=== PATIENT | male | born 1965 | race Two or more races ===

== ENCOUNTER 2020-01-01 21:50 | Inpatient (IN) | payer OTHER, BC ==
--- NOTE | 2020-01-01 22:50 | ER Document Report ---
ED General - General Chief Complaint: S/S of Possible Stroke Stated Complaint: DIZZINESS,VOMITING - HPI Notes: 84-year-old male history of hypertension, hyperlipidemia, diabetes, stroke (residual poor balance and memory) presents with approximately 12 hours of left- sided arm and leg weakness. Patient says he left [place] to drive to [place] this morning at 11 AM and was normal and while he was in the car he noticed he did not "feel well "and by the time he stopped for gas at unknown time he noticed his left side was weak. Patient says yes when asked if he is on "blood thinners," but then denies being on any of the anticoagulants and anti platelets I recited to him. Says he is on them for prior stroke. She also has felt exceptionally tired since onset of his drive which she says was abnormal for him. Since arriving to [place] he is also had dizziness and few episodes of emesis. Patient says earlier he felt like his speech was slurred but that has resolved. Patient denies change in vision, numbness, trauma, headache, chest pain, shortness of breath, prior episodes - Related Data Allergies/Adverse Reactions: No Known Allergies Allergy (Unverified 01/02/20 02:30) Past Medical History - General Information source: Patient - Social History Smoking Status: Former Smoker Family History: Reviewed & Not Pertinent Patient has homicidal ideation: No Review of Systems - Review of Systems Notes: REVIEW OF SYSTEMS: CONSTITUTIONAL : Denies fever, chills, or sweats. EENT: Denies recent cold/sinus symptoms, denies throat pain CARDIOVASCULAR: Denies chest pain, [place] RESPIRATORY: Denies cough, denies shortness of breath. GASTROINTESTINAL: Denies abdominal pain, +nausea/vomiting. GENITOURINARY: Denies difficulty urinating, painful urination. MUSCULOSKELETAL: Denies neck pain, back pain. SKIN: Denies rash or skin lesions. HEMATOLOGIC : Denies easy bruising or bleeding. LYMPHATIC: Denies swollen, enlarged glands. NEUROLOGICAL: Denies headache, +change in gait. PSYCHIATRIC: Denies anxiety or stress or depression. Physical Exam - Vital signs Vitals: Temp Pulse Resp BP Pulse Ox 97.7 F 78 18 152/95 H 100 01/01/20 22:24 01/01/20 22:24 01/01/20 22:24 01/01/20 22:24 01/01/20 22:24 - Notes Notes: PHYSICAL EXAMINATION: GENERAL: Middle aged adult male HEAD: Atraumatic, normocephalic. EYES: Pupils equal round and appropriate constriction, sclera anicteric, conjunctiva are normal. ENT: nares patent, moist mucous membranes. NECK: Normal range of motion, supple without lymphadenopathy LUNGS: Breath sounds clear to auscultation bilaterally and equal. No wheezes rales or rhonchi. HEART: Regular rate and rhythm without murmurs ABDOMEN: Soft, nontender, no guarding, no masses, no CVAT EXTREMITIES: Normal range of motion, no pitting or edema. No cyanosis. NEUROLOGICAL: Awake, alert, conversing appropriately, cranial nerves II through XII intact bilaterally, 5 out of 5 strength in right arm and right leg, left arm drifts without touching bed and left leg able to wiggle toes and move sideways but not able to move against gravity, [id number] normal bilaterally, no nystagmus PSYCH: Normal mood, normal affect. SKIN: Warm, Dry, normal turgor, no rashes or lesions noted. Course - Re-evaluation Re-evalutation: 01/02/20 00:52 Patient symptoms highly concerning for right MCA stroke, but patient outside of TPA window and no large vessel occlusion found on CTA which was performed to see if patient would be candidate for endovascular thrombectomy. Because of these findings have admitted patient to [facility] for further stroke work-up, discussed patient with Dr. Sahni who has accepted him. - Vital Signs Vital signs: Temp Pulse Resp BP Pulse Ox 97.8 F 102 H 20 153/95 H 99 01/02/20 03:44 01/02/20 04:00 01/02/20 04:00 01/02/20 04:00 01/02/20 04:00 - Laboratory Result Diagrams: 01/01/20 23:10 01/01/20 23:10 Laboratory results interpreted by me: 01/01/20 01/01/20 23:10 23:10 RBC 4.30 L Lander % (Auto) 2.1 L Seg Neutrophils % 82.5 H Sodium 136.6 L BUN 29 H Glucose 291 H - EKG Interpretation by Me Additional EKG results interpreted by me: 01/01/20 23:30 [address] elevations or depressions, right bundle branch block and LAFB, QTC 532 but has conduction delay Discharge - Discharge Clinical Impression: Stroke Qualifiers: CVA mechanism: unspecified Qualified Code(s): I63.9 - Cerebral infarction, unspecified Condition: Stable Disposition: ADMITTED INPATIENT Admitting Provider: Bora (Hospitalist) Unit Admitted: [facility]
[2020-01-01 23:21] LABS: ABSOLUTE BASOPHILS # (AUTO) 0.1 10^3/uL (0.0-0.2); ABSOLUTE LYMPHOCYTES (AUTO) 1.1 10^3/uL (0.5-4.7); ABSOLUTE MONOCYTES (AUTO) 0.2 10^3/uL (0.1-1.4); ABSOLUTE NEUT (AUTO) 6.1 10^3/uL (1.7-8.2); BASOPHILS % (AUTO) 0.7 % (0-2); EOSINOPHILS % (AUTO) 0.1 % (0-6); HEMATOCRIT 39.6 % (37.9-51.0); HEMOGLOBIN 13.8 g/dL (13.5-17.0); LYMPHOCYTES % (AUTO) 14.6 % (13-45); MEAN CORPUSCULAR HEMOGLOBIN 32.2 pg (27.0-33.4); MEAN CORPUSCULAR HGB CONC 34.9 g/dL (32.0-36.0); MEAN CORPUSCULAR VOLUME 92 fl (80-97); MONOCYTES % (AUTO) 2.1 % (3-13); PLATELET COUNT 185 10^3/uL (150-450); RED CELL DISTRIBUTION WIDTH 13.8 % (11.5-14.0); SEGMENTED NEUTROPHILS % (AUTO) 82.5 % (42-78); TOTAL CELLS COUNTED % (AUTO) 100 %; WHITE BLOOD COUNT 7.4 10^3/uL (4.0-10.5)
--- NOTE | 2020-01-01 23:28 | RADIOLOGY REPORT (SQ) ---
EXAM DESCRIPTION: XR CHEST 1 VIEW COMPLETED DATE/TME: 01/01/2020 22:43 CLINICAL HISTORY: 54 years, Male, left sided weakness COMPARISON: None. NUMBER OF VIEWS: 1 TECHNIQUE: Portable chest LIMITATIONS: None. FINDINGS: The heart size is normal. Lungs are clear. No pneumothorax IMPRESSION: Negative chest copyright 2011 [employer]- All Rights Reserved
[2020-01-01 23:37] LABS: INTERNATIONAL RATION (INR) 1.03; PROTHROMBIN TIME 13.5 SEC (11.4-15.4)
[2020-01-01 23:38] LABS: PARTIAL THROMBOPLASTIN TIME 26.4 SEC (23.5-35.8)
[2020-01-01 23:45] LABS: ALBUMIN 4.1 g/dL (3.5-5.0); ALKALINE PHOSPHATASE 70 U/L (38-126); ANION GAP 12 (5-19); ASPARTATE AMINO TRANSFERASE 31 U/L (17-59); BILIRUBIN,TOTAL 0.6 mg/dL (0.2-1.3); BLOOD UREA NITROGEN 29 mg/dL (7-20); CALCIUM 9.2 mg/dL (8.4-10.2); CARBON DIOXIDE 25 mmol/L (22-30); CHLORIDE 100 mmol/L (98-107); CREATINE KINASE 78 U/L (55-170); GLUCOSE 291 mg/dL (75-110); TOTAL PROTEIN 7.3 g/dL (6.3-8.2)
[2020-01-01 23:53] LABS: CREATINE KINASE MB 1.86 ng/mL (<4.55)
--- NOTE | 2020-01-01 23:53 | RADIOLOGY REPORT (SQ) ---
CT of the head: 01/01/2020 10:52 PM CDT HISTORY: 54-year-old patient with left-sided weakness. COMPARISON: None available TECHNIQUE: Multiple axial contiguous images were obtained through the head without intravenous contrast administered. This exam was performed according to our departmental dose-optimization program, which includes automated exposure control, adjustment of the mA and/or KV according to the patient's size and/or use of iterative reconstruction technique. FINDINGS: The ventricles are within normal limits for size. Both orbits appear unremarkable. The mastoid air cells appear clear. There is mild mucoperiosteal thickening of the ethmoid and maxillary sinuses. The calvarium is intact. No extra-axial fluid collection is seen. The bethea-white matter differentiation is within normal limits. No midline shift or mass effect is apparent. There are no findings to suggest acute intracranial hemorrhage. There is a hypodensity at the right cerebellum some volume loss, likely representing encephalomalacia. IMPRESSION: No acute intracranial hemorrhage is seen. There is a hypodensity with volume loss seen at the right cerebellum, most likely due to remote infarct. If there is persistent clinical concern for a neurologic deficit, consider MRI brain with diffusion-weighted sequences for further evaluation.
[2020-01-01 23:57] LABS: TROPONIN I < 0.012 ng/mL
--- NOTE | 2020-01-02 00:05 | RADIOLOGY REPORT (SQ) ---
CTA head and neck: Technique: Postcontrast imaging was obtained through the head and neck after intravenous contrast is administered utilizing a CTA protocol. MIP reconstructed sagittal and coronal images were also obtained. NASCET Criteria was utilized for evaluation of potential vascular stenosis in the neck. This exam was performed according to our departmental dose-optimization program, which includes automated exposure control, adjustment of the mA and/or KV according to the patient's size and/or use of iterative reconstruction technique. COMPARISON: None available HISTORY: 54-year-old patient with concern for an acute stroke. FINDINGS: CTA HEAD: No discrete filling defect is seen within the middle, anterior, and posterior cerebral arteries. The visualized vertebral arteries appear unremarkable. The carotid arteries appear to be well opacified. No obvious aneurysm or stenosis is readily apparent. The basilar artery and visualized portions of the posterior circulation appear unremarkable. CTA NECK: There is normal three-vessel aortic arch morphology. The brachiocephalic and proximal subclavian arteries are patent and normal in course and caliber. The common carotid arteries, carotid bulbs and proximal external carotid arteries are patent and normal in course and caliber. The cervical segments of the internal carotid arteries are patent and normal in course and caliber. The left vertebral artery is dominant. The vertebral arteries are patent and normal in course and caliber. IMPRESSION: No discrete filling defect, aneurysm, or obvious stenosis is seen within the anterior or posterior intracranial circulation. There are no findings to suggest a hemodynamically significant stenosis of the carotid arteries.
[2020-01-02] MEDS ORDERED: ONDANSETRON HCL INJ/PF 4 MG/2 ML SDV IV ONE (00:39)
[2020-01-02] MEDS ORDERED: GLUCAGON,HUMAN RECOMB 1 MG INJ IM PRN ×3 (00:51→12:35)
[2020-01-02] MEDS ORDERED: DEXTROSE 40% GEL 15 GM TUBE PO PRN ×6 (00:51→12:35)
[2020-01-02] MEDS ORDERED: DEXTROSE 50%-WATER 25 GM/50 ML DISP.SYRIN IV PRN ×6 (00:51→12:35)
[2020-01-02] MEDS ORDERED: DOCUSATE SODIUM 100 MG CAPSULE PO PRN (00:51)
[2020-01-02] MEDS ORDERED: MAGNESIUM HYDROXIDE SUSP 30 ML UDCUP PO PRN (00:51)
[2020-01-02] MEDS ORDERED: ASPIRIN 325 MG TABLET, ENT COATED PO ONE (02:45)
[2020-01-02] MEDS ORDERED: ATORVASTATIN CALCIUM 80 MG TABLET PO ONE (02:45)
--- NOTE | 2020-01-02 03:37 | PDOC H&P ---
History of Present Illness Admission Date/PCP: 01/02/20 01:03 Patient complains of: Left-sided weakness History of Present Illness: ABEBA MCLEOD is a 54 year old male with a past medical history of hypertension, diabetes, cerebellar CVA with residual balance deficits. Patient presents 12 hours after the onset of left-sided weakness occurring while driving from [place] to his business in [place]. He admits associated nausea and vomiting but denies headache palpitations confusion or slurred speech. He denies recent change in [id number] or prescribed medication regiment. His initial work-up was unremarkable for an acute event and is referred to the hospitalist for admission. Past Medical History Cardiac Medical History: Reports: Hyperlipidema, Hypertension Pulmonary Medical History: Denies: None EENT Medical History: Reports: None Neurological Medical History: Reports: Ischemic CVA Endocrine Medical History: Reports: Diabetes Mellitus Type 2 Renal/ Medical History: Reports: None Malignancy Medical History: Reports: None GI Medical History: Reports: None Musculoskeltal Medical History: Reports: None Skin Medical History: Reports: None Psychiatric Medical History: Reports: None Traumatic Medical History: Reports: None Hematology: Reports: None Infectious Medical History: Reports: None Past Surgical History Past Surgical History: Reports: None Social History Information Source: Patient, H Records Lives with: Family Smoking Status: Former Smoker Frequency of Alcohol Use: None Drugs: None - Advance Directive Resuscitation Status: Full Code Family History Family History: CAD, Hypertension Parental Family History Reviewed: Yes Children Family History Reviewed: Yes Sibling(s) Family History Reviewed.: Yes Medication/Allergy Allergies/Adverse Reactions: No Known Allergies Allergy (Unverified 01/02/20 02:30) Review of Systems Constitutional: PRESENT: as per HPI, weakness. ABSENT: fever(s), headache(s), night sweats Eyes: ABSENT: visual disturbances Ears: ABSENT: hearing changes Cardiovascular: ABSENT: chest pain, dyspnea on exertion, edema, orthropnea, palpitations Respiratory: ABSENT: cough, hemoptysis Gastrointestinal: ABSENT: abdominal pain, constipation, diarrhea, hematemesis, hematochezia, nausea, vomiting Genitourinary: ABSENT: dysuria, hematuria Musculoskeletal: PRESENT: as per HPI, muscle weakness. ABSENT: back pain, joint swelling Integumentary: ABSENT: rash, wounds Neurological: PRESENT: as per HPI, abnormal gait. ABSENT: abnormal movements, abnormal speech, confusion, dizziness Psychiatric: ABSENT: anxiety, depression, homidical ideation, suicidal ideation Endocrine: ABSENT: cold intolerance, heat intolerance, polydipsia, polyuria Hematologic/Lymphatic: ABSENT: easy bleeding, easy bruising Physical Exam Vital Signs: Temp Pulse Resp BP Pulse Ox 97.7 F 120 H 22 H 146/114 H 96 01/01/20 22:32 01/02/20 00:00 01/02/20 00:00 01/02/20 02:00 01/02/20 02:01 Intake & Output 12/31/19 01/01/20 01/02/20 11:59 11:59 11:59 Weight 78.471 kg General appearance: PRESENT: cooperative, mild distress, well-developed, well- nourished Head exam: PRESENT: atraumatic, normocephalic Eye exam: PRESENT: conjunctiva pink, EOMI, PERRLA. ABSENT: scleral icterus Ear exam: PRESENT: normal external ear exam Mouth exam: PRESENT: moist, tongue midline Neck exam: ABSENT: carotid bruit, JVD, lymphadenopathy, thyromegaly Respiratory exam: PRESENT: clear to auscultation aaron. ABSENT: rales, rhonchi, wheezes Cardiovascular exam: PRESENT: RRR. ABSENT: diastolic murmur, rubs, systolic murmur Pulses: PRESENT: normal dorsalis pedis pul Vascular exam: PRESENT: normal capillary refill GI/Abdominal exam: PRESENT: normal bowel sounds, soft. ABSENT: distended, guarding, mass, organolmegaly, rebound, tenderness Rectal exam: PRESENT: deferred Extremities exam: PRESENT: full ROM. ABSENT: calf tenderness, clubbing, pedal edema Musculoskeletal exam: PRESENT: other - 4+ of 5 left upper and lower extremity Neurological exam: PRESENT: alert, awake, oriented to person, oriented to place, oriented to time, oriented to situation, CN II-XII grossly intact, other - 4+ of 5 left upper and lower extremity. ABSENT: reflexes normal, motor sensory deficit Psychiatric exam: PRESENT: appropriate affect, normal mood. ABSENT: homicidal ideation, suicidal ideation Skin exam: PRESENT: dry, intact, warm. ABSENT: cyanosis, rash Results Laboratory Results: 01/01/20 23:10 01/01/20 23:10 01/01/20 01/01/20 23:10 23:10 WBC 7.4 RBC 4.30 L Hgb 13.8 Hct 39.6 MCV 92 MCH 32.2 MCHC 34.9 RDW 13.8 Plt Count 185 Seg Neutrophils % 82.5 H Sodium 136.6 L Potassium 5.0 Chloride 100 Carbon Dioxide 25 Anion Gap 12 BUN 29 H Creatinine 0.92 Est GFR ( Amer) > 60 Glucose 291 H Calcium 9.2 Total Bilirubin 0.6 AST 31 Alkaline Phosphatase 70 Total Protein 7.3 Albumin 4.1 01/01/20 01/01/20 23:10 23:10 Creatine Kinase 78 CK-MB (CK-2) 1.86 Troponin I < 0.012 Impressions: Head CT 01/01/20 00:00 IMPRESSION: No acute intracranial hemorrhage is seen. There is a hypodensity with volume loss seen at the right cerebellum, most likely due to remote infarct. If there is persistent clinical concern for a neurologic deficit, consider MRI brain with diffusion-weighted sequences for further evaluation. Chest X-Ray 01/01/20 22:43 IMPRESSION: Negative chest copyright 2011 [employer]- All Rights Reserved Head CTA 01/01/20 22:43 IMPRESSION: No discrete filling defect, aneurysm, or obvious stenosis is seen within the anterior or posterior intracranial circulation. There are no findings to suggest a hemodynamically significant stenosis of the carotid arteries. Neck CTA 01/01/20 22:43 IMPRESSION: No discrete filling defect, aneurysm, or obvious stenosis is seen within the anterior or posterior intracranial circulation. There are no findings to suggest a hemodynamically significant stenosis of the carotid arteries. Assessment and Plan - Diagnosis (1) Stroke Qualifiers: CVA mechanism: unspecified Qualified Code(s): I63.9 - Cerebral infarction, unspecified Is this a current diagnosis for this admission?: Yes Plan: CVA care set deployed, aspirin, statin ordered, follow-up MRI brain, 2D echo, physical Occupational Therapy. (2) Hypertension Is this a current diagnosis for this admission?: Yes Plan: Permissive hypertension, hydralazine as needed systolic pressure greater than 200, diastolic greater than 115. (3) Diabetes Is this a current diagnosis for this admission?: Yes Plan: Humalog sliding scale q. before meals, follow-up A1c (4) Dyslipidemia Is this a current diagnosis for this admission?: Yes Plan: Lipitor ordered, follow-up lipid profile - Time Time Spent with patient: 25-34 minutes - Inpatient Certification Medical Necessity: Need Close Monitoring Due to Risk of Patient Decompensation
[2020-01-02] MEDS ORDERED: HYDRALAZINE HCL INJ/PF 20 MG/1 ML SDV IV PRN (03:38)
[2020-01-02] MEDS: HEPARIN SOD (PORCINE) 5,000 UNIT/ML 1 ML VIAL SUBCUT SCH ×3 (06:16→22:21)
[2020-01-02 07:06] LABS: TRIGLYCERIDES 48 mg/dL (<150)
[2020-01-02 07:17] LABS: DIRECT LDL 63 mg/dL (<100)
--- NOTE | 2020-01-02 09:06 | RADIOLOGY REPORT (SQ) ---
EXAM DESCRIPTION: MRI HEAD WITHOUT IMAGES COMPLETED DATE/TIME: 01/02/2020 8:18 am REASON FOR STUDY: Left sided weakness COMPARISON: CT of the head without contrast from 01/01/2020 TECHNIQUE: Multiplanar imaging includes non-contrasted T1, T2, FLAIR, and diffusion with ADC map seq uences. Images stored on PACS. LIMITATIONS: None. FINDINGS: The sella turcica, craniocervical junction and corpus callosum are normal in appearance. There is an area of encephalomalacia and gliosis in the medial aspect of the right cerebellar hemisph ere consistent with a chronic infarct. On the DWI there is a focal area of restricted diffusion in the right paramedian medulla oblongata (i mage 6 of series 4) ; the infarct is in the vascular territory of branches from the basilar artery. The areas of high T2/FLAIR signal throughout the supratentorial periventricular and subcortical white matter likely represent the sequela of chronic microvascular ischemia. There is no acute intracranial hemorrhage, extra-axial fluid collection, mass effect or midline shift . The bethea-white matter differentiation outside the area of encephalomalacia and gliosis is preserve d. There is no effacement of the cerebral sulci or basal subarachnoid cisterns. The caliber of the ventricles is concordant with the degree of sulcation. The intracranial vascular flow voids are preserved. The intracranial segment of the right vertebral artery and the A1 segment of the right SYL are hypoplastic. The A2 segment of the right SYL is paten t and supplied via the anterior communicating artery. There is no susceptibility artifact on the gra dient sequence. The mucosal lining of the ethmoid air cells and maxillary sinuses is thickened. The globes and intra ocular structures are normal in appearance. There is no calvarial marrow signal abnormality. IMPRESSION: 1. Focal area of restricted diffusion in the right paramedian medulla oblongata (image 6 of series 4) ; the infarct is in the vascular territory of branches from the basilar artery. 2. Chronic right cerebellar infarct. EVIDENCE OF ACUTE STROKE: YES. As above. TECHNICAL DOCUMENTATION: JOB ID: [id number] [employer]- All Rights Reserved Reading location - IP/workstation name: [email or web address]
[2020-01-02] MEDS: ONDANSETRON HCL INJ/PF 4 MG/2 ML SDV IV PRN (09:22)
[2020-01-02] MEDS: INSULIN LISPRO 100 UNIT/ML 3 ML VIAL SUBCUT SCH ×4 (10:02→22:21)
--- NOTE | 2020-01-02 11:09 | EKG REPORT ---
SEVERITY:- ABNORMAL ECG - SINUS OR ECTOPIC ATRIAL RHYTHM RBBB AND LAFB : Confirmed by: Davida Myers MD 02-Jan-2020 11:08:38
--- NOTE | 2020-01-02 11:57 | XCELERA REPORT ---
[address] [address] Transthoracic Echocardiogram Report Name: ABEBA MCLEOD Age: 54 yrs Gender: Male : 1965 Patient Status: Inpatient Patient Location: [address] [place] [address] Study Date: 01/02/2020 08:43 AM Height: 63 in Weight: 173 lb BSA: 1.8 m2 Procedure: A two-dimensional transthoracic echocardiogram with color flow and Doppler was performed. Study Quality: Fair. Reason For Study: systolic murmur History: systolic murmur. Ordering Physician: SELVIN HAMMOND Performed By: Susan Sanchez Interpretation Summary The left ventricle is normal in size. There is borderline concentric left ventricular hypertrophy. LV EF is 60% to 65% Left ventricular systolic function is normal. Doppler measurements suggest pseudonormalized left ventricular relaxation, which is associated with grade II/IV or mild to moderate diastolic dysfunction The left ventricular wall motion is normal. There is no thrombus. Cannot assess ASD ,VSD , or PFO. The right ventricle is grossly normal size. The right ventricle is not well visualized secondary to technical limitations The right atrium is normal. The left atrial size is normal. There is no evidence of mitral valve prolapse. There is no vegetation seen on the mitral valve. There is no mitral valve stenosis. There is a trace amount of mitral regurgitation There is no aortic valvular vegetation. There is aortic sclerosis without aortic stenosis. There is no aortic valve stenosis There is no LVOT obstruction. There is a trace to mild amount of aortic regurgitation There is no tricuspid stenosis. There is a trace amount of tricuspid regurgitation RVSP is 26 to 31 mm of Hg , with RA mean f 5 to 10.No significant pulmonary hypertension. There is no pulmonic valvular stenosis. There is a trace amount of pulmonic regurgitation The aortic root is normal size. The inferior vena cava appeared normal and decreased > 50% with respiration (RAP 5-10 mmHg) There is no pericardial effusion. MMode/2D Measurements & Calculations RVDd: 1.9 cm LVIDd: 5.4 cm FS: 29.1 % Ao root diam: 3.2 cm IVSd: 1.2 cm LVIDs: 3.8 cm EDV(Teich): LVPWd: 1.0 cm 141.1 ml Ao root area: ESV(Teich): 63.0 ml8.2 cm2 EF(Teich): 55.3 % EDV(MOD-sp4): SV(MOD-sp4): 85.8 ml 22.5 ml ESV(MOD-sp4): 63.2 ml EF(MOD-sp4): 26.3 % Doppler Measurements & Calculations MV E max pepito: MV dec slope: Ao V2 max: AI max pepito: 73.1 cm/sec 106.2 cm/sec 399.0 cm/sec MV A max pepito: 606.4 cm/sec2 Ao max PG: AI max P.7 mmHg 112.0 cm/sec MV dec time: 4.5 mmHg AI dec slope: MV E/A: 0.65 0.12 sec 279.2 cm/sec2 AI P1/2t: 418.4 msec LV V1 max PG: PA V2 max: PI end-d pepito: TR max pepito: 3.9 mmHg 95.8 cm/sec 94.4 cm/sec 226.4 cm/sec LV V1 max: PA max P.7 mmHg TR max P.5 mmHg 99.2 cm/sec Left Ventricle The left ventricle is normal in size. There is borderline concentric left ventricular hypertrophy. LV EF is 60% to 65%. Left ventricular systolic function is normal. Doppler measurements suggest pseudonormalized left ventricular relaxation, which is associated with grade II/IV or mild to moderate diastolic dysfunction. The left ventricular wall motion is normal. There is no thrombus. Cannot assess ASD ,VSD , or PFO. Right Ventricle The right ventricle is grossly normal size. The right ventricle is not well visualized secondary to technical limitations. Atria The right atrium is normal. The left atrial size is normal. Mitral Valve There is no evidence of mitral valve prolapse. There is no vegetation seen on the mitral valve. There is no mitral valve stenosis. There is a trace amount of mitral regurgitation. Aortic Valve There is no aortic valvular vegetation. There is aortic sclerosis without aortic stenosis. There is no aortic valve stenosis. There is no LVOT obstruction. There is a trace to mild amount of aortic regurgitation. Tricuspid Valve There is no tricuspid stenosis. There is a trace amount of tricuspid regurgitation. RVSP is 26 to 31 mm of Hg , with RA mean f 5 to 10.No significant pulmonary hypertension. Pulmonic Valve There is no pulmonic valvular stenosis. There is a trace amount of pulmonic regurgitation. Great Vessels The aortic root is normal size. The inferior vena cava appeared normal and decreased > 50% with respiration (RAP 5-10 mmHg). Effusions There is no pericardial effusion. : SELVIN HAMMOND Lakshmi
[2020-01-02] MEDS ORDERED: INSULIN GLARGINE,HUM.REC.ANLOG 1,000 UNIT/10 ML VIAL SUBCUT SCH (22:00)
[2020-01-02] MEDS: ATORVASTATIN CALCIUM 80 MG TABLET PO SCH (22:21)
[2020-01-02] MEDS: INSULIN GLARGINE,HUM.REC.ANLOG 1,000 UNIT/10 ML VIAL SUBCUT SCH (22:22)
[2020-01-03] MEDS: HEPARIN SOD (PORCINE) 5,000 UNIT/ML 1 ML VIAL SUBCUT SCH ×3 (05:45→21:56)
[2020-01-03 06:46] LABS: ABSOLUTE BASOPHILS # (AUTO) 0.1 10^3/uL (0.0-0.2); ABSOLUTE EOSINOPHILS # (AUTO) 0.2 10^3/uL (0.0-0.6); ABSOLUTE LYMPHOCYTES (AUTO) 2.8 10^3/uL (0.5-4.7); ABSOLUTE MONOCYTES (AUTO) 0.8 10^3/uL (0.1-1.4); ABSOLUTE NEUT (AUTO) 8.4 10^3/uL (1.7-8.2); BASOPHILS % (AUTO) 0.8 % (0-2); EOSINOPHILS % (AUTO) 1.4 % (0-6); HEMATOCRIT 42.2 % (37.9-51.0); HEMOGLOBIN 14.3 g/dL (13.5-17.0); LYMPHOCYTES % (AUTO) 22.6 % (13-45); MEAN CORPUSCULAR VOLUME 91 fl (80-97); MONOCYTES % (AUTO) 6.5 % (3-13); PLATELET COUNT 189 10^3/uL (150-450); RED BLOOD COUNT 4.63 10^6/uL (4.35-5.55); RED CELL DISTRIBUTION WIDTH 13.5 % (11.5-14.0); SEGMENTED NEUTROPHILS % (AUTO) 68.7 % (42-78); TOTAL CELLS COUNTED % (AUTO) 100 %; WHITE BLOOD COUNT 12.2 10^3/uL (4.0-10.5)
[2020-01-03 07:06] LABS: ANION GAP 10 (5-19); BLOOD UREA NITROGEN 24 mg/dL (7-20); CALCIUM 8.9 mg/dL (8.4-10.2); CARBON DIOXIDE 25 mmol/L (22-30); CHLORIDE 103 mmol/L (98-107); GLUCOSE 134 mg/dL (75-110)
[2020-01-03] MEDS: INSULIN LISPRO 100 UNIT/ML 3 ML VIAL SUBCUT SCH ×4 (09:47→21:55)
--- NOTE | 2020-01-03 10:39 | PDOC PROGRESS REPORT ---
Subjective Progress Note for:: 01/03/20 Subjective:: ABEBA MCLEOD is a 54 year old male with a past medical history of hypertension, diabetes, cerebellar CVA with residual balance deficits. Patient presents 12 hours after the onset of left-sided weakness occurring while driving from [place] to his business in [place]. He admits associated nausea and vomiting but denies headache palpitations confusion or slurred speech. He denies recent change in [id number] or prescribed medication regiment. His initial work-up was unremarkable for an acute event and is referred to the hospitalist for admission. 01/03/2020. No acute events overnight. Patient still having persistent left upper and lower extremity flaccid paralysis, stating that he is feeling stronger, denies any changes compared to yesterday, denies any headache, nausea, vomiting, diarrhea, constipation or any urinary symptoms. Denies any chest pain or palpitation. Patient would like to be transitioned to acute rehab here at [facility]. Discharge planning has been consulted. Reason For Visit: CVA Physical Exam Vital Signs: Temp Pulse Resp BP Pulse Ox 98.3 F 98 20 169/89 H 95 01/03/20 03:05 01/03/20 04:00 01/03/20 04:00 01/03/20 04:00 01/03/20 04:00 Intake & Output 01/02/20 01/03/20 01/04/20 06:59 06:59 06:59 Output Total 0 Balance 0 Weight 81.8 kg 83.3 kg General appearance: PRESENT: no acute distress, well-developed, well-nourished Head exam: PRESENT: atraumatic, normocephalic Neck exam: ABSENT: carotid bruit, JVD, lymphadenopathy, thyromegaly Respiratory exam: PRESENT: clear to auscultation aaron. ABSENT: rales, rhonchi, wheezes Cardiovascular exam: PRESENT: RRR. ABSENT: diastolic murmur, rubs, systolic murmur Pulses: PRESENT: normal dorsalis pedis pul GI/Abdominal exam: PRESENT: normal bowel sounds, soft. ABSENT: distended, guarding, mass, organolmegaly, rebound, tenderness Extremities exam: PRESENT: full ROM. ABSENT: calf tenderness, clubbing, pedal edema Neurological exam: PRESENT: alert, awake, oriented to person, oriented to place, oriented to time, oriented to situation, reflexes normal, CN II-XII grossly intact, motor sensory deficit - Lt U/E 0/4 Skin exam: PRESENT: dry, intact, warm. ABSENT: cyanosis, rash Results Laboratory Results: 01/03/20 06:19 01/03/20 06:19 01/03/20 01/03/20 06:19 06:19 WBC 12.2 H RBC 4.63 Hgb 14.3 Hct 42.2 MCV 91 MCH 31.0 MCHC 34.0 RDW 13.5 Plt Count 189 Seg Neutrophils % 68.7 Sodium 137.8 Potassium 4.0 Chloride 103 Carbon Dioxide 25 Anion Gap 10 BUN 24 H Creatinine 0.87 Est GFR ( Amer) > 60 Glucose 134 H Calcium 8.9 01/01/20 01/01/20 23:10 23:10 Creatine Kinase 78 CK-MB (CK-2) 1.86 Troponin I < 0.012 Impressions: Head CT 01/01/20 00:00 IMPRESSION: No acute intracranial hemorrhage is seen. There is a hypodensity with volume loss seen at the right cerebellum, most likely due to remote infarct. If there is persistent clinical concern for a neurologic deficit, consider MRI brain with diffusion-weighted sequences for further evaluation. Chest X-Ray 01/01/20 22:43 IMPRESSION: Negative chest copyright 2011 [employer]- All Rights Reserved Head CTA 01/01/20 22:43 IMPRESSION: No discrete filling defect, aneurysm, or obvious stenosis is seen within the anterior or posterior intracranial circulation. There are no findings to suggest a hemodynamically significant stenosis of the carotid arteries. Neck CTA 01/01/20 22:43 IMPRESSION: No discrete filling defect, aneurysm, or obvious stenosis is seen within the anterior or posterior intracranial circulation. There are no findings to suggest a hemodynamically significant stenosis of the carotid arteries. Head MRI 01/02/20 00:00 IMPRESSION: 1. Focal area of restricted diffusion in the right paramedian medulla oblongata (image 6 of series 4) ; the infarct is in the vascular territory of branches from the basilar artery. 2. Chronic right cerebellar infarct. EVIDENCE OF ACUTE STROKE: YES. As above. Assessment and Plan - Diagnosis (1) Acute ischemic left PRACTICAL NURSE stroke Is this a current diagnosis for this admission?: Yes Plan: Acute nonhemorrhagic right paramedian medulla oblongata basilar artery territory stroke with left upper and lower extremity flaccid paralysis. MRI head: Focal area of restricted diffusion in the right paramedian medulla oblongata. Vascular territory of basilar artery. CTA Head/Neck: No discrete filling defect, aneurysm or obvious stenosis. No hemodynamically significant stenosis in the carotids. 2D echo: LVEF 60 to 65%. Cannot assess AC, VSD or PFO. No thrombus Continue telemetry, antiplatelets, DVT prophylaxis, high intensity statins, optimize BP, optimize blood glucose level. Continue PT ST OT. Monitor for falls, seizure and aspiration. Pending transition to acute rehab. (2) Diabetes Qualifiers: Diabetes mellitus type: type 2 Diabetes mellitus complication status: with circulatory complication Diabetes mellitus complication detail: with other circulatory complications Is this a current diagnosis for this admission?: Yes Plan: Controlled. Hemoglobin A1c 8.4%. Continue diabetic diet, sliding scale insulin, basal insulin, prandial insulin, Accu-Cheks hypoglycemia protocol. Transition to oral hypoglycemic upon discharge. Outpatient PCP follow-up. Diabetic education. (3) Dyslipidemia Is this a current diagnosis for this admission?: Yes Plan: ASCVD 8.5%. Continue high intensity statin. Monitor LFTs. Outpatient PCP follow-up. (4) Hypertension Qualifiers: Hypertension type: essential hypertension Qualified Code(s): I10 - Essential (primary) hypertension Is this a current diagnosis for this admission?: Yes Plan: Low-dose enalapril with a target SBP of 130 in the next 24 hours. Initially placed on permissive hypertension for the first 24 -48 hours. Monitor BP. Continue Avapro, as needed hydralazine. (5) History of cerebellar stroke Is this a current diagnosis for this admission?: Yes Plan: History of right cerebellar stroke. Plan as per 1.
[2020-01-03] MEDS ORDERED: ENALAPRIL MALEATE 2.5 MG TABLET PO SCH (11:00)
[2020-01-03] MEDS: ASPIRIN 325 MG TABLET, ENT COATED PO SCH (11:25)
[2020-01-03] MEDS ORDERED: METFORMIN HCL 500 MG TABLET PO SCH (16:00)
[2020-01-03] MEDS: ATORVASTATIN CALCIUM 80 MG TABLET PO SCH (21:55)
[2020-01-03] MEDS: INSULIN GLARGINE,HUM.REC.ANLOG 1,000 UNIT/10 ML VIAL SUBCUT SCH (21:56)
[2020-01-04] MEDS: HEPARIN SOD (PORCINE) 5,000 UNIT/ML 1 ML VIAL SUBCUT SCH ×3 (05:05→22:04)
[2020-01-04 07:03] LABS: ABSOLUTE BASOPHILS # (AUTO) 0.1 10^3/uL (0.0-0.2); ABSOLUTE EOSINOPHILS # (AUTO) 0.3 10^3/uL (0.0-0.6); ABSOLUTE LYMPHOCYTES (AUTO) 2.8 10^3/uL (0.5-4.7); ABSOLUTE MONOCYTES (AUTO) 0.8 10^3/uL (0.1-1.4); BASOPHILS % (AUTO) 0.9 % (0-2); EOSINOPHILS % (AUTO) 2.3 % (0-6); HEMATOCRIT 43.5 % (37.9-51.0); LYMPHOCYTES % (AUTO) 25.9 % (13-45); MEAN CORPUSCULAR HEMOGLOBIN 31.1 pg (27.0-33.4); MEAN CORPUSCULAR HGB CONC 34.4 g/dL (32.0-36.0); MEAN CORPUSCULAR VOLUME 91 fl (80-97); PLATELET COUNT 188 10^3/uL (150-450); RED BLOOD COUNT 4.81 10^6/uL (4.35-5.55); RED CELL DISTRIBUTION WIDTH 13.5 % (11.5-14.0); SEGMENTED NEUTROPHILS % (AUTO) 63.9 % (42-78); TOTAL CELLS COUNTED % (AUTO) 100 %; WHITE BLOOD COUNT 10.9 10^3/uL (4.0-10.5)
[2020-01-04 07:26] LABS: ANION GAP 8 (5-19); BLOOD UREA NITROGEN 20 mg/dL (7-20); CALCIUM 9.3 mg/dL (8.4-10.2); CARBON DIOXIDE 27 mmol/L (22-30); CHLORIDE 105 mmol/L (98-107); GLUCOSE 112 mg/dL (75-110); POTASSIUM 3.9 mmol/L (3.6-5.0)
[2020-01-04 07:39] LABS: FREE T4 (FREE THYROXINE) 1.68 ng/dL (0.78-2.19)
[2020-01-04 07:52] LABS: THYROID STIMULATING HORMONE 0.76 uIU/mL (0.47-4.68)
[2020-01-04] MEDS: INSULIN LISPRO 100 UNIT/ML 3 ML VIAL SUBCUT SCH ×4 (08:37→22:03)
[2020-01-04] MEDS: ACETAMINOPHEN 325 MG TABLET PO PRN ×2 (08:48→22:11)
[2020-01-04] MEDS ORDERED: ENALAPRIL MALEATE 5 MG TABLET PO SCH (10:00)
[2020-01-04] MEDS ORDERED: ENALAPRIL MALEATE 2.5 MG TABLET PO SCH (10:00)
[2020-01-04] MEDS: ASPIRIN 325 MG TABLET, ENT COATED PO SCH (10:11)
[2020-01-04] MEDS: METFORMIN HCL 500 MG TABLET PO SCH ×2 (10:11→16:54)
--- NOTE | 2020-01-04 10:24 | PDOC PROGRESS REPORT ---
Subjective Progress Note for:: 01/04/20 Subjective:: ABEBA MCLEOD is a 54 year old male with a past medical history of hypertension, diabetes, cerebellar CVA with residual balance deficits. Patient presents 12 hours after the onset of left-sided weakness occurring while driving from [place] to his business in [place]. He admits associated nausea and vomiting but denies headache palpitations confusion or slurred speech. He denies recent change in [id number] or prescribed medication regiment. His initial work-up was unremarkable for an acute event and is referred to the hospitalist for admission. 01/03/2020. No acute events overnight. Patient still having persistent left upper and lower extremity flaccid paralysis, stating that he is feeling stronger, denies any changes compared to yesterday, denies any headache, nausea, vomiting, diarrhea, constipation or any urinary symptoms. Denies any chest pain or palpitation. Patient would like to be transitioned to acute rehab here at [facility]. Discharge planning has been consulted. 01/04/2020. No acute events overnight. Patient still has persistent left upper and lower extremity flaccid paralysis, sensations are intact, denies any improvement in her symptoms, alert and oriented x3, cooperative with physical examination, denies any fever, chills, nausea, vomiting, diarrhea, constipation or any urinary symptoms. Complaining of frontal headache. Patient is pending transfer to rehab, Dr. Summers from rehab has been consulted. Pending recommendations. Reason For Visit: CVA Physical Exam Vital Signs: Temp Pulse Resp BP Pulse Ox 98.5 F 99 18 147/84 H 94 01/04/20 07:54 01/04/20 07:54 01/04/20 07:54 01/04/20 07:54 01/04/20 07:54 Intake & Output 01/03/20 01/04/20 01/05/20 06:59 06:59 06:59 Intake Total 720 Output Total 480 250 Balance 240 -250 Weight 83.3 kg 81.5 kg General appearance: PRESENT: obese Head exam: PRESENT: atraumatic, normocephalic Neck exam: ABSENT: carotid bruit, JVD, lymphadenopathy, thyromegaly Respiratory exam: PRESENT: clear to auscultation aaron. ABSENT: rales, rhonchi, wheezes Cardiovascular exam: PRESENT: RRR. ABSENT: diastolic murmur, rubs, systolic murmur GI/Abdominal exam: PRESENT: normal bowel sounds, soft. ABSENT: distended, guarding, mass, organolmegaly, rebound, tenderness Extremities exam: PRESENT: full ROM. ABSENT: calf tenderness, clubbing, pedal edema Neurological exam: PRESENT: alert, awake, oriented to person, oriented to place, oriented to time, oriented to situation, CN II-XII grossly intact, motor sensory deficit - Lt U/E 0/5 Results Laboratory Results: 01/04/20 06:09 01/04/20 06:09 01/04/20 01/04/20 01/04/20 06:09 06:09 06:09 WBC 10.9 H RBC 4.81 Hgb 15.0 Hct 43.5 MCV 91 MCH 31.1 MCHC 34.4 RDW 13.5 Plt Count 188 Seg Neutrophils % 63.9 Sodium 139.6 Potassium 3.9 Chloride 105 Carbon Dioxide 27 Anion Gap 8 BUN 20 Creatinine 0.89 Est GFR ( Amer) > 60 Glucose 112 H Calcium 9.3 TSH 0.76 Free T4 1.68 01/01/20 01/01/20 23:10 23:10 Creatine Kinase 78 CK-MB (CK-2) 1.86 Troponin I < 0.012 Impressions: Head CT 01/01/20 00:00 IMPRESSION: No acute intracranial hemorrhage is seen. There is a hypodensity with volume loss seen at the right cerebellum, most likely due to remote infarct. If there is persistent clinical concern for a neurologic deficit, consider MRI brain with diffusion-weighted sequences for further evaluation. Chest X-Ray 01/01/20 22:43 IMPRESSION: Negative chest copyright 2011 [employer]- All Rights Reserved Head CTA 01/01/20 22:43 IMPRESSION: No discrete filling defect, aneurysm, or obvious stenosis is seen within the anterior or posterior intracranial circulation. There are no findings to suggest a hemodynamically significant stenosis of the carotid arteries. Neck CTA 01/01/20 22:43 IMPRESSION: No discrete filling defect, aneurysm, or obvious stenosis is seen within the anterior or posterior intracranial circulation. There are no findings to suggest a hemodynamically significant stenosis of the carotid arteries. Head MRI 01/02/20 00:00 IMPRESSION: 1. Focal area of restricted diffusion in the right paramedian medulla oblongata (image 6 of series 4) ; the infarct is in the vascular territo ry of branches from the basilar artery. 2. Chronic right cerebellar infarct. EVIDENCE OF ACUTE STROKE: YES. As above. 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 MRI head: Focal area of restricted diffusion in the right paramedian medulla oblongata. Vascular territory of basilar artery. CTA Head/Neck: No discrete filling defect, aneurysm or obvious stenosis. No hemodynamically significant stenosis in the carotids. 2D echo: LVEF 60 to 65%. Cannot assess AC, VSD or PFO. No thrombus Continue telemetry, antiplatelets, DVT prophylaxis, high intensity statins, optimize BP, optimize blood glucose level. Continue PT ST OT. Monitor for falls, seizure and aspiration. Dr. Summers from rehab has been consulted. Pending recommendation. Pending transition to acute rehab. (2) Diabetes Qualifiers: Diabetes mellitus type: type 2 Diabetes mellitus complication status: with circulatory complication Diabetes mellitus complication detail: with other circulatory complications Is this a current diagnosis for this admission?: Yes Plan: Controlled. Hemoglobin A1c 8.4%. Continue diabetic diet, sliding scale insulin, basal insulin, prandial insulin, Accu-Cheks hypoglycemia protocol. Transition to oral hypoglycemic upon discharge. Outpatient PCP follow-up. Diabetic education. (3) Dyslipidemia Is this a current diagnosis for this admission?: Yes Plan: ASCVD 8.5%. Continue high intensity statin. Monitor LFTs. Outpatient PCP follow-up. (4) Hypertension Qualifiers: Hypertension type: essential hypertension Qualified Code(s): I10 - Essential (primary) hypertension Is this a current diagnosis for this admission?: Yes Plan: Improving. Not optimized. Increase enalapril to 5 mg p.o. daily. Initially placed on permissive hypertension for the first 24 -48 hours. Monitor BP. Adjust meds as needed. (5) History of cerebellar stroke Is this a current diagnosis for this admission?: Yes Plan: History of right cerebellar stroke. Plan as per 1. (6) Obesity (BMI 30.0-34.9) Is this a current diagnosis for this admission?: Yes Plan: BMI 33.9. Thyroid function WNL. Diet and lifestyle modification recommended.
[2020-01-04] MEDS ORDERED: KETOROLAC TROMETHAMINE INJ/PF 30 MG/1 ML SDV IV ONE (11:15)
--- NOTE | 2020-01-04 16:16 | PDOC CONSULTATION ---
Consultation-Blank Consultation: Physical Medicine & Rehabilitation Progress Note Consultation request received and appreciated. Chart reviewed and case discussed with patients acute care therapist and assortment planner. 54-year-old right-handed male admitted to [facility] on 01/02/2020 after presenting with left-sided weakness that started 12 hours prior to presentation while driving from [place] to his business in [place], [place]. He was ultimately found to have an acute infarct in the right paramedian medulla oblongata as well as a chronic right cerebellar infarct. He was admitted for complete stroke workup, which has thus far revealed no stenosis, aneurysm, or filling defect in the anterior or posterior intracranial circulation and no hemodynamically significant carotid stenosis on CT angiogram of the head and neck as well as hemoglobin A1c of 8.4%, total cholesterol of 122.6, and LDL of 63. Echocardiogram demonstrated LVEF of 60-65% with no thrombus noted. The patient is now on aspirin 325 mg daily and atorvastatin 80 mg daily at bedtime for secondary stroke prophylaxis. His medical comorbidities are also being managed by internal medicine. He is evaluated by acute care physical therapy and occupational therapy, and he currently requires minimum assistance of one to 2 people for bed mobility and moderate to maximum assistance of 2 people for transfers. He was also evaluated by speech therapy, and he is calmly recommended a regular solids with thin liquids diet. At baseline, the patient was independent with all mobility and ADL tasks. His disposition is in question. 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 Discussion with the assortment planner yields that the patients family lives in [place]. Based on the patient's diagnosis, medical co-morbidities, and current functional status, he is a good candidate for acute inpatient rehabilitation as he would benefit from 3 hours per day of intensive therapies in at least 2 disciplines under the close medical supervision of a physician. However, the patient is not an appropriate candidate for a [facility] acute inpatient rehabilitation due to lack of family support in the area. The patient will require assistance with mobility and ADL tasks in the future, and his family will require training prior to the patients discharge home with them. Therefore, the patient would ideally complete his rehabilitation course near his family's home. Rehabilitation recommendation: Acute inpatient rehabilitation at a facility near the patients familys home in [place].
[2020-01-04] MEDS: INSULIN GLARGINE,HUM.REC.ANLOG 1,000 UNIT/10 ML VIAL SUBCUT SCH (22:01)
[2020-01-04] MEDS: ATORVASTATIN CALCIUM 80 MG TABLET PO SCH (22:01)
[2020-01-05] MEDS: HEPARIN SOD (PORCINE) 5,000 UNIT/ML 1 ML VIAL SUBCUT SCH ×3 (06:29→22:05)
[2020-01-05] MEDS ORDERED: METOPROLOL TARTRATE PF/INJ 5 MG/5 ML SDV IV PRN (07:41)
[2020-01-05] MEDS: INSULIN LISPRO 100 UNIT/ML 3 ML VIAL SUBCUT SCH ×4 (08:35→22:06)
[2020-01-05] MEDS: METFORMIN HCL 500 MG TABLET PO SCH ×2 (09:35→17:30)
[2020-01-05] MEDS: ASPIRIN 325 MG TABLET, ENT COATED PO SCH (09:35)
[2020-01-05] MEDS ORDERED: ENALAPRIL MALEATE 5 MG TABLET PO SCH (10:00)
--- NOTE | 2020-01-05 10:02 | PDOC PROGRESS REPORT ---
Subjective Progress Note for:: 01/05/20 Subjective:: ABEBA MCLEOD is a 54 year old male with a past medical history of hypertension, diabetes, cerebellar CVA with residual balance deficits. Patient presents 12 hours after the onset of left-sided weakness occurring while driving from [place] to his business in [place]. He admits associated nausea and vomiting but denies headache palpitations confusion or slurred speech. He denies recent change in wauk-lch-jhofuzy or prescribed medication regiment. His initial work-up was unremarkable for an acute event and is referred to the hospitalist for admission. 01/03/2020. No acute events overnight. Patient still having persistent left upper and lower extremity flaccid paralysis, stating that he is feeling stronger, denies any changes compared to yesterday, denies any headache, nausea, vomiting, diarrhea, constipation or any urinary symptoms. Denies any chest pain or palpitation. Patient would like to be transitioned to acute rehab here at [facility]. Discharge planning has been consulted. 01/04/2020. No acute events overnight. Patient still has persistent left upper and lower extremity flaccid paralysis, sensations are intact, denies any improvement in her symptoms, alert and oriented x3, cooperative with physical examination, denies any fever, chills, nausea, vomiting, diarrhea, constipation or any urinary symptoms. Complaining of frontal headache. Patient is pending transfer to rehab, Dr. Summers from rehab has been consulted. Pending recommendations. 01/05/2020. No acute events overnight. Patient reporting mild improvement of sensation in his left upper and lower extremity, otherwise no acute changes, headache has resolved, denies any shortness of breath, chills, nausea, vomiting, chest pain, diarrhea, constipation or any urinary symptoms. Dr. Summers for rehab was consulted and he prefers for patient to be going to rehab where he gets to have some good family support. Had a conversation with family and patient and he would like to transition patient care to acute rehab and [place] where his family is staying. Reason For Visit: CVA Physical Exam Vital Signs: Temp Pulse Resp BP Pulse Ox 98.1 F 103 H 18 170/98 H 94 01/05/20 08:14 01/05/20 08:14 01/05/20 08:14 01/05/20 08:14 01/05/20 08:14 Intake & Output 01/04/20 01/05/20 01/06/20 06:59 06:59 06:59 Intake Total 720 336 Output Total 480 1075 Balance 240 -739 Weight 81.5 kg 79.9 kg General appearance: PRESENT: no acute distress, well-developed, well-nourished Head exam: PRESENT: atraumatic, normocephalic Respiratory exam: PRESENT: clear to auscultation aaron. ABSENT: rales, rhonchi, wheezes Cardiovascular exam: PRESENT: RRR. ABSENT: diastolic murmur, rubs, systolic murmur Extremities exam: PRESENT: full ROM. ABSENT: calf tenderness, clubbing, pedal edema Neurological exam: PRESENT: alert, awake, oriented to person, oriented to place, oriented to time, oriented to situation, CN II-XII grossly intact, motor sensory deficit - L/R U/E 0/5 Skin exam: PRESENT: dry, intact, warm. ABSENT: cyanosis, rash Results Laboratory Results: 01/04/20 06:01/04/20 06:09 01/01/20 01/01/20 23:10 23:10 Creatine Kinase 78 CK-MB (CK-2) 1.86 Troponin I < 0.012 Impressions: Head CT 01/01/20 00:00 IMPRESSION: No acute intracranial hemorrhage is seen. There is a hypodensity with volume loss seen at the right cerebellum, most likely due to remote infarct. If there is persistent clinical concern for a neurologic deficit, consider MRI brain with diffusion-weighted sequences for further evaluation. Chest X-Ray 01/01/20 22:43 IMPRESSION: Negative chest copyright 2011 [employer]- All Rights Reserved Head CTA 01/01/20 22:43 IMPRESSION: No discrete filling defect, aneurysm, or obvious stenosis is seen within the anterior or posterior intracranial circulation. There are no findings to suggest a hemodynamically significant stenosis of the carotid arteries. Neck CTA 01/01/20 22:43 IMPRESSION: No discrete filling defect, aneurysm, or obvious stenosis is seen within the anterior or posterior intracranial circulation. There are no findings to suggest a hemodynamically significant stenosis of the carotid arteries. Head MRI 01/02/20 00:00 IMPRESSION: 1. Focal area of restricted diffusion in the right paramedian medulla oblongata (image 6 of series 4) ; the infarct is in the vascular territory of branches from the basilar artery. 2. Chronic right cerebellar infarct. EVIDENCE OF ACUTE STROKE: YES. As above. 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 MRI head: Focal area of restricted diffusion in the right paramedian medulla oblongata. Vascular territory of basilar artery. CTA Head/Neck: No discrete filling defect, aneurysm or obvious stenosis. No hemodynamically significant stenosis in the carotids. 2D echo: LVEF 60 to 65%. Cannot assess AC, VSD or PFO. No thrombus Continue telemetry, antiplatelets, DVT prophylaxis, high intensity statins, optimize BP, optimize blood glucose level. Continue PT ST OT. Monitor for falls, seizure and aspiration. Dr. Summers from rehab has been consulted and he prefers for patient to be sent to rehab at his hometown where he has good family support. Discharge planning has been consulted and patient would like to be transferred to [facility] rehab at [facility]. (2) Diabetes Qualifiers: Diabetes mellitus type: type 2 Diabetes mellitus complication status: with circulatory complication Diabetes mellitus complication detail: with other circulatory complications Is this a current diagnosis for this admission?: Yes Plan: Controlled. Hemoglobin A1c 8.4%. Continue diabetic diet, sliding scale insulin, basal insulin, prandial insulin, Accu-Cheks hypoglycemia protocol. Transition to oral hypoglycemic upon discharge. Outpatient PCP follow-up. Diabetic education. (3) Dyslipidemia Is this a current diagnosis for this admission?: Yes Plan: ASCVD 8.5%. Continue high intensity statin. Monitor LFTs. Outpatient PCP follow-up. (4) Hypertension Qualifiers: Hypertension type: essential hypertension Qualified Code(s): I10 - Essential (primary) hypertension Is this a current diagnosis for this admission?: Yes Plan: Improving. Not optimized. Increase enalapril to 10 mg p.o. daily. Initially placed on permissive hypertension for the first 24 -48 hours. Monitor BP. Adjust meds as needed. (5) History of cerebellar stroke Is this a current diagnosis for this admission?: Yes Plan: History of right cerebellar stroke. Plan as per 1. (6) Obesity (BMI 30.0-34.9) Is this a current diagnosis for this admission?: Yes Plan: BMI 33.9. Thyroid function WNL. Diet and lifestyle modification recommended.
[2020-01-05] MEDS: ACETAMINOPHEN 325 MG TABLET PO PRN ×2 (12:22→20:04)
[2020-01-05] MEDS: INSULIN GLARGINE,HUM.REC.ANLOG 1,000 UNIT/10 ML VIAL SUBCUT SCH (22:05)
[2020-01-05] MEDS: ATORVASTATIN CALCIUM 80 MG TABLET PO SCH (22:06)
[2020-01-05] MEDS ORDERED: KETOROLAC TROMETHAMINE INJ/PF 30 MG/1 ML SDV IV PRN (23:30)
[2020-01-06] MEDS: HEPARIN SOD (PORCINE) 5,000 UNIT/ML 1 ML VIAL SUBCUT SCH ×3 (06:51→22:01)
[2020-01-06] MEDS: INSULIN LISPRO 100 UNIT/ML 3 ML VIAL SUBCUT SCH ×4 (08:37→22:03)
[2020-01-06] MEDS: METFORMIN HCL 500 MG TABLET PO SCH ×2 (08:51→15:05)
[2020-01-06] MEDS: KETOROLAC TROMETHAMINE INJ/PF 30 MG/1 ML SDV IV PRN ×3 (08:51→22:41)
--- NOTE | 2020-01-06 09:38 | PDOC PROGRESS REPORT ---
Subjective Progress Note for:: 01/06/20 Subjective:: ABEBA MCLEOD is a 54 year old male with a past medical history of hypertension, diabetes, cerebellar CVA with residual balance deficits. Patient presents 12 hours after the onset of left-sided weakness occurring while driving from [place] to his business in [place]. He admits associated nausea and vomiting but denies headache palpitations confusion or slurred speech. He denies recent change in [id number] or prescribed medication regiment. His initial work-up was unremarkable for an acute event and is referred to the hospitalist for admission. 01/03/2020. No acute events overnight. Patient still having persistent left upper and lower extremity flaccid paralysis, stating that he is feeling stronger, denies any changes compared to yesterday, denies any headache, nausea, vomiting, diarrhea, constipation or any urinary symptoms. Denies any chest pain or palpitation. Patient would like to be transitioned to acute rehab here at [facility]. Discharge planning has been consulted. 01/04/2020. No acute events overnight. Patient still has persistent left upper and lower extremity flaccid paralysis, sensations are intact, denies any improvement in her symptoms, alert and oriented x3, cooperative with physical examination, denies any fever, chills, nausea, vomiting, diarrhea, constipation or any urinary symptoms. Complaining of frontal headache. Patient is pending transfer to rehab, Dr. Summers from rehab has been consulted. Pending recommendations. 01/05/2020. No acute events overnight. Patient reporting mild improvement of sensation in his left upper and lower extremity, otherwise no acute changes, headache has resolved, denies any shortness of breath, chills, nausea, vomiting, chest pain, diarrhea, constipation or any urinary symptoms. Dr. Summers for rehab was consulted and he prefers for patient to be going to rehab where he gets to have some good family support. Had a conversation with family and patient and he would like to transition patient care to acute rehab and [place] where his family is staying. 01/06/2020. No acute events overnight. Complaining of frontal headache otherwise no complaints, reporting a mild improvement of sensation in the left upper and lower extremity, denies any fever, chills, chest pain, nausea, shortness of breath, diarrhea, constipation or any urinary symptoms. Patient is pending transfer to inpatient rehab at [place] most likely tomorrow. Reason For Visit: CVA Physical Exam Vital Signs: Temp Pulse Resp BP Pulse Ox 97.6 F 92 19 154/92 H 97 01/06/20 08:05 01/06/20 08:05 01/06/20 08:05 01/06/20 08:05 01/06/20 08:05 Intake & Output 01/05/20 01/06/20 01/07/20 06:59 06:59 06:59 Intake Total 336 1000 Output Total 1075 1070 Balance -739 -70 Weight 79.9 kg 80.8 kg General appearance: PRESENT: no acute distress, obese, well-developed, well- nourished Head exam: PRESENT: atraumatic, normocephalic Respiratory exam: PRESENT: clear to auscultation aaron. ABSENT: rales, rhonchi, wheezes Cardiovascular exam: PRESENT: RRR. ABSENT: diastolic murmur, rubs, systolic murmur GI/Abdominal exam: PRESENT: normal bowel sounds, soft. ABSENT: distended, guarding, mass, organolmegaly, rebound, tenderness Neurological exam: PRESENT: alert, awake, oriented to person, oriented to place, oriented to time, oriented to situation, CN II-XII grossly intact, motor sensory deficit - Lt U/L 0/5 Skin exam: PRESENT: dry, intact, warm. ABSENT: cyanosis, rash Results Laboratory Results: 01/04/20 06:09 01/04/20 06:09 01/01/20 01/01/20 23:10 23:10 Creatine Kinase 78 CK-MB (CK-2) 1.86 Troponin I < 0.012 Impressions: Head CT 01/01/20 00:00 IMPRESSION: No acute intracranial hemorrhage is seen. There is a hypodensity with volume loss seen at the right cerebellum, most likely due to remote infarct. If there is persistent clinical concern for a neurologic deficit, consider MRI brain with diffusion-weighted sequences for further evaluation. Chest X-Ray 01/01/20 22:43 IMPRESSION: Negative chest copyright 2011 [employer]- All Rights Reserved Head CTA 01/01/20 22:43 IMPRESSION: No discrete filling defect, aneurysm, or obvious stenosis is seen within the anterior or posterior intracranial circulation. There are no findings to suggest a hemodynamically significant stenosis of the carotid arteries. Neck CTA 01/01/20 22:43 IMPRESSION: No discrete filling defect, aneurysm, or obvious stenosis is seen within the anterior or posterior intracranial circulation. There are no findings to suggest a hemodynamically significant stenosis of the carotid arteries. Head MRI 01/02/20 00:00 IMPRESSION: 1. Focal area of restricted diffusion in the right paramedian medulla oblongata (image 6 of series 4) ; the infarct is in the vascular territory of branches from the basilar artery. 2. Chronic right cerebellar infarct. EVIDENCE OF ACUTE STROKE: YES. As above. 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 MRI head: Focal area of restricted diffusion in the right paramedian medulla oblongata. Vascular territory of basilar artery. CTA Head/Neck: No discrete filling defect, aneurysm or obvious stenosis. No hemodynamically significant stenosis in the carotids. 2D echo: LVEF 60 to 65%. Cannot assess AC, VSD or PFO. No thrombus Continue telemetry, antiplatelets, DVT prophylaxis, high intensity statins, optimize BP, optimize blood glucose level. Continue PT ST OT. Monitor for falls, seizure and aspiration. Dr. Summers from rehab has been consulted and he prefers for patient to be sent to rehab at his hometown where he has good family support. Discharge planning has been consulted and patient would like to be transferred to [facility] rehab at [facility]. (2) Diabetes Qualifiers: Diabetes mellitus type: type 2 Diabetes mellitus complication status: with circulatory complication Diabetes mellitus complication detail: with other circulatory complications Is this a current diagnosis for this admission?: Yes Plan: Controlled. Hemoglobin A1c 8.4%. Continue diabetic diet, sliding scale insulin, basal insulin, prandial insulin, Accu-Cheks hypoglycemia protocol. Transition to oral hypoglycemic upon discharge. Outpatient PCP follow-up. Diabetic education. (3) Dyslipidemia Is this a current diagnosis for this admission?: Yes Plan: ASCVD 8.5%. Continue high intensity statin. Monitor LFTs. Outpatient PCP follow-up. (4) Hypertension Qualifiers: Hypertension type: essential hypertension Qualified Code(s): I10 - Essential (primary) hypertension Is this a current diagnosis for this admission?: Yes Plan: Improving. Not optimized. Increase enalapril to 20 mg p.o. daily. Initially placed on permissive hypertension for the first 24 -48 hours. Monitor BP. Adjust meds as needed. (5) History of cerebellar stroke Is this a current diagnosis for this admission?: Yes Plan: History of right cerebellar stroke. Plan as per 1. (6) Obesity (BMI 30.0-34.9) Is this a current diagnosis for this admission?: Yes Plan: BMI 33.9. Thyroid function WNL. Diet and lifestyle modification recommended.
[2020-01-06] MEDS ORDERED: ENALAPRIL MALEATE 5 MG TABLET PO SCH (10:00)
[2020-01-06] MEDS: ONDANSETRON HCL INJ/PF 4 MG/2 ML SDV IV PRN (10:09)
[2020-01-06] MEDS: ASPIRIN 325 MG TABLET, ENT COATED PO SCH (10:09)
[2020-01-06] MEDS: ENALAPRIL MALEATE 10 MG TABLET PO SCH (10:09)
[2020-01-06] MEDS: INSULIN GLARGINE,HUM.REC.ANLOG 1,000 UNIT/10 ML VIAL SUBCUT SCH (22:01)
[2020-01-06] MEDS: ATORVASTATIN CALCIUM 80 MG TABLET PO SCH (22:01)
[2020-01-07] MEDS: HEPARIN SOD (PORCINE) 5,000 UNIT/ML 1 ML VIAL SUBCUT SCH ×3 (06:53→21:49)
[2020-01-07] MEDS: INSULIN LISPRO 100 UNIT/ML 3 ML VIAL SUBCUT SCH ×4 (08:14→21:44)
[2020-01-07] MEDS: ENALAPRIL MALEATE 10 MG TABLET PO SCH (09:16)
[2020-01-07] MEDS: ASPIRIN 325 MG TABLET, ENT COATED PO SCH (09:16)
[2020-01-07] MEDS: METFORMIN HCL 500 MG TABLET PO SCH ×2 (09:16→15:19)
[2020-01-07] MEDS: ONDANSETRON HCL INJ/PF 4 MG/2 ML SDV IV PRN (11:27)
--- NOTE | 2020-01-07 15:25 | PDOC PROGRESS REPORT ---
Subjective Progress Note for:: 01/07/20 Subjective:: ABEBA MCLEOD is a 54 year old male with a past medical history of hypertension, diabetes, cerebellar CVA with residual balance deficits who was admitted 01/02/20 for acute CVA. Patient was seen on morning rounds. He is found sitting upright to the recliner, comfortably, on room air. He reports improved sensation and movement to his left side; he is noted to have small movements to his left hand, however, remains profoundly flaccid to his left foot. He does report increased sensation; though it appeared that he did not have sensation to LLE during distracted exam. Otherwise, he states he is feeling well. Denies further headaches. Looking forward to d/c to Acute Rehab once bed offer is received. Reason For Visit: CVA Physical Exam Vital Signs: Temp Pulse Resp BP Pulse Ox 97.9 F 93 17 145/87 H 97 01/07/20 07:33 01/07/20 07:33 01/07/20 07:33 01/07/20 07:33 01/07/20 07:33 Intake & Output 01/06/20 01/07/20 01/08/20 06:59 06:59 06:59 Intake Total 1000 750 Output Total 1070 400 Balance -70 350 Weight 80.8 kg 81.4 kg 81.4 kg General appearance: PRESENT: no acute distress, cooperative, obese, well- developed, well-nourished Head exam: PRESENT: atraumatic, normocephalic Eye exam: PRESENT: conjunctiva pink, EOMI, PERRLA. ABSENT: scleral icterus Mouth exam: PRESENT: moist, tongue midline Neck exam: ABSENT: carotid bruit, full ROM, JVD, lymphadenopathy, meningismus, tenderness, thyromegaly, tracheal deviation, tracheostomy, other Respiratory exam: PRESENT: clear to auscultation aaron, symmetrical, unlabored. ABSENT: rales, rhonchi, wheezes Cardiovascular exam: PRESENT: RRR, +S1, +S2. ABSENT: diastolic murmur, rubs, systolic murmur Pulses: PRESENT: normal dorsalis pedis pul Vascular exam: PRESENT: normal capillary refill Extremities exam: ABSENT: calf tenderness, clubbing, pedal edema Neurological exam: PRESENT: alert, awake, oriented to person, oriented to place, oriented to time, oriented to situation, CN II-XII grossly intact, other - LUE 1/5, LLE 0/5. ABSENT: motor sensory deficit Psychiatric exam: PRESENT: appropriate affect, normal mood. ABSENT: homicidal ideation, suicidal ideation Skin exam: PRESENT: dry, intact, warm. ABSENT: cyanosis, rash Results Laboratory Results: 01/04/20 06:09 01/04/20 06:09 01/01/20 01/01/20 23:10 23:10 Creatine Kinase 78 CK-MB (CK-2) 1.86 Troponin I < 0.012 Impressions: Head CT 01/01/20 00:00 IMPRESSION: No acute intracranial hemorrhage is seen. There is a hypodensity with volume loss seen at the right cerebellum, most likely due to remote infarct. If there is persistent clinical concern for a neurologic deficit, consider MRI brain with diffusion-weighted sequences for further evaluation. Chest X-Ray 01/01/20 22:43 IMPRESSION: Negative chest copyright 2011 [employer]- All Rights Reserved Head CTA 01/01/20 22:43 IMPRESSION: No discrete filling defect, aneurysm, or obvious stenosis is seen within the anterior or posterior intracranial circulation. There are no findings to suggest a hemodynamically significant stenosis of the carotid arteries. Neck CTA 01/01/20 22:43 IMPRESSION: No discrete filling defect, aneurysm, or obvious stenosis is seen within the anterior or posterior intracranial circulation. There are no findings to suggest a hemodynamically significant stenosis of the carotid arteries. Head MRI 01/02/20 00:00 IMPRESSION: 1. Focal area of restricted diffusion in the right paramedian medulla oblongata (image 6 of series 4) ; the infarct is in the vascular terr itory of branches from the basilar artery. 2. Chronic right cerebellar infarct. EVIDENCE OF ACUTE STROKE: YES. As above. 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 MRI head: Focal area of restricted diffusion in the right paramedian medulla oblongata. Vascular territory of basilar artery. CTA Head/Neck: No discrete filling defect, aneurysm or obvious stenosis. No hemodynamically significant stenosis in the carotids. 2D echo: LVEF 60 to 65%. Cannot assess AC, VSD or PFO. No thrombus Continue telemetry, antiplatelets, DVT prophylaxis, high intensity statins, optimize BP, optimize blood glucose level. Continue PT ST OT. Monitor for falls, seizure and aspiration. Dr. Summers from rehab has been consulted and he prefers for patient to be sent to rehab at his hometown where he has good family support. Discharge planning has been consulted; awaiting placement/bed offer. (2) Diabetes Qualifiers: Diabetes mellitus type: type 2 Diabetes mellitus complication status: with circulatory complication Diabetes mellitus complication detail: with other circulatory complications Is this a current diagnosis for this admission?: Yes Plan: Controlled. Hemoglobin A1c 8.4%. Continue diabetic diet, sliding scale insulin, basal insulin, prandial insulin, Accu-Cheks hypoglycemia protocol. Transition to oral hypoglycemic upon discharge. Diabetic education. Outpatient PCP follow-up. (3) Dyslipidemia Is this a current diagnosis for this admission?: Yes Plan: ASCVD 8.5%. Continue high intensity statin. Monitor LFTs. Outpatient PCP follow-up. (4) Hypertension Qualifiers: Hypertension type: essential hypertension Qualified Code(s): I10 - Essential (primary) hypertension Is this a current diagnosis for this admission?: Yes Plan: Improving. Not optimized. Continue enalapril to 20 mg p.o. daily. Consider HCTZ and/or Amlodipine if remains elevated tomorrow. Initially placed on permissive hypertension for the first 24 -48 hours. Monitor BP. Adjust meds as needed. (5) Obesity (BMI 30.0-34.9) Is this a current diagnosis for this admission?: Yes Plan: BMI 33.9. Thyroid function WNL. Diet and lifestyle modification recommended. (6) History of cerebellar stroke Is this a current diagnosis for this admission?: Yes Plan: History of right cerebellar stroke. Plan as per #1. - Time Time Spent with patient: 25-34 minutes Medications reviewed and adjusted accordingly: Yes Anticipated discharge: Acute Rehab Within: when bed available
[2020-01-07] MEDS: ACETAMINOPHEN 325 MG TABLET PO PRN (21:42)
[2020-01-07] MEDS: ATORVASTATIN CALCIUM 80 MG TABLET PO SCH (21:43)
[2020-01-07] MEDS: INSULIN GLARGINE,HUM.REC.ANLOG 1,000 UNIT/10 ML VIAL SUBCUT SCH (21:45)
[2020-01-08] MEDS: HEPARIN SOD (PORCINE) 5,000 UNIT/ML 1 ML VIAL SUBCUT SCH ×3 (05:58→21:34)
[2020-01-08] MEDS: INSULIN LISPRO 100 UNIT/ML 3 ML VIAL SUBCUT SCH ×4 (08:10→21:33)
[2020-01-08] MEDS: ASPIRIN 325 MG TABLET, ENT COATED PO SCH (10:50)
[2020-01-08] MEDS: ENALAPRIL MALEATE 10 MG TABLET PO SCH (10:50)
[2020-01-08] MEDS: METFORMIN HCL 500 MG TABLET PO SCH ×2 (10:50→16:16)
[2020-01-08] MEDS: ONDANSETRON HCL INJ/PF 4 MG/2 ML SDV IV PRN (17:06)
--- NOTE | 2020-01-08 17:36 | PDOC PROGRESS REPORT ---
Subjective Progress Note for:: 01/08/20 Subjective:: ABEBA MCLEOD is a 54 year old male with a past medical history of hypertension, diabetes, cerebellar CVA with residual balance deficits who was admitted 01/02/20 for acute CVA. Patient was seen on morning rounds. He is found resting in bed, comfortably, on room air. He reports improved sensation and movement to his left side; continues to have small movements to his left hand, however, remains profoundly flaccid to his left foot. He tells me that he plans to travel by POV with his to Acute Rehab once bed offer is made; still hopeful for placement in [place]. Otherwise, he states he is feeling well. Denies further headaches. Denies chest pain, palpitations, dyspnea, cough, abd pain, nausea/vomiting. Reason For Visit: CVA Physical Exam Vital Signs: Temp Pulse Resp BP Pulse Ox 98.3 F 102 H 19 127/84 H 96 01/08/20 16:08 01/08/20 16:08 01/08/20 16:08 01/08/20 16:08 01/08/20 16:08 Intake & Output 01/07/20 01/08/20 01/09/20 06:59 06:59 06:59 Intake Total 750 600 Output Total 400 350 625 Balance 350 250 -625 Weight 81.4 kg 80 kg General appearance: PRESENT: no acute distress, cooperative, obese, well- developed, well-nourished Head exam: PRESENT: atraumatic, normocephalic Eye exam: PRESENT: conjunctiva pink, EOMI, PERRLA. ABSENT: scleral icterus Mouth exam: PRESENT: moist, tongue midline Respiratory exam: PRESENT: clear to auscultation aaron, symmetrical, unlabored. ABSENT: rales, rhonchi, wheezes Cardiovascular exam: PRESENT: RRR. ABSENT: diastolic murmur, rubs, systolic murmur Pulses: PRESENT: normal dorsalis pedis pul Vascular exam: PRESENT: normal capillary refill Extremities exam: ABSENT: calf tenderness, clubbing, pedal edema Neurological exam: PRESENT: alert, awake, oriented to person, oriented to place, oriented to time, oriented to situation, CN II-XII grossly intact, other - LUE 1/5, LLE 0/5. ABSENT: motor sensory deficit Psychiatric exam: PRESENT: appropriate affect, normal mood. ABSENT: homicidal ideation, suicidal ideation Skin exam: PRESENT: dry, intact, warm. ABSENT: cyanosis, rash Results Laboratory Results: 01/04/20 06:01/04/20 06:09 01/01/20 01/01/20 23:10 23:10 Creatine Kinase 78 CK-MB (CK-2) 1.86 Troponin I < 0.012 Impressions: Head CT 01/01/20 00:00 IMPRESSION: No acute intracranial hemorrhage is seen. There is a hypodensity with volume loss seen at the right cerebellum, most likely due to remote infarct. If there is persistent clinical concern for a neurologic deficit, consider MRI brain with diffusion-weighted sequences for further evaluation. Chest X-Ray 01/01/20 22:43 IMPRESSION: Negative chest copyright 2011 [employer]- All Rights Reserved Head CTA 01/01/20 22:43 IMPRESSION: No discrete filling defect, aneurysm, or obvious stenosis is seen within the anterior or posterior intracranial circulation. There are no findings to suggest a hemodynamically significant stenosis of the carotid arteries. Neck CTA 01/01/20 22:43 IMPRESSION: No discrete filling defect, aneurysm, or obvious stenosis is seen within the anterior or posterior intracranial circulation. There are no findings to suggest a hemodynamically significant stenosis of the carotid arteries. Head MRI 01/02/20 00:00 IMPRESSION: 1. Focal area of restricted diffusion in the right paramedian medulla oblongata (image 6 of series 4) ; the infarct is in the vascular territory of branches from the basilar artery. 2. Chronic right cerebellar infarct. EVIDENCE OF ACUTE STROKE: YES. As above. 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 MRI head: Focal area of restricted diffusion in the right paramedian medulla oblongata. Vascular territory of basilar artery. CTA Head/Neck: No discrete filling defect, aneurysm or obvious stenosis. No hemodynamically significant stenosis in the carotids. 2D echo: LVEF 60 to 65%. Cannot assess AC, VSD or PFO. No thrombus Continue telemetry, antiplatelets, DVT prophylaxis, high intensity statins, optimize BP, optimize blood glucose level. Continue PT ST OT. Monitor for falls, seizure and aspiration. Dr. Summers from rehab has been consulted and he prefers for patient to be sent to rehab at his [place] where he has good family support. Discharge planning has been consulted; awaiting placement/bed offer. (2) Diabetes Qualifiers: Diabetes mellitus type: type 2 Diabetes mellitus complication status: with circulatory complication Diabetes mellitus complication detail: with other circulatory complications Is this a current diagnosis for this admission?: Yes Plan: Controlled. Hemoglobin A1c 8.4%. Continue diabetic diet, sliding scale insulin, basal insulin, prandial insulin, Accu-Cheks hypoglycemia protocol. Have started Metformin 1000 mg BID Diabetic education. Outpatient PCP follow-up. (3) Dyslipidemia Is this a current diagnosis for this admission?: Yes Plan: ASCVD 8.5%. Continue high intensity statin. Monitor LFTs. Outpatient PCP follow-up. (4) Hypertension Qualifiers: Hypertension type: essential hypertension Qualified Code(s): I10 - Essential (primary) hypertension Is this a current diagnosis for this admission?: Yes Plan: Well controlled today Continue enalapril to 20 mg p.o. daily. Consider HCTZ and/or Amlodipine if remains elevated Initially placed on permissive hypertension for the first 24 -48 hours. Monitor BP. Adjust meds as needed. (5) Obesity (BMI 30.0-34.9) Is this a current diagnosis for this admission?: Yes Plan: BMI 33.9. Thyroid function WNL. Diet and lifestyle modification recommended. (6) History of cerebellar stroke Is this a current diagnosis for this admission?: Yes Plan: History of right cerebellar stroke. Plan as per #1. - Time Time Spent with patient: 15-24 minutes Medications reviewed and adjusted accordingly: Yes Anticipated discharge: Acute Rehab Within: when bed available
[2020-01-08] MEDS: ATORVASTATIN CALCIUM 80 MG TABLET PO SCH (22:11)
[2020-01-08] MEDS: INSULIN GLARGINE,HUM.REC.ANLOG 1,000 UNIT/10 ML VIAL SUBCUT SCH (22:12)
[2020-01-09] MEDS: HEPARIN SOD (PORCINE) 5,000 UNIT/ML 1 ML VIAL SUBCUT SCH ×3 (05:14→22:03)
[2020-01-09] MEDS: METFORMIN HCL 500 MG TABLET PO SCH ×2 (11:06→15:11)
[2020-01-09] MEDS: INSULIN LISPRO 100 UNIT/ML 3 ML VIAL SUBCUT SCH ×4 (11:07→21:59)
[2020-01-09] MEDS: ASPIRIN 325 MG TABLET, ENT COATED PO SCH (11:07)
[2020-01-09] MEDS: ENALAPRIL MALEATE 10 MG TABLET PO SCH (11:07)
--- NOTE | 2020-01-09 15:59 | PDOC PROGRESS REPORT ---
Subjective Progress Note for:: 01/09/20 Subjective:: ABEBA MCLEOD is a 54 year old male with a past medical history of hypertension, diabetes, cerebellar CVA with residual balance deficits who was admitted 01/02/20 for acute CVA. Patient was seen on afternoon rounds. He is found resting in bed, comfortably, on room air. He was sleeping but woke easily when I said his name. He appears to have poor spirits today; sluggish with interactions, flat affect, slightly tearful. He admits to missing his terribly. He denies further headaches. Reports that overall he is feeling well. He is encouraged that he was able to stand with 2 person assist today; did not require Nilda lift. He does acknowledge that this may be due to increased RLE strength/balance as he feels he has not made a lot of improvement on the left. We discussed disposition options. We remain hopeful that a bed offer from Acute Rehab in [place] will come in shortly, however, recommended discussing back up plans. Introduced possibility of discharge to home with equipment and home health. Patient stated that he felt he had a lot of family support in [place] (, brother, sister) and thought that this would be a reasonable option. He asks me to discuss things with his . Called Ms. Khalil. We reviewed his clinical status and progress. As above, discussed Plan A (d/c to acute rehab) and asked her what she imagined for Plan B. We did discuss possible SNF placement; however, she ultimately decided against this as she acknowledges that he would like have an extended stay and would prefer him to be at home. We also discussed discharge to home with DME and Home Health services. While not the ideal situation, she was adamant that the two of them being reunited would be preferable. (Reports both are quite depressed and socially isolated due to visitor restrictions). She reports that a benefit to discharge with home health services would be that she would be able to participate in his physical therapy and learn how to better care for him directly. She also reported that she thought his rehabilitation capabilities would be improved because he would not be as depressed due to family separation. She advises that she intends to call to make a follow-up appointment with his PCP for mid to late next week so that if he is discharged home they will already have that in place. She stated that she will also speak with family members to notify them that they may need some assistance caring for Mr. Mcleod at home. She requests we give the acute facilities until Tuesday to make a bed offer; but to also begin working on identifying the [employer] company and Home Health company that will be able to assist them if they return directly home. She advises that if he is not provided a bed offer by close of business Tuesday, she would like to make the return trip to [place] over the weekend. Discharge planning is updated on our discussion and family goals. Reason For Visit: CVA Physical Exam Vital Signs: Temp Pulse Resp BP Pulse Ox 98.2 F 93 16 133/84 H 98 01/09/20 11:56 01/09/20 11:56 01/09/20 11:56 01/09/20 11:56 01/09/20 11:56 Intake & Output 01/08/20 01/09/20 01/10/20 06:59 06:59 06:59 Intake Total 600 710 Output Total 350 1150 200 Balance 250 -440 -200 Weight 80 kg 80.9 kg General appearance: PRESENT: no acute distress, cooperative, obese, well- developed, well-nourished Head exam: PRESENT: atraumatic, normocephalic Eye exam: PRESENT: conjunctiva pink, EOMI, PERRLA. ABSENT: scleral icterus Mouth exam: PRESENT: moist, tongue midline Respiratory exam: PRESENT: clear to auscultation aaron, symmetrical, unlabored, other - room air. ABSENT: rales, rhonchi, wheezes Cardiovascular exam: PRESENT: RRR. ABSENT: diastolic murmur, rubs, systolic murmur Pulses: PRESENT: normal dorsalis pedis pul Vascular exam: PRESENT: normal capillary refill Extremities exam: ABSENT: calf tenderness, clubbing, pedal edema Neurological exam: PRESENT: alert, awake, oriented to person, oriented to place, oriented to time, oriented to situation, CN II-XII grossly intact, other - Report of increased sensation to LLE; mobility remains LUE 1/5, LLE 0/5. ABSENT: motor sensory deficit Psychiatric exam: PRESENT: depressed - tearful, flat affect. ABSENT: homicidal ideation, suicidal ideation Skin exam: PRESENT: dry, intact, warm. ABSENT: cyanosis, rash Results Laboratory Results: 01/04/20 06:09 06/12/20 06:09 01/01/20 01/01/20 23:10 23:10 Creatine Kinase 78 CK-MB (CK-2) 1.86 Troponin I < 0.012 Impressions: Head CT 01/01/20 00:00 IMPRESSION: No acute intracranial hemorrhage is seen. There is a hypodensity with volume loss seen at the right cerebellum, most likely due to remote infarct. If there is persistent clinical concern for a neurologic deficit, consider MRI brain with diffusion-weighted sequences for further evaluation. Chest X-Ray 01/01/20 22:43 IMPRESSION: Negative chest copyright 2010 [employer]- All Rights Reserved Head CTA 01/01/20 22:43 IMPRESSION: No discrete filling defect, aneurysm, or obvious stenosis is seen within the anterior or posterior intracranial circulation. There are no findings to suggest a hemodynamically significant stenosis of the carotid arteries. Neck CTA 01/01/20 22:43 IMPRESSION: No discrete filling defect, aneurysm, or obvious stenosis is seen within the anterior or posterior intracranial circulation. There are no findings to suggest a hemodynamically significant stenosis of the carotid arteries. Head MRI 01/02/20 00:00 IMPRESSION: 1. Focal area of restricted diffusion in the right paramedian medulla oblongata (image 6 of series 4) ; the infarct is in the vascular territory of branches from the basilar artery. 2. Chronic right cerebellar infarct. EVIDENCE OF ACUTE STROKE: YES. As above. 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 MRI head: Focal area of restricted diffusion in the right paramedian medulla oblongata. Vascular territory of basilar artery. CTA Head/Neck: No discrete filling defect, aneurysm or obvious stenosis. No hemodynamically significant stenosis in the carotids. 2D echo: LVEF 60 to 65%. Cannot assess AC, VSD or PFO. No thrombus Continue telemetry, antiplatelets, DVT prophylaxis, high intensity statins, optimize BP, optimize blood glucose level. Continue PT ST OT. Monitor for falls, seizure and aspiration. Dr. Summers from rehab has been consulted and he prefers for patient to be sent to rehab at [place] hometown where he has good family support. Discharge planning has been consulted; awaiting placement/bed offer. (2) Diabetes Qualifiers: Diabetes mellitus type: type 2 Diabetes mellitus complication status: with circulatory complication Diabetes mellitus complication detail: with other circulatory complications Is this a current diagnosis for this admission?: Yes Plan: Controlled. Hemoglobin A1c 8.4%. Continue diabetic diet, sliding scale insulin, basal insulin, prandial insulin, Accu-Cheks hypoglycemia protocol. Have started Metformin 1000 mg BID Diabetic education. Outpatient PCP follow-up. (3) Dyslipidemia Is this a current diagnosis for this admission?: Yes Plan: ASCVD 8.5%. Continue high intensity statin. Monitor LFTs. Outpatient PCP follow-up. (4) Hypertension Qualifiers: Hypertension type: essential hypertension Qualified Code(s): I10 - Essential (primary) hypertension Is this a current diagnosis for this admission?: Yes Plan: Well controlled today Continue enalapril to 20 mg p.o. daily. Consider HCTZ and/or Amlodipine if remains elevated Initially placed on permissive hypertension for the first 24 -48 hours. Monitor BP. Adjust meds as needed. (5) Obesity (BMI 30.0-34.9) Is this a current diagnosis for this admission?: Yes Plan: BMI 33.9. Thyroid function WNL. Diet and lifestyle modification recommended. (6) History of cerebellar stroke Is this a current diagnosis for this admission?: Yes Plan: History of right cerebellar stroke. Plan as per #1. - Time Time Spent with patient: 35 or more minutes Medications reviewed and adjusted accordingly: Yes Anticipated discharge: Home with Homehealth - vs Acute Rehab in [place] Within: within 72 hours
[2020-01-09] MEDS: ATORVASTATIN CALCIUM 80 MG TABLET PO SCH (22:04)
[2020-01-09] MEDS: INSULIN GLARGINE,HUM.REC.ANLOG 1,000 UNIT/10 ML VIAL SUBCUT SCH (22:04)
[2020-01-10] MEDS: HEPARIN SOD (PORCINE) 5,000 UNIT/ML 1 ML VIAL SUBCUT SCH ×3 (05:28→22:10)
[2020-01-10 06:41] LABS: HEMATOCRIT 41.3 % (37.9-51.0); HEMOGLOBIN 14.4 g/dL (13.5-17.0); MEAN CORPUSCULAR HEMOGLOBIN 31.5 pg (27.0-33.4); MEAN CORPUSCULAR HGB CONC 34.8 g/dL (32.0-36.0); MEAN CORPUSCULAR VOLUME 90 fl (80-97); PLATELET COUNT 240 10^3/uL (150-450); RED BLOOD COUNT 4.58 10^6/uL (4.35-5.55); RED CELL DISTRIBUTION WIDTH 12.9 % (11.5-14.0); WHITE BLOOD COUNT 10.5 10^3/uL (4.0-10.5)
[2020-01-10 06:59] LABS: ANION GAP 6 (5-19); BLOOD UREA NITROGEN 20 mg/dL (7-20); CALCIUM 8.8 mg/dL (8.4-10.2); CARBON DIOXIDE 25 mmol/L (22-30); CHLORIDE 107 mmol/L (98-107); GLUCOSE 135 mg/dL (75-110); POTASSIUM 4.2 mmol/L (3.6-5.0)
[2020-01-10] MEDS: INSULIN LISPRO 100 UNIT/ML 3 ML VIAL SUBCUT SCH ×4 (10:18→22:03)
[2020-01-10] MEDS: ENALAPRIL MALEATE 10 MG TABLET PO SCH (10:19)
[2020-01-10] MEDS: METFORMIN HCL 500 MG TABLET PO SCH ×2 (10:19→17:25)
[2020-01-10] MEDS: ASPIRIN 325 MG TABLET, ENT COATED PO SCH (10:19)
--- NOTE | 2020-01-10 17:41 | PDOC PROGRESS REPORT ---
Subjective Progress Note for:: 01/10/20 Subjective:: ABEBA MCLEOD is a 54 year old male with a past medical history of hypertension, diabetes, cerebellar CVA with residual balance deficits who was admitted 01/02/20 for acute CVA. Patient was seen on afternoon rounds with his present. He is found sitting up to the chair, comfortably, on room air. Nursing was assisting the patient back to bed. It appeared that he did well getting to standing with just an knee block and assistance with balance. Once he was in the bed, he was able to reposition himself with minimal assistance. States that he is feeling well today, happy to have been able to see his , somewhat fatigued after working with physical therapy. Long discussion was had with patient, spouse, and Brandy (PI RN with [employer]). We discussed continued efforts to find acute rehab in [place]. Patient states that his first choice would be acute rehab in [place] followed by acute rehab with Dr. Summers at [facility] followed by return to home with home health services. They were informed that [facility] in [facility] have both turned down referrals when re-presented by the social work team yesterday. Patient's expresses frustration; states that she has been in contact with multiple facilities in [place] but is having difficulty with closed-loop communication with the social work team. They do acknowledge that [id number] arrangements are very difficult to make. They both agree, that they feel comfortable with transport to [place] via POV. The patient's brother is going to meet them longterm so that he can provide assistance with mobility. There also both understanding of the need to explore the option of discharge to home; they appreciate the arrangements made for the spouse to be able to be present during physical therapy today. All questions were addressed. Patient denies headache, dizziness, chest pain, palpitations, dyspnea, abdominal pain, nausea vomiting diarrhea. No concerns per nursing. Reason For Visit: CVA Physical Exam Vital Signs: Temp Pulse Resp BP Pulse Ox 98.4 F 107 H 18 137/85 H 96 01/10/20 11:11 01/10/20 14:00 01/10/20 11:11 01/10/20 11:11 01/10/20 11:11 Intake & Output 01/09/20 01/10/20 01/11/20 06:59 06:59 06:59 Intake Total 710 750 120 Output Total 1150 4625 470 Balance -440 -325 -350 Weight 80.9 kg 79.8 kg General appearance: PRESENT: no acute distress, cooperative, obese, well- developed, well-nourished Head exam: PRESENT: atraumatic, normocephalic Eye exam: PRESENT: conjunctiva pink, EOMI, PERRLA. ABSENT: scleral icterus Mouth exam: PRESENT: moist, tongue midline Respiratory exam: PRESENT: clear to auscultation aaron, symmetrical, unlabored. ABSENT: rales, rhonchi, wheezes Cardiovascular exam: PRESENT: RRR. ABSENT: diastolic murmur, rubs, systolic murmur Vascular exam: PRESENT: normal capillary refill Extremities exam: ABSENT: calf tenderness, clubbing, pedal edema Neurological exam: PRESENT: alert, awake, oriented to person, oriented to place, oriented to time, oriented to situation, CN II-XII grossly intact, other - LUE 0/5, LLE 0/5. ABSENT: motor sensory deficit Psychiatric exam: PRESENT: appropriate affect, normal mood. ABSENT: homicidal ideation, suicidal ideation Skin exam: PRESENT: dry, intact, warm. ABSENT: cyanosis, rash Results Laboratory Results: 01/10/20 05:57 01/10/20 05:57 01/10/20 01/10/20 05:57 05:57 WBC 10.5 RBC 4.58 Hgb 14.4 Hct 41.3 MCV 90 MCH 31.5 MCHC 34.8 RDW 12.9 Plt Count 240 Sodium 138.2 Potassium 4.2 Chloride 107 Carbon Dioxide 25 Anion Gap 6 BUN 20 Creatinine 0.75 Est GFR ( Amer) > 60 Glucose 135 H Calcium 8.8 01/01/20 01/01/20 23:10 23:10 Creatine Kinase 78 CK-MB (CK-2) 1.86 Troponin I < 0.012 Impressions: Head CT 01/01/20 00:00 IMPRESSION: No acute intracranial hemorrhage is seen. There is a hypodensity with volume loss seen at the right cerebellum, most likely due to remote infarct. If there is persistent clinical concern for a neurologic deficit, consider MRI brain with diffusion-weighted sequences for further evaluation. Chest X-Ray 01/01/20 22:43 IMPRESSION: Negative chest copyright 2011 [employer]- All Rights Reserved Head CTA 01/01/20 22:43 IMPRESSION: No discrete filling defect, aneurysm, or obvious stenosis is seen within the anterior or posterior intracranial circulation. There are no findings to suggest a hemodynamically significant stenosis of the carotid arteries. Neck CTA 01/01/20 22:43 IMPRESSION: No discrete filling defect, aneurysm, or obvious stenosis is seen within the anterior or posterior intracranial circulation. There are no findings to suggest a hemodynamically significant stenosis of the carotid arteries. Head MRI 01/02/20 00:00 IMPRESSION: 1. Focal area of restricted diffusion in the right paramedian medulla oblongata (image 6 of series 4) ; the infarct is in the vascular territory of branches from the basilar artery. 2. Chronic right cerebellar infarct. EVIDENCE OF ACUTE STROKE: YES. As above. 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 MRI head: Focal area of restricted diffusion in the right paramedian medulla oblongata. Vascular territory of basilar artery. CTA Head/Neck: No discrete filling defect, aneurysm or obvious stenosis. No hemodynamically significant stenosis in the carotids. 2D echo: LVEF 60 to 65%. Cannot assess AC, VSD or PFO. No thrombus Continue telemetry, antiplatelets, DVT prophylaxis, high intensity statins, opti jazmín BP, optimize blood glucose level. Continue PT ST OT. Monitor for falls, seizure and aspiration. Dr. Summers from rehab has been consulted and he prefers for patient to be sent to rehab at [place] where he has good family support. Discharge planning has been consulted; awaiting placement/bed offer. (2) Diabetes Qualifiers: Diabetes mellitus type: type 2 Diabetes mellitus complication status: with circulatory complication Diabetes mellitus complication detail: with other circulatory complications Is this a current diagnosis for this admission?: Yes Plan: Controlled. Hemoglobin A1c 8.4%. Continue diabetic diet, sliding scale insulin, basal insulin, prandial insulin, Accu-Cheks hypoglycemia protocol. Continue Metformin 1000 mg BID Diabetic education. Outpatient PCP follow-up. (3) Dyslipidemia Is this a current diagnosis for this admission?: Yes Plan: ASCVD 8.5%. Continue high intensity statin. Monitor LFTs. Outpatient PCP follow-up. (4) Hypertension Qualifiers: Hypertension type: essential hypertension Qualified Code(s): I10 - Essential (primary) hypertension Is this a current diagnosis for this admission?: Yes Plan: Well controlled today Continue enalapril to 20 mg p.o. daily. Will start HCTZ Initially placed on permissive hypertension for the first 24 -48 hours. Monitor BP. Adjust meds as needed. (5) Obesity (BMI 30.0-34.9) Is this a current diagnosis for this admission?: Yes Plan: BMI 33.9. Thyroid function WNL. Diet and lifestyle modification recommended. (6) History of cerebellar stroke Is this a current diagnosis for this admission?: Yes Plan: History of right cerebellar stroke. Plan as per #1. - Plan Summary Summary: Patient is medically stable for discharge. SW working on disposition; Acute Rehab vs Home w/ HH services. - Time Time Spent with patient: 25-34 minutes Medications reviewed and adjusted accordingly: Yes Anticipated discharge: Home with Homehealth Within: Other - pending disposition
[2020-01-10] MEDS: INSULIN GLARGINE,HUM.REC.ANLOG 1,000 UNIT/10 ML VIAL SUBCUT SCH (22:03)
[2020-01-10] MEDS: ATORVASTATIN CALCIUM 80 MG TABLET PO SCH (22:10)
[2020-01-11] MEDS: KETOROLAC TROMETHAMINE INJ/PF 30 MG/1 ML SDV IV PRN (00:30)
[2020-01-11] MEDS: HEPARIN SOD (PORCINE) 5,000 UNIT/ML 1 ML VIAL SUBCUT SCH ×3 (05:20→22:04)
[2020-01-11] MEDS: INSULIN LISPRO 100 UNIT/ML 3 ML VIAL SUBCUT SCH ×4 (09:59→22:05)
[2020-01-11] MEDS: ENALAPRIL MALEATE 10 MG TABLET PO SCH (10:11)
[2020-01-11] MEDS: HYDROCHLOROTHIAZIDE 12.5 MG TABLET PO SCH (10:11)
[2020-01-11] MEDS: METFORMIN HCL 500 MG TABLET PO SCH ×2 (10:11→17:59)
[2020-01-11] MEDS: ASPIRIN 325 MG TABLET, ENT COATED PO SCH (10:11)
--- NOTE | 2020-01-11 16:30 | PDOC PROGRESS REPORT ---
Subjective Progress Note for:: 01/11/20 Subjective:: ABEBA MCLEOD is a 54 year old male with a past medical history of hypertension, diabetes, cerebellar CVA with residual balance deficits who was admitted 01/02/20 for acute CVA. Patient was seen on afternoon rounds. He has just returned from the chair to the bed, comfortably, on room air. He reports fatigue after working with physical therapy today. He denies headache, dizziness, chest pain, palpitations, dyspnea, abdominal pain, nausea vomiting diarrhea. We reviewed his current discharged status (r/t medical stability/readiness for discharge), but with continued efforts to arrange for Acute Rehab. He tells me that he would like to leave on Tuesday, whether that be to Acute Rehab or Home with services. No concerns per nursing. Reason For Visit: CVA Physical Exam Vital Signs: Temp Pulse Resp BP Pulse Ox 97.3 F 112 H 18 144/94 H 100 01/11/20 12:54 01/11/20 14:00 01/11/20 12:54 01/11/20 12:54 01/11/20 12:54 Intake & Output 01/10/20 01/11/20 01/12/20 06:59 06:59 06:59 Intake Total 750 750 477 Output Total 1075 995 580 Balance -325 -245 -103 Weight 79.8 kg 80.7 kg General appearance: PRESENT: no acute distress, cooperative, obese, well- developed, well-nourished Head exam: PRESENT: atraumatic, normocephalic Eye exam: PRESENT: conjunctiva pink, EOMI, PERRLA. ABSENT: scleral icterus Mouth exam: PRESENT: moist, tongue midline Respiratory exam: PRESENT: clear to auscultation aaron, symmetrical, unlabored. ABSENT: rales, rhonchi, wheezes Cardiovascular exam: PRESENT: RRR, +S1, +S2. ABSENT: diastolic murmur, rubs, systolic murmur Vascular exam: PRESENT: normal capillary refill Extremities exam: PRESENT: full ROM. ABSENT: calf tenderness, clubbing, pedal edema Neurological exam: PRESENT: alert, awake, oriented to person, oriented to place, oriented to time, oriented to situation, CN II-XII grossly intact, other - LUE 0/5, LLE 1/5. ABSENT: motor sensory deficit Psychiatric exam: PRESENT: appropriate affect, normal mood. ABSENT: homicidal ideation, suicidal ideation Skin exam: PRESENT: dry, intact, warm. ABSENT: cyanosis, rash Results Laboratory Results: 01/10/20 05:57 01/10/20 05:57 01/01/20 01/01/20 23:10 23:10 Creatine Kinase 78 CK-MB (CK-2) 1.86 Troponin I < 0.012 Impressions: Head CT 01/01/20 00:00 IMPRESSION: No acute intracranial hemorrhage is seen. There is a hypodensity with volume loss seen at the right cerebellum, most likely due to remote infarct. If there is persistent clinical concern for a neurologic deficit, consider MRI brain with diffusion-weighted sequences for further evaluation. Chest X-Ray 01/01/20 22:43 IMPRESSION: Negative chest copyright 2010 [employer]- All Rights Reserved Head CTA 01/01/20 22:43 IMPRESSION: No discrete filling defect, aneurysm, or obvious stenosis is seen within the anterior or posterior intracranial circulation. There are no findings to suggest a hemodynamically significant stenosis of the carotid arteries. Neck CTA 01/01/20 22:43 IMPRESSION: No discrete filling defect, aneurysm, or obvious stenosis is seen within the anterior or posterior intracranial circulation. There are no findings to suggest a hemodynamically significant stenosis of the carotid arteries. Head MRI 01/02/20 00:00 IMPRESSION: 1. Focal area of restricted diffusion in the right paramedian medulla oblongata (image 6 of series 4) ; the infarct is in the vascular territory of branches from the basilar artery. 2. Chronic right cerebellar infarct. EVIDENCE OF ACUTE STROKE: YES. As above. 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 MRI head: Focal area of restricted diffusion in the right paramedian medulla oblongata. Vascular territory of basilar artery. CTA Head/Neck: No discrete filling defect, aneurysm or obvious stenosis. No hemodynamically significant stenosis in the carotids. 2D echo: LVEF 60 to 65%. Cannot assess AC, VSD or PFO. No thrombus Continue telemetry, antiplatelets, DVT prophylaxis, high intensity statins, optimize BP, optimize blood glucose level. Continue PT ST OT. Monitor for falls, seizure and aspiration. Dr. Summers from rehab has been consulted and he prefers for patient to be sent to rehab at [place] where he has good family support. Discharge planning has been consulted; awaiting placement/bed offer. (2) Diabetes Qualifiers: Diabetes mellitus type: type 2 Diabetes mellitus complication status: with circulatory complication Diabetes mellitus complication detail: with other circulatory complications Is this a current diagnosis for this admission?: Yes Plan: Controlled. Hemoglobin A1c 8.4%. Continue diabetic diet, sliding scale insulin, basal insulin, prandial insulin, Accu-Cheks hypoglycemia protocol. Continue Metformin 1000 mg BID Diabetic education. Outpatient PCP follow-up. (3) Dyslipidemia Is this a current diagnosis for this admission?: Yes Plan: ASCVD 8.5%. Continue high intensity statin. Monitor LFTs. Outpatient PCP follow-up. (4) Hypertension Qualifiers: Hypertension type: essential hypertension Qualified Code(s): I10 - Essential (primary) hypertension Is this a current diagnosis for this admission?: Yes Plan: Well controlled today Continue enalapril to 20 mg p.o. daily. Will start HCTZ Initially placed on permissive hypertension for the first 24 -48 hours. Monitor BP. Adjust meds as needed. (5) Obesity (BMI 30.0-34.9) Is this a current diagnosis for this admission?: Yes Plan: BMI 33.9. Thyroid function WNL. Diet and lifestyle modification recommended. (6) History of cerebellar stroke Is this a current diagnosis for this admission?: Yes Plan: History of right cerebellar stroke. Plan as per #1. - Plan Summary Summary: Patient is medically stable/discharged. SW working on disposition; Acute Rehab vs Home w/ HH services. - Time Time Spent with patient: 15-24 minutes Medications reviewed and adjusted accordingly: Yes
[2020-01-11] MEDS: ATORVASTATIN CALCIUM 80 MG TABLET PO SCH (22:04)
[2020-01-11] MEDS: INSULIN GLARGINE,HUM.REC.ANLOG 1,000 UNIT/10 ML VIAL SUBCUT SCH (22:06)
[2020-01-12] MEDS: HEPARIN SOD (PORCINE) 5,000 UNIT/ML 1 ML VIAL SUBCUT SCH ×3 (05:25→22:08)
[2020-01-12] MEDS: INSULIN LISPRO 100 UNIT/ML 3 ML VIAL SUBCUT SCH ×4 (08:02→21:49)
[2020-01-12] MEDS: ASPIRIN 325 MG TABLET, ENT COATED PO SCH (09:30)
[2020-01-12] MEDS: ENALAPRIL MALEATE 10 MG TABLET PO SCH ×2 (09:30→22:05)
[2020-01-12] MEDS: HYDROCHLOROTHIAZIDE 12.5 MG TABLET PO SCH (09:30)
[2020-01-12] MEDS: METFORMIN HCL 500 MG TABLET PO SCH ×2 (09:30→17:55)
--- NOTE | 2020-01-12 11:39 | PDOC PROGRESS REPORT ---
Subjective Progress Note for:: 01/12/20 Subjective:: ABEBA MCLEOD is a 54 year old male with a past medical history of hypertension, diabetes, cerebellar CVA with residual balance deficits. Patient presents 12 hours after the onset of left-sided weakness occurring while driving from [place] to his business in [place]. He admits associated nausea and vomiting but denies headache palpitations confusion or slurred speech. He denies recent change in usca-ade-smmlygo or prescribed medication regiment. His initial work-up was unremarkable for an acute event and is referred to the hospitalist for admission. 01/12/2020. No acute events overnight. Patient comfortably resting in bed no apparent distress. Reporting mild improvement of his left lower extremity strength. Reported that he is able to extend and flex his hip, otherwise denies any fever, chills, nausea, vomiting, diarrhea, constipation or any urinary symptoms. Patient is pending transfer to [place] for acute rehab. Reason For Visit: CVA Physical Exam Vital Signs: Temp Pulse Resp BP Pulse Ox 97.7 F 81 19 142/88 H 97 01/12/20 07:30 01/12/20 07:30 01/12/20 07:30 01/12/20 07:30 01/12/20 07:30 Intake & Output 01/11/20 01/12/20 01/13/20 06:59 06:59 06:59 Intake Total 750 1232 Output Total 995 905 Balance -245 327 Weight 80.7 kg 79.7 kg General appearance: PRESENT: no acute distress, obese, well-developed, well- nourished Head exam: PRESENT: atraumatic, normocephalic Respiratory exam: PRESENT: clear to auscultation aaron. ABSENT: rales, rhonchi, wheezes Cardiovascular exam: PRESENT: RRR. ABSENT: diastolic murmur, rubs, systolic murmur GI/Abdominal exam: PRESENT: normal bowel sounds, soft. ABSENT: distended, guarding, mass, organolmegaly, rebound, tenderness Extremities exam: ABSENT: calf tenderness, clubbing, pedal edema Neurological exam: PRESENT: alert, awake, oriented to person, oriented to place, oriented to time, oriented to situation, CN II-XII grossly intact, motor sensory deficit - LUE 0/5, LLE 0/5, Lt Hip Flexors 1/5 Results Laboratory Results: 01/10/20 05:57 01/10/20 05:57 01/01/20 01/01/20 23:10 23:10 Creatine Kinase 78 CK-MB (CK-2) 1.86 Troponin I < 0.012 Impressions: Head CT 01/01/20 00:00 IMPRESSION: No acute intracranial hemorrhage is seen. There is a hypodensity with volume loss seen at the right cerebellum, most likely due to remote infarct. If there is persistent clinical concern for a neurologic deficit, consider MRI brain with diffusion-weighted sequences for further evaluation. Chest X-Ray 01/01/20 22:43 IMPRESSION: Negative chest copyright 2010 [employer]- All Rights Reserved Head CTA 01/01/20 22:43 IMPRESSION: No discrete filling defect, aneurysm, or obvious stenosis is seen within the anterior or posterior intracranial circulation. There are no findings to suggest a hemodynamically significant stenosis of the carotid arteries. Neck CTA 01/01/20 22:43 IMPRESSION: No discrete filling defect, aneurysm, or obvious stenosis is seen within the anterior or posterior intracranial circulation. There are no findings to suggest a hemodynamically significant stenosis of the carotid arteries. Head MRI 01/02/20 00:00 IMPRESSION: 1. Focal area of restricted diffusion in the right paramedian medulla oblongata (image 6 of series 4) ; the infarct is in the vascular territory of branches from the basilar artery. 2. Chronic right cerebellar infarct. EVIDENCE OF ACUTE STROKE: YES. As above. 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 MRI head: Focal area of restricted diffusion in the right paramedian medulla oblongata. Vascular territory of basilar artery. CTA Head/Neck: No discrete filling defect, aneurysm or obvious stenosis. No hemodynamically significant stenosis in the carotids. 2D echo: LVEF 60 to 65%. Cannot assess AC, VSD or PFO. No thrombus Continue telemetry, antiplatelets, DVT prophylaxis, high intensity statins, optimize BP, optimize blood glucose level. Continue PT ST OT. Monitor for falls, seizure and aspiration. Dr. Summers from rehab has been consulted and he prefers for patient to be sent to rehab at his hometown where he has good family support. Patient pending transfer to acute rehab at [place]. (2) Diabetes Qualifiers: Diabetes mellitus type: type 2 Diabetes mellitus complication status: with circulatory complication Diabetes mellitus complication detail: with other circulatory complications Is this a current diagnosis for this admission?: Yes Plan: Controlled. Hemoglobin A1c 8.4%. Continue diabetic diet, sliding scale insulin, basal insulin, prandial insulin, Accu-Cheks hypoglycemia protocol. Continue Metformin 1000 mg BID Diabetic education. Outpatient PCP follow-up. (3) Dyslipidemia Is this a current diagnosis for this admission?: Yes Plan: ASCVD 8.5%. Continue high intensity statin. Monitor LFTs. Outpatient PCP follow-up. (4) Hypertension Qualifiers: Hypertension type: essential hypertension Qualified Code(s): I10 - Essential (primary) hypertension Is this a current diagnosis for this admission?: Yes Plan: Not optimized. Increase enalapril 15 mg p.o. twice daily. Initially placed on permissive hypertension for the first 24 -48 hours. Monitor BP. Adjust meds as needed. (5) History of cerebellar stroke Is this a current diagnosis for this admission?: Yes Plan: History of right cerebellar stroke. Plan as per #1. (6) Obesity (BMI 30.0-34.9) Is this a current diagnosis for this admission?: Yes Plan: BMI 33.9. Thyroid function WNL. Diet and lifestyle modification recommended. - Plan Summary Summary: Patient is medically stable/discharged. SW working on disposition; Acute Rehab vs Home w/ HH services.
[2020-01-12] MEDS ORDERED: ASPIRIN 81 MG TABLET, CHEWABLE PO ONE (11:40)
[2020-01-12] MEDS ORDERED: ASPIRIN 81 MG TABLET, CHEWABLE ONE (14:27)
[2020-01-12] MEDS: ATORVASTATIN CALCIUM 80 MG TABLET PO SCH (22:07)
[2020-01-12] MEDS: INSULIN GLARGINE,HUM.REC.ANLOG 1,000 UNIT/10 ML VIAL SUBCUT SCH (22:08)
[2020-01-13] MEDS: HEPARIN SOD (PORCINE) 5,000 UNIT/ML 1 ML VIAL SUBCUT SCH ×3 (05:54→21:41)
[2020-01-13] MEDS: INSULIN LISPRO 100 UNIT/ML 3 ML VIAL SUBCUT SCH ×4 (09:11→21:39)
[2020-01-13] MEDS: ENALAPRIL MALEATE 10 MG TABLET PO SCH ×2 (09:12→21:40)
[2020-01-13] MEDS: METFORMIN HCL 500 MG TABLET PO SCH ×2 (09:13→15:39)
[2020-01-13] MEDS: SITAGLIPTIN PHOSPHATE 50 MG TABLET PO SCH ×2 (09:13→15:39)
--- NOTE | 2020-01-13 11:32 | PDOC PROGRESS REPORT ---
Subjective Progress Note for:: 01/13/20 Subjective:: ABEBA MCLEOD is a 54 year old male with a past medical history of hypertension, diabetes, cerebellar CVA with residual balance deficits. Patient presents 12 hours after the onset of left-sided weakness occurring while driving from [place] to his business in [place]. He admits associated nausea and vomiting but denies headache palpitations confusion or slurred speech. He denies recent change in toxr-zuf-znlgijt or prescribed medication regiment. His initial work-up was unremarkable for an acute event and is referred to the hospitalist for admission. 01/12/2020. No acute events overnight. Patient comfortably resting in bed no apparent distress. Reporting mild improvement of his left lower extremity strength. Reported that he is able to extend and flex his hip, otherwise denies any fever, chills, nausea, vomiting, diarrhea, constipation or any urinary symptoms. Patient is pending transfer to [place] for acute rehab. 01/13/2020. No acute events overnight. Comfortably sitting up in apparent distress, does not report any changes in his neurological system, denies any fever, chills, nausea, vomiting, diarrhea, constipation or any urinary symptoms. Pending transfer to [place]. Reason For Visit: CVA Physical Exam Vital Signs: Temp Pulse Resp BP Pulse Ox 98.2 F 96 19 139/83 H 96 01/13/20 07:17 01/13/20 07:17 01/13/20 07:17 01/13/20 07:17 01/13/20 07:17 Intake & Output 01/12/20 01/13/20 01/14/20 06:59 06:59 06:59 Intake Total 1232 520 Output Total 905 800 Balance 327 -280 Weight 79.7 kg 79.9 kg General appearance: PRESENT: no acute distress, obese, well-developed, well- nourished Head exam: PRESENT: atraumatic, normocephalic Respiratory exam: PRESENT: clear to auscultation aaron. ABSENT: rales, rhonchi, wheezes Cardiovascular exam: PRESENT: RRR. ABSENT: diastolic murmur, rubs, systolic murmur GI/Abdominal exam: PRESENT: normal bowel sounds, soft. ABSENT: distended, guarding, mass, organolmegaly, rebound, tenderness Neurological exam: PRESENT: alert, awake, oriented to person, oriented to place, oriented to time, oriented to situation, CN II-XII grossly intact, motor sensory deficit - LUE 0/5, LLE 1/5 RUE 5/5, RLE 5/5 Results Laboratory Results: 01/10/20 05:57 01/10/20 05:57 01/01/20 01/01/20 23:10 23:10 Creatine Kinase 78 CK-MB (CK-2) 1.86 Troponin I < 0.012 Impressions: Head CT 01/01/20 00:00 IMPRESSION: No acute intracranial hemorrhage is seen. There is a hypodensity with volume loss seen at the right cerebellum, most likely due to remote infarct. If there is persistent clinical concern for a neurologic deficit, consider MRI brain with diffusion-weighted sequences for further evaluation. Chest X-Ray 01/01/20 22:43 IMPRESSION: Negative chest copyright 2010 [employer]- All Rights Reserved Head CTA 01/01/20 22:43 IMPRESSION: No discrete filling defect, aneurysm, or obvious stenosis is seen within the anterior or posterior intracranial circulation. There are no findings to suggest a hemodynamically significant stenosis of the carotid arteries. Neck CTA 01/01/20 22:43 IMPRESSION: No discrete filling defect, aneurysm, or obvious stenosis is seen within the anterior or posterior intracranial circulation. There are no findings to suggest a hemodynamically significant stenosis of the carotid arteries. Head MRI 01/02/20 00:00 IMPRESSION: 1. Focal area of restricted diffusion in the right paramedian medulla oblongata (image 6 of series 4) ; the infarct is in the vascular territory of branches from the basilar artery. 2. Chronic right cerebellar infarct. EVIDENCE OF ACUTE STROKE: YES. As above. 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 MRI head: Focal area of restricted diffusion in the right paramedian medulla oblongata. Vascular territory of basilar artery. CTA Head/Neck: No discrete filling defect, aneurysm or obvious stenosis. No hemodynamically significant stenosis in the carotids. 2D echo: LVEF 60 to 65%. Cannot assess AC, VSD or PFO. No thrombus Continue telemetry, antiplatelets, DVT prophylaxis, high intensity statins, optimize BP, optimize blood glucose level. Continue PT ST OT. Monitor for falls, seizure and aspiration. Dr. Summers from rehab has been consulted and he prefers for patient to be sent to rehab at his hometown where he has good family support. Patient pending transfer to acute rehab at [place]. (2) Diabetes Qualifiers: Diabetes mellitus type: type 2 Diabetes mellitus complication status: with circulatory complication Diabetes mellitus complication detail: with other circulatory complications Is this a current diagnosis for this admission?: Yes Plan: Controlled. Hemoglobin A1c 8.4%. Continue diabetic diet, sliding scale insulin, basal insulin, prandial insulin, Accu-Cheks hypoglycemia protocol. Continue Metformin 1000 mg BID Start on sitagliptin 50 mg p.o. twice daily. Decrease Lantus by 3 units. 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 Diabetic education. Outpatient PCP follow-up. (3) Dyslipidemia Is this a current diagnosis for this admission?: Yes Plan: ASCVD 8.5%. Continue high intensity statin. Monitor LFTs. Outpatient PCP follow-up. (4) Hypertension Qualifiers: Hypertension type: essential hypertension Qualified Code(s): I10 - E ssential (primary) hypertension Is this a current diagnosis for this admission?: Yes Plan: Not optimized. Increase enalapril 15 mg p.o. twice daily. Initially placed on permissive hypertension for the first 24 -48 hours. Monitor BP. Adjust meds as needed. (5) History of cerebellar stroke Is this a current diagnosis for this admission?: Yes Plan: History of right cerebellar stroke. Plan as per #1. (6) Obesity (BMI 30.0-34.9) Is this a current diagnosis for this admission?: Yes Plan: BMI 33.9. Thyroid function WNL. Diet and lifestyle modification recommended. - Plan Summary Summary: Patient is medically stable/discharged. SW working on disposition; Acute Rehab vs Home w/ HH services.
[2020-01-13] MEDS ORDERED: BENZOCAINE/MENTHOL SORE THROAT LOZENGE BUCCAL PRN ×2 (16:44→16:52)
[2020-01-13] MEDS: ATORVASTATIN CALCIUM 80 MG TABLET PO SCH (21:40)
[2020-01-13] MEDS ORDERED: INSULIN GLARGINE,HUM.REC.ANLOG 1,000 UNIT/10 ML VIAL SUBCUT SCH (22:00)
[2020-01-14] MEDS: HEPARIN SOD (PORCINE) 5,000 UNIT/ML 1 ML VIAL SUBCUT SCH (06:06)
[2020-01-14] MEDS: INSULIN LISPRO 100 UNIT/ML 3 ML VIAL SUBCUT SCH ×4 (09:03→22:19)
[2020-01-14] MEDS: METFORMIN HCL 500 MG TABLET PO SCH ×2 (09:06→18:35)
[2020-01-14] MEDS: SITAGLIPTIN PHOSPHATE 50 MG TABLET PO SCH ×2 (09:06→18:35)
[2020-01-14] MEDS: ENALAPRIL MALEATE 10 MG TABLET PO SCH ×2 (09:06→22:23)
--- NOTE | 2020-01-14 12:44 | PDOC PROGRESS REPORT ---
Subjective Progress Note for:: 01/14/20 Subjective:: ABEBA MCLEOD is a 54 year old male with a past medical history of hypertension, diabetes, cerebellar CVA with residual balance deficits. Patient presents 12 hours after the onset of left-sided weakness occurring while driving from [place] to his business in [place]. He admits associated nausea and vomiting but denies headache palpitations confusion or slurred speech. He denies recent change in phbd-lly-kcjilqz or prescribed medication regiment. His initial work-up was unremarkable for an acute event and is referred to the hospitalist for admission. 01/12/2020. No acute events overnight. Patient comfortably resting in bed no apparent distress. Reporting mild improvement of his left lower extremity strength. Reported that he is able to extend and flex his hip, otherwise denies any fever, chills, nausea, vomiting, diarrhea, constipation or any urinary symptoms. Patient is pending transfer to [place] for acute rehab. 01/13/2020. No acute events overnight. Comfortably sitting up in apparent distress, does not report any changes in his neurological system, denies any fever, chills, nausea, vomiting, diarrhea, constipation or any urinary symptoms. Pending transfer to [place]. 01/12/2020. No acute events overnight. Patient is pending transfer to telemetry, denies any change in neurological symptoms, alert and oriented. No apparent distress, denies any fever, chills, nausea, vomiting, diarrhea, constipation or any urinary symptoms. Reason For Visit: CVA Physical Exam Vital Signs: Temp Pulse Resp BP Pulse Ox 97.7 F 89 18 128/75 H 98 01/14/20 07:33 01/14/20 07:33 01/14/20 07:33 01/14/20 07:33 01/14/20 07:33 Intake & Output 01/13/20 01/14/20 01/15/20 06:59 06:59 06:59 Intake Total 520 762 Output Total 800 1100 Balance -280 -338 Weight 79.9 kg 78.5 kg General appearance: PRESENT: no acute distress, well-developed, well-nourished Head exam: PRESENT: atraumatic, normocephalic Neck exam: ABSENT: carotid bruit, JVD, lymphadenopathy, thyromegaly Respiratory exam: PRESENT: clear to auscultation aaron. ABSENT: rales, rhonchi, wheezes Cardiovascular exam: PRESENT: RRR. ABSENT: diastolic murmur, rubs, systolic murmur GI/Abdominal exam: PRESENT: normal bowel sounds, soft. ABSENT: distended, guarding, mass, organolmegaly, rebound, tenderness Extremities exam: PRESENT: full ROM. ABSENT: calf tenderness, clubbing, pedal edema Neurological exam: PRESENT: alert, awake, oriented to person, oriented to place, oriented to time, oriented to situation, CN II-XII grossly intact, motor sensory deficit - Left upper and lower extremity neurological deficit unchanged from yesterday. Results Laboratory Results: 01/10/20 05:57 01/10/20 05:57 01/01/20 01/01/20 23:10 23:10 Creatine Kinase 78 CK-MB (CK-2) 1.86 Troponin I < 0.012 Impressions: Head CT 01/01/20 00:00 IMPRESSION: No acute intracranial hemorrhage is seen. There is a hypodensity with volume loss seen at the right cerebellum, most likely due to remote infarct. If there is persistent clinical concern for a neurologic deficit, consider MRI brain with diffusion-weighted sequences for further evaluation. Chest X-Ray 01/01/20 22:43 IMPRESSION: Negative chest copyright 2011 [employer]- All Rights Reserved Head CTA 01/01/20 22:43 IMPRESSION: No discrete filling defect, aneurysm, or obvious stenosis is seen within the anterior or posterior intracranial circulation. There are no findings to suggest a hemodynamically significant stenosis of the carotid arteries. Neck CTA 01/01/20 22:43 IMPRESSION: No discrete filling defect, aneurysm, or obvious stenosis is seen within the anterior or posterior intracranial circulation. There are no findings to suggest a hemodynamically significant stenosis of the carotid arteries. Head MRI 01/02/20 00:00 IMPRESSION: 1. Focal area of restricted diffusion in the right paramedian medulla oblongata (image 6 of series 4) ; the infarct is in the vascular territory of branches from the basilar artery. 2. Chronic right cerebellar infarct. EVIDENCE OF ACUTE STROKE: YES. As above. 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 MRI head: Focal area of restricted diffusion in the right paramedian medulla ob longata. Vascular territory of basilar artery. CTA Head/Neck: No discrete filling defect, aneurysm or obvious stenosis. No hemodynamically significant stenosis in the carotids. 2D echo: LVEF 60 to 65%. Cannot assess AC, VSD or PFO. No thrombus Continue telemetry, antiplatelets, DVT prophylaxis, high intensity statins, optimize BP, optimize blood glucose level. Continue PT ST OT. Monitor for falls, seizure and aspiration. Dr. Summers from rehab has been consulted and he prefers for patient to be sent to rehab at his hometown where he has good family support. Patient pending transfer to acute rehab at [place]. (2) Diabetes Qualifiers: Diabetes mellitus type: type 2 Diabetes mellitus complication status: with circulatory complication Diabetes mellitus complication detail: with other circulatory complications Is this a current diagnosis for this admission?: Yes Plan: Controlled. Hemoglobin A1c 8.4%. Patient had great response with oral hypoglycemic. Will DC subcutaneous insulin. Continue diabetic diet, sliding scale insulin, Accu-Cheks hypoglycemia protocol. Continue Metformin 1000 mg p.o. twice daily. Continue sitagliptin 50 mg p.o. twice daily. Diabetic education. Outpatient PCP follow-up. (3) Dyslipidemia Is this a current diagnosis for this admission?: Yes Plan: ASCVD 8.5%. Continue high intensity statin. Monitor LFTs. Outpatient PCP follow-up. (4) Hypertension Qualifiers: Hypertension type: essential hypertension Qualified Code(s): I10 - Essential (primary) hypertension Is this a current diagnosis for this admission?: Yes Plan: Well-controlled. Continue enalapril 15 mg p.o. twice daily. Monitor BP. Adjust meds as needed. Outpatient PCP follow-up. (5) History of cerebellar stroke Is this a current diagnosis for this admission?: Yes Plan: History of right cerebellar stroke. Plan as per #1. (6) Obesity (BMI 30.0-34.9) Is this a current diagnosis for this admission?: Yes Plan: BMI 33.9. Thyroid function WNL. Diet and lifestyle modification recommended. - Plan Summary Summary: Patient is medically stable/discharged. SW working on disposition; Acute Rehab vs Home w/ HH services.
[2020-01-14] MEDS: ATORVASTATIN CALCIUM 80 MG TABLET PO SCH (22:23)
[2020-01-15] MEDS: INSULIN LISPRO 100 UNIT/ML 3 ML VIAL SUBCUT SCH ×4 (09:44→22:25)
[2020-01-15] MEDS: ENALAPRIL MALEATE 10 MG TABLET PO SCH ×2 (09:49→22:18)
[2020-01-15] MEDS: METFORMIN HCL 500 MG TABLET PO SCH ×2 (09:50→16:58)
[2020-01-15] MEDS: SITAGLIPTIN PHOSPHATE 50 MG TABLET PO SCH ×2 (09:50→16:58)
[2020-01-15] MEDS: ENOXAPARIN SODIUM INJ 40 MG/0.4 ML DISP.SYRIN SUBCUT SCH (09:50)
--- NOTE | 2020-01-15 12:47 | PDOC PROGRESS REPORT ---
Subjective Progress Note for:: 01/15/20 Subjective:: ABEBA MCLEOD is a 54 year old male with a past medical history of hypertension, diabetes, cerebellar CVA with residual balance deficits. Patient presents 12 hours after the onset of left-sided weakness occurring while driving from [place] to his business in [place]. He admits associated nausea and vomiting but denies headache palpitations confusion or slurred speech. He denies recent change in [id number] or prescribed medication regiment. His initial work-up was unremarkable for an acute event and is referred to the hospitalist for admission. 01/12/2020. No acute events overnight. Patient comfortably resting in bed no apparent distress. Reporting mild improvement of his left lower extremity strength. Reported that he is able to extend and flex his hip, otherwise denies any fever, chills, nausea, vomiting, diarrhea, constipation or any urinary symptoms. Patient is pending transfer to [place] for acute rehab. 01/13/2020. No acute events overnight. Comfortably sitting up in apparent distress, does not report any changes in his neurological system, denies any fever, chills, nausea, vomiting, diarrhea, constipation or any urinary symptoms. Pending transfer to [place]. 01/14/2020. No acute events overnight. Patient is pending transfer to telemetry, denies any change in neurological symptoms, alert and oriented. No apparent distress, denies any fever, chills, nausea, vomiting, diarrhea, constipation or any urinary symptoms. 01/15/2020. No acute events overnight. Patient is pending transfer to rehab. Denies any headache, any fever, chills, nausea, vomiting, diarrhea, constipation or any urinary symptoms, denies any new neurological symptoms. Reason For Visit: CVA Physical Exam Vital Signs: Temp Pulse Resp BP Pulse Ox 98.1 F 88 16 115/72 100 01/15/20 12:00 01/15/20 12:00 01/15/20 12:00 01/15/20 12:00 01/15/20 12:00 Intake & Output 01/14/20 01/15/20 01/16/20 06:59 06:59 06:59 Intake Total 762 220 240 Output Total 1100 1000 Balance -338 -780 240 Weight 78.5 kg 79.1 kg General appearance: PRESENT: no acute distress, obese, well-developed, well- nourished Head exam: PRESENT: atraumatic, normocephalic Respiratory exam: PRESENT: clear to auscultation aaron. ABSENT: rales, rhonchi, wheezes Cardiovascular exam: PRESENT: RRR. ABSENT: diastolic murmur, rubs, systolic mur mur GI/Abdominal exam: PRESENT: normal bowel sounds, soft. ABSENT: distended, guarding, mass, organolmegaly, rebound, tenderness Extremities exam: PRESENT: full ROM. ABSENT: calf tenderness, clubbing, pedal edema Neurological exam: PRESENT: alert, awake, oriented to person, oriented to place, oriented to time, oriented to situation, CN II-XII grossly intact, motor sensory deficit - Unchanged left upper and lower extremity deficits. Skin exam: PRESENT: dry, intact, warm. ABSENT: cyanosis, rash Results Laboratory Results: 01/10/20 05:57 01/10/20 05:57 01/01/20 01/01/20 23:10 23:10 Creatine Kinase 78 CK-MB (CK-2) 1.86 Troponin I < 0.012 Impressions: Head CT 01/01/20 00:00 IMPRESSION: No acute intracranial hemorrhage is seen. There is a hypodensity with volume loss seen at the right cerebellum, most likely due to remote infarct. If there is persistent clinical concern for a neurologic deficit, consider MRI brain with diffusion-weighted sequences for further evaluation. Chest X-Ray 01/01/20 22:43 IMPRESSION: Negative chest copyright 2010 [employer]- All Rights Reserved Head CTA 01/01/20 22:43 IMPRESSION: No discrete filling defect, aneurysm, or obvious stenosis is seen within the anterior or posterior intracranial circulation. There are no findings to suggest a hemodynamically significant stenosis of the carotid arteries. Neck CTA 01/01/20 22:43 IMPRESSION: No discrete filling defect, aneurysm, or obvious stenosis is seen within the anterior or posterior intracranial circulation. There are no findings to suggest a hemodynamically significant stenosis of the carotid arteries. Head MRI 01/02/20 00:00 IMPRESSION: 1. Focal area of restricted diffusion in the right paramedian medulla oblongata (image 6 of series 4) ; the infarct is in the vascular territory of branches from the basilar artery. 2. Chronic right cerebellar infarct. EVIDENCE OF ACUTE STROKE: YES. As above. 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 MRI head: Focal area of restricted diffusion in the right paramedian medulla oblongata. Vascular territory of basilar artery. CTA Head/Neck: No discrete filling defect, aneurysm or obvious stenosis. No hemodynamically significant stenosis in the carotids. 2D echo: LVEF 60 to 65%. Cannot assess AC, VSD or PFO. No thrombus Continue telemetry, antiplatelets, DVT prophylaxis, high intensity statins, optimize BP, optimize blood glucose level. Continue PT ST OT. Monitor for falls, seizure and aspiration. Dr. Summers from rehab has been consulted and he prefers for patient to be sent to rehab at his hometown where he has good family support. Patient pending transfer to acute rehab at [place]. (2) Diabetes Qualifiers: Diabetes mellitus type: type 2 Diabetes mellitus complication status: with circulatory complication Diabetes mellitus complication detail: with other circulatory complications Is this a current diagnosis for this admission?: Yes Plan: Controlled. Hemoglobin A1c 8.4%. Patient had great response with oral hypoglycemic. . Continue diabetic diet, sliding scale insulin, Accu-Cheks hypoglycemia protocol. Continue Metformin 1000 mg p.o. twice daily. Continue sitagliptin 50 mg p.o. twice daily. Diabetic education. Outpatient PCP follow-up. (3) Dyslipidemia Is this a current diagnosis for this admission?: Yes Plan: ASCVD 8.5%. Continue high intensity statin. Monitor LFTs. Outpatient PCP follow-up. (4) Hypertension Qualifiers: Hypertension type: essential hypertension Qualified Code(s): I10 - Essential (primary) hypertension Is this a current diagnosis for this admission?: Yes Plan: Well-controlled. Continue enalapril 15 mg p.o. twice daily. Monitor BP. Adjust meds as needed. Outpatient PCP follow-up. (5) History of cerebellar stroke Is this a current diagnosis for this admission?: Yes Plan: History of right cerebellar stroke. Plan as per #1. (6) Obesity (BMI 30.0-34.9) Is this a current diagnosis for this admission?: Yes Plan: BMI 33.9. Thyroid function WNL. Diet and lifestyle modification recommended. - Plan Summary Summary: Patient is medically stable/discharged. SW working on disposition; Acute Rehab vs Home w/ HH services.
[2020-01-15] MEDS: ATORVASTATIN CALCIUM 80 MG TABLET PO SCH (22:18)
[2020-01-16] MEDS: INSULIN LISPRO 100 UNIT/ML 3 ML VIAL SUBCUT SCH ×4 (08:09→21:59)
[2020-01-16] MEDS: METFORMIN HCL 500 MG TABLET PO SCH ×2 (08:25→17:18)
[2020-01-16] MEDS: SITAGLIPTIN PHOSPHATE 50 MG TABLET PO SCH ×2 (08:25→17:18)
[2020-01-16] MEDS: ENALAPRIL MALEATE 10 MG TABLET PO SCH ×2 (11:46→22:02)
[2020-01-16] MEDS: ENOXAPARIN SODIUM INJ 40 MG/0.4 ML DISP.SYRIN SUBCUT SCH (11:47)
--- NOTE | 2020-01-16 13:00 | PDOC PROGRESS REPORT ---
Subjective Progress Note for:: 01/16/20 Subjective:: ABEBA MCLEOD is a 54 year old male with a past medical history of hypertension, diabetes, cerebellar CVA with residual balance deficits. Patient presents 12 hours after the onset of left-sided weakness occurring while driving from [place] to his business in [place]. He admits associated nausea and vomiting but denies headache palpitations confusion or slurred speech. He denies recent change in [id number] or prescribed medication regiment. His initial work-up was unremarkable for an acute event and is referred to the hospitalist for admission. 01/12/2020. No acute events overnight. Patient comfortably resting in bed no apparent distress. Reporting mild improvement of his left lower extremity strength. Reported that he is able to extend and flex his hip, otherwise denies any fever, chills, nausea, vomiting, diarrhea, constipation or any urinary symptoms. Patient is pending transfer to [place] for acute rehab. 01/13/2020. No acute events overnight. Comfortably sitting up in apparent distress, does not report any changes in his neurological system, denies any fever, chills, nausea, vomiting, diarrhea, constipation or any urinary symptoms. Pending transfer to [place]. 01/14/2020. No acute events overnight. Patient is pending transfer to telemetry, denies any change in neurological symptoms, alert and oriented. No apparent distress, denies any fever, chills, nausea, vomiting, diarrhea, constipation or any urinary symptoms. 01/15/2020. No acute events overnight. Patient is pending transfer to rehab. Denies any headache, any fever, chills, nausea, vomiting, diarrhea, constipation or any urinary symptoms, denies any new neurological symptoms. 01/16/2020. No acute events overnight. Comfortably sitting in bed no apparent distress. Reporting mild improvement of upper extremity strength, p.o. tolerant, having normal bladder and bowel movements, denies any fever, chills, nausea, vomiting, diarrhea, constipation or any urinary symptoms. Patient is pending transfer to rehab. Reason For Visit: CVA Physical Exam Vital Signs: Temp Pulse Resp BP Pulse Ox 98.1 F 89 10 L 114/67 97 01/16/20 11:28 01/16/20 11:28 01/16/20 11:28 01/16/20 11:28 01/16/20 11:28 Intake & Output 01/15/20 01/16/20 01/17/20 06:59 06:59 06:59 Intake Total 220 1590 Output Total 1000 775 Balance -780 815 Weight 79.1 kg 79 kg General appearance: PRESENT: no acute distress, well-developed, well-nourished Head exam: PRESENT: atraumatic, normocephalic Respiratory exam: PRESENT: clear to auscultation aaron. ABSENT: rales, rhonchi, wheezes Cardiovascular exam: PRESENT: RRR. ABSENT: diastolic murmur, rubs, systolic murmur GI/Abdominal exam: PRESENT: normal bowel sounds, soft. ABSENT: distended, guarding, mass, organolmegaly, rebound, tenderness Extremities exam: PRESENT: full ROM. ABSENT: calf tenderness, clubbing, pedal edema Neurological exam: PRESENT: alert, awake, oriented to person, oriented to place, oriented to time, oriented to situation, CN II-XII grossly intact, motor sensory deficit - RU/L Ext 1/5 Patient regaining some strength on the proximal muscles of upper and lower extremities. Results Laboratory Results: 01/10/20 05:57 01/10/20 05:57 01/01/20 01/01/20 23:10 23:10 Creatine Kinase 78 CK-MB (CK-2) 1.86 Troponin I < 0.012 Impressions: Head CT 01/01/20 00:00 IMPRESSION: No acute intracranial hemorrhage is seen. There is a hypodensity with volume loss seen at the right cerebellum, most likely due to remote infarct. If there is persistent clinical concern for a neurologic deficit, consider MRI brain with diffusion-weighted sequences for further evaluation. Chest X-Ray 01/01/20 22:43 IMPRESSION: Negative chest copyright 2011 [employer]- All Rights Reserved Head CTA 01/01/20 22:43 IMPRESSION: No discrete filling defect, aneurysm, or obvious stenosis is seen within the anterior or posterior intracranial circulation. There are no findings to suggest a hemodynamically significant stenosis of the carotid arteries. Neck CTA 01/01/20 22:43 IMPRESSION: No discrete filling defect, aneurysm, or obvious stenosis is seen within the anterior or posterior intracranial circulation. There are no findings to suggest a hemodynamically significant stenosis of the carotid arteries. Head MRI 01/02/20 00:00 IMPRESSION: 1. Focal area of restricted diffusion in the right paramedian medulla oblongata (image 6 of series 4) ; the infarct is in the vascular te rritory of branches from the basilar artery. 2. Chronic right cerebellar infarct. EVIDENCE OF ACUTE STROKE: YES. As above. 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 MRI head: Focal area of restricted diffusion in the right paramedian medulla oblongata. Vascular territory of basilar artery. CTA Head/Neck: No discrete filling defect, aneurysm or obvious stenosis. No hemodynamically significant stenosis in the carotids. 2D echo: LVEF 60 to 65%. Cannot assess AC, VSD or PFO. No thrombus Continue telemetry, antiplatelets, DVT prophylaxis, high intensity statins, optimize BP, optimize blood glucose level. Continue PT ST OT. Monitor for falls, seizure and aspiration. Dr. Summers from rehab has been consulted and he prefers for patient to be sent to rehab at his hometown where he has good family support. Patient pending transfer to acute rehab at [place]. (2) Diabetes Qualifiers: Diabetes mellitus type: type 2 Diabetes mellitus complication status: with circulatory complication Diabetes mellitus complication detail: with other circulatory complications Is this a current diagnosis for this admission?: Yes Plan: Controlled. Hemoglobin A1c 8.4%. Patient had great response with oral hypoglycemic. . Continue diabetic diet, sliding scale insulin, Accu-Cheks hypoglycemia protocol. Continue Metformin 1000 mg p.o. twice daily. Continue sitagliptin 50 mg p.o. twice daily. Diabetic education. Outpatient PCP follow-up. (3) Dyslipidemia Is this a current diagnosis for this admission?: Yes Plan: ASCVD 8.5%. Continue high intensity statin. Monitor LFTs. Outpatient PCP follow-up. (4) Hypertension Qualifiers: Hypertension type: essential hypertension Qualified Code(s): I10 - Essential (primary) hypertension Is this a current diagnosis for this admission?: Yes Plan: Well-controlled. Continue enalapril 15 mg p.o. twice daily. Monitor BP. Adjust meds as needed. Outpatient PCP follow-up. (5) History of cerebellar stroke Is this a current diagnosis for this admission?: Yes Plan: History of right cerebellar stroke. Plan as per #1. (6) Obesity (BMI 30.0-34.9) Is this a current diagnosis for this admission?: Yes Plan: BMI 33.9. Thyroid function WNL. Diet and lifestyle modification recommended. - Plan Summary Summary: Patient is medically stable/discharged. SW working on disposition; Acute Rehab vs Home w/ HH services.
[2020-01-16] MEDS: ATORVASTATIN CALCIUM 80 MG TABLET PO SCH (22:03)
[2020-01-17] MEDS: INSULIN LISPRO 100 UNIT/ML 3 ML VIAL SUBCUT SCH ×4 (08:58→21:21)
[2020-01-17] MEDS: ENOXAPARIN SODIUM INJ 40 MG/0.4 ML DISP.SYRIN SUBCUT SCH (09:07)
[2020-01-17] MEDS: ENALAPRIL MALEATE 10 MG TABLET PO SCH ×2 (09:08→21:23)
[2020-01-17] MEDS: METFORMIN HCL 500 MG TABLET PO SCH ×2 (09:08→16:32)
[2020-01-17] MEDS: SITAGLIPTIN PHOSPHATE 50 MG TABLET PO SCH ×2 (09:08→16:32)
--- NOTE | 2020-01-17 12:30 | PDOC PROGRESS REPORT ---
Subjective Progress Note for:: 01/17/20 Subjective:: ABEBA MCLEOD is a 54 year old male with a past medical history of hypertension, diabetes, cerebellar CVA with residual balance deficits. Patient presents 12 hours after the onset of left-sided weakness occurring while driving from [place] to his business in [place]. He admits associated nausea and vomiting but denies headache palpitations confusion or slurred speech. He denies recent change in [id number] or prescribed medication regiment. His initial work-up was unremarkable for an acute event and is referred to the hospitalist for admission. 01/12/2020. No acute events overnight. Patient comfortably resting in bed no apparent distress. Reporting mild improvement of his left lower extremity strength. Reported that he is able to extend and flex his hip, otherwise denies any fever, chills, nausea, vomiting, diarrhea, constipation or any urinary symptoms. Patient is pending transfer to [place] for acute rehab. 01/13/2020. No acute events overnight. Comfortably sitting up in apparent distress, does not report any changes in his neurological system, denies any fever, chills, nausea, vomiting, diarrhea, constipation or any urinary symptoms. Pending transfer to [place]. 01/14/2020. No acute events overnight. Patient is pending transfer to telemetry, denies any change in neurological symptoms, alert and oriented. No apparent distress, denies any fever, chills, nausea, vomiting, diarrhea, constipation or any urinary symptoms. 01/15/2020. No acute events overnight. Patient is pending transfer to rehab. Denies any headache, any fever, chills, nausea, vomiting, diarrhea, constipation or any urinary symptoms, denies any new neurological symptoms. 01/16/2020. No acute events overnight. Comfortably sitting in bed no apparent distress. Reporting mild improvement of upper extremity strength, p.o. tolerant, having normal bladder and bowel movements, denies any fever, chills, nausea, vomiting, diarrhea, constipation or any urinary symptoms. Patient is pending transfer to rehab. 01/17/2020. No acute events overnight. Patient comfortable stable no apparent distress, denies any changes in his neurological symptoms, p.o. tolerant, had a normal bowel movement, denies any fever, chills, nausea, vomiting, diarrhea, constipation or any urinary symptoms. Patient is pending transfer to rehab. Reason For Visit: CVA Physical Exam Vital Signs: Temp Pulse Resp BP Pulse Ox 98.0 F 99 16 126/90 H 97 01/17/20 07:50 01/17/20 07:50 01/17/20 07:50 01/17/20 07:50 01/17/20 07:50 Intake & Output 01/16/20 01/17/20 01/18/20 06:59 06:59 06:59 Intake Total 1590 672 Output Total 775 1125 Balance 815 -453 Weight 79 kg 77.9 kg General appearance: PRESENT: no acute distress, well-developed, well-nourished Head exam: PRESENT: atraumatic, normocephalic Respiratory exam: PRESENT: clear to auscultation aaron. ABSENT: rales, rhonchi, wheezes Cardiovascular exam: PRESENT: RRR. ABSENT: diastolic murmur, rubs, systolic murmur GI/Abdominal exam: PRESENT: normal bowel sounds, soft. ABSENT: distended, guarding, mass, organolmegaly, rebound, tenderness Extremities exam: PRESENT: full ROM. ABSENT: calf tenderness, clubbing, pedal edema Neurological exam: PRESENT: alert, awake, oriented to person, oriented to place, oriented to time, oriented to situation, CN II-XII grossly intact, motor sensory deficit - Unchanged right upper and lower extremity neurological deficits. Skin exam: PRESENT: dry, intact, warm. ABSENT: cyanosis, rash Results Laboratory Results: 01/10/20 05:57 01/10/20 05:57 01/01/20 01/01/20 23:10 23:10 Creatine Kinase 78 CK-MB (CK-2) 1.86 Troponin I < 0.012 Impressions: Head CT 01/01/20 00:00 IMPRESSION: No acute intracranial hemorrhage is seen. There is a hypodensity with volume loss seen at the right cerebellum, most likely due to remote infarct. If there is persistent clinical concern for a neurologic deficit, consider MRI brain with diffusion-weighted sequences for further evaluation. Chest X-Ray 01/01/20 22:43 IMPRESSION: Negative chest copyright 2011 [place]- All Rights Reserved Head CTA 01/01/20 22:43 IMPRESSION: No discrete filling defect, aneurysm, or obvious stenosis is seen within the anterior or posterior intracranial circulation. There are no findings to suggest a hemodynamically significant stenosis of the carotid arteries. Neck CTA 01/01/20 22:43 IMPRESSION: No discrete filling defect, aneurysm, or obvious stenosis is seen within the anterior or posterior intracranial circulation. There are no findings to suggest a hemodynamically significant stenosis of the carotid arteries. Head MRI 01/02/20 00:00 IMPRESSION: 1. Focal area of restricted diffusion in the right paramedian medulla oblongata (image 6 of series 4) ; the infarct is in the vascular territory of branches from the basilar artery. 2. Chronic right cerebellar infarct. EVIDENCE OF ACUTE STROKE: YES. As above. 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 MRI head: Focal area of restricted diffusion in the right paramedian medulla oblongata. Vascular territory of basilar artery. CTA Head/Neck: No discrete filling defect, aneurysm or obvious stenosis. No hemodynamically significant stenosis in the carotids. 2D echo: LVEF 60 to 65%. Cannot assess AC, VSD or PFO. No thrombus Continue telemetry, antiplatelets, DVT prophylaxis, high intensity statins, optimize BP, optimize blood glucose level. Continue PT ST OT. Monitor for falls, seizure and aspiration. Dr. Summers from rehab has been consulted and he prefers for patient to be sent to rehab at his hometown where he has good family support. Patient pending transfer to acute rehab at [place]. (2) Diabetes Qualifiers: Diabetes mellitus type: type 2 Diabetes mellitus complication status: with circulatory complication Diabetes mellitus complication detail: with other circulatory complications Is this a current diagnosis for this admission?: Yes Plan: Controlled. Hemoglobin A1c 8.4%. Patient had great response with oral hypoglycemic. . Continue diabetic diet, sliding scale insulin, Accu-Cheks hypoglycemia protocol. Continue Metformin 1000 mg p.o. twice daily. Continue sitagliptin 50 mg p.o. twice daily. Diabetic education. Outpatient PCP follow-up. (3) Dyslipidemia Is this a current diagnosis for this admission?: Yes Plan: ASCVD 8.5%. Continue high intensity statin. Monitor LFTs. Outpatient PCP follow-up. (4) Hypertension Qualifiers: Hypertension type: essential hypertension Qualified Code(s): I10 - Esse ntial (primary) hypertension Is this a current diagnosis for this admission?: Yes Plan: Well-controlled. Continue enalapril 15 mg p.o. twice daily. Monitor BP. Adjust meds as needed. Outpatient PCP follow-up. (5) History of cerebellar stroke Is this a current diagnosis for this admission?: Yes Plan: History of right cerebellar stroke. Plan as per #1. (6) Obesity (BMI 30.0-34.9) Is this a current diagnosis for this admission?: Yes Plan: BMI 33.9. Thyroid function WNL. Diet and lifestyle modification recommended. - Plan Summary Summary: Patient is medically stable/discharged. SW working on disposition; Acute Rehab vs Home w/ HH services.
[2020-01-17] MEDS: ATORVASTATIN CALCIUM 80 MG TABLET PO SCH (21:24)
[2020-01-18] MEDS: INSULIN LISPRO 100 UNIT/ML 3 ML VIAL SUBCUT SCH ×4 (07:36→22:44)
[2020-01-18] MEDS: ENALAPRIL MALEATE 10 MG TABLET PO SCH ×2 (10:03→22:45)
[2020-01-18] MEDS: SITAGLIPTIN PHOSPHATE 50 MG TABLET PO SCH ×2 (10:03→17:19)
[2020-01-18] MEDS: ENOXAPARIN SODIUM INJ 40 MG/0.4 ML DISP.SYRIN SUBCUT SCH (10:03)
[2020-01-18] MEDS: METFORMIN HCL 500 MG TABLET PO SCH ×2 (10:04→17:20)
--- NOTE | 2020-01-18 15:40 | PDOC PROGRESS REPORT ---
Subjective Progress Note for:: 01/18/20 Subjective:: ABBEA MCLEOD is a 54 year old male with a past medical history of hypertension, diabetes, cerebellar CVA with residual balance deficits. Patient presents 12 hours after the onset of left-sided weakness occurring while driving from [place] to his business in [place]. He admits associated nausea and vomiting but denies headache palpitations confusion or slurred speech. He denies recent change in [id number]-pyhkbsy or prescribed medication regiment. His initial work-up was unremarkable for an acute event and is referred to the hospitalist for admission. 01/12/2020. No acute events overnight. Patient comfortably resting in bed no apparent distress. Reporting mild improvement of his left lower extremity strength. Reported that he is able to extend and flex his hip, otherwise denies any fever, chills, nausea, vomiting, diarrhea, constipation or any urinary symptoms. Patient is pending transfer to [place] for acute rehab. 01/13/2020. No acute events overnight. Comfortably sitting up in apparent distress, does not report any changes in his neurological system, denies any fever, chills, nausea, vomiting, diarrhea, constipation or any urinary symptoms. Pending transfer to [place]. 01/14/2020. No acute events overnight. Patient is pending transfer to telemetry, denies any change in neurological symptoms, alert and oriented. No apparent distress, denies any fever, chills, nausea, vomiting, diarrhea, constipation or any urinary symptoms. 01/15/2020. No acute events overnight. Patient is pending transfer to rehab. Denies any headache, any fever, chills, nausea, vomiting, diarrhea, constipation or any urinary symptoms, denies any new neurological symptoms. 01/16/2020. No acute events overnight. Comfortably sitting in bed no apparent distress. Reporting mild improvement of upper extremity strength, p.o. tolerant, having normal bladder and bowel movements, denies any fever, chills, nausea, vomiting, diarrhea, constipation or any urinary symptoms. Patient is pending transfer to rehab. 01/17/2020. No acute events overnight. Patient comfortable stable no apparent distress, denies any changes in his neurological symptoms, p.o. tolerant, had a normal bowel movement, denies any fever, chills, nausea, vomiting, diarrhea, constipation or any urinary symptoms. Patient is pending transfer to rehab. 01/18/2020. No acute events overnight. Comfortably sitting with no apparent distress. Reason For Visit: CVA Physical Exam Vital Signs: Temp Pulse Resp BP Pulse Ox 97.9 F 98 16 105/80 97 01/18/20 11:25 01/18/20 11:25 01/18/20 11:25 01/18/20 11:25 01/18/20 11:25 Intake & Output 01/17/20 01/18/20 01/19/20 06:59 06:59 06:59 Intake Total 672 923 380 Output Total 1125 750 Balance -453 173 380 Weight 77.9 kg 79.9 kg General appearance: PRESENT: no acute distress, well-developed, well-nourished Head exam: PRESENT: atraumatic, normocephalic Respiratory exam: PRESENT: clear to auscultation aaron. ABSENT: rales, rhonchi, wheezes Cardiovascular exam: PRESENT: RRR. ABSENT: diastolic murmur, rubs, systolic murmur GI/Abdominal exam: PRESENT: normal bowel sounds, soft. ABSENT: distended, guarding, mass, organolmegaly, rebound, tenderness Neurological exam: PRESENT: alert, awake, oriented to person, oriented to place, oriented to time, oriented to situation, CN II-XII grossly intact, motor sensory deficit - Unchanged neurological deficits. Results Laboratory Results: 01/10/20 05:57 01/10/20 05:57 01/01/20 01/01/20 23:10 23:10 Creatine Kinase 78 CK-MB (CK-2) 1.86 Troponin I < 0.012 Impressions: Head CT 01/01/20 00:00 IMPRESSION: No acute intracranial hemorrhage is seen. There is a hypodensity with volume loss seen at the right cerebellum, most likely due to remote infarct. If there is persistent clinical concern for a neurologic deficit, consider MRI brain with diffusion-weighted sequences for further evaluation. Chest X-Ray 01/01/20 22:43 IMPRESSION: Negative chest copyright 2011 [employer]- All Rights Reserved Head CTA 01/01/20 22:43 IMPRESSION: No discrete filling defect, aneurysm, or obvious stenosis is seen within the anterior or posterior intracranial circulation. There are no findings to suggest a hemodynamically significant stenosis of the carotid arteries. Neck CTA 01/01/20 22:43 IMPRESSION: No discrete filling defect, aneurysm, or obvious stenosis is seen within the anterior or posterior intracranial circulation. There are no findings to suggest a hemodynamically significant stenosis of the carotid arteries. Head MRI 01/02/20 00:00 IMPRESSION: 1. Focal area of restricted diffusion in the right paramedian medulla oblongata (image 6 of series 4) ; the infarct is in the vascular territory of branches from the basilar artery. 2. Chronic right cerebellar infarct. EVIDENCE OF ACUTE STROKE: YES. As above. 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 MRI head: Focal area of restricted diffusion in the right paramedian medulla oblongata. Vascular territory of basilar artery. CTA Head/Neck: No discrete filling defect, aneurysm or obvious stenosis. No hemodynamically significant stenosis in the carotids. 2D echo: LVEF 60 to 65%. Cannot assess AC, VSD or PFO. No thrombus Continue telemetry, antiplatelets, DVT prophylaxis, high intensity statins, optimize BP, optimize blood glucose level. Continue PT ST OT. Monitor for falls, seizure and aspiration. Dr. Summers from rehab has been consulted and he prefers for patient to be sent to rehab at his hometown where he has good family support. Patient pending transfer to acute rehab at [place]. (2) Diabetes Qualifiers: Diabetes mellitus type: type 2 Diabetes mellitus complication status: with circulatory complication Diabetes mellitus complication detail: with other circulatory complications Is this a current diagnosis for this admission?: Yes Plan: Controlled. Hemoglobin A1c 8.4%. Patient had great response with oral hypoglycemic. . Continue diabetic diet, sliding scale insulin, Accu-Cheks hypoglycemia protocol. Continue Metformin 1000 mg p.o. twice daily. Continue sitagliptin 50 mg p.o. twice daily. Diabetic education. Outpatient PCP follow-up. (3) Dyslipidemia Is this a current diagnosis for this admission?: Yes Plan: ASCVD 8.5%. Continue high intensity statin. Monitor LFTs. Outpatient PCP follow-up. (4) Hypertension Qualifiers: Hypertension type: essential hypertension Qualified Code(s): I10 - Essential (primary) hypertension Is this a current diagnosis for this admission?: Yes Plan: Well-controlled. Continue enalapril 15 mg p.o. twice daily. Monitor BP. Adjust meds as needed. Outpatient PCP follow-up. (5) History of cerebellar stroke Is this a current diagnosis for this admission?: Yes Plan: History of right cerebellar stroke. Plan as per #1. (6) Obesity (BMI 30.0-34.9) Is this a current diagnosis for this admission?: Yes Plan: BMI 33.9. Thyroid function WNL. Diet and lifestyle modification recommended. - Plan Summary Summary: Patient is medically stable/discharged. SW working on disposition; Acute Rehab vs Home w/ HH services.
[2020-01-18] MEDS: ATORVASTATIN CALCIUM 80 MG TABLET PO SCH (22:45)
[2020-01-19] MEDS: INSULIN LISPRO 100 UNIT/ML 3 ML VIAL SUBCUT SCH ×4 (08:59→21:43)
[2020-01-19] MEDS: METFORMIN HCL 500 MG TABLET PO SCH ×2 (09:01→17:24)
[2020-01-19] MEDS: ENALAPRIL MALEATE 10 MG TABLET PO SCH ×2 (09:01→21:44)
[2020-01-19] MEDS: SITAGLIPTIN PHOSPHATE 50 MG TABLET PO SCH ×2 (09:01→17:25)
[2020-01-19] MEDS: ENOXAPARIN SODIUM INJ 40 MG/0.4 ML DISP.SYRIN SUBCUT SCH (09:01)
--- NOTE | 2020-01-19 11:55 | PDOC PROGRESS REPORT ---
Subjective Progress Note for:: 01/19/20 Subjective:: ABEBA MCLEOD is a 54 year old male with a past medical history of hypertension, diabetes, cerebellar CVA with residual balance deficits. Patient presents 12 hours after the onset of left-sided weakness occurring while driving from [place] to his business in [place]. He admits associated nausea and vomiting but denies headache palpitations confusion or slurred speech. He denies recent change in [id number]-uczwoxh or prescribed medication regiment. His initial work-up was unremarkable for an acute event and is referred to the hospitalist for admission. 01/12/2020. No acute events overnight. Patient comfortably resting in bed no apparent distress. Reporting mild improvement of his left lower extremity strength. Reported that he is able to extend and flex his hip, otherwise denies any fever, chills, nausea, vomiting, diarrhea, constipation or any urinary symptoms. Patient is pending transfer to [place] for acute rehab. 01/13/2020. No acute events overnight. Comfortably sitting up in apparent distress, does not report any changes in his neurological system, denies any fever, chills, nausea, vomiting, diarrhea, constipation or any urinary symptoms. Pending transfer to [place]. 01/14/2020. No acute events overnight. Patient is pending transfer to telemetry, denies any change in neurological symptoms, alert and oriented. No apparent distress, denies any fever, chills, nausea, vomiting, diarrhea, constipation or any urinary symptoms. 01/15/2020. No acute events overnight. Patient is pending transfer to rehab. Denies any headache, any fever, chills, nausea, vomiting, diarrhea, constipation or any urinary symptoms, denies any new neurological symptoms. 01/16/2020. No acute events overnight. Comfortably sitting in bed no apparent distress. Reporting mild improvement of upper extremity strength, p.o. tolerant, having normal bladder and bowel movements, denies any fever, chills, nausea, vomiting, diarrhea, constipation or any urinary symptoms. Patient is pending transfer to rehab. 01/17/2020. No acute events overnight. Patient comfortable stable no apparent distress, denies any changes in his neurological symptoms, p.o. tolerant, had a normal bowel movement, denies any fever, chills, nausea, vomiting, diarrhea, constipation or any urinary symptoms. Patient is pending transfer to rehab. 01/18/2020. No acute events overnight. Comfortably sitting with no apparent distress. 01/19/2020. No acute events overnight. Comfortably resting in bed in no apparent distress. Reporting mild improvement of left shoulder strength and left hip strength. P.o. tolerant. Denies any fever, chills, nausea, vomiting, diarrhea, constipation or any urinary symptoms. Pending transfer to rehab. Reason For Visit: CVA Physical Exam Vital Signs: Temp Pulse Resp BP Pulse Ox 98.0 F 89 16 121/76 96 01/19/20 07:50 01/19/20 07:50 01/19/20 07:50 01/19/20 07:50 01/19/20 07:50 Intake & Output 01/18/20 01/19/20 01/20/20 06:59 06:59 06:59 Intake Total 923 602 Output Total 750 625 Balance 173 -23 Weight 79.9 kg 77.9 kg General appearance: PRESENT: no acute distress, well-developed, well-nourished Head exam: PRESENT: atraumatic, normocephalic Ear exam: PRESENT: normal external ear exam Mouth exam: PRESENT: moist Neck exam: ABSENT: carotid bruit, JVD, lymphadenopathy, thyromegaly Respiratory exam: PRESENT: clear to auscultation aaron. ABSENT: rales, rhonchi, wheezes Cardiovascular exam: PRESENT: RRR. ABSENT: diastolic murmur, rubs, systolic murmur Pulses: PRESENT: normal dorsalis pedis pul Vascular exam: PRESENT: normal capillary refill GI/Abdominal exam: PRESENT: normal bowel sounds, soft. ABSENT: distended, guarding, mass, organolmegaly, rebound, tenderness Extremities exam: PRESENT: full ROM. ABSENT: calf tenderness, clubbing, pedal edema Neurological exam: PRESENT: alert, awake, oriented to person, oriented to place, oriented to time, oriented to situation, CN II-XII grossly intact, motor sensory deficit - Mild improvement of left upper and lower extremity proximal muscles strength. Otherwise no significant changes. Psychiatric exam: PRESENT: appropriate affect, normal mood. ABSENT: homicidal ideation, suicidal ideation Skin exam: PRESENT: dry, intact, warm. ABSENT: cyanosis, rash Results Laboratory Results: 01/10/20 05:57 01/10/20 05:57 01/01/20 01/01/20 23:10 23:10 Creatine Kinase 78 CK-MB (CK-2) 1.86 Troponin I < 0.012 Impressions: Head CT 01/01/20 00:00 IMPRESSION: No acute intracranial hemorrhage is seen. There is a hypodensity with volume loss seen at the right cerebellum, most likely due to remote infarct. If there is persistent clinical concern for a neurologic deficit, consider MRI brain with diffusion-weighted sequences for further evaluation. Chest X-Ray 01/01/20 22:43 IMPRESSION: Negative chest copyright 2010 [employer]- All Rights Reserved Head CTA 01/01/20 22:43 IMPRESSION: No discrete filling defect, aneurysm, or obvious stenosis is seen within the anterior or posterior intracranial circulation. There are no findings to suggest a hemodynamically significant stenosis of the carotid arteries. Neck CTA 01/01/20 22:43 IMPRESSION: No discrete filling defect, aneurysm, or obvious stenosis is seen within the anterior or posterior intracranial circulation. There are no findings to suggest a hemodynamically significant stenosis of the carotid arteries. Head MRI 01/02/20 00:00 IMPRESSION: 1. Focal area of restricted diffusion in the right paramedian medulla oblongata (image 6 of series 4) ; the infarct is in the vascular terr itory of branches from the basilar artery. 2. Chronic right cerebellar infarct. EVIDENCE OF ACUTE STROKE: YES. As above. 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 MRI head: Focal area of restricted diffusion in the right paramedian medulla oblongata. Vascular territory of basilar artery. CTA Head/Neck: No discrete filling defect, aneurysm or obvious stenosis. No hemodynamically significant stenosis in the carotids. 2D echo: LVEF 60 to 65%. Cannot assess AC, VSD or PFO. No thrombus Continue telemetry, antiplatelets, DVT prophylaxis, high intensity statins, optimize BP, optimize blood glucose level. Continue PT ST OT. Monitor for falls, seizure and aspiration. Dr. Summers from rehab has been consulted and he prefers for patient to be sent to rehab at his hometown where he has good family support. Patient pending transfer to acute rehab at [place]. (2) Diabetes Qualifiers: Diabetes mellitus type: type 2 Diabetes mellitus complication status: with circulatory complication Diabetes mellitus complication detail: with other circulatory complications Is this a current diagnosis for this admission?: Yes Plan: Controlled. Hemoglobin A1c 8.4%. Patient had great response with oral hypoglycemic. . Continue diabetic diet, sliding scale insulin, Accu-Cheks hypoglycemia protocol. Continue Metformin 1000 mg p.o. twice daily. Continue sitagliptin 50 mg p.o. twice daily. Diabetic education. Outpatient PCP follow-up. (3) Dyslipidemia Is this a current diagnosis for this admission?: Yes Plan: ASCVD 8.5%. Continue high intensity statin. Monitor LFTs. Outpatient PCP follow-up. (4) Hypertension Qualifiers: Hypertension type: essential hypertension Qualified Code(s): I10 - Essential (primary) hypertension Is this a current diagnosis for this admission?: Yes Plan: Well-controlled. Continue enalapril 15 mg p.o. twice daily. Monitor BP. Adjust meds as needed. Outpatient PCP follow-up. (5) History of cerebellar stroke Is this a current diagnosis for this admission?: Yes Plan: History of right cerebellar stroke. Plan as per #1. (6) Obesity (BMI 30.0-34.9) Is this a current diagnosis for this admission?: Yes Plan: BMI 33.9. Thyroid function WNL. Diet and lifestyle modification recommended. - Plan Summary Summary: Patient is medically stable/discharged. SW working on disposition; Acute Rehab vs Home w/ HH services.
[2020-01-19] MEDS: ATORVASTATIN CALCIUM 80 MG TABLET PO SCH (21:44)
[2020-01-20] MEDS: INSULIN LISPRO 100 UNIT/ML 3 ML VIAL SUBCUT SCH ×4 (08:55→21:58)
[2020-01-20] MEDS: ENALAPRIL MALEATE 10 MG TABLET PO SCH ×2 (08:59→21:56)
[2020-01-20] MEDS: SITAGLIPTIN PHOSPHATE 50 MG TABLET PO SCH ×2 (08:59→16:13)
[2020-01-20] MEDS: ENOXAPARIN SODIUM INJ 40 MG/0.4 ML DISP.SYRIN SUBCUT SCH (09:00)
[2020-01-20] MEDS: METFORMIN HCL 500 MG TABLET PO SCH ×2 (09:00→16:13)
--- NOTE | 2020-01-20 11:13 | PDOC PROGRESS REPORT ---
Subjective Progress Note for:: 01/20/20 Subjective:: ABEBA MCLEOD is a 54 year old male with a past medical history of hypertension, diabetes, cerebellar CVA with residual balance deficits. Patient presents 12 hours after the onset of left-sided weakness occurring while driving from [place] to his business in [place]. He admits associated nausea and vomiting but denies headache palpitations confusion or slurred speech. He denies recent change in [id number]-[id number] or prescribed medication regiment. His initial work-up was unremarkable for an acute event and is referred to the hospitalist for admission. 01/12/2020. No acute events overnight. Patient comfortably resting in bed no apparent distress. Reporting mild improvement of his left lower extremity strength. Reported that he is able to extend and flex his hip, otherwise denies any fever, chills, nausea, vomiting, diarrhea, constipation or any urinary symptoms. Patient is pending transfer to [place] for acute rehab. 01/13/2020. No acute events overnight. Comfortably sitting up in apparent distress, does not report any changes in his neurological system, denies any fever, chills, nausea, vomiting, diarrhea, constipation or any urinary symptoms. Pending transfer to [place]. 01/14/2020. No acute events overnight. Patient is pending transfer to telemetry, denies any change in neurological symptoms, alert and oriented. No apparent distress, denies any fever, chills, nausea, vomiting, diarrhea, constipation or any urinary symptoms. 01/15/2020. No acute events overnight. Patient is pending transfer to rehab. Denies any headache, any fever, chills, nausea, vomiting, diarrhea, constipation or any urinary symptoms, denies any new neurological symptoms. 01/16/2020. No acute events overnight. Comfortably sitting in bed no apparent distress. Reporting mild improvement of upper extremity strength, p.o. tolerant, having normal bladder and bowel movements, denies any fever, chills, nausea, vomiting, diarrhea, constipation or any urinary symptoms. Patient is pending transfer to rehab. 01/17/2020. No acute events overnight. Patient comfortable stable no apparent distress, denies any changes in his neurological symptoms, p.o. tolerant, had a normal bowel movement, denies any fever, chills, nausea, vomiting, diarrhea, constipation or any urinary symptoms. Patient is pending transfer to rehab. 01/18/2020. No acute events overnight. Comfortably sitting with no apparent distress. 01/19/2020. No acute events overnight. Comfortably resting in bed in no apparent distress. Reporting mild improvement of left shoulder strength and left hip strength. P.o. tolerant. Denies any fever, chills, nausea, vomiting, diarrhea, constipation or any urinary symptoms. Pending transfer to rehab. 01/20/2020. No acute events overnight. Patient continues to report improvement of his left upper and lower extremity strength, he is able to move proximal muscles of his left upper and lower extremity. Denies any fever, chills, nausea, vomiting, diarrhea, constipation or any urinary symptoms. Pending transfer to rehab. Reason For Visit: CVA Physical Exam Vital Signs: Temp Pulse Resp BP Pulse Ox 98.0 F 90 16 122/89 H 97 01/20/20 07:44 01/20/20 07:44 01/20/20 07:44 01/20/20 07:44 01/20/20 07:44 Intake & Output 01/19/20 01/20/20 01/21/20 06:59 06:59 06:59 Intake Total 602 620 Output Total 625 825 Weight 77.9 kg 78.4 kg General appearance: PRESENT: no acute distress, well-developed, well-nourished Head exam: PRESENT: atraumatic, normocephalic Respiratory exam: PRESENT: clear to auscultation aaron. ABSENT: rales, rhonchi, wheezes Cardiovascular exam: PRESENT: RRR. ABSENT: diastolic murmur, rubs, systolic murmur GI/Abdominal exam: PRESENT: normal bowel sounds, soft. ABSENT: distended, guarding, mass, organolmegaly, rebound, tenderness Extremities exam: PRESENT: full ROM. ABSENT: calf tenderness, clubbing, pedal edema Neurological exam: PRESENT: alert, awake, oriented to person, oriented to place, oriented to time, oriented to situation, CN II-XII grossly intact, motor sensory deficit - Able to move left upper and lower extremity proximal muscle groups. No significant changes on the distal muscle groups. Results Laboratory Results: 01/10/20 05:57 01/10/20 05:57 01/01/20 01/01/20 23:10 23:10 Creatine Kinase 78 CK-MB (CK-2) 1.86 Troponin I < 0.012 Impressions: Head CT 01/01/20 00:00 IMPRESSION: No acute intracranial hemorrhage is seen. There is a hypodensity with volume loss seen at the right cerebellum, most likely due to remote infarct. If there is persistent clinical concern for a neurologic deficit, consider MRI brain with diffusion-weighted sequences for further evaluation. Chest X-Ray 01/01/20 22:43 IMPRESSION: Negative chest copyright 2010 [employer]- All Rights Reserved Head CTA 01/01/20 22:43 IMPRESSION: No discrete filling defect, aneurysm, or obvious stenosis is seen within the anterior or posterior intracranial circulation. There are no findings to suggest a hemodynamically significant stenosis of the carotid arteries. Neck CTA 01/01/20 22:43 IMPRESSION: No discrete filling defect, aneurysm, or obvious stenosis is seen within the anterior or posterior intracranial circulation. There are no findings to suggest a hemodynamically significant stenosis of the carotid arteries. Head MRI 01/02/20 00:00 IMPRESSION: 1. Focal area of restricted diffusion in the right paramedian medulla oblongata (image 6 of series 4) ; the infarct is in the vascular territory of branches from the basilar artery. 2. Chronic right cerebellar infarct. EVIDENCE OF ACUTE STROKE: YES. As above. 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 MRI head: Focal area of restricted diffusion in the right paramedian medulla oblongata. Vascular territory of basilar artery. CTA Head/Neck: No discrete filling defect, aneurysm or obvious stenosis. No hemodynamically significant stenosis in the carotids. 2D echo: LVEF 60 to 65%. Cannot assess AC, VSD or PFO. No thrombus Continue telemetry, antiplatelets, DVT prophylaxis, high intensity statins, optimize BP, optimize blood glucose level. Continue PT ST OT. Monitor for falls, seizure and aspiration. Dr. Summers from rehab has been consulted and he prefers for patient to be sent to rehab at his hometown where he has good family support. Patient pending transfer to acute rehab at [place]. (2) Diabetes Qualifiers: Diabetes mellitus type: type 2 Diabetes mellitus complication status: with circulatory complication Diabetes mellitus complication detail: with other circulatory complications Is this a current diagnosis for this admission?: Yes Plan: Controlled. Hemoglobin A1c 8.4%. Patient had great response with oral hypoglycemic. . Continue diabetic diet, sliding scale insulin, Accu-Cheks hypoglycemia protocol. Continue Metformin 1000 mg p.o. twice daily. Continue sitagliptin 50 mg p.o. twice daily. Diabetic education. Outpatient PCP follow-up. (3) Dyslipidemia Is this a current diagnosis for this admission?: Yes Plan: ASCVD 8.5%. Continue high intensity statin. Monitor LFTs. Outpatient PCP follow-up. (4) Hypertension Qualifiers: Hypertension type: essential hypertension Qualified Code(s): I10 - Essential (primary) hypertension Is this a current diagnosis for this admission?: Yes Plan: Well-controlled. Continue enalapril 15 mg p.o. twice daily. Monitor BP. Adjust meds as needed. Outpatient PCP follow-up. (5) History of cerebellar stroke Is this a current diagnosis for this admission?: Yes Plan: History of right cerebellar stroke. Plan as per #1. (6) Obesity (BMI 30.0-34.9) Is this a current diagnosis for this admission?: Yes Plan: BMI 33.9. Thyroid function WNL. Diet and lifestyle modification recommended. (7) Depression Qualifiers: Active/Remission status: currently active Major depression episode severity: moderate Is this a current diagnosis for this admission?: Yes Plan: Patient denies any suicidal or homicidal ideation. Reports history of chronic untreated depression which has worsened since his CVA. We will start on low-dose escitalopram. Outpatient PCP and psychiatry follow-up. - Plan Summary Summary: Patient is medically stable/discharged. SW working on disposition; Acute Rehab vs Home w/ HH services.
[2020-01-20] MEDS: ESCITALOPRAM OXALATE 10 MG TABLET PO SCH (11:58)
[2020-01-20] MEDS: ATORVASTATIN CALCIUM 80 MG TABLET PO SCH (21:56)
[2020-01-21 06:54] LABS: ABSOLUTE BASOPHILS # (AUTO) 0.1 10^3/uL (0.0-0.2); ABSOLUTE EOSINOPHILS # (AUTO) 0.3 10^3/uL (0.0-0.6); ABSOLUTE LYMPHOCYTES (AUTO) 3.3 10^3/uL (0.5-4.7); ABSOLUTE MONOCYTES (AUTO) 0.7 10^3/uL (0.1-1.4); ABSOLUTE NEUT (AUTO) 7.2 10^3/uL (1.7-8.2); BASOPHILS % (AUTO) 0.6 % (0-2); EOSINOPHILS % (AUTO) 2.6 % (0-6); HEMATOCRIT 42.4 % (37.9-51.0); HEMOGLOBIN 14.5 g/dL (13.5-17.0); MEAN CORPUSCULAR HGB CONC 34.1 g/dL (32.0-36.0); MEAN CORPUSCULAR VOLUME 91 fl (80-97); MONOCYTES % (AUTO) 6.4 % (3-13); PLATELET COUNT 227 10^3/uL (150-450); RED BLOOD COUNT 4.67 10^6/uL (4.35-5.55); RED CELL DISTRIBUTION WIDTH 13.1 % (11.5-14.0); SEGMENTED NEUTROPHILS % (AUTO) 62.4 % (42-78); TOTAL CELLS COUNTED % (AUTO) 100 %; WHITE BLOOD COUNT 11.6 10^3/uL (4.0-10.5)
[2020-01-21] MEDS: INSULIN LISPRO 100 UNIT/ML 3 ML VIAL SUBCUT SCH ×4 (08:31→22:21)
[2020-01-21] MEDS: ENALAPRIL MALEATE 10 MG TABLET PO SCH ×2 (10:10→22:17)
[2020-01-21] MEDS: SITAGLIPTIN PHOSPHATE 50 MG TABLET PO SCH ×2 (10:10→17:21)
[2020-01-21] MEDS: ESCITALOPRAM OXALATE 10 MG TABLET PO SCH (10:10)
[2020-01-21] MEDS: ENOXAPARIN SODIUM INJ 40 MG/0.4 ML DISP.SYRIN SUBCUT SCH (10:10)
[2020-01-21] MEDS: METFORMIN HCL 500 MG TABLET PO SCH ×2 (10:10→17:22)
[2020-01-21] MEDS: ACETAMINOPHEN 325 MG TABLET PO PRN (17:22)
[2020-01-21] MEDS: LOPERAMIDE HCL 2 MG CAPSULE PO PRN (17:23)
--- NOTE | 2020-01-21 20:01 | PDOC DISCHARGE SUMMARY ---
Impression - Admit/DC Date/PCP Admission Date/Primary Care Provider: 01/02/20 01:03 Discharge Date: 01/11/20 - Note current through 01/21/20 - Discharge Diagnosis (1) Acute ischemic left [employer] stroke Is this a current diagnosis for this admission?: Yes (2) Diabetes Is this a current diagnosis for this admission?: Yes (3) Dyslipidemia Is this a current diagnosis for this admission?: Yes (4) Hypertension Is this a current diagnosis for this admission?: Yes (5) Obesity (BMI 30.0-34.9) Is this a current diagnosis for this admission?: Yes (6) History of cerebellar stroke Is this a current diagnosis for this admission?: Yes - Additional Information Resuscitation Status: Full Code Discharge Diet: Cardiac, Diabetic Discharge Activity: Activity As Tolerated, Balance Activity w/Rest, Slowly Increase Activity, Supervised Activity Prescriptions: Aspirin [Ecotrin 325 mg EC Tablet] 325 mg PO DAILY #90 tabec Metformin HCl [Glucophage] 1,000 mg PO BIDACBSP PRN #60 tablet PRN Reason: Sitagliptin Phosphate [Januvia 50 mg Tablet] 50 mg PO BIDACBS #60 tablet Escitalopram Oxalate [Lexapro 10 mg Tablet] 10 mg PO DAILY #30 tablet Atorvastatin Calcium [Lipitor 80 mg Tablet] 80 mg PO QHS #30 tablet Enalapril Maleate [Vasotec 10 mg Tablet] 15 mg PO Q12 #90 tablet Home Medications: Acetaminophen [Tylenol 325 mg Tablet] 650 mg PO Q4HP PRN tablet 01/11/20 Aspirin [Ecotrin 325 mg EC Tablet] 325 mg PO DAILY #90 tabec 01/11/20 Atorvastatin Calcium [Lipitor 80 mg Tablet] 80 mg PO QHS #30 tablet 01/11/20 Docusate Sodium [Colace 100 mg Capsule] 100 mg PO BIDP PRN capsule 01/11/20 Metformin HCl [Glucophage] 1,000 mg PO BIDACBSP PRN #60 tablet 01/11/20 Enalapril Maleate [Vasotec 10 mg Tablet] 15 mg PO Q12 #90 tablet 01/21/20 Escitalopram Oxalate [Lexapro 10 mg Tablet] 10 mg PO DAILY #30 tablet 01/21/20 Sitagliptin Phosphate [Januvia 50 mg Tablet] 50 mg PO BIDACBS #60 tablet 01/21/20 History of Present Illiness History of Present Illness: Per H&P by Dr. Sahni: ABEBA MCLEOD is a 54 year old male with a past medical history of hypertension, diabetes, cerebellar CVA with residual balance deficits. Patient presents 12 hours after the onset of left-sided weakness occurring while driving from [place] to his business in [place]. He admits associated nausea and vomiting but denies headache palpitations confusion or slurred speech. He denies recent change in [id number] or prescribed medication regiment. His initial work-up was unremarkable for an acute event and is referred to the hospitalist for admission. Hospital Course Hospital Course: (1) Acute ischemic left [employer] stroke Acute nonhemorrhagic right paramedian medulla oblongata basilar artery territory stroke with left upper and lower extremity flaccid paralysis. MRI head: Focal area of restricted diffusion in the right paramedian medulla oblongata. Vascular territory of basilar artery. CTA Head/Neck: No discrete filling defect, aneurysm or obvious stenosis. No hemodynamically significant stenosis in the carotids. 2D echo: LVEF 60 to 65%. Cannot assess AC, VSD or PFO. No thrombus Patient was admitted to [facility] on continuous. He has been started on antiplatelets and high intensity statins. Blood pressure and Glucose were optimized as described below. PT, ST, and OT consultations were obtained. Patient will benefit from continued outpatient therapy services. Recommend immediate follow-up appointment with PCP in [place] to begin referral process for therapy services. (2) Diabetes Improved glucose control tis admission; patient had great response with oral hypoglycemic. Hemoglobin A1c 8.4%. Continue cardiac/diabetic diet. Continue Metformin 1000 mg p.o. twice daily. Continue sitagliptin 50 mg p.o. twice daily. Diabetic education; met with the registered nurse cardiovascular icu and assistant health educator. Outpatient PCP follow-up. (3) Dyslipidemia ASCVD 8.5%. Continue high intensity statin. Outpatient PCP follow-up. (4) Hypertension Well-controlled. Continue enalapril 15 mg p.o. twice daily. Outpatient PCP follow-up. (5) History of cerebellar stroke History of right cerebellar stroke. Plan as per #1. (6) Obesity (BMI 30.0-34.9) BMI 32.7 Thyroid function WNL. Diet and lifestyle modification recommended. Continue cardiac/diabetic diet. (7) Depression Patient denies any suicidal or homicidal ideation. Reports history of chronic untreated depression which has worsened since his CVA. Have started on low-dose escitalopram. Recommend close outpatient PCP and psychiatry follow-up. Physical Exam Vital Signs: Temp Pulse Resp BP Pulse Ox 98.1 F 100 18 103/53 L 98 01/21/20 17:10 01/21/20 17:10 01/21/20 17:10 01/21/20 17:10 01/21/20 17:10 Intake & Output 01/20/20 01/21/20 01/22/20 06:59 06:59 06:59 Intake Total 620 870 Output Total 825 675 100 Balance -205 195 -100 Weight 78.4 kg 78.6 kg General appearance: PRESENT: no acute distress, obese, well-developed, well- nourished Head exam: PRESENT: atraumatic, normocephalic Eye exam: PRESENT: conjunctiva pink, EOMI, PERRLA. ABSENT: scleral icterus Mouth exam: PRESENT: moist, tongue midline Respiratory exam: PRESENT: clear to auscultation aaron, symmetrical, unlabored. ABSENT: rales, rhonchi, wheezes Cardiovascular exam: PRESENT: RRR, +S1, +S2. ABSENT: diastolic murmur, rubs, systolic murmur Vascular exam: PRESENT: normal capillary refill Extremities exam: ABSENT: calf tenderness, clubbing, pedal edema, +1 edema Neurological exam: PRESENT: alert, awake, oriented to person, oriented to place, oriented to time, oriented to situation, CN II-XII grossly intact, motor sensory deficit - Able to move left upper and lower extremity proximal muscle groups. No significant changes on the distal muscle groups. Psychiatric exam: PRESENT: flat affect, normal mood. ABSENT: homicidal ideation, suicidal ideation Skin exam: PRESENT: dry, intact, warm. ABSENT: cyanosis, rash Results Laboratory Results: WBC 11.6 10^3/uL (4.0-10.5) H 01/21/20 06:05 RBC 4.67 10^6/uL (4.35-5.55) 01/21/20 06:05 Hgb 14.5 g/dL (13.5-17.0) 01/21/20 06:05 Hct 42.4 % (37.9-51.0) 01/21/20 06:05 MCV 91 fl (80-97) 01/21/20 06:05 MCH 31.0 pg (27.0-33.4) 01/21/20 06:05 MCHC 34.1 g/dL (32.0-36.0) 01/21/20 06:05 RDW 13.1 % (11.5-14.0) 01/21/20 06:05 Plt Count 227 10^3/uL (150-450) 01/21/20 06:05 Lymph % (Auto) 28.0 % (13-45) 01/21/20 06:05 [place] % (Auto) 6.4 % (3-13) 01/21/20 06:05 Eos % (Auto) 2.6 % (0-6) 01/21/20 06:05 Baso % (Auto) 0.6 % (0-2) 01/21/20 06:05 Absolute Neuts (auto) 7.2 10^3/uL (1.7-8.2) 01/21/20 06:05 Absolute Lymphs (auto) 3.3 10^3/uL (0.5-4.7) 01/21/20 06:05 Absolute Monos (auto) 0.7 10^3/uL (0.1-1.4) 01/21/20 06:05 Absolute Eos (auto) 0.3 10^3/uL (0.0-0.6) 01/21/20 06:05 Absolute Basos (auto) 0.1 10^3/uL (0.0-0.2) 01/21/20 06:05 Seg Neutrophils % 62.4 % (42-78) 01/21/20 06:05 PT 13.5 SEC (11.4-15.4) 01/01/20 23:20 INR 1.03 01/01/20 23:20 INR (Anticoag Therapy) Cancelled 01/01/20 23:10 APTT 26.4 SEC (23.5-35.8) 01/01/20 23:20 Sodium 138.2 mmol/L (137-145) 01/10/20 05:57 Potassium 4.2 mmol/L (3.6-5.0) 01/10/20 05:57 Chloride 107 mmol/L (98-107) 01/10/20 05:57 Carbon Dioxide 25 mmol/L (22-30) 01/10/20 05:57 Anion Gap 6 (5-19) 01/10/20 05:57 BUN 20 mg/dL (7-20) 01/10/20 05:57 Creatinine 0.75 mg/dL (0.52-1.25) 01/10/20 05:57 Est GFR ( Amer) > 60 (>60) 01/10/20 05:57 Est GFR (MDRD) Non-Af > 60 (>60) 01/10/20 05:57 Glucose 135 mg/dL (75-110) H 01/10/20 05:57 POC Glucose 104 mg/dL (70-110) 01/21/20 17:10 Hemoglobin A1c % 8.4 % (4.7-6.0) H 01/02/20 06:14 Calcium 8.8 mg/dL (8.4-10.2) 01/10/20 05:57 Total Bilirubin 0.6 mg/dL (0.2-1.3) 01/01/20 23:10 Direct Bilirubin 0.0 mg/dL (0.0-0.4) 01/01/20 23:10 Neonat Total Bilirubin Not Reportable 01/01/20 23:10 Neonat Direct Bilirubin Not Reportable 01/01/20 23:10 Neonat Indirect Bili Not Reportable 01/01/20 23:10 AST 31 U/L (17-59) 01/01/20 23:10 ALT 34 U/L (<50) 01/01/20 23:10 Alkaline Phosphatase 70 U/L (38-126) 01/01/20 23:10 Creatine Kinase 78 U/L (55-170) 01/01/20 23:10 CK-MB (CK-2) 1.86 ng/mL (<4.55) 01/01/20 23:10 Troponin I < 0.012 ng/mL 01/01/20 23:10 Total Protein 7.3 g/dL (6.3-8.2) 01/01/20 23:10 Albumin 4.1 g/dL (3.5-5.0) 01/01/20 23:10 Triglycerides 48 mg/dL (<150) 01/02/20 06:14 Cholesterol 122.60 mg/dL (0-200) 01/02/20 06:14 LDL Cholesterol Direct 63 mg/dL (<100) 01/02/20 06:14 VLDL Cholesterol 10.0 mg/dL (10-31) 01/02/20 06:14 HDL Cholesterol 47 mg/dL (>40) 01/02/20 06:14 TSH 0.76 uIU/mL (0.47-4.68) 01/04/20 06:09 Free T4 1.68 ng/dL (0.78-2.19) 01/04/20 06:09 COVID-19 Source NASOPHARYNGEAL 01/05/20 19:55 COVID-19 (CYN) NOT DETECTED 01/05/20 19:55 SARS-CoV-2 (PCR) NEGATIVE (NEGATIVE) 01/15/20 08:00 01/01/20 23:10 CK-MB (CK-2) 1.86 Troponin I < 0.012 Impressions: Head CT 01/01/20 00:00 IMPRESSION: No acute intracranial hemorrhage is seen. There is a hypodensity with volume loss seen at the right cerebellum, most likely due to remote infarct. If there is persistent clinical concern for a neurologic deficit, consider MRI brain with diffusion-weighted sequences for further evaluation. Chest X-Ray 01/01/20 22:43 IMPRESSION: Negative chest copyright 2011 [employer]- All Rights Reserved Head CTA 01/01/20 22:43 IMPRESSION: No discrete filling defect, aneurysm, or obvious stenosis is seen within the anterior or posterior intracranial circulation. There are no findings to suggest a hemodynamically significant stenosis of the carotid arteries. Neck CTA 01/01/20 22:43 IMPRESSION: No discrete filling defect, aneurysm, or obvious stenosis is seen within the anterior or posterior intracranial circulation. There are no findings to suggest a hemodynamically significant stenosis of the carotid arteries. Head MRI 01/02/20 00:00 IMPRESSION: 1. Focal area of restricted diffusion in the right paramedian medulla oblongata (image 6 of series 4) ; the infarct is in the vascular territory of branches from the basilar artery. 2. Chronic right cerebellar infarct. EVIDENCE OF ACUTE STROKE: YES. As above. Plan Plan of Treatment: Patient is discharged in stable condition. He is advised to follow-up with his primary care provider within 1 week to establish with a local physical/occupational rehabilitation service. He is instructed to continue his medications as prescribed. Continue to eat a heart healthy/consistent carb diet. Return to the emergency department as needed for any concerning symptoms. Time Spent: Greater than 30 Minutes Stroke Is this a Stroke Patient?: Yes Stroke Pt being discharged on Anti-thrombolytic therapy?: Yes Stroke Pt being discharged on Anti-coagulation therapy?: No Reason(s) for not prescribing Anti-coagulation therapy:: Not indicated Stroke Pt being discharged on Statins?: Yes Acute Heart Failure - Is this a Heart Failure Patient?: No
[2020-01-21] MEDS: ATORVASTATIN CALCIUM 80 MG TABLET PO SCH (22:17)
[2020-01-22] MEDS: INSULIN LISPRO 100 UNIT/ML 3 ML VIAL SUBCUT SCH ×4 (08:38→22:29)
[2020-01-22] MEDS: METFORMIN HCL 500 MG TABLET PO SCH ×2 (09:20→17:27)
[2020-01-22] MEDS: LOPERAMIDE HCL 2 MG CAPSULE PO PRN (09:21)
[2020-01-22] MEDS: ESCITALOPRAM OXALATE 10 MG TABLET PO SCH (09:21)
[2020-01-22] MEDS: SITAGLIPTIN PHOSPHATE 50 MG TABLET PO SCH ×2 (09:21→17:27)
[2020-01-22] MEDS: ENOXAPARIN SODIUM INJ 40 MG/0.4 ML DISP.SYRIN SUBCUT SCH (09:21)
[2020-01-22] MEDS: ENALAPRIL MALEATE 10 MG TABLET PO SCH ×2 (09:22→22:29)
--- NOTE | 2020-01-22 19:51 | PDOC PROGRESS REPORT ---
Subjective Progress Note for:: 01/22/20 Subjective:: ABEBA MCLEOD is a 54 year old male with a past medical history of hypertension, diabetes, cerebellar CVA with residual balance deficits who was admitted 01/02/20 for acute CVA. Patient was seen on afternoon rounds. He is resting in bed comfortably. Hopeful that his insurance is being processed appropriately so that he can transition to SNF for continued rehab. He denies headache, dizziness, chest pain, palpitations, dyspnea, abdominal pain, nausea vomiting diarrhea. He has no other questions or concerns today. No concerns per nursing. Reason For Visit: CVA Physical Exam Vital Signs: Temp Pulse Resp BP Pulse Ox 97.3 F 102 H 18 97/71 L 99 01/22/20 16:59 01/22/20 16:59 01/22/20 16:59 01/22/20 16:59 01/22/20 16:59 Intake & Output 01/21/20 01/22/20 01/23/20 06:59 06:59 06:59 Intake Total 870 220 Output Total 675 375 100 Balance 195 -375 120 Weight 78.6 kg 79.7 kg General appearance: PRESENT: no acute distress, cooperative, obese, well- developed, well-nourished Head exam: PRESENT: atraumatic, normocephalic Eye exam: PRESENT: conjunctiva pink, EOMI, PERRLA. ABSENT: scleral icterus Mouth exam: PRESENT: moist, tongue midline Respiratory exam: PRESENT: clear to auscultation aaron, symmetrical, unlabored. ABSENT: rales, rhonchi, wheezes Cardiovascular exam: PRESENT: RRR, +S1, +S2. ABSENT: diastolic murmur, rubs, systolic murmur Vascular exam: PRESENT: normal capillary refill Extremities exam: ABSENT: calf tenderness, clubbing, pedal edema Neurological exam: PRESENT: alert, awake, oriented to person, oriented to place, oriented to time, oriented to situation, CN II-XII grossly intact, other - Able to move left upper and lower extremity proximal muscle groups. No significant changes on the distal muscle groups.No significant improvement. ABSENT: motor sensory deficit Psychiatric exam: PRESENT: flat affect, normal mood. ABSENT: homicidal ideation, suicidal ideation Skin exam: PRESENT: dry, intact, warm. ABSENT: cyanosis, rash Results Laboratory Results: 01/21/20 06:05 01/10/20 05:57 01/01/20 01/01/20 23:10 23:10 Creatine Kinase 78 CK-MB (CK-2) 1.86 Troponin I < 0.012 Impressions: Head CT 01/01/20 00:00 IMPRESSION: No acute intracranial hemorrhage is seen. There is a hypodensity with volume loss seen at the right cerebellum, most likely due to remote infarct. If there is persistent clinical concern for a neurologic deficit, consider MRI brain with diffusion-weighted sequences for further evaluation. Chest X-Ray 01/01/20 22:43 IMPRESSION: Negative chest copyright 2010 [employer]- All Rights Reserved Head CTA 01/01/20 22:43 IMPRESSION: No discrete filling defect, aneurysm, or obvious stenosis is seen within the anterior or posterior intracranial circulation. There are no findings to suggest a hemodynamically significant stenosis of the carotid arteries. Neck CTA 01/01/20 22:43 IMPRESSION: No discrete filling defect, aneurysm, or obvious stenosis is seen within the anterior or posterior intracranial circulation. There are no findings to suggest a hemodynamically significant stenosis of the carotid arteries. Head MRI 01/02/20 00:00 IMPRESSION: 1. Focal area of restricted diffusion in the right paramedian medulla oblongata (image 6 of series 4) ; the infarct is in the vascular territory of branches from the basilar artery. 2. Chronic right cerebellar infarct. EVIDENCE OF ACUTE STROKE: YES. As above. Assessment and Plan - Diagnosis (1) Acute ischemic left DORMIT[employer] MAID stroke Is this a current diagnosis for this admission?: Yes Plan: Acute nonhemorrhagic right paramedian medulla oblongata basilar artery territory stroke with left upper and lower extremity flaccid paralysis. MRI head: Focal area of restricted diffusion in the right paramedian medulla oblongata. Vascular territory of basilar artery. CTA Head/Neck: No discrete filling defect, aneurysm or obvious stenosis. No hemodynamically significant stenosis in the carotids. 2D echo: LVEF 60 to 65%. Cannot assess AC, VSD or PFO. No thrombus Continue telemetry, antiplatelets, DVT prophylaxis, high intensity statins, optimize BP, optimize blood glucose level. Continue PT ST OT. Monitor for falls, seizure and aspiration. Discharge planning consulted; they continue to make attempts to arrange for SNF placement. Patient remains medically stable for discharge; discharge order active since 01/10. He has had no significant changes to his clinical status since that time. (2) Diabetes Qualifiers: Diabetes mellitus type: type 2 Diabetes mellitus complication status: with circulatory complication Diabetes mellitus complication detail: with other circulatory complications Is this a current diagnosis for this admission?: Yes Plan: Improved glucose control tis admission; patient had great response with oral hypoglycemic. Hemoglobin A1c 8.4%. Continue cardiac/diabetic diet. Continue Metformin 1000 mg p.o. twice daily. Continue sitagliptin 50 mg p.o. twice daily. Diabetic education; met with the journalist and clinical educator. Outpatient PCP follow-up. (3) Dyslipidemia Is this a current diagnosis for this admission?: Yes Plan: ASCVD 8.5%. Continue high intensity statin. Monitor LFTs. Outpatient PCP follow-up. (4) Hypertension Qualifiers: Hypertension type: essential hypertension Qualified Code(s): I10 - Essential (primary) hypertension Is this a current diagnosis for this admission?: Yes Plan: Well-controlled. Continue enalapril 15 mg p.o. twice daily. Outpatient PCP follow-up. (5) Obesity (BMI 30.0-34.9) Is this a current diagnosis for this admission?: Yes Plan: BMI 33.9. Thyroid function WNL. Diet and lifestyle modification recommended. (6) History of cerebellar stroke Is this a current diagnosis for this admission?: Yes Plan: History of right cerebellar stroke. Plan as per #1. (7) Depression Qualifiers: Active/Remission status: currently active Major depression episode severity: moderate Is this a current diagnosis for this admission?: Yes Plan: Patient denies any suicidal or homicidal ideation. Reports history of chronic untreated depression which has worsened since his CVA. Continue on low-dose escitalopram. Outpatient PCP and psychiatry follow-up. - Time Time Spent with patient: Less than 15 minutes Medications reviewed and adjusted accordingly: Yes Anticipated discharge: SNF Within: when bed available
[2020-01-22] MEDS: ATORVASTATIN CALCIUM 80 MG TABLET PO SCH (22:29)
[2020-01-23] MEDS: INSULIN LISPRO 100 UNIT/ML 3 ML VIAL SUBCUT SCH ×4 (08:06→21:50)
[2020-01-23] MEDS: ESCITALOPRAM OXALATE 10 MG TABLET PO SCH (09:34)
[2020-01-23] MEDS: METFORMIN HCL 500 MG TABLET PO SCH ×2 (09:34→17:05)
[2020-01-23] MEDS: ENALAPRIL MALEATE 10 MG TABLET PO SCH ×2 (09:34→21:47)
[2020-01-23] MEDS: SITAGLIPTIN PHOSPHATE 50 MG TABLET PO SCH ×2 (09:34→17:05)
[2020-01-23] MEDS: ENOXAPARIN SODIUM INJ 40 MG/0.4 ML DISP.SYRIN SUBCUT SCH (09:35)
--- NOTE | 2020-01-23 14:50 | PDOC PROGRESS REPORT ---
Subjective Progress Note for:: 01/23/20 Subjective:: ABEBA MCLEOD is a 54 year old male with a past medical history of hypertension, diabetes, cerebellar CVA with residual balance deficits who was admitted 01/02/20 for acute CVA. Patient was seen on morning rounds. He is found sitting up to the recliner, comfortably, on room air. He reports that he is fatigued after working with physical therapy. He was observed earlier, ambulating short distances in the hallway with 2 person assistance and front wheel walker. He does continue to have left-sided hemiparesis. He reports his diarrhea has resolved. He denies headache, dizziness, chest pain, palpitations, dyspnea, abdominal pain, nausea vomiting diarrhea. He has no questions or concerns today. No concerns per nursing. Reason For Visit: CVA Physical Exam Vital Signs: Temp Pulse Resp BP Pulse Ox 98.0 F 102 H 16 101/71 97 01/23/20 12:05 01/23/20 12:05 01/23/20 12:05 01/23/20 12:05 01/23/20 12:05 Intake & Output 01/22/20 01/23/20 01/24/20 06:59 06:59 06:59 Intake Total 220 Output Total 375 845 Balance -375 -625 Weight 79.7 kg 77.2 kg General appearance: PRESENT: no acute distress, cooperative, obese, well- developed, well-nourished Head exam: PRESENT: atraumatic, normocephalic Eye exam: PRESENT: conjunctiva pink, EOMI, PERRLA. ABSENT: scleral icterus Mouth exam: PRESENT: moist, tongue midline Respiratory exam: PRESENT: clear to auscultation aaron, symmetrical, unlabored. ABSENT: rales, rhonchi, wheezes Cardiovascular exam: PRESENT: RRR. ABSENT: diastolic murmur, rubs, systolic murmur Vascular exam: PRESENT: normal capillary refill Extremities exam: ABSENT: calf tenderness, clubbing, pedal edema Neurological exam: PRESENT: alert, awake, oriented to person, oriented to place, oriented to time, oriented to situation, CN II-XII grossly intact, motor sensory deficit - Left-sided hemiparesis Psychiatric exam: PRESENT: appropriate affect, normal mood. ABSENT: homicidal ideation, suicidal ideation Skin exam: PRESENT: dry, intact, warm. ABSENT: cyanosis, rash Results Laboratory Results: 01/21/20 06:05 01/10/20 05:57 01/01/20 01/01/20 23:10 23:10 Creatine Kinase 78 CK-MB (CK-2) 1.86 Troponin I < 0.012 Impressions: Head CT 01/01/20 00:00 IMPRESSION: No acute intracranial hemorrhage is seen. There is a hypodensity with volume loss seen at the right cerebellum, most likely due to remote infarct. If there is persistent clinical concern for a neurologic deficit, consider MRI brain with diffusion-weighted sequences for further evaluation. Chest X-Ray 01/01/20 22:43 IMPRESSION: Negative chest copyright 2010 [employer]- All Rights Reserved Head CTA 01/01/20 22:43 IMPRESSION: No discrete filling defect, aneurysm, or obvious stenosis is seen within the anterior or posterior intracranial circulation. There are no findings to suggest a hemodynamically significant stenosis of the carotid arteries. Neck CTA 01/01/20 22:43 IMPRESSION: No discrete filling defect, aneurysm, or obvious stenosis is seen within the anterior or posterior intracranial circulation. There are no findings to suggest a hemodynamically significant stenosis of the carotid arteries. Head MRI 01/02/20 00:00 IMPRESSION: 1. Focal area of restricted diffusion in the right paramedian medulla oblongata (image 6 of series 4) ; the infarct is in the vascular territory of branches from the basilar artery. 2. Chronic right cerebellar infarct. EVIDENCE OF ACUTE STROKE: YES. As above. Assessment and Plan - Diagnosis (1) Acute ischemic left PARTY PLANNER stroke Is this a current diagnosis for this admission?: Yes Plan: Acute nonhemorrhagic right paramedian medulla oblongata basilar artery territory stroke with left upper and lower extremity flaccid paralysis. MRI head: Focal area of restricted diffusion in the right paramedian medulla oblongata. Vascular territory of basilar artery. CTA Head/Neck: No discrete filling defect, aneurysm or obvious stenosis. No hemodynamically significant stenosis in the carotids. 2D echo: LVEF 60 to 65%. Cannot assess AC, VSD or PFO. No thrombus Continue telemetry, antiplatelets, DVT prophylaxis, high intensity statins, optimize BP, optimize blood glucose level. Continue PT ST OT. Monitor for falls, seizure and aspiration. Discharge planning consulted; they continue to make attempts to arrange for SNF placement. Patient remains medically stable for discharge; discharge order active since 01/10. He has had no significant changes to his clinical status since that time. (2) Diabetes Qualifiers: Diabetes mellitus type: type 2 Diabetes mellitus complication status: with circulatory complication Diabetes mellitus complication detail: with other circulatory complications Is this a current diagnosis for this admission?: Yes Plan: Improved glucose control tis admission; patient had great response with oral hypoglycemic. Hemoglobin A1c 8.4%. Continue cardiac/diabetic diet. Continue Metformin 1000 mg p.o. twice daily. Continue sitagliptin 50 mg p.o. twice daily. Diabetic education; met with the critical care registered nurse and clinical nurse educator. Outpatient PCP follow-up. (3) Dyslipidemia Is this a current diagnosis for this admission?: Yes Plan: ASCVD 8.5%. Continue high intensity statin. Monitor LFTs. Outpatient PCP follow-up. (4) Hypertension Qualifiers: Hypertension type: essential hypertension Qualified Code(s): I10 - Essential (primary) hypertension Is this a current diagnosis for this admission?: Yes Plan: Well-controlled. Continue enalapril 15 mg p.o. twice daily. Outpatient PCP follow-up. (5) Obesity (BMI 30.0-34.9) Is this a current diagnosis for this admission?: Yes Plan: BMI 33.9. Thyroid function WNL. Diet and lifestyle modification recommended. (6) History of cerebellar stroke Is this a current diagnosis for this admission?: Yes Plan: History of right cerebellar stroke. Plan as per #1. (7) Depression Qualifiers: Active/Remission status: currently active Major depression episode severity: moderate Is this a current diagnosis for this admission?: Yes Plan: Patient denies any suicidal or homicidal ideation. Reports history of chronic untreated depression which has worsened since his CVA. Continue on low-dose escitalopram. Outpatient PCP and psychiatry follow-up.
[2020-01-23] MEDS: ATORVASTATIN CALCIUM 80 MG TABLET PO SCH (21:47)
[2020-01-24] MEDS: INSULIN LISPRO 100 UNIT/ML 3 ML VIAL SUBCUT SCH ×4 (10:38→21:32)
[2020-01-24] MEDS: SITAGLIPTIN PHOSPHATE 50 MG TABLET PO SCH ×2 (10:38→17:26)
[2020-01-24] MEDS: METFORMIN HCL 500 MG TABLET PO SCH ×2 (10:38→17:26)
[2020-01-24] MEDS: ENALAPRIL MALEATE 10 MG TABLET PO SCH ×2 (10:43→21:37)
[2020-01-24] MEDS: ESCITALOPRAM OXALATE 10 MG TABLET PO SCH (10:44)
[2020-01-24] MEDS: ENOXAPARIN SODIUM INJ 40 MG/0.4 ML DISP.SYRIN SUBCUT SCH (10:44)
--- NOTE | 2020-01-24 15:01 | PDOC PROGRESS REPORT ---
Subjective Progress Note for:: 01/24/20 Subjective:: ABEBA MCLEOD is a 54 year old male with a past medical history of hypertension, diabetes, cerebellar CVA with residual balance deficits who was admitted 01/02/20 for acute CVA. Patient was seen on morning rounds. He is found resting in bed, comfortably, on room air. He reports that he is feeling well. He denies headache, dizziness, chest pain, palpitations, dyspnea, abdominal pain, nausea vomiting diarrhea. He has no questions or concerns today. No concerns per nursing. Reason For Visit: CVA Physical Exam Vital Signs: Temp Pulse Resp BP Pulse Ox 98.4 F 92 12 106/65 95 01/24/20 12:38 01/24/20 12:38 01/24/20 12:38 01/24/20 12:38 01/24/20 12:38 Intake & Output 01/23/20 01/24/20 01/25/20 06:59 06:59 06:59 Intake Total 220 942 Output Total 845 1075 Balance -625 -133 Weight 77.2 kg 75.5 kg General appearance: PRESENT: no acute distress, well-developed, well-nourished Head exam: PRESENT: atraumatic, normocephalic Eye exam: PRESENT: conjunctiva pink, EOMI, PERRLA. ABSENT: scleral icterus Mouth exam: PRESENT: moist, tongue midline Respiratory exam: PRESENT: clear to auscultation aaron. ABSENT: rales, rhonchi, wheezes Pulses: PRESENT: normal dorsalis pedis pul Extremities exam: PRESENT: full ROM. ABSENT: calf tenderness, clubbing, pedal edema Neurological exam: PRESENT: alert, awake, oriented to person, oriented to place, oriented to time, oriented to situation, CN II-XII grossly intact, motor sensory deficit - Left-sided hemiparesis Psychiatric exam: PRESENT: appropriate affect, normal mood. ABSENT: homicidal ideation, suicidal ideation Results Laboratory Results: 01/21/20 06:05 01/10/20 05:57 01/01/20 01/01/20 23:10 23:10 Creatine Kinase 78 CK-MB (CK-2) 1.86 Troponin I < 0.012 Impressions: Head CT 01/01/20 00:00 IMPRESSION: No acute intracranial hemorrhage is seen. There is a hypodensity with volume loss seen at the right cerebellum, most likely due to remote infarct. If there is persistent clinical concern for a neurologic deficit, consider MRI brain with diffusion-weighted sequences for further evaluation. Chest X-Ray 01/01/20 22:43 IMPRESSION: Negative chest copyright 2010 [employer]- All Rights Reserved Head CTA 01/01/20 22:43 IMPRESSION: No discrete filling defect, aneurysm, or obvious stenosis is seen within the anterior or posterior intracranial circulation. There are no findings to suggest a hemodynamically significant stenosis of the carotid arteries. Neck CTA 01/01/20 22:43 IMPRESSION: No discrete filling defect, aneurysm, or obvious stenosis is seen within the anterior or posterior intracranial circulation. There are no findings to suggest a hemodynamically significant stenosis of the carotid arteries. Head MRI 01/02/20 00:00 IMPRESSION: 1. Focal area of restricted diffusion in the right paramedian medulla oblongata (image 6 of series 4) ; the infarct is in the vascular territory of branches from the basilar artery. 2. Chronic right cerebellar infarct. EVIDENCE OF ACUTE STROKE: YES. As above. Assessment and Plan - Diagnosis (1) Acute ischemic left PROPERTY CLERK stroke Is this a current diagnosis for this admission?: Yes Plan: Acute nonhemorrhagic right paramedian medulla oblongata basilar artery territory stroke with left upper and lower extremity flaccid paralysis. MRI head: Focal area of restricted diffusion in the right paramedian medulla oblongata. Vascular territory of basilar artery. CTA Head/Neck: No discrete filling defect, aneurysm or obvious stenosis. No hemodynamically significant stenosis in the carotids. 2D echo: LVEF 60 to 65%. Cannot assess AC, VSD or PFO. No thrombus Continue telemetry, antiplatelets, DVT prophylaxis, high intensity statins, optimize BP, optimize blood glucose level. Continue PT ST OT. Monitor for falls, seizure and aspiration. Discharge planning consulted; they continue to make attempts to arrange for SNF placement. Patient remains medically stable for discharge; discharge order active since 01/10. He has had no significant changes to his clinical status since that time. (2) Diabetes Qualifiers: Diabetes mellitus type: type 2 Diabetes mellitus complication status: with circulatory complication Diabetes mellitus complication detail: with other circulatory complications Is this a current diagnosis for this admission?: Yes Plan: Improved glucose control tis admission; patient had great response with oral hypoglycemic. Hemoglobin A1c 8.4%. Continue cardiac/diabetic diet. Continue Metformin 1000 mg p.o. twice daily. Continue sitagliptin 50 mg p.o. twice daily. Diabetic education; met with the registered respiratory technician and inclusion paraeducator. Outpatient PCP follow-up. (3) Dyslipidemia Is this a current diagnosis for this admission?: Yes Plan: ASCVD 8.5%. Continue high intensity statin. Monitor LFTs. Outpatient PCP follow-up. (4) Hypertension Qualifiers: Hypertension type: essential hypertension Qualified Code(s): I10 - Essential (primary) hypertension Is this a current diagnosis for this admission?: Yes Plan: Well-controlled. Continue enalapril 15 mg p.o. twice daily. Outpatient PCP follow-up. (5) Obesity (BMI 30.0-34.9) Is this a current diagnosis for this admission?: Yes Plan: BMI 33.9. Thyroid function WNL. Diet and lifestyle modification recommended. (6) History of cerebellar stroke Is this a current diagnosis for this admission?: Yes Plan: History of right cerebellar stroke. Plan as per #1. (7) Depression Qualifiers: Active/Remission status: currently active Major depression episode severity: moderate Is this a current diagnosis for this admission?: Yes Plan: Patient denies any suicidal or homicidal ideation. Reports history of chronic untreated depression which has worsened since his CVA. Continue on low-dose escitalopram. Outpatient PCP and psychiatry follow-up. - Time Time Spent with patient: Less than 15 minutes Medications reviewed and adjusted accordingly: Yes Anticipated discharge: Home with Homehealth, SNF Within: Other - pending discharge planning's disposition
[2020-01-24] MEDS: ATORVASTATIN CALCIUM 80 MG TABLET PO SCH (21:37)
[2020-01-25] MEDS: INSULIN LISPRO 100 UNIT/ML 3 ML VIAL SUBCUT SCH ×2 (08:23→13:53)
[2020-01-25] MEDS: METFORMIN HCL 500 MG TABLET PO SCH (08:24)
[2020-01-25] MEDS: SITAGLIPTIN PHOSPHATE 50 MG TABLET PO SCH (08:24)
[2020-01-25] MEDS: ESCITALOPRAM OXALATE 10 MG TABLET PO SCH (11:09)
[2020-01-25] MEDS: ENOXAPARIN SODIUM INJ 40 MG/0.4 ML DISP.SYRIN SUBCUT SCH (11:09)
[2020-01-25] MEDS: ENALAPRIL MALEATE 10 MG TABLET PO SCH (11:09)
[2020-01-25 12:19] VITALS: BP 103/67
== END 2020-01-25 18:15 | DRG 65 ==
LOC: ER 21:50 → EH 01-02 01:03 → 3S 01-02 03:32
PROVIDERS: ADMIT Internal Medicine; ATTEND Registered Nurse
DX: I63.331 Cerebral infarction due to thrombosis of right posterior cerebral artery (principal); G81.04 Flaccid hemiplegia affecting left nondominant side; I45.2 Bifascicular block; E11.59 Type 2 diabetes mellitus with other circulatory complications; E78.5 Hyperlipidemia, unspecified; I10 Essential (primary) hypertension; Z79.84 Long term (current) use of oral hypoglycemic drugs; F32.9 Major depressive disorder, single episode, unspecified; Z20.828 Contact with and (suspected) exposure to other viral communicable diseases; R51 Headache; E66.9 Obesity, unspecified; Z79.82 Long term (current) use of aspirin; Z79.899 Other long term (current) drug therapy; Z87.891 Personal history of nicotine dependence; Z82.49 Family history of ischemic heart disease and other diseases of the circulatory system; Z68.33 Body mass index [BMI] 33.0-33.9, adult; I69.313 Psychomotor deficit following cerebral infarction
CPT/HCPCS: 36415; 70450; 70496; 70498; 70551; 71045; 80048; 80053; 80061; 82550; 82553; 82962; 83036; 84439; 84443; 84484; 85025; 85027; 85610; 85730; 87635; 93005; 93010; 93306; 96374; 99285; C9803; J1644; J1650; J1815; J1885; J2405; J3490

== ENCOUNTER 2020-06-12 16:35 | Inpatient (IN) | payer SELFPAY ==
[2020-06-12] MEDS ORDERED: AZITHROMYCIN INJ 500 MG VIAL IV ONE (17:02)
[2020-06-12] MEDS ORDERED: FAMOTIDINE INJ/PF 20 MG/2 ML SDV IV ONE (17:03)
[2020-06-12] MEDS ORDERED: DEXAMETHASONE SOD PHOS INJ 10 MG/1 ML VIAL IV ONE (17:03)
[2020-06-12 17:09] LABS: INTERNATIONAL RATION (INR) 1.03; PROTHROMBIN TIME 13.7 SEC (11.4-15.4)
[2020-06-12 17:12] LABS: D-DIMER 3.25 ug/mL (0.00-0.50)
--- NOTE | 2020-06-12 17:12 | ER Document Report ---
ED Respiratory Problem - General Stated Complaint: CHILLS/COUGH Time Seen by Provider: 06/12/20 16:41 Mode of Arrival: Medic Information source: Patient, Emergency Med Personnel Notes: 55-year-old [place] male arrives by EMS after 1 day of sore throat myalgias headache fever chills shortness of breath. 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 He lives in [place]. Taina wadsworth arrived with 76% saturation and was placed on CPAP which increased to 96%. He has 101 axillary temperature. In 720 he has hemiplegia status post CVA infarct he was seen here at this facility. 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 He has full range of motion of both lower extremities.. He denies any Covid or influenza or strep contact. He denies any animals that are sick. He denies any family that are sick. TRAVEL OUTSIDE OF THE [place] IN LAST 30 DAYS: Yes - HPI Patient complains to provider of: Cough, Short of breath Onset: Yesterday Duration: Worse/persistent Quality of pain: Achy Severity: Mild Pain Level: 1 - Related Data Allergies/Adverse Reactions: No Known Allergies Allergy (Verified 06/12/20 17:04) Past Medical History - General Information source: Patient, Emergency Med Personnel - Social History Smoking Status: Never Smoker Cigarette use (# per day): No Chew tobacco use (# tins/day): No Smoking Education Provided: No Frequency of alcohol use: None Lives with: Family Family History: Reviewed & Not Pertinent Patient has suicidal ideation: No Patient has homicidal ideation: No - Past Medical History Cardiac Medical History: Reports: Hx Hypercholesterolemia, Hx Hypertension Endocrine Medical History: Reports: Hx Diabetes Mellitus Type 2 Psychiatric Medical History: Denies: Hx Depression Review of Systems - Review of Systems Constitutional: See HPI, Fever, Weakness, Recent illness EENT: See HPI, Throat pain, Mouth pain Cardiovascular: No symptoms reported Respiratory: See HPI, Cough, Short of breath Gastrointestinal: No symptoms reported Genitourinary: No symptoms reported Male Genitourinary: No symptoms reported Musculoskeletal: No symptoms reported Skin: No symptoms reported Hematologic/Lymphatic: No symptoms reported Neurological/Psychological: No symptoms reported Physical Exam - Vital signs Vitals: Resp Pulse Ox 22 H 96 06/12/20 16:51 06/12/20 16:51 Interpretation: Tachycardic, Hypoxic, Febrile - General General appearance: Appears well, Alert - HEENT Head: Normocephalic, Atraumatic Eyes: Normal Pupils: PERRL - Respiratory Respiratory status: Respiratory distress Chest status: Nontender Breath sounds: Decreased air movement, Nonproductive cough Chest palpation: Normal - Cardiovascular Rhythm: Regular Heart sounds: Normal auscultation Murmur: No - Abdominal Inspection: Normal Distension: No distension Bowel sounds: Normal Tenderness: Nontender Organomegaly: No organomegaly - Rectal Prostate: Other - Deferred - Genitourinary Scrotum: Other - Deferred - Back Back: Normal, Nontender - Extremities General upper extremity: Normal inspection, Nontender, Normal color, Normal ROM, Normal temperature General lower extremity: Normal inspection, Nontender, Normal color, Normal ROM, Normal temperature, Normal weight bearing. No: Leonardo's sign - Neurological Neuro grossly intact: Yes Cognition: Normal Orientation: AAOx4 Fany Coma Scale Eye Opening: Spontaneous [place] Coma Scale Verbal: Oriented Fany Coma Scale Motor: Obeys Commands Fany Coma Scale Total: 15 Speech: Normal Motor strength normal: LUE, RUE, LLE, RLE Sensory: Normal - Psychological Associated symptoms: Normal affect, Normal mood - Skin Skin Temperature: Warm Skin Moisture: Dry Skin Color: Normal Course - Vital Signs Vital signs: Temp Pulse Resp BP Pulse Ox 22 H 96 06/12/20 16:51 06/12/20 16:51 Critical Care Note - Critical Care Note Comments: I discussed this case with Dr. Bustamante at 1715 and he advises LDH and ferritin levels and he will see the patient and will accept the patient. Discharge - Discharge Clinical Impression: URI (upper respiratory infection), COVID-19 virus test result unknown Pneumonia Qualifiers: Pneumonia type: due to unspecified organism Laterality: right Lung location: lower lobe of lung Qualified Code(s): J18.9 - Pneumonia, unspecified organism Condition: Serious Disposition: ADMITTED INPATIENT Admitting Provider: Robby (Hospitalist) Unit Admitted: Telemetry
[2020-06-12 17:13] LABS: ABSOLUTE EOSINOPHILS # (AUTO) 0.1 10^3/uL (0.0-0.6); ABSOLUTE LYMPHOCYTES (AUTO) 1.3 10^3/uL (0.5-4.7); ABSOLUTE MONOCYTES (AUTO) 0.5 10^3/uL (0.1-1.4); ABSOLUTE NEUT (AUTO) 4.2 10^3/uL (1.7-8.2); BASOPHILS % (AUTO) 0.2 % (0-2); EOSINOPHILS % (AUTO) 1.5 % (0-6); HEMATOCRIT 35.7 % (37.9-51.0); HEMOGLOBIN 12.1 g/dL (13.5-17.0); LYMPHOCYTES % (AUTO) 21.6 % (13-45); MEAN CORPUSCULAR HEMOGLOBIN 30.4 pg (27.0-33.4); MEAN CORPUSCULAR VOLUME 89 fl (80-97); MONOCYTES % (AUTO) 8.4 % (3-13); PLATELET COUNT 190 10^3/uL (150-450); RED CELL DISTRIBUTION WIDTH 13.1 % (11.5-14.0); SEGMENTED NEUTROPHILS % (AUTO) 68.3 % (42-78); TOTAL CELLS COUNTED % (AUTO) 100 %; WHITE BLOOD COUNT 6.1 10^3/uL (4.0-10.5)
[2020-06-12] MEDS ORDERED: CEFTRIAXONE INJ 1000 MG VIAL IV ONE (17:13)
[2020-06-12 17:28] LABS: ALBUMIN 3.3 g/dL (3.5-5.0); ALKALINE PHOSPHATASE 170 U/L (38-126); ANION GAP 7 (5-19); ASPARTATE AMINO TRANSFERASE 68 U/L (17-59); BILIRUBIN,DIRECT 0.3 mg/dL (0.0-0.4); BILIRUBIN,TOTAL 0.6 mg/dL (0.2-1.3); BLOOD UREA NITROGEN 21 mg/dL (7-20); CALCIUM 8.2 mg/dL (8.4-10.2); CARBON DIOXIDE 23 mmol/L (22-30); CHLORIDE 108 mmol/L (98-107); CREATINE KINASE 119 U/L (55-170); GLUCOSE 95 mg/dL (75-110); TOTAL PROTEIN 6.9 g/dL (6.3-8.2)
[2020-06-12 17:44] LABS: TROPONIN I 0.046 ng/mL
--- NOTE | 2020-06-12 17:48 | RADIOLOGY REPORT (SQ) ---
EXAM DESCRIPTION: CHEST SINGLE VIEW IMAGES COMPLETED DATE/TIME: 06/12/2020 5:10 pm REASON FOR STUDY: sob COMPARISON: 01/01/2020 EXAM PARAMETERS: NUMBER OF VIEWS: One view. TECHNIQUE: Single frontal radiographic view of the chest acquired. RADIATION DOSE: NA LIMITATIONS: None. FINDINGS: LUNGS AND PLEURA: Patchy ground-glass infiltrates in both lungs, left slightly more than r ight. MEDIASTINUM AND HILAR STRUCTURES: No masses. Contour normal. HEART AND VASCULAR STRUCTURES: Heart normal in size. Normal vasculature. BONES: No acute findings. HARDWARE: None in the chest. OTHER: No other significant finding. IMPRESSION: Patchy ground-glass infiltrates bilaterally. Concerning for an atypical infectious/ inf lammatory process such is COVID-19. Correlate clinically. TECHNICAL DOCUMENTATION: JOB ID: [id number] 2010 [employer]- All Rights Reserved Reading location - IP/workstation name: [email or web address]
[2020-06-12] MEDS ORDERED: MAG HYDROX/AL HYDROX/SIMETH SUSP 30 ML UDCUP PO PRN (18:04)
[2020-06-12] MEDS ORDERED: DEXTROSE 50%-WATER 25 GM/50 ML DISP.SYRIN IV PRN ×2 (18:08)
[2020-06-12] MEDS ORDERED: GLUCAGON,HUMAN RECOMB 1 MG INJ IM PRN (18:08)
[2020-06-12] MEDS ORDERED: DEXTROSE 40% GEL 15 GM TUBE PO PRN ×2 (18:08)
[2020-06-12] MEDS ORDERED: AMPICILLIN SOD/SULBACTAM 3 GM VIAL IV SCH (18:30)
--- NOTE | 2020-06-12 18:37 | PDOC H&P ---
History of Present Illness Admission Date/PCP: 06/12/20 17:29 Patient complains of: Shortness of breath fever History of Present Illness: ABEBA MCLEOD is a 55 year old male with history of CVA with residual left- sided paresis, diabetes mellitus, hypertension, chronic anticoagulation on Coumadin, who presents to the hospital with complaints of chills for the past 2 days as well as fever. His symptoms have been associated with shortness of breath and cough. He is not having much sputum production. He does endorse body aches. Admits to significant soreness of his throat. He denies any sick contacts. Denies any dysphagia, loss of taste and loss of smell. He lives in [place] and just traveled into town about 2 to 3 days ago. Notably, patient was 72% on arrival of EMS and was placed on CPAP in route to the hospital. He was transitioned to a BiPAP currently on 60% FiO2 with adequate SPO2. Past Medical History Cardiac Medical History: Reports: Hyperlipidema, Hypertension Neurological Medical History: Reports: Ischemic CVA Endocrine Medical History: Reports: Diabetes Mellitus Type 2 Psychiatric Medical History: Denies: Depression Past Surgical History Past Surgical History: Reports: Other Social History Lives with: Family Smoking Status: Never Smoker Electronic Cigarette use?: No Frequency of Alcohol Use: Occasional Hx Recreational Drug Use: No Drugs: None - Advance Directive Resuscitation Status: Full Code Family History Family History: DM, Hypertension Parental Family History Reviewed: Yes Children Family History Reviewed: Yes Sibling(s) Family History Reviewed.: Yes Medication/Allergy Home Medications: Acetaminophen [Tylenol 325 mg Tablet] 650 mg PO Q4HP PRN tablet 01/11/20 Aspirin [Ecotrin 325 mg EC Tablet] 325 mg PO DAILY #90 tabec 01/11/20 Atorvastatin Calcium [Lipitor 80 mg Tablet] 80 mg PO QHS #30 tablet 01/11/20 Docusate Sodium [Colace 100 mg Capsule] 100 mg PO BIDP PRN capsule 01/11/20 Metformin HCl [Glucophage] 1,000 mg PO BIDACBSP PRN #60 tablet 01/11/20 Enalapril Maleate [Vasotec 10 mg Tablet] 15 mg PO Q12 #90 tablet 01/21/20 Escitalopram Oxalate [Lexapro 10 mg Tablet] 10 mg PO DAILY #30 tablet 01/21/20 Sitagliptin Phosphate [Januvia 50 mg Tablet] 50 mg PO BIDACBS #60 tablet 12/24 04/13 Allergies/Adverse Reactions: No Known Allergies Allergy (Verified 06/12/20 17:04) Review of Systems Constitutional: PRESENT: chills, fever(s) Eyes: ABSENT: visual disturbances Ears: ABSENT: hearing changes Nose, Mouth, and Throat: PRESENT: sore throat Cardiovascular: ABSENT: chest pain, edema Respiratory: PRESENT: dyspnea Gastrointestinal: ABSENT: abdominal pain, diarrhea, nausea, vomiting Genitourinary: ABSENT: difficulty urinating Musculoskeletal: PRESENT: other - muscle aches Integumentary: PRESENT: other - denies loss of smell or taste Neurological: PRESENT: focal weakness - chronic left sided weakness Endocrine: ABSENT: polyuria Hematologic/Lymphatic: ABSENT: easy bleeding Physical Exam Vital Signs: Temp Pulse Resp BP Pulse Ox 101.1 F H 22 H 96 06/12/20 16:40 06/12/20 16:51 06/12/20 16:51 Intake & Output 06/11/20 06/12/20 06/13/20 06:59 06:59 06:59 Weight 86.8 kg General appearance: PRESENT: no acute distress, cooperative Head exam: PRESENT: normocephalic Neck exam: ABSENT: JVD Respiratory exam: PRESENT: crackles - bilateral lung ramos, symmetrical, tachypnea - mild, unlabored. ABSENT: accessory muscle use, retraction, wheezes Cardiovascular exam: PRESENT: RRR, +S1, +S2. ABSENT: tachycardia GI/Abdominal exam: PRESENT: soft. ABSENT: rebound, rigid, tenderness Extremities exam: ABSENT: calf tenderness Neurological exam: PRESENT: alert, awake, oriented to person, oriented to place, oriented to time, oriented to situation, motor sensory deficit - left sided deficits Psychiatric exam: ABSENT: agitated, anxious Focused psych exam: PRESENT: pressured speech Skin exam: ABSENT: jaundice Results Laboratory Results: 06/12/20 16:49 06/12/20 16:49 06/12/20 06/12/20 16:49 16:49 WBC 6.1 RBC 4.00 L Hgb 12.1 L Hct 35.7 L MCV 89 MCH 30.4 MCHC 34.0 RDW 13.1 Plt Count 190 Seg Neutrophils % 68.3 Sodium 138.1 Potassium 4.0 Chloride 108 H Carbon Dioxide 23 Anion Gap 7 BUN 21 H Creatinine 0.86 Est GFR ( Amer) > 60 Glucose 95 Calcium 8.2 L Total Bilirubin 0.6 AST 68 H Alkaline Phosphatase 170 H Total Protein 6.9 Albumin 3.3 L 06/12/20 06/12/20 16:49 16:49 Creatine Kinase 119 Troponin I 0.046 NT-Pro-B Natriuret Pep 420 H Impressions: Chest X-Ray 06/12/20 16:43 IMPRESSION: Patchy ground-glass infiltrates bilaterally. Concerning for an atypical infectious/ inflammatory process such is COVID-19. Correlate clinically. Assessment and Plan - Diagnosis (1) Bilateral pneumonia Qualifiers: Pneumonia type: due to unspecified organism Lung location: unspecified part of lung Qualified Code(s): J18.9 - Pneumonia, unspecified organism Is this a current diagnosis for this admission?: Yes Plan: Chest x-ray shows diffuse bilateral airspace disease with some areas of small cavitations which may be microabscesses or cavitary pneumonia raising suspicion for bacterial. Patient will be started on Unasyn. Has received ceftriaxone and azithromycin in the ER. Blood and sputum cultures will be obtained Test for COVID-19 as well as influenza We will also test for strep throat given his sore throat. Initiate dexamethasone and vitamin and zinc supplements for suspected Covid while test is pending. (2) Acute respiratory failure with hypoxia Is this a current diagnosis for this admission?: Yes Plan: He was significantly hypoxic. Currently on BiPAP 60% 06/29. Will check an ABG. Likely suspect will be able to wean down his FiO2 on the BiPAP or may be will transition him off NIPPV tomorrow morning as he is appear very comfortable at the moment. Continuous pulse ox (3) Elevated troponin Is this a current diagnosis for this admission?: Yes Plan: Minimally elevated at 0.046. He is not having any chest pain. Suspecting this is just demand perfusion mismatch. Will check another troponin level in a few hours. (4) Hypertension Qualifiers: Hypertension type: essential hypertension Qualified Code(s): I10 - Essential (primary) hypertension Is this a current diagnosis for this admission?: Yes Plan: Resume home medication since he was discharged on enalapril about few months ago. (5) Chronic anticoagulation Is this a current diagnosis for this admission?: Yes Plan: Patient and patient's confirmed to me that he is on Coumadin which was started by his PCP. Did tell me that he was started because of a stroke however they are not able to confirm to me if he had any evidence of intramural thrombus or A. fib. He is currently with subtherapeutic INR. I will resume Coumadin tonight and have pharmacy dose. I will try to follow-up if I go out with his indication for it essentially was. (6) Diabetes Qualifiers: Diabetes mellitus type: type 2 Diabetes mellitus complication status: with circulatory complication Diabetes mellitus complication detail: with other circulatory complications Is this a current diagnosis for this admission?: Yes Plan: Sliding scale insulin and Accu-Cheks. Diabetic diet. Hold Metformin for now. (7) History of stroke Is this a current diagnosis for this admission?: Yes Plan: Continue aspirin and atorvastatin. Has residual left-sided paresis. Denies history of dysphagia. (8) Obesity (BMI 30.0-34.9) Is this a current diagnosis for this admission?: Yes Plan: Low-carb diet (9) Advance care planning Is this a current diagnosis for this admission?: Yes Plan: discussed with patient about his current conditions, his hypoxia and possibility for decompensation. We discussed CODE STATUS in detail. He opts to be a full code. He opts for full treatment as deemed necessary. He is okay with intubation in the presence of absence of cardiac arrest. 17 minutes spent on this conversation. - Time Time Spent with patient: 35 or more minutes Anticipated Discharge Disposition: Home, Self Care Anticipated Discharge Timeframe: >3days
[2020-06-12 18:39] LABS: ARTERIAL BLOOD BASE EXCESS -1.5 mmol/L; ARTERIAL BLOOD H2CO3 1.09 mmol/L (1.05-1.35); ARTERIAL BLOOD HCO3 22.6 mmol/L (20-24); ARTERIAL BLOOD PCO2 36.2 mmHg (35-45); ARTERIAL BLOOD PH 7.41 (7.35-7.45); ARTERIAL BLOOD PO2 56.5 mmHg (80-100); ARTERIAL BLOOD TOTAL CO2 23.7 mmol/L (23-27)
[2020-06-12 18:40] LABS: ARTERIAL BLOOD FIO2 60%
[2020-06-12 19:07] LABS: A TYPE INFLUENZA AG NEGATIVE (NEGATIVE); B INFLUENZA AG NEGATIVE (NEGATIVE)
[2020-06-12] MEDS: ZINC SULFATE 220 MG CAPSULE PO SCH (19:09)
[2020-06-12] MEDS: ASCORBIC ACID 500 MG TABLET PO SCH (19:09)
[2020-06-12] MEDS ORDERED: AMPICILLIN SOD/SULBACTAM 3 GM VIAL ONE (21:04)
[2020-06-12] MEDS: AMPICILLIN SODIUM/SULBACTAM NA 3 GM in NORMAL SALINE 100 ML IV SCH (21:29)
[2020-06-12] MEDS: GUAIFENESIN 600 MG TABLET.SA PO SCH (21:31)
[2020-06-12] MEDS: ENALAPRIL MALEATE 10 MG TABLET PO SCH (21:32)
[2020-06-12] MEDS: INSULIN LISPRO 100 UNIT/ML 3 ML VIAL SUBCUT SCH (21:32)
[2020-06-12 21:50] LABS: APPEARANCE,URINE SLIGHTLY-CLOUDY; BILIRUBIN,URINE NEGATIVE (NEGATIVE); COLOR,URINE YELLOW; GLUCOSE, URINE NEGATIVE (NEGATIVE); KETONES,URINE NEGATIVE (NEGATIVE); LEUKOCYTE ESTERASE,URINE NEGATIVE (NEGATIVE); NITRITE,URINE NEGATIVE (NEGATIVE); PROTEIN,URINE 100 mg/dL (NEGATIVE); UROBILINOGEN,URINE NEGATIVE mg/dL (<2.0)
[2020-06-12] MEDS ORDERED: ATORVASTATIN CALCIUM 80 MG TABLET PO SCH (22:00)
--- NOTE | 2020-06-12 22:29 | EKG REPORT ---
SEVERITY:- ABNORMAL ECG - SINUS RHYTHM PROBABLE LEFT ATRIAL ABNORMALITY RBBB AND LAFB : Confirmed by: Davida Myers MD 12-Jun-2020 22:28:34
[2020-06-13] MEDS: AMPICILLIN SODIUM/SULBACTAM NA 3 GM in NORMAL SALINE 100 ML IV SCH ×4 (02:47→21:53)
[2020-06-13] MEDS: GUAIFENESIN/D-METHORPHAN (200-20 MG) SYRUP 10 ML PO PRN ×3 (04:13→22:12)
--- NOTE | 2020-06-13 05:56 | RADIOLOGY REPORT (SQ) ---
EXAM DESCRIPTION: XR CHEST 1 VIEW COMPLETED DATE/TME: 06/13/2020 05:14 CLINICAL HISTORY: 55 years, Male, shortness of breath COMPARISON: 06/12/2020 NUMBER OF VIEWS: One TECHNIQUE: AP view the chest LIMITATIONS: None. FINDINGS: Mild worsening of the bilateral airspace disease, which remains worse within the left lung base. Heart size is stable. No pneumothorax or pleural effusion. Bones are unremarkable. IMPRESSION: Mild worsening of the diffuse bilateral airspace disease. copyright 2010 [employer]- All Rights Reserved
[2020-06-13 07:00] LABS: INTERNATIONAL RATION (INR) 1.02; PROTHROMBIN TIME 13.6 SEC (11.4-15.4)
[2020-06-13 07:12] LABS: ABSOLUTE LYMPHOCYTES (AUTO) 0.9 10^3/uL (0.5-4.7); ABSOLUTE MONOCYTES (AUTO) 0.3 10^3/uL (0.1-1.4); ABSOLUTE NEUT (AUTO) 3.9 10^3/uL (1.7-8.2); BASOPHILS % (AUTO) 0.2 % (0-2); HEMATOCRIT 34.2 % (37.9-51.0); HEMOGLOBIN 11.8 g/dL (13.5-17.0); MEAN CORPUSCULAR HEMOGLOBIN 30.5 pg (27.0-33.4); MEAN CORPUSCULAR HGB CONC 34.4 g/dL (32.0-36.0); MEAN CORPUSCULAR VOLUME 89 fl (80-97); MONOCYTES % (AUTO) 5.5 % (3-13); PLATELET COUNT 165 10^3/uL (150-450); RED BLOOD COUNT 3.87 10^6/uL (4.35-5.55); SEGMENTED NEUTROPHILS % (AUTO) 77.3 % (42-78); TOTAL CELLS COUNTED % (AUTO) 100 %; WHITE BLOOD COUNT 5.1 10^3/uL (4.0-10.5)
[2020-06-13 07:23] LABS: ANION GAP 12 (5-19); BLOOD UREA NITROGEN 28 mg/dL (7-20); CALCIUM 7.9 mg/dL (8.4-10.2); CARBON DIOXIDE 19 mmol/L (22-30); CHLORIDE 108 mmol/L (98-107); GLUCOSE 249 mg/dL (75-110); PHOSPHORUS 5.1 mg/dL (2.5-4.5); POTASSIUM 4.2 mmol/L (3.6-5.0)
[2020-06-13] MEDS: BENZOCAINE/MENTHOL SORE THROAT LOZENGE BUCCAL PRN (08:49)
[2020-06-13] MEDS: INSULIN LISPRO 100 UNIT/ML 3 ML VIAL SUBCUT SCH ×4 (08:49→21:57)
[2020-06-13] MEDS ORDERED: ASPIRIN 81 MG TABLET, ENT COATED PO SCH (10:00)
[2020-06-13] MEDS: CHOLECALCIFEROL (D3) 1,000 UNIT (25 MCG) TABLET PO SCH (10:18)
[2020-06-13] MEDS: ENALAPRIL MALEATE 10 MG TABLET PO SCH (10:18)
[2020-06-13] MEDS: DOCUSATE SODIUM 100 MG CAPSULE PO SCH (10:18)
[2020-06-13] MEDS: ZINC SULFATE 220 MG CAPSULE PO SCH (10:18)
[2020-06-13] MEDS: ASCORBIC ACID 500 MG TABLET PO SCH ×2 (10:18→17:45)
[2020-06-13] MEDS: DEXAMETHASONE SOD PHOS INJ 10 MG/1 ML VIAL IV SCH (10:19)
[2020-06-13] MEDS: CALCIUM CARBONATE 600 MG TABLET PO SCH ×2 (10:19→17:47)
[2020-06-13] MEDS: GUAIFENESIN 600 MG TABLET.SA PO SCH ×2 (10:19→21:58)
--- NOTE | 2020-06-13 13:27 | EKG REPORT ---
SEVERITY:- ABNORMAL ECG - SINUS RHYTHM RBBB AND LAFB LEFT VENTRICULAR HYPERTROPHY : Confirmed by: Davida Myers MD 13-Jun-2020 13:26:23
[2020-06-13] MEDS: AZITHROMYCIN 250 MG TABLET PO SCH (17:47)
--- NOTE | 2020-06-13 18:04 | PDOC PROGRESS REPORT ---
Subjective Date:: 06/13/20 Subjective:: Patient is feeling relatively better in terms of his breathing. Still does have some shortness of breath and cough. Had some fever as well. Appears comfortable. He has been deescalated to an Oxymizer. Reason For Visit: PNEUMONIA,URI UPPER RESPIRATORY INFECTION Physical Exam Vital Signs: Temp Pulse Resp BP Pulse Ox 98.1 F 84 19 123/91 H 94 06/13/20 11:52 06/13/20 14:00 06/13/20 11:52 06/13/20 11:52 06/13/20 16:00 Pulse Oximeter Continuous Start: 06/12/20 18:32 Freq: RTQ4 Status: Active Protocol: Document 06/13/20 16:00 HANDY (Rec: 06/13/20 17:33 HANDY [email or web address]) Pulse Oximetry Assessment Oxygen Saturation (92-100) 94 Oxygen Flow Rate (L/min) 15 Oxygen Delivery Method Oxymizer Oxygen Conserving Device Fraction of Inspired Oxygen (FIO2) 100 Equipment Usage Equipment Standby Continuous SpO2 Machine # on nurse monitor Intake & Output 06/12/20 06/13/20 06/14/20 06:59 06:59 06:59 Intake Total 630 Output Total 0 Balance 630 Weight 81.6 kg General appearance: PRESENT: no acute distress, cooperative Neck exam: ABSENT: JVD Respiratory exam: PRESENT: crackles, symmetrical, unlabored. ABSENT: accessory muscle use, clear to auscultation aaron, tachypnea, wheezes Cardiovascular exam: PRESENT: RRR, +S1, +S2. ABSENT: tachycardia GI/Abdominal exam: PRESENT: soft. ABSENT: rebound, rigid, tenderness Neurological exam: PRESENT: alert, awake, oriented to person, oriented to place, oriented to time, oriented to situation, motor sensory deficit - Left hemiparesis Psychiatric exam: ABSENT: agitated, anxious Results Laboratory Results: 06/13/20 06:31 06/13/20 06:31 06/12/20 06/12/20 06/12/20 16:49 18:12 21:30 WBC RBC Hgb Hct MCV MCH MCHC RDW Plt Count Seg Neutrophils % Carbonic Acid 1.09 HCO3/H2CO3 Ratio 20:1 ABG pH 7.41 ABG pCO2 36.2 ABG pO2 56.5 L ABG HCO3 22.6 ABG O2 Saturation 90.0 L ABG Base Excess -1.5 FiO2 60% Sodium Potassium Chloride Carbon Dioxide Anion Gap BUN Creatinine Est GFR ( Amer) Glucose Calcium Phosphorus Magnesium Ferritin 184.00 Urine Color YELLOW Urine Appearance SLIGHTLY-CLOUDY Urine pH 5.0 Ur Specific Pine 1.020 Urine Protein 100 H Urine Glucose (UA) NEGATIVE Urine Ketones NEGATIVE Urine Blood NEGATIVE Urine Nitrite NEGATIVE Ur Leukocyte Esterase NEGATIVE Urine WBC (Auto) 2 Urine RBC (Auto) 1 Blood Type Antibody Screen 06/13/20 06/13/20 06/13/20 06:31 06:31 06:31 WBC 5.1 RBC 3.87 L Hgb 11.8 L Hct 34.2 L MCV 89 MCH 30.5 MCHC 34.4 RDW 13.0 Plt Count 165 Seg Neutrophils % 77.3 Carbonic Acid HCO3/H2CO3 Ratio ABG pH ABG pCO2 ABG pO2 ABG HCO3 ABG O2 Saturation ABG Base Excess FiO2 Sodium 138.7 Potassium 4.2 Chloride 108 H Carbon Dioxide 19 L Anion Gap 12 BUN 28 H Creatinine 0.83 Est GFR ( Amer) > 60 Glucose 249 H Calcium 7.9 L Phosphorus 5.1 H Magnesium 2.4 H Ferritin Urine Color Urine Appearance Urine pH Ur Specific Pine Urine Protein Urine Glucose (UA) Urine Ketones Urine Blood Urine Nitrite Ur Leukocyte Esterase Urine WBC (Auto) Urine RBC (Auto) Blood Type O POSITIVE Antibody Screen NEGATIVE 06/12/20 06/12/20 06/12/20 16:49 16:49 21:30 Creatine Kinase 119 Troponin I 0.046 0.105 NT-Pro-B Natriuret Pep 420 H 06/13/20 06:31 Creatine Kinase Troponin I 0.087 NT-Pro-B Natriuret Pep Impressions: Chest X-Ray 06/13/20 00:00 IMPRESSION: Mild worsening of the diffuse bilateral airspace disease. copyright 2010 [employer]- All Rights Reserved Assessment and Plan - Diagnosis (1) Bilateral pneumonia Qualifiers: Pneumonia type: due to unspecified organism Lung location: unspecified part of lung Qualified Code(s): J18.9 - Pneumonia, unspecified organism Is this a current diagnosis for this admission?: Yes Plan: Chest x-ray shows diffuse bilateral airspace disease with some areas of small cavitations which may be microabscesses or cavitary pneumonia raising questionable suspicion for bacterial. Continue on Unasyn and azithromycin. Blood and sputum cultures showing no growth so far Influenza and strep were negative. COVID-19 pending We will also test for strep throat given his sore throat. Continue dexamethasone and vitamin and zinc supplements for suspected Covid while test is pending. (2) Acute respiratory failure with hypoxia Is this a current diagnosis for this admission?: Yes Plan: Secondary to pneumonia. He still significantly hypoxic but we have been able to take him off NIPPV and currently have him on an Oxymizer at 15 L. (3) Elevated troponin Is this a current diagnosis for this admission?: Yes Plan: Troponin peaked at 0.1 then trended down. He denies any chest pain. True ACS is unlikely. He has type II NV from demand perfusion mismatch secondary to his pneumonia and hypoxia. Either way he is already on Plavix and atorvastatin given his prior stroke. (4) Hypertension Qualifiers: Hypertension type: essential hypertension Qualified Code(s): I10 - Essential (primary) hypertension Is this a current diagnosis for this admission?: Yes Plan: Continue enalapril and amlodipine (5) Chronic anticoagulation Is this a current diagnosis for this admission?: Yes Plan: Patient and patient's stated yesterday to me that he is on Coumadin which was started by his PCP. Did tell me that he was started because of a stroke however they I am not aware of him ever having intramural thrombus or A. fib. His INR is completely normal on presentation and pharmacy confirmed his medication reconciliation which shows that he is on clopidogrel and no evidence of Coumadin on his med list. Also not on the med list he brought in. I do suspect that she may have confused clopidogrel for Coumadin. (6) Diabetes Qualifiers: Diabetes mellitus type: type 2 Diabetes mellitus complication status: with circulatory complication Diabetes mellitus complication detail: with other circulatory complications Is this a current diagnosis for this admission?: Yes Plan: Sliding scale insulin and Accu-Cheks. Diabetic diet. Hold Metformin for now. (7) History of stroke Is this a current diagnosis for this admission?: Yes Plan: Continue aspirin and atorvastatin. Has residual left-sided paresis. Denies history of dysphagia. (8) Obesity (BMI 30.0-34.9) Is this a current diagnosis for this admission?: Yes - Time Time Spent with patient: 15-24 minutes Anticipated Discharge Disposition: Home, Self Care Anticipated Discharge Timeframe: undetermin
[2020-06-13] MEDS: HEPARIN SOD (PORCINE) 5,000 UNIT/ML 1 ML VIAL SUBCUT SCH (21:57)
[2020-06-13] MEDS: ENALAPRIL MALEATE 5 MG TABLET PO SCH (21:58)
[2020-06-13] MEDS: ATORVASTATIN CALCIUM 40 MG TABLET PO SCH (21:58)
[2020-06-13] MEDS ORDERED: ENALAPRIL MALEATE 10 MG TABLET PO SCH (22:00)
[2020-06-13] MEDS ORDERED: ATORVASTATIN CALCIUM 80 MG TABLET PO SCH (22:00)
[2020-06-14] MEDS: AMPICILLIN SODIUM/SULBACTAM NA 3 GM in NORMAL SALINE 100 ML IV SCH ×2 (02:03→09:36)
[2020-06-14] MEDS: GUAIFENESIN/D-METHORPHAN (200-20 MG) SYRUP 10 ML PO PRN ×3 (05:18→22:11)
[2020-06-14] MEDS: HEPARIN SOD (PORCINE) 5,000 UNIT/ML 1 ML VIAL SUBCUT SCH ×3 (05:18→22:10)
[2020-06-14 06:26] LABS: ABSOLUTE LYMPHOCYTES (AUTO) 1.4 10^3/uL (0.5-4.7); ABSOLUTE NEUT (AUTO) 9.6 10^3/uL (1.7-8.2); BASOPHILS % (AUTO) 0.1 % (0-2); HEMATOCRIT 35.3 % (37.9-51.0); HEMOGLOBIN 12.2 g/dL (13.5-17.0); LYMPHOCYTES % (AUTO) 11.8 % (13-45); MEAN CORPUSCULAR HEMOGLOBIN 30.4 pg (27.0-33.4); MEAN CORPUSCULAR HGB CONC 34.5 g/dL (32.0-36.0); MEAN CORPUSCULAR VOLUME 88 fl (80-97); MONOCYTES % (AUTO) 8.6 % (3-13); PLATELET COUNT 201 10^3/uL (150-450); RED BLOOD COUNT 4.01 10^6/uL (4.35-5.55); RED CELL DISTRIBUTION WIDTH 12.7 % (11.5-14.0); SEGMENTED NEUTROPHILS % (AUTO) 79.5 % (42-78); TOTAL CELLS COUNTED % (AUTO) 100 %
[2020-06-14 06:42] LABS: WHITE BLOOD COUNT 12.1 10^3/uL (4.0-10.5)
[2020-06-14 06:47] LABS: ANION GAP 9 (5-19); BLOOD UREA NITROGEN 32 mg/dL (7-20); CALCIUM 8.2 mg/dL (8.4-10.2); CARBON DIOXIDE 20 mmol/L (22-30); CHLORIDE 112 mmol/L (98-107); GLUCOSE 186 mg/dL (75-110); POTASSIUM 4.2 mmol/L (3.6-5.0)
[2020-06-14] MEDS ORDERED: INFLUENZA QUAD (6MOS+) 2020-21 VAC 0.5 ML SYR IM ONE (08:00)
[2020-06-14] MEDS: INSULIN LISPRO 100 UNIT/ML 3 ML VIAL SUBCUT SCH ×4 (09:00→22:09)
[2020-06-14] MEDS: GLYBURIDE 5 MG TABLET PO SCH (09:00)
[2020-06-14] MEDS: CLOPIDOGREL BISULFATE 75 MG TABLET PO SCH (09:37)
[2020-06-14] MEDS: DOCUSATE SODIUM 100 MG CAPSULE PO SCH (09:37)
[2020-06-14] MEDS: CHOLECALCIFEROL (D3) 1,000 UNIT (25 MCG) TABLET PO SCH (09:37)
[2020-06-14] MEDS: ZINC SULFATE 220 MG CAPSULE PO SCH (09:37)
[2020-06-14] MEDS: GUAIFENESIN 600 MG TABLET.SA PO SCH ×2 (09:37→22:09)
[2020-06-14] MEDS: ASCORBIC ACID 500 MG TABLET PO SCH ×2 (09:37→18:30)
[2020-06-14] MEDS: ENALAPRIL MALEATE 5 MG TABLET PO SCH ×2 (09:38→22:09)
[2020-06-14] MEDS: DEXAMETHASONE SOD PHOS INJ 10 MG/1 ML VIAL IV SCH (09:38)
--- NOTE | 2020-06-14 11:17 | PDOC PROGRESS REPORT ---
Subjective Date:: 06/14/20 Subjective:: Patient c/o cough which is still hacking. He is on the Oxymizer. He does not f eel short of breath but asks if he can go on the CPAP because he helps subdue his coughing fits. I explained to him that he does not require CPAP as he is oxygenating adequately on the Oxymizer. Reason For Visit: PNEUMONIA,URI UPPER RESPIRATORY INFECTION Physical Exam Vital Signs: Temp Pulse Resp BP Pulse Ox 97.7 F 70 18 125/75 91 L 06/14/20 04:55 06/14/20 04:55 06/14/20 04:55 06/14/20 04:55 06/14/20 09:21 Pulse Oximeter Continuous Start: 06/12/20 1 8:32 Freq: RTQ4 Status: Active Protocol: Document 06/14/20 09:21 HANDY (Rec: 06/14/20 09:25 HANDY [email or web address]) Pulse Oximetry Assessment Oxygen Saturation (92-100) 91 Oxygen Flow Rate (L/min) 15 Oxygen Delivery Method Oxymizer Oxygen Conserving Device Fraction of Inspired Oxygen (FIO2) 91 Equipment Usage Equipment in Use Continuous SpO2 Machine # nurse monitor Intake & Output 06/13/20 06/14/20 06/15/20 06:59 06:59 06:59 Intake Total 630 100 Output Total 0 550 Balance 630 -550 100 Weight 81.6 kg 81.6 kg General appearance: PRESENT: no acute distress, cooperative, other - coughing occasionally Neck exam: ABSENT: JVD Respiratory exam: PRESENT: crackles, symmetrical, unlabored. ABSENT: tachypnea, wheezes Cardiovascular exam: PRESENT: RRR, +S1, +S2. ABSENT: tachycardia GI/Abdominal exam: PRESENT: soft. ABSENT: rebound, rigid, tenderness Neurological exam: PRESENT: alert, awake, oriented to person, oriented to place, oriented to time. ABSENT: aphasic Psychiatric exam: ABSENT: agitated, anxious Focused psych exam: ABSENT: pressured speech Skin exam: ABSENT: jaundice Results Laboratory Results: 06/14/20 05:30 06/14/20 05:30 06/14/20 06/14/20 05:30 05:30 WBC 12.1 H D RBC 4.01 L Hgb 12.2 L Hct 35.3 L MCV 88 MCH 30.4 MCHC 34.5 RDW 12.7 Plt Count 201 Seg Neutrophils % 79.5 H Sodium 141.1 Potassium 4.2 Chloride 112 H Carbon Dioxide 20 L Anion Gap 9 BUN 32 H Creatinine 0.80 Est GFR ( Amer) > 60 Glucose 186 H Calcium 8.2 L 06/12/20 16:49 Throat Throat Culture - Final NORMAL ALEKSANDAR 06/12/20 06/12/20 06/12/20 16:49 16:49 21:30 Creatine Kinase 119 Troponin I 0.046 0.105 NT-Pro-B Natriuret Pep 420 H 06/13/20 06:31 Creatine Kinase Troponin I 0.087 NT-Pro-B Natriuret Pep Impressions: Chest X-Ray 06/13/20 00:00 IMPRESSION: Mild worsening of the diffuse bilateral airspace disease. copyright 2010 [employer]- All Rights Reserved Assessment and Plan - Diagnosis (1) Bilateral pneumonia Qualifiers: Pneumonia type: due to unspecified organism Lung location: unspecified part of lung Qualified Code(s): J18.9 - Pneumonia, unspecified organism Is this a current diagnosis for this admission?: Yes Plan: Chest x-ray shows diffuse bilateral airspace disease with some areas of very small likely cavitations which may be small abscesses or cavitary pneumonia raising questionable suspicion for bacterial. Escalated Unasyn to Zosyn. Continue azithromycin. Day 3 of antibiotics. Blood and sputum cultures showing no growth so far Influenza and strep were negative. COVID-19 pending We will also test for strep throat given his sore throat. Continue dexamethasone and vitamin and zinc supplements for suspected Covid while test is pending. Discussed plan with patient's . (2) Acute respiratory failure with hypoxia Is this a current diagnosis for this admission?: Yes Plan: Secondary to pneumonia. He still significantly hypoxic but we have been able to keep him off NIPPV and currently still on an Oxymizer at 15 L. If he is able to maintain adequate oxygen saturation today being on Oxymizer, we will go ahead and discontinue his CPAP. (3) Elevated troponin Is this a current diagnosis for this admission?: Yes Plan: Troponin peaked at 0.1 then trended down. He denies any chest pain. True ACS is unlikely. He has type II TN from demand perfusion mismatch secondary to his pneumonia and hypoxia. Either way he is already on Plavix and atorvastatin given his prior stroke. (4) Hypertension Qualifiers: Hypertension type: essential hypertension Qualified Code(s): I10 - Essential (primary) hypertension Is this a current diagnosis for this admission?: Yes Plan: Continue enalapril (5) Chronic anticoagulation Is this a current diagnosis for this admission?: Yes Plan: I discussed with patient's who states that she is today not sure if he is on Coumadin though patient himself had told her he was on it. She states she looked in the medicine cabinet and did not see any medication called Coumadin. She thinks he could be mistaken. Also his INR is completely normal on presentation and his reported indication for Coumadin being stroke is not a true indication especially as he has no history of atrial fibrillation or intramural thrombus. As such we will hold off on any anticoagulation and I do not believe he was actually on chronic anticoagulation. He likely mistakened Coumadin for clopidogrel. (6) Diabetes Qualifiers: Diabetes mellitus type: type 2 Diabetes mellitus complication status: with circulatory complication Diabetes mellitus complication detail: with other circulatory complications Is this a current diagnosis for this admission?: Yes Plan: Sliding scale insulin and Accu-Cheks. Diabetic diet. Hold Metformin for now. C/w glyburide. (7) History of stroke Is this a current diagnosis for this admission?: Yes Plan: Continue aspirin and atorvastatin. Has residual left-sided paresis. Denies history of dysphagia. (8) Obesity (BMI 30.0-34.9) Is this a current diagnosis for this admission?: Yes - Time Time Spent with patient: 15-24 minutes Anticipated Discharge Disposition: Home, Self Care Anticipated Discharge Timeframe: >72hr
[2020-06-14] MEDS ORDERED: PIPERACILLIN/TAZOBACTAM 3.375 GM VIAL IV SCH (12:00)
[2020-06-14] MEDS: PIPERACILLIN SODIUM/TAZOBACTAM 3.375 GM in NORMAL SALINE 100 ML IV SCH ×2 (15:34→20:24)
[2020-06-14] MEDS: ACETAMINOPHEN 325 MG TABLET PO PRN ×2 (17:02→23:36)
[2020-06-14] MEDS: BENZOCAINE/MENTHOL SORE THROAT LOZENGE BUCCAL PRN (17:03)
[2020-06-14] MEDS: AZITHROMYCIN 250 MG TABLET PO SCH (18:30)
[2020-06-14] MEDS ORDERED: GUAIFENESIN 600 MG TABLET.SA PO SCH (22:00)
[2020-06-14] MEDS: ATORVASTATIN CALCIUM 40 MG TABLET PO SCH (22:10)
[2020-06-15 06:07] LABS: ABSOLUTE LYMPHOCYTES (AUTO) 1.4 10^3/uL (0.5-4.7); ABSOLUTE MONOCYTES (AUTO) 0.8 10^3/uL (0.1-1.4); BASOPHILS % (AUTO) 0.3 % (0-2); EOSINOPHILS % (AUTO) 0.1 % (0-6); HEMATOCRIT 33.4 % (37.9-51.0); HEMOGLOBIN 11.7 g/dL (13.5-17.0); LYMPHOCYTES % (AUTO) 12.7 % (13-45); MEAN CORPUSCULAR HEMOGLOBIN 31.2 pg (27.0-33.4); MEAN CORPUSCULAR HGB CONC 35.1 g/dL (32.0-36.0); MEAN CORPUSCULAR VOLUME 89 fl (80-97); MONOCYTES % (AUTO) 7.2 % (3-13); PLATELET COUNT 214 10^3/uL (150-450); RED BLOOD COUNT 3.76 10^6/uL (4.35-5.55); SEGMENTED NEUTROPHILS % (AUTO) 79.7 % (42-78); TOTAL CELLS COUNTED % (AUTO) 100 %; WHITE BLOOD COUNT 11.3 10^3/uL (4.0-10.5)
[2020-06-15] MEDS: PIPERACILLIN SODIUM/TAZOBACTAM 3.375 GM in NORMAL SALINE 100 ML IV SCH (06:12)
[2020-06-15] MEDS: HEPARIN SOD (PORCINE) 5,000 UNIT/ML 1 ML VIAL SUBCUT SCH (06:12)
[2020-06-15] MEDS: GUAIFENESIN/D-METHORPHAN (200-20 MG) SYRUP 10 ML PO PRN ×2 (06:27→13:45)
[2020-06-15] MEDS: INSULIN LISPRO 100 UNIT/ML 3 ML VIAL SUBCUT SCH ×4 (08:18→22:17)
[2020-06-15] MEDS: ACETAMINOPHEN 325 MG TABLET PO PRN ×2 (08:51→20:26)
[2020-06-15] MEDS: DEXAMETHASONE SOD PHOS INJ 10 MG/1 ML VIAL IV SCH (10:36)
[2020-06-15] MEDS: DOCUSATE SODIUM 100 MG CAPSULE PO SCH (10:36)
[2020-06-15] MEDS: GUAIFENESIN 600 MG TABLET.SA PO SCH ×2 (10:36→22:14)
[2020-06-15] MEDS: ENALAPRIL MALEATE 5 MG TABLET PO SCH ×2 (10:36→22:14)
[2020-06-15] MEDS: CHOLECALCIFEROL (D3) 1,000 UNIT (25 MCG) TABLET PO SCH (10:36)
[2020-06-15] MEDS: CLOPIDOGREL BISULFATE 75 MG TABLET PO SCH (10:36)
[2020-06-15] MEDS: ZINC SULFATE 220 MG CAPSULE PO SCH (10:36)
[2020-06-15] MEDS: ASCORBIC ACID 500 MG TABLET PO SCH ×2 (10:36→17:10)
[2020-06-15] MEDS ORDERED: REMDESIVIR 200 MG in NORMAL SALINE 250 ML IV ONE (12:00)
[2020-06-15] MEDS: ENOXAPARIN SODIUM INJ 80 MG/0.8 ML DISP.SYRIN SUBCUT SCH ×2 (12:54→22:14)
--- NOTE | 2020-06-15 13:04 | PDOC PROGRESS REPORT ---
Subjective Date:: 06/15/20 Subjective:: Patient's coronavirus test result came back positive yesterday evening. He was given convalescent plasma overnight. He still continues to have shortness of breath and experiences episodes of coughing fits. Denies nausea vomiting. He states he has very poor appetite. However he is managing to eat a little bit. Reason For Visit: PNEUMONIA,URI UPPER RESPIRATORY INFECTION Physical Exam Vital Signs: Temp Pulse Resp BP Pulse Ox 98.5 F 77 28 H 151/93 H 93 06/15/20 07:42 06/15/20 07:42 06/15/20 07:42 06/15/20 07:42 06/15/20 09:48 Pulse Oximeter Continuous Start: 06/12/20 18:32 Freq: RTQ4 Status: Active Protocol: Document 06/15/20 09:48 HANDY (Rec: 06/15/20 09:50 HANDY [email or web address]) Pulse Oximetry Assessment Oxygen Saturation (92-100) 93 Oxygen Flow Rate (L/min) 15 Oxygen Delivery Method Oxymizer Oxygen Conserving Device Fraction of Inspired Oxygen (FIO2) 100 Equipment Usage Equipment Standby Continuous SpO2 Machine # on nurse monitor Intake & Output 06/14/20 06/15/20 06/16/20 06:59 06:59 06:59 Intake Total 850 Output Total 550 1175 Balance -550 -325 Weight 81.6 kg 82.9 kg General appearance: PRESENT: no acute distress, cooperative Neck exam: ABSENT: JVD Respiratory exam: PRESENT: crackles, symmetrical, tachypnea, unlabored. ABSENT: accessory muscle use, retraction, wheezes Cardiovascular exam: PRESENT: RRR, +S1, +S2. ABSENT: tachycardia GI/Abdominal exam: PRESENT: soft. ABSENT: rebound, rigid, tenderness Neurological exam: PRESENT: alert, awake, oriented to person, oriented to place, oriented to time, motor sensory deficit - left sided weakness Psychiatric exam: ABSENT: agitated, anxious Results Laboratory Results: 06/15/20 05:20 06/14/20 05:30 06/13/20 06/15/20 06:31 05:20 WBC 11.3 H RBC 3.76 L Hgb 11.7 L Hct 33.4 L MCV 89 MCH 31.2 MCHC 35.1 RDW 13.0 Plt Count 214 Seg Neutrophils % 79.7 H Blood Type O POSITIVE Antibody Screen NEGATIVE 06/12/20 21:30 Sputum Gram Stain - Final 06/12/20 21:30 Sputum Sputum Culture - Final NORMAL ALEKSANDAR 06/12/20 16:49 Throat Throat Culture - Final NORMAL ALEKSANDAR 06/12/20 06/12/20 06/12/20 16:49 16:49 21:30 Creatine Kinase 119 Troponin I 0.046 0.105 NT-Pro-B Natriuret Pep 420 H 06/13/20 06:31 Creatine Kinase Troponin I 0.087 NT-Pro-B Natriuret Pep Impressions: Chest X-Ray 06/13/20 00:00 IMPRESSION: Mild worsening of the diffuse bilateral airspace disease. copyright 2010 [employer]- All Rights Reserved Assessment and Plan - Diagnosis (1) Pneumonia due to COVID-19 virus Is this a current diagnosis for this admission?: Yes Plan: COVID-19 test came back positive yesterday evening. Received convalescent plasma Remdesivir day 1 Dexamethasone day 4 vitamin/zinc supplements He is not having much p.o. intake so I will start him on some gentle IV fluids. On therapeutic lovenox given high D dimer --will check CTA chest. updated about positive result (2) Acute respiratory failure with hypoxia Is this a current diagnosis for this admission?: Yes Plan: Secondary to Covid pneumonia. Plan to transition him from Oxymizer to high flow nasal cannula today as he was desaturating into the mid 80s on 15 L of Oxymizer. Continue to monitor on continuous pulse oximetry (3) Elevated troponin Is this a current diagnosis for this admission?: Yes Plan: Troponin peaked at 0.1 on admission then trended down. He denies any chest pain. True ACS is unlikely. He has type II VA from demand perfusion mismatch secondary to his pneumonia and hypoxia. Either way he is already on Plavix and atorvastatin given his prior stroke. (4) Hypertension Qualifiers: Hypertension type: essential hypertension Qualified Code(s): I10 - Essential (primary) hypertension Is this a current diagnosis for this admission?: Yes Plan: Continue enalapril (5) Diabetes Qualifiers: Diabetes mellitus type: type 2 Diabetes mellitus complication status: with circulatory complication Diabetes mellitus complication detail: with other circulatory complications Is this a current diagnosis for this admission?: Yes Plan: Sliding scale insulin and Accu-Cheks. Diabetic diet. Hold Metformin for now. Hold glyburide as appetite is not good. (6) History of stroke Is this a current diagnosis for this admission?: Yes Plan: Continue Plavix and atorvastatin. Has residual left-sided paresis. (7) Obesity (BMI 30.0-34.9) Is this a current diagnosis for this admission?: Yes - Time Time Spent with patient: 15-24 minutes Anticipated Discharge Disposition: [place] Anticipated Discharge Timeframe: unknown
[2020-06-15] MEDS: NORMAL SALINE 1000 ML 1,000 ML IV PRN (13:45)
[2020-06-15] MEDS: GLYBURIDE 5 MG TABLET PO SCH (14:53)
[2020-06-15] MEDS: AZITHROMYCIN 250 MG TABLET PO SCH (17:10)
[2020-06-15] MEDS: ATORVASTATIN CALCIUM 40 MG TABLET PO SCH (22:14)
[2020-06-16] MEDS: GUAIFENESIN/D-METHORPHAN (200-20 MG) SYRUP 10 ML PO PRN ×4 (02:59→20:45)
[2020-06-16] MEDS: BENZOCAINE/MENTHOL SORE THROAT LOZENGE BUCCAL PRN (03:07)
[2020-06-16] MEDS ORDERED: GUAIFENESIN SYRP 200 MG/10 ML UDC PO ONE (05:00)
[2020-06-16 05:17] LABS: ARTERIAL BLOOD BASE EXCESS -4.5 mmol/L; ARTERIAL BLOOD H2CO3 0.97 mmol/L (1.05-1.35); ARTERIAL BLOOD HCO3 19.4 mmol/L (20-24); ARTERIAL BLOOD O2 SATURATION 97.7 % (94-98); ARTERIAL BLOOD PCO2 32.3 mmHg (35-45); ARTERIAL BLOOD PO2 102.3 mmHg (80-100); ARTERIAL BLOOD TOTAL CO2 20.4 mmol/L (23-27)
[2020-06-16 05:18] LABS: ARTERIAL BLOOD FIO2 70%
[2020-06-16 06:14] LABS: INTERNATIONAL RATION (INR) 1.23; PROTHROMBIN TIME 15.7 SEC (11.4-15.4)
[2020-06-16 06:15] LABS: PARTIAL THROMBOPLASTIN TIME 39.7 SEC (23.5-35.8)
[2020-06-16 07:17] LABS: D-DIMER > 20.00 ug/mL (0.00-0.50)
[2020-06-16] MEDS: INSULIN LISPRO 100 UNIT/ML 3 ML VIAL SUBCUT SCH ×4 (08:35→22:05)
[2020-06-16] MEDS: ENOXAPARIN SODIUM INJ 80 MG/0.8 ML DISP.SYRIN SUBCUT SCH ×2 (10:40→22:05)
[2020-06-16] MEDS: DEXAMETHASONE SOD PHOS INJ 10 MG/1 ML VIAL IV SCH (10:40)
[2020-06-16] MEDS: DOCUSATE SODIUM 100 MG CAPSULE PO SCH (10:41)
[2020-06-16] MEDS: CHOLECALCIFEROL (D3) 1,000 UNIT (25 MCG) TABLET PO SCH (10:41)
[2020-06-16] MEDS: CLOPIDOGREL BISULFATE 75 MG TABLET PO SCH (10:41)
[2020-06-16] MEDS: GUAIFENESIN 600 MG TABLET.SA PO SCH ×2 (10:41→22:05)
[2020-06-16] MEDS: ASCORBIC ACID 500 MG TABLET PO SCH ×2 (10:41→17:34)
[2020-06-16] MEDS: ENALAPRIL MALEATE 5 MG TABLET PO SCH ×2 (10:41→22:05)
[2020-06-16] MEDS: ZINC SULFATE 220 MG CAPSULE PO SCH (10:41)
[2020-06-16] MEDS: NORMAL SALINE 1000 ML 1,000 ML IV PRN (11:14)
[2020-06-16] MEDS: REMDESIVIR 100 MG in NORMAL SALINE 250 ML IV SCH (11:14)
--- NOTE | 2020-06-16 13:50 | RADIOLOGY REPORT (SQ) ---
EXAM DESCRIPTION: CTA CHEST IMAGES COMPLETED DATE/TIME: 06/16/2020 1:32 pm REASON FOR STUDY: elevated D dimer, hypoxia, covid COMPARISON: None. TECHNIQUE: CT scan of the chest performed using helical scanning technique with dynamic intravenous contrast injection. Images reviewed with lung, soft tissue and bone windows. Reconstructed coronal and sagittal MPR images reviewed. Additional 3 dimensional post-processing performed to develop Maximal Intensity Projection images (NV P). All images stored on PACS. All CT scanners at this facility use dose modulation, iterative reconstruction, and/or weight based d osing when appropriate to reduce radiation dose to as low as reasonably achievable (ALARA). [facility]: Dose Right [facility]: CareDose [facility]: Dose Right [facility]: Teradose 4D [facility]: Sefaira CONTRAST TYPE AND DOSE: contrast/concentration: Isovue 350.00 mmol/ml; Total Contrast Delivered: 75. 0 ml; Total Saline Delivered: 26.0 ml Contrast bolus optimized for the pulmonary arteries. Not diagnostic for the aorta. RENAL FUNCTION: BUN 32, creatinine 0.80 RADIATION DOSE: CT Rad equipment meets quality standard of care and radiation dose reduction techniq ues were employed. CTDIvol: 9.4 - 15.3 mGy. DLP: 612 mGy-cm. . LIMITATIONS: Limited study due to timing of the bolus. FINDINGS: LUNGS AND PLEURA: There is diffuse bilateral ground-glass opacities consistent with the cl inical history of Covid 19 pneumonia. No effusions. AORTA AND GREAT VESSELS: No aneurysm. Contrast bolus not optimized for the aorta. HEART: No pericardial effusion. No significant coronary artery calcifications. PULMONARY ARTERIES: Suspect small right lower lobe pulmonary emboli. This is most notable on series 3, image 68. HILAR AND MEDIASTINAL STRUCTURES: No identified masses or abnormal nodes. HARDWARE: None in the chest. UPPER ABDOMEN: No significant findings. Limited exam. THYROID AND OTHER SOFT TISSUES: No masses. No adenopathy. BONES: No acute or significant finding. 3D MIPS: Confirm above findings. OTHER: No other significant finding. IMPRESSION: 1. Extensive bilateral alveolar airspace disease consistent with Covid 19 pneumonia. 2. Limited study for evaluation of pulmonary embolus due to timing of the bolus. Suspect filling de fects in the right lower lobe pulmonary artery as discussed. COMMENT: Quality ID # [id number]: Final reports with documentation of one or more dose reduction techniques (e.g., Automated exposure control, adjustment of the mA and/or kV according to patient size, use of iterative reconstruction technique) TECHNICAL DOCUMENTATION: JOB ID: [id number] 2010 [employer]- All Rights Reserved Reading location - IP/workstation name: [email or web address]
--- NOTE | 2020-06-16 16:03 | PDOC PROGRESS REPORT ---
Subjective Date:: 06/16/20 Reason For Visit: PNEUMONIA,URI UPPER RESPIRATORY INFECTION Physical Exam Vital Signs: Temp Pulse Resp BP Pulse Ox 99.8 F 90 20 129/74 H 90 L 06/16/20 07:39 06/16/20 14:00 06/16/20 14:31 06/16/20 07:39 06/16/20 14:31 Pulse Oximeter Continuous Start: 06/12/20 18:32 Freq: RTQ4 Status: Active Protocol: Document 06/16/20 12:00 [facility] (Rec: 06/16/20 14:36 [facility] [email or web address]) Pulse Oximetry Assessment Oxygen Saturation (92-100) 90 Oxygen Flow Rate (L/min) 50 Oxygen Delivery Method High Flow Nasal Cannula Fraction of Inspired Oxygen (FIO2) 85 Equipment Usage Equipment Standby Continuous SpO2 Machine # -- Intake & Output 06/15/20 06/16/20 06/17/20 06:59 06:59 06:59 Intake Total 850 1308 1250 Output Total 1175 900 Balance -636 884 4157 Weight 82.9 kg 80.9 kg Results Laboratory Results: 06/15/20 05:20 06/14/20 05:30 06/16/20 04:55 Carbonic Acid 0.97 L HCO3/H2CO3 Ratio 20:1 ABG pH 7.40 ABG pCO2 32.3 L ABG pO2 102.3 H ABG HCO3 19.4 L ABG O2 Saturation 97.7 ABG Base Excess -4.5 FiO2 70% 06/12/20 06/12/20 06/12/20 16:49 16:49 21:30 Creatine Kinase 119 Troponin I 0.046 0.105 NT-Pro-B Natriuret Pep 420 H 06/13/20 06:31 Creatine Kinase Troponin I 0.087 NT-Pro-B Natriuret Pep Impressions: Chest X-Ray 06/13/20 00:00 IMPRESSION: Mild worsening of the diffuse bilateral airspace disease. copyright 2011 [employer]- All Rights Reserved Chest/Abdomen CTA 06/16/20 08:30 IMPRESSION: 1. Extensive bilateral alveolar airspace disease consistent with Covid 19 pneumonia. 2. Limited study for evaluation of pulmonary embolus due to timing of the bolus. Suspect filling defects in the right lower lobe pulmonary artery as discussed. Assessment and Plan - Diagnosis (1) Pneumonia due to COVID-19 virus Is this a current diagnosis for this admission?: Yes Plan: COVID-19 test came back positive yesterday evening. Received convalescent plasma Remdesivir day 1 Dexamethasone day 4 vitamin/zinc supplements He is not having much p.o. intake so I will start him on some gentle IV fluids. On therapeutic lovenox given high D dimer --will check CTA chest. updated about positive result 06/16/2020-currently on nonrebreather mask going down for his CTA (2) Acute respiratory failure with hypoxia Is this a current diagnosis for this admission?: Yes Plan: Secondary to Covid pneumonia. Plan to transition him from Oxymizer to high flow nasal cannula today as he was desaturating into the mid 80s on 15 L of Oxymizer. Continue to monitor on continuous pulse oximetry 06/16/2020-continue to try and wean back to room air. Nonrebreather for imaging study (3) Elevated troponin Is this a current diagnosis for this admission?: Yes Plan: Troponin peaked at 0.1 on admission then trended down. He denies any chest pain. True ACS is unlikely. He has type II MN from demand perfusion mismatch secondary to his pneumonia and hypoxia. Either way he is already on Plavix and atorvastatin given his prior stroke. 06/16/2020-no further complaints of chest discomfort. Troponin trending down. No further troponin evaluation. (4) Hypertension Qualifiers: Hypertension type: essential hypertension Qualified Code(s): I10 - Lillian al (primary) hypertension Is this a current diagnosis for this admission?: Yes Plan: Continue enalapril 06/20/2020-monitor vital signs. Adjust medications accordingly. (5) Hyperglycemia due to type 2 diabetes mellitus Qualifiers: Diabetes mellitus halfway insulin use: without halfway use Qualified Code(s): E11.65 - Type 2 diabetes mellitus with hyperglycemia Is this a current diagnosis for this admission?: Yes Plan: 06/16/2020-continue sliding scale for now. Hold other medications. Diabetic diet. Appetite is poor at this time. (6) Pulmonary embolism on right Is this a current diagnosis for this admission?: Yes Plan: 06/16/2020-CTA showed small pulmonary emboli right lower lobe. Patient already on therapeutic Lovenox. (7) History of stroke Is this a current diagnosis for this admission?: Yes Plan: Continue Plavix and atorvastatin. Has residual left-sided paresis. (8) Obesity (BMI 30.0-34.9) Is this a current diagnosis for this admission?: Yes Plan: Low-carb diet - Time Time Spent with patient: 15-24 minutes Medications reviewed and adjusted accordingly: Yes Anticipated Discharge Disposition: Unknown Anticipated Discharge Timeframe: Unknown
[2020-06-16] MEDS: AZITHROMYCIN 250 MG TABLET PO SCH (17:34)
[2020-06-16] MEDS: ATORVASTATIN CALCIUM 40 MG TABLET PO SCH (22:05)
[2020-06-17] MEDS: GUAIFENESIN/D-METHORPHAN (200-20 MG) SYRUP 10 ML PO PRN (03:09)
[2020-06-17] MEDS: NORMAL SALINE 1000 ML 1,000 ML IV PRN (08:00)
[2020-06-17] MEDS: INSULIN LISPRO 100 UNIT/ML 3 ML VIAL SUBCUT SCH ×4 (08:01→21:44)
[2020-06-17] MEDS: REMDESIVIR 100 MG in NORMAL SALINE 250 ML IV SCH (10:17)
[2020-06-17] MEDS: DEXAMETHASONE SOD PHOS INJ 10 MG/1 ML VIAL IV SCH (10:17)
[2020-06-17] MEDS: CHOLECALCIFEROL (D3) 1,000 UNIT (25 MCG) TABLET PO SCH (10:18)
[2020-06-17] MEDS: ASCORBIC ACID 500 MG TABLET PO SCH ×2 (10:18→17:13)
[2020-06-17] MEDS: GUAIFENESIN 600 MG TABLET.SA PO SCH ×2 (10:18→21:45)
[2020-06-17] MEDS: ENALAPRIL MALEATE 5 MG TABLET PO SCH ×2 (10:18→21:45)
[2020-06-17] MEDS: ENOXAPARIN SODIUM INJ 80 MG/0.8 ML DISP.SYRIN SUBCUT SCH ×2 (10:18→21:45)
[2020-06-17] MEDS: DOCUSATE SODIUM 100 MG CAPSULE PO SCH (10:18)
[2020-06-17] MEDS: ESCITALOPRAM OXALATE 10 MG TABLET PO SCH (10:18)
[2020-06-17] MEDS: CLOPIDOGREL BISULFATE 75 MG TABLET PO SCH (10:18)
[2020-06-17] MEDS: ZINC SULFATE 220 MG CAPSULE PO SCH (10:18)
--- NOTE | 2020-06-17 14:11 | PDOC PROGRESS REPORT ---
Subjective Date:: 06/17/20 Subjective:: Currently resting in the chair. Appears comfortable. He is on high flow nasal cannula. Reason For Visit: PNEUMONIA,URI UPPER RESPIRATORY INFECTION Physical Exam Vital Signs: Temp Pulse Resp BP Pulse Ox 97.9 F 82 18 124/77 99 06/17/20 12:06 06/17/20 12:06 06/17/20 13:15 06/17/20 12:06 06/17/20 13:15 Pulse Oximeter Continuous Start: 06/12/20 18:32 Freq: RTQ4 Status: Hold Protocol: Document 06/17/20 08:00 ALEXANDER (Rec: 06/17/20 09:32 [facility] [id number]) Pulse Oximetry Assessment Oxygen Saturation (92-100) 96 Oxygen Delivery Method CPAP Fraction of Inspired Oxygen (FIO2) 70 Equipment Usage Equipment Standby Continuous SpO2 Machine # nurse monitor Intake & Output 06/16/20 06/17/20 06/18/20 06:59 06:59 06:59 Intake Total 1308 1950 250 Output Total 900 1300 Balance 408 650 250 Weight 80.9 kg 80.8 kg General appearance: PRESENT: no acute distress, cooperative, well-developed, well-nourished Head exam: PRESENT: atraumatic, normocephalic Respiratory exam: PRESENT: symmetrical, unlabored, wheezes - Faint expiratory wheezes. ABSENT: rales, rhonchi, tachypnea Cardiovascular exam: PRESENT: RRR, +S1, +S2. ABSENT: bradycardia, diastolic murmur, irregular rhythm, systolic murmur, tachycardia GI/Abdominal exam: PRESENT: normal bowel sounds, soft. ABSENT: distended, guarding, tenderness Rectal exam: PRESENT: deferred Musculoskeletal exam: PRESENT: ambulatory, normal inspection. ABSENT: deformity, dislocation Neurological exam: PRESENT: alert, awake, oriented to person, oriented to place, oriented to time, oriented to situation, CN II-XII grossly intact. ABSENT: altered Psychiatric exam: PRESENT: appropriate affect. ABSENT: agitated, anxious Focused psych exam: ABSENT: delusional, paranoid, restlessness Results Laboratory Results: 06/15/20 05:20 06/14/20 05:30 06/12/20 06/12/20 06/12/20 16:49 16:49 21:30 Creatine Kinase 119 Troponin I 0.046 0.105 NT-Pro-B Natriuret Pep 420 H 06/13/20 06:31 Creatine Kinase Troponin I 0.087 NT-Pro-B Natriuret Pep Impressions: Chest X-Ray 06/13/20 00:00 IMPRESSION: Mild worsening of the diffuse bilateral airspace disease. copyright 2010 [employer]- All Rights Reserved Chest/Abdomen CTA 06/16/20 08:30 IMPRESSION: 1. Extensive bilateral alveolar airspace disease consistent with Covid 19 pneumonia. 2. Limited study for evaluation of pulmonary embolus due to timing of the bolus. Suspect filling defects in the right lower lobe pulmonary artery as discussed. Assessment and Plan - Diagnosis (1) Pneumonia due to COVID-19 virus Is this a current diagnosis for this admission?: Yes Plan: COVID-19 test came back positive yesterday evening. Received convalescent plasma Remdesivir day 1 Dexamethasone day 4 vitamin/zinc supplements He is not having much p.o. intake so I will start him on some gentle IV fluids. On therapeutic lovenox given high D dimer --will check CTA chest. updated about positive result 06/16/2020-currently on nonrebreather mask going down for his CTA 06/17/2020-continue to slowly taper oxygen (2) Acute respiratory failure with hypoxia Is this a current diagnosis for this admission?: Yes Plan: Secondary to Covid pneumonia. Plan to transition him from Oxymizer to high flow nasal cannula today as he was desaturating into the mid 80s on 15 L of Oxymizer. Continue to monitor on continuous pulse oximetry 06/16/2020-continue to try and wean back to room air. Nonrebreather for imaging study 06/17/2020-as above (3) Elevated troponin Is this a current diagnosis for this admission?: Yes Plan: Troponin peaked at 0.1 on admission then trended down. He denies any chest pain. True ACS is unlikely. He has type II OH from demand perfusion mismatch secondary to his pneumonia and hypoxia. Either way he is already on Plavix and atorvastatin given his prior stroke. 06/16/2020-no further complaints of chest discomfort. Troponin trending down. No further troponin evaluation. (4) Hypertension Qualifiers: Hypertension type: essential hypertension Qualified Code(s): I10 - Essential (primary) hypertension Is this a current diagnosis for this admission?: Yes Plan: Continue enalapril 06/16/2020-monitor vital signs. Adjust medications accordingly. 06/17/2020-reasonable blood pressure control on current regimen. (5) Hyperglycemia due to type 2 diabetes mellitus Qualifiers: Diabetes mellitus steel rule die maker insulin use: without steel rule die maker use Qualified Code(s): E11.65 - Type 2 diabetes mellitus with hyperglycemia Is this a current diagnosis for this admission?: Yes Plan: 06/16/2020-continue sliding scale for now. Hold other medications. Diabetic diet. Appetite is poor at this time. 06/17/2020-still with variable Accu-Cheks. (6) Pulmonary embolism on right Is this a current diagnosis for this admission?: Yes Plan: 06/16/2020-CTA showed small pulmonary emboli right lower lobe. Patient already on therapeutic Lovenox. 06/17/2020-continue therapeutic Lovenox (7) History of stroke Is this a current diagnosis for this admission?: Yes Plan: Continue Plavix and atorvastatin. Has residual left-sided paresis. (8) Obesity (BMI 30.0-34.9) Is this a current diagnosis for this admission?: Yes Plan: Low-carb diet - Time Time Spent with patient: 15-24 minutes Medications reviewed and adjusted accordingly: Yes Anticipated Discharge Disposition: Home with Home Health Anticipated Discharge Timeframe: Unknown
[2020-06-17] MEDS: AZITHROMYCIN 250 MG TABLET PO SCH (17:13)
[2020-06-17] MEDS: ATORVASTATIN CALCIUM 40 MG TABLET PO SCH (21:45)
[2020-06-18] MEDS: NORMAL SALINE 1000 ML 1,000 ML IV PRN (04:32)
[2020-06-18] MEDS: INSULIN LISPRO 100 UNIT/ML 3 ML VIAL SUBCUT SCH ×4 (08:30→22:08)
[2020-06-18] MEDS: GUAIFENESIN/D-METHORPHAN (200-20 MG) SYRUP 10 ML PO PRN (10:06)
[2020-06-18] MEDS: DEXAMETHASONE SOD PHOSPHATE INJ 4 MG/1 ML VIAL IV SCH (10:06)
[2020-06-18] MEDS: DOCUSATE SODIUM 100 MG CAPSULE PO SCH (10:07)
[2020-06-18] MEDS: ASCORBIC ACID 500 MG TABLET PO SCH ×2 (10:07→17:35)
[2020-06-18] MEDS: GUAIFENESIN 600 MG TABLET.SA PO SCH ×2 (10:07→22:08)
[2020-06-18] MEDS: ACETAMINOPHEN 325 MG TABLET PO PRN (10:07)
[2020-06-18] MEDS: ZINC SULFATE 220 MG CAPSULE PO SCH (10:07)
[2020-06-18] MEDS: ENALAPRIL MALEATE 5 MG TABLET PO SCH ×2 (10:07→22:08)
[2020-06-18] MEDS: REMDESIVIR 100 MG in NORMAL SALINE 250 ML IV SCH (10:08)
[2020-06-18] MEDS: ENOXAPARIN SODIUM INJ 80 MG/0.8 ML DISP.SYRIN SUBCUT SCH ×2 (10:08→22:08)
[2020-06-18] MEDS: ESCITALOPRAM OXALATE 10 MG TABLET PO SCH (10:08)
[2020-06-18] MEDS: CLOPIDOGREL BISULFATE 75 MG TABLET PO SCH (10:08)
[2020-06-18] MEDS: CHOLECALCIFEROL (D3) 1,000 UNIT (25 MCG) TABLET PO SCH (10:08)
--- NOTE | 2020-06-18 10:59 | PDOC PROGRESS REPORT ---
Subjective Date:: 06/18/20 Subjective:: Patient is complaining of chills. He is tachypneic at rest. He is on high flow nasal cannula. Reason For Visit: PNEUMONIA,URI UPPER RESPIRATORY INFECTION Physical Exam Vital Signs: Temp Pulse Resp BP Pulse Ox 98.2 F 82 18 129/75 H 94 06/18/20 08:51 06/18/20 10:07 06/18/20 09:10 06/18/20 04:32 06/18/20 09:10 Pulse Oximeter Continuous Start: 06/12/20 18:32 Freq: RTQ4 Status: Hold Protocol: Document 06/17/20 08:00 ALEXANDER (Rec: 06/17/20 09:32 [facility] [id number]) Pulse Oximetry Assessment Oxygen Saturation (92-100) 96 Oxygen Delivery Method CPAP Fraction of Inspired Oxygen (FIO2) 70 Equipment Usage Equipment Standby Continuous SpO2 Machine # nurse monitor Intake & Output 06/17/20 06/18/20 06/19/20 06:59 06:59 06:59 Intake Total 1950 2610 Output Total 1300 200 Balance 650 2410 Weight 80.8 kg 76.9 kg General appearance: PRESENT: cooperative, mild distress Head exam: PRESENT: atraumatic, normocephalic Respiratory exam: PRESENT: clear to auscultation aaron - With shortened inspiratory phase, tachypnea. ABSENT: rales, wheezes Cardiovascular exam: PRESENT: RRR, +S1, +S2 GI/Abdominal exam: PRESENT: soft. ABSENT: distended, guarding, tenderness Rectal exam: PRESENT: deferred Extremities exam: ABSENT: pedal edema Musculoskeletal exam: PRESENT: ambulatory, normal inspection Neurological exam: PRESENT: alert, awake, oriented to person, oriented to place, oriented to time, oriented to situation, CN II-XII grossly intact. ABSENT: altered Psychiatric exam: PRESENT: appropriate affect. ABSENT: agitated, anxious Focused psych exam: ABSENT: delusional, paranoid, restlessness Results Laboratory Results: 06/15/20 05:20 06/14/20 05:30 06/12/20 17:36 Blood Blood Culture - Final NO GROWTH IN 5 DAYS 06/12/20 16:49 Blood Blood Culture - Final NO GROWTH IN 5 DAYS 06/12/20 06/12/20 06/12/20 16:49 16:49 21:30 Creatine Kinase 119 Troponin I 0.046 0.105 NT-Pro-B Natriuret Pep 420 H 06/13/20 06:31 Creatine Kinase Troponin I 0.087 NT-Pro-B Natriuret Pep Impressions: Chest X-Ray 06/13/20 00:00 IMPRESSION: Mild worsening of the diffuse bilateral airspace disease. copyright 2010 [employer]- All Rights Reserved Chest/Abdomen CTA 06/16/20 08:30 IMPRESSION: 1. Extensive bilateral alveolar airspace disease consistent with Covid 19 pneumonia. 2. Limited study for evaluation of pulmonary embolus due to timing of the bolus. Suspect filling defects in the right lower lobe pulmonary artery as discussed. Assessment and Plan - Diagnosis (1) Pneumonia due to COVID-19 virus Is this a current diagnosis for this admission?: Yes (2) Acute respiratory failure with hypoxia Is this a current diagnosis for this admission?: Yes (3) Elevated troponin Is this a current diagnosis for this admission?: Yes (4) Hypertension Qualifiers: Hypertension type: essential hypertension Qualified Code(s): I10 - Essential (primary) hypertension Is this a current diagnosis for this admission?: Yes (5) Hyperglycemia due to type 2 diabetes mellitus Qualifiers: Diabetes mellitus group home insulin use: without group home use Qualified Code(s): E11.65 - Type 2 diabetes mellitus with hyperglycemia Is this a current diagnosis for this admission?: Yes (6) Pulmonary embolism on right Is this a current diagnosis for this admission?: Yes (7) History of stroke Is this a current diagnosis for this admission?: Yes (8) Obesity (BMI 30.0-34.9) Is this a current diagnosis for this admission?: Yes - Plan Summary Summary: 06/18/2020 Complete Remdesivir today. The patient did not receive a full course of azithromycin so this was added. Steroids have been increased. The chills that the patient is complaining of do not have a clear etiology. We will continue aggressive treatment for Covid pneumonia and continue to try and taper back to room air as possible. Mvvxopzl-Ewue-Larwk still seem to be higher at night. Consider adding Lantus. Continue therapeutic dose Lovenox for Covid pneumonia and pulmonary emboli - Time Time Spent with patient: 15-24 minutes Medications reviewed and adjusted accordingly: Yes Anticipated Discharge Disposition: Home with Home Health Anticipated Discharge Timeframe: Unknown
[2020-06-18 12:38] LABS: HEMATOCRIT 33.7 % (37.9-51.0); HEMOGLOBIN 11.5 g/dL (13.5-17.0); MEAN CORPUSCULAR HEMOGLOBIN 30.6 pg (27.0-33.4); MEAN CORPUSCULAR HGB CONC 34.1 g/dL (32.0-36.0); MEAN CORPUSCULAR VOLUME 90 fl (80-97); PLATELET COUNT 264 10^3/uL (150-450); RED BLOOD COUNT 3.75 10^6/uL (4.35-5.55); RED CELL DISTRIBUTION WIDTH 13.2 % (11.5-14.0); WHITE BLOOD COUNT 14.2 10^3/uL (4.0-10.5)
[2020-06-18 13:00] LABS: ALBUMIN 2.5 g/dL (3.5-5.0); ALKALINE PHOSPHATASE 166 U/L (38-126); ANION GAP 7 (5-19); ASPARTATE AMINO TRANSFERASE 42 U/L (17-59); BILIRUBIN,DIRECT 0.2 mg/dL (0.0-0.4); BILIRUBIN,TOTAL 0.5 mg/dL (0.2-1.3); BLOOD UREA NITROGEN 23 mg/dL (7-20); C-REACTIVE PROTEIN 86.4 mg/L (<10.0); CALCIUM 8.1 mg/dL (8.4-10.2); CARBON DIOXIDE 21 mmol/L (22-30); CHLORIDE 114 mmol/L (98-107); GLUCOSE 162 mg/dL (75-110); POTASSIUM 4.2 mmol/L (3.6-5.0); TOTAL PROTEIN 5.9 g/dL (6.3-8.2)
[2020-06-18 13:12] LABS: ABSOLUTE LYMPHOCYTES# (MANUAL) 0.3 10^3/uL (0.5-4.7); ABSOLUTE MONOCYTES # (MANUAL) 0.1 10^3/uL (0.1-1.4); BAND NEUTROPHILS % (MANUAL) 5 % (3-5); BASOPHILS % (MANUAL) 0 % (0-2); EOSINOPHILS % (MANUAL) 0 % (0-6); LYMPHOCYTES % (MANUAL) 2 % (13-45); MONOCYTES % (MANUAL) 1 % (3-13); SEGMENTED NEUTROPHILS % (MAN) 92 % (42-78); TOTAL CELLS COUNTED 100
[2020-06-18 13:14] LABS: BURR CELLS SLIGHT; PLATELET CLUMPS PRESENT; PLATELET COMMENT ADEQUATE
[2020-06-18] MEDS: AZITHROMYCIN 250 MG TABLET PO SCH (17:35)
[2020-06-18] MEDS: ATORVASTATIN CALCIUM 40 MG TABLET PO SCH (22:08)
[2020-06-19 05:57] LABS: ABSOLUTE LYMPHOCYTES (AUTO) 1.1 10^3/uL (0.5-4.7); ABSOLUTE MONOCYTES (AUTO) 0.6 10^3/uL (0.1-1.4); ABSOLUTE NEUT (AUTO) 12.3 10^3/uL (1.7-8.2); BASOPHILS % (AUTO) 0.1 % (0-2); EOSINOPHILS % (AUTO) 0.3 % (0-6); HEMATOCRIT 34.1 % (37.9-51.0); HEMOGLOBIN 11.6 g/dL (13.5-17.0); LYMPHOCYTES % (AUTO) 7.8 % (13-45); MEAN CORPUSCULAR HEMOGLOBIN 30.1 pg (27.0-33.4); MEAN CORPUSCULAR VOLUME 89 fl (80-97); MONOCYTES % (AUTO) 4.2 % (3-13); PLATELET COUNT 333 10^3/uL (150-450); RED BLOOD COUNT 3.85 10^6/uL (4.35-5.55); RED CELL DISTRIBUTION WIDTH 12.9 % (11.5-14.0); SEGMENTED NEUTROPHILS % (AUTO) 87.6 % (42-78); TOTAL CELLS COUNTED % (AUTO) 100 %; WHITE BLOOD COUNT 14.1 10^3/uL (4.0-10.5)
[2020-06-19 06:29] LABS: C-REACTIVE PROTEIN 86.2 mg/L (<10.0)
--- NOTE | 2020-06-19 08:36 | RADIOLOGY REPORT (SQ) ---
EXAM DESCRIPTION: CHEST SINGLE VIEW IMAGES COMPLETED DATE/TIME: 06/19/2020 8:03 am REASON FOR STUDY: COVID-19 positive test (U07.1, COVID-19) with Ac COMPARISON: CT angio chest 06/16/2020 Chest films 06/13/2020, 06/16/2020 EXAM PARAMETERS: NUMBER OF VIEWS: One view. TECHNIQUE: Single frontal radiographic view of the chest acquired. RADIATION DOSE: NA LIMITATIONS: None. FINDINGS: LUNGS AND PLEURA: Patchy multifocal airspace disease, increased compared to 06/13/2020. S imilar compared to CT 06/16/2020. MEDIASTINUM AND HILAR STRUCTURES: No masses. Contour normal. HEART AND VASCULAR STRUCTURES: No cardiomegaly BONES: No acute findings. HARDWARE: None in the chest. OTHER: No other significant finding. IMPRESSION: No change in diffuse bilateral airspace disease compared to CT 06/16/2020 TECHNICAL DOCUMENTATION: JOB ID: [id number] [employer]- All Rights Reserved Reading location - IP/workstation name: [id number]
[2020-06-19] MEDS: INSULIN LISPRO 100 UNIT/ML 3 ML VIAL SUBCUT SCH ×4 (08:50→22:14)
[2020-06-19 09:31] LABS: ALBUMIN 2.5 g/dL (3.5-5.0); ANION GAP 6 (5-19); BLOOD UREA NITROGEN 22 mg/dL (7-20); CALCIUM 8.2 mg/dL (8.4-10.2); CARBON DIOXIDE 22 mmol/L (22-30); CHLORIDE 112 mmol/L (98-107); GLUCOSE 137 mg/dL (75-110)
[2020-06-19] MEDS: ZINC SULFATE 220 MG CAPSULE PO SCH (11:14)
[2020-06-19] MEDS: DOCUSATE SODIUM 100 MG CAPSULE PO SCH (11:15)
[2020-06-19] MEDS: CLOPIDOGREL BISULFATE 75 MG TABLET PO SCH (11:15)
[2020-06-19] MEDS: GUAIFENESIN 600 MG TABLET.SA PO SCH ×2 (11:15→22:13)
[2020-06-19] MEDS: ASCORBIC ACID 500 MG TABLET PO SCH ×2 (11:16→17:30)
[2020-06-19] MEDS: CHOLECALCIFEROL (D3) 1,000 UNIT (25 MCG) TABLET PO SCH (11:16)
[2020-06-19] MEDS: ENOXAPARIN SODIUM INJ 80 MG/0.8 ML DISP.SYRIN SUBCUT SCH ×2 (11:17→22:14)
[2020-06-19] MEDS: ENALAPRIL MALEATE 5 MG TABLET PO SCH ×2 (11:17→22:13)
[2020-06-19] MEDS: ESCITALOPRAM OXALATE 10 MG TABLET PO SCH (11:17)
[2020-06-19] MEDS: FUROSEMIDE INJ/PF 20 MG/2 ML SDV IV SCH (11:18)
[2020-06-19] MEDS: DEXAMETHASONE SOD PHOSPHATE INJ 4 MG/1 ML VIAL IV SCH (11:18)
[2020-06-19] MEDS: REMDESIVIR 100 MG in NORMAL SALINE 250 ML IV SCH (11:20)
[2020-06-19] MEDS: ACETAMINOPHEN 325 MG TABLET PO PRN (12:23)
--- NOTE | 2020-06-19 15:05 | PDOC PROGRESS REPORT ---
Subjective Date:: 06/19/20 Subjective:: The patient is requiring more high flow nasal cannula. With the slightest activi ty he desaturates quickly. Reason For Visit: PNEUMONIA,URI UPPER RESPIRATORY INFECTION Physical Exam Vital Signs: Temp Pulse Resp BP Pulse Ox 98.6 F 80 20 142/73 H 94 06/19/20 07:55 06/19/20 07:00 06/19/20 13:47 06/19/20 04:17 06/19/20 13:47 Pulse Oximeter Continuous Start: 06/12/20 18:32 Freq: RTQ4 Status: Hold Protocol: Document 06/17/20 08:00 ALEXANDER (Rec: 06/17/20 09:32 [facility] [id number]) Pulse Oximetry Assessment Oxygen Saturation (92-100) 96 Oxygen Delivery Method CPAP Fraction of Inspired Oxygen (FIO2) 70 Equipment Usage Equipment Standby Continuous SpO2 Machine # nurse monitor Intake & Output 06/18/20 06/19/20 06/20/20 06:59 06:59 06:59 Intake Total 2610 1772 250 Output Total 200 1750 Balance 2410 22 250 Weight 76.9 kg 80.6 kg General appearance: PRESENT: cooperative, mild distress - Mild to moderate distress, well-developed, other - Currently on high flow nasal cannula Head exam: PRESENT: atraumatic, normocephalic Ear exam: PRESENT: normal external ear exam. ABSENT: bleeding, drainage Respiratory exam: PRESENT: rales - Fine rales bilaterally, symmetrical, tachypnea. ABSENT: rhonchi, wheezes Cardiovascular exam: PRESENT: RRR, +S1, +S2. ABSENT: bradycardia, diastolic murmur, irregular rhythm, systolic murmur, tachycardia GI/Abdominal exam: PRESENT: normal bowel sounds, soft. ABSENT: tenderness Rectal exam: PRESENT: deferred Gentrourinary exam: ABSENT: indwelling catheter Extremities exam: ABSENT: pedal edema Neurological exam: PRESENT: alert, awake, oriented to person, oriented to place, oriented to time, oriented to situation, CN II-XII grossly intact. ABSENT: altered Psychiatric exam: PRESENT: appropriate affect. ABSENT: agitated, anxious Focused psych exam: ABSENT: delusional, paranoid, restlessness Skin exam: PRESENT: dry, normal color, warm. ABSENT: rash Results Laboratory Results: 06/19/20 04:40 06/19/20 04:40 06/19/20 06/19/20 06/19/20 04:40 04:40 04:40 WBC 14.1 H RBC 3.85 L Hgb 11.6 L Hct 34.1 L MCV 89 MCH 30.1 MCHC 34.0 RDW 12.9 Plt Count 333 Seg Neutrophils % 87.6 H Sodium 140.4 Potassium 4.0 Chloride 112 H Carbon Dioxide 22 Anion Gap 6 BUN 22 H Creatinine 0.66 Est GFR ( Amer) > 60 Glucose 137 H Calcium 8.2 L Ferritin 246.00 C-Reactive Protein 86.2 H Albumin 2.5 L 06/12/20 06/12/20 06/12/20 16:49 16:49 21:30 Creatine Kinase 119 Troponin I 0.046 0.105 NT-Pro-B Natriuret Pep 420 H 06/13/20 06:31 Creatine Kinase Troponin I 0.087 NT-Pro-B Natriuret Pep Impressions: Chest/Abdomen CTA 06/16/20 08:30 IMPRESSION: 1. Extensive bilateral alveolar airspace disease consistent with Covid 19 pneumonia. 2. Limited study for evaluation of pulmonary embolus due to timing of the bolus. Suspect filling defects in the right lower lobe pulmonary artery as discussed. Chest X-Ray 06/19/20 07:00 IMPRESSION: No change in diffuse bilateral airspace disease compared to CT 06/16/2020 Assessment and Plan - Diagnosis (1) Pneumonia due to COVID-19 virus Is this a current diagnosis for this admission?: Yes (2) Acute respiratory failure with hypoxia Is this a current diagnosis for this admission?: Yes (3) Elevated troponin Is this a current diagnosis for this admission?: Yes (4) Hypertension Qualifiers: Hypertension type: essential hypertension Qualified Code(s): I10 - Essential (primary) hypertension Is this a current diagnosis for this admission?: Yes (5) Hyperglycemia due to type 2 diabetes mellitus Qualifiers: Diabetes mellitus long term care administrator insulin use: without longterm use Qualified Code(s): E11.65 - Type 2 diabetes mellitus with hyperglycemia Is this a current diagnosis for this admission?: Yes (6) Pulmonary embolism on right Is this a current diagnosis for this admission?: Yes (7) History of stroke Is this a current diagnosis for this admission?: Yes (8) Obesity (BMI 30.0-34.9) Is this a current diagnosis for this admission?: Yes - Plan Summary Summary: 06/18/2020 Complete Remdesivir today. The patient did not receive a full course of azithromycin so this was added. Steroids have been increased. The chills that the patient is complaining of do not have a clear etiology. We will continue aggressive treatment for Covid pneumonia and continue to try and taper back to room air as possible. Hrximmqn-Wstk-Skysf still seem to be higher at night. Consider adding Lantus. Continue therapeutic dose Lovenox for Covid pneumonia and pulmonary emboli 06/19/2020 The patient desaturates quite easily. He completed remdesivir yesterday. He also has had convalescent serum. He does not feel that he needs the BiPAP/CPAP. We are going to start proning. The patient is in agreement. He normally sleeps on his stomach anyway. The white count is stable at 14.1. Hemoglobin is 11.6. D-dimer is significantly improved and is down to 3.63. C-reactive protein is still high at 86 which is not changed significantly since the last reading. Ferritin is actually gone up from 184-246. Previous echocardiogram showed grade 2/4 diastolic failure. We will try small doses of diuretic as well. - Time Time Spent with patient: 15-24 minutes Medications reviewed and adjusted accordingly: Yes Anticipated Discharge Disposition: Unknown Anticipated Discharge Timeframe: Unknown
[2020-06-19] MEDS: AZITHROMYCIN 250 MG TABLET PO SCH (17:31)
[2020-06-19] MEDS: ATORVASTATIN CALCIUM 40 MG TABLET PO SCH (22:14)
[2020-06-20] MEDS: INSULIN LISPRO 100 UNIT/ML 3 ML VIAL SUBCUT SCH ×4 (08:10→21:31)
[2020-06-20] MEDS: ENOXAPARIN SODIUM INJ 80 MG/0.8 ML DISP.SYRIN SUBCUT SCH ×2 (09:52→21:32)
[2020-06-20] MEDS: ENALAPRIL MALEATE 5 MG TABLET PO SCH ×2 (09:52→21:33)
[2020-06-20] MEDS: ZINC SULFATE 220 MG CAPSULE PO SCH (09:52)
[2020-06-20] MEDS: GUAIFENESIN 600 MG TABLET.SA PO SCH ×2 (09:52→21:33)
[2020-06-20] MEDS: ASCORBIC ACID 500 MG TABLET PO SCH ×2 (09:53→17:36)
[2020-06-20] MEDS: DOCUSATE SODIUM 100 MG CAPSULE PO SCH (09:53)
[2020-06-20] MEDS: CHOLECALCIFEROL (D3) 1,000 UNIT (25 MCG) TABLET PO SCH (09:53)
[2020-06-20] MEDS: DEXAMETHASONE SOD PHOSPHATE INJ 4 MG/1 ML VIAL IV SCH (09:53)
[2020-06-20] MEDS: CLOPIDOGREL BISULFATE 75 MG TABLET PO SCH (09:53)
[2020-06-20] MEDS: FUROSEMIDE INJ/PF 20 MG/2 ML SDV IV SCH (09:53)
[2020-06-20] MEDS: ESCITALOPRAM OXALATE 10 MG TABLET PO SCH (09:53)
[2020-06-20] MEDS: ACETAMINOPHEN 325 MG TABLET PO PRN (13:39)
--- NOTE | 2020-06-20 14:48 | PDOC PROGRESS REPORT ---
Subjective Date:: 06/20/20 Subjective:: Patient is resting in bed. He actually reports that he feels a lot better. Sti ll on high flow nasal cannula. Reason For Visit: PNEUMONIA,URI UPPER RESPIRATORY INFECTION Physical Exam Vital Signs: Temp Pulse Resp BP Pulse Ox 98.7 F 88 20 124/72 93 06/20/20 11:34 06/20/20 11:34 06/20/20 11:34 06/20/20 11:34 06/20/20 11:34 Pulse Oximeter Continuous Start: 06/12/20 18:32 Freq: RTQ4 Status: Hold Protocol: Document 06/17/20 08:00 ALEXANDER (Rec: 06/17/20 09:32 J [id number]) Pulse Oximetry Assessment Oxygen Saturation (92-100) 96 Oxygen Delivery Method CPAP Fraction of Inspired Oxygen (FIO2) 70 Equipment Usage Equipment Standby Continuous SpO2 Machine # nurse monitor Intake & Output 06/19/20 06/20/20 06/21/20 06:59 06:59 06:59 Intake Total 1772 607 237 Output Total 1750 1125 550 Balance 22 -518 -313 Weight 80.6 kg 80.1 kg General appearance: PRESENT: cooperative, mild distress, well-developed Head exam: PRESENT: atraumatic, normocephalic Eye exam: PRESENT: conjunctiva pink. ABSENT: scleral icterus Ear exam: PRESENT: normal external ear exam. ABSENT: bleeding, drainage Mouth exam: PRESENT: moist, tongue midline Respiratory exam: PRESENT: rales - Right upper and left lower lung ramos, symmetrical, tachypnea. ABSENT: rhonchi, wheezes Cardiovascular exam: PRESENT: RRR, +S1, +S2. ABSENT: bradycardia, diastolic murmur, irregular rhythm, systolic murmur, tachycardia GI/Abdominal exam: PRESENT: normal bowel sounds, soft. ABSENT: distended, guarding, tenderness Rectal exam: PRESENT: deferred Gentrourinary exam: ABSENT: indwelling catheter Extremities exam: ABSENT: pedal edema Musculoskeletal exam: PRESENT: ambulatory - But gets very dyspneic, normal inspection. ABSENT: deformity, dislocation Neurological exam: PRESENT: alert, awake, oriented to person, oriented to place, oriented to time, oriented to situation, CN II-XII grossly intact. ABSENT: altered Psychiatric exam: PRESENT: appropriate affect. ABSENT: agitated, anxious Focused psych exam: ABSENT: delusional, paranoid, restlessness Skin exam: PRESENT: dry, normal color, warm. ABSENT: rash Results Laboratory Results: 06/19/20 04:40 06/19/20 04:40 06/12/20 06/12/20 06/12/20 16:49 16:49 21:30 Creatine Kinase 119 Troponin I 0.046 0.105 NT-Pro-B Natriuret Pep 420 H 06/13/20 06:31 Creatine Kinase Troponin I 0.087 NT-Pro-B Natriuret Pep Impressions: Chest/Abdomen CTA 06/16/20 08:30 IMPRESSION: 1. Extensive bilateral alveolar airspace disease consistent with Covid 19 pneumonia. 2. Limited study for evaluation of pulmonary embolus due to timing of the bolus. Suspect filling defects in the right lower lobe pulmonary artery as discussed. Chest X-Ray 06/19/20 07:00 IMPRESSION: No change in diffuse bilateral airspace disease compared to CT 06/16/2020 Assessment and Plan - Diagnosis (1) Pneumonia due to COVID-19 virus Is this a current diagnosis for this admission?: Yes (2) Acute respiratory failure with hypoxia Is this a current diagnosis for this admission?: Yes (3) Elevated troponin Is this a current diagnosis for this admission?: Yes (4) Hypertension Qualifiers: Hypertension type: essential hypertension Qualified Code(s): I10 - Essential (primary) hypertension Is this a current diagnosis for this admission?: Yes (5) Hyperglycemia due to type 2 diabetes mellitus Qualifiers: Diabetes mellitus moth exterminator insulin use: without moth exterminator use Qualified Code(s): E11.65 - Type 2 diabetes mellitus with hyperglycemia Is this a current diagnosis for this admission?: Yes (6) Pulmonary embolism on right Is this a current diagnosis for this admission?: Yes (7) History of stroke Is this a current diagnosis for this admission?: Yes (8) Obesity (BMI 30.0-34.9) Is this a current diagnosis for this admission?: Yes - Plan Summary Summary: 06/18/2020 Complete Remdesivir today. The patient did not receive a full course of azithromycin so this was added. Steroids have been increased. The chills that the patient is complaining of do not have a clear etiology. We will continue aggressive treatment for Covid pneumonia and continue to try and taper back to room air as possible. Jxunlwyh-Pken-Ddeap still seem to be higher at night. Consider adding Lantus. Continue therapeutic dose Lovenox for Covid pneumonia and pulmonary emboli 06/19/2020 The patient desaturates quite easily. He completed remdesivir yesterday. He also has had convalescent serum. He does not feel that he needs the BiPAP/CPAP. We are going to start proning. The patient is in agreement. He normally sleeps on his stomach anyway. The white count is stable at 14.1. Hemoglobin is 11.6. D-dimer is significantly improved and is down to 3.63. C-reactive protein is still high at 86 which is not changed significantly since the last reading. Ferritin is actually gone up from 184-246. Previous echocardiogram showed grade 2/4 diastolic failure. We will try small doses of diuretic as well. 06/20/2020 Patient reports feeling better. We will encourage proning. He seems to be tolerating slightly more movement without desaturation. He does have a history of diastolic heart failure and we did add low-dose furosemide. This could be helping. No laboratory studies were drawn today however we will check laboratory studies tomorrow. He did complete his remdesivir and he did receive convalescent plasma earlier in his course. Continue therapeutic Lovenox. Will change to oral anticoagulant before d ischarge. Continue current treatment plan. - Time Time Spent with patient: 15-24 minutes Medications reviewed and adjusted accordingly: Yes Anticipated Discharge Disposition: Home with Home Health Anticipated Discharge Timeframe: Unknown
[2020-06-20] MEDS: ATORVASTATIN CALCIUM 40 MG TABLET PO SCH (21:33)
[2020-06-21] MEDS: GUAIFENESIN/D-METHORPHAN (200-20 MG) SYRUP 10 ML PO PRN ×2 (02:06→19:43)
[2020-06-21] MEDS: INSULIN LISPRO 100 UNIT/ML 3 ML VIAL SUBCUT SCH ×4 (09:34→21:26)
[2020-06-21] MEDS: ENALAPRIL MALEATE 5 MG TABLET PO SCH ×2 (09:35→21:23)
[2020-06-21] MEDS: ASCORBIC ACID 500 MG TABLET PO SCH ×2 (09:35→17:30)
[2020-06-21] MEDS: CHOLECALCIFEROL (D3) 1,000 UNIT (25 MCG) TABLET PO SCH (09:35)
[2020-06-21] MEDS: DOCUSATE SODIUM 100 MG CAPSULE PO SCH (09:36)
[2020-06-21] MEDS: GUAIFENESIN 600 MG TABLET.SA PO SCH ×2 (09:36→21:23)
[2020-06-21] MEDS: ZINC SULFATE 220 MG CAPSULE PO SCH (09:36)
[2020-06-21] MEDS: CLOPIDOGREL BISULFATE 75 MG TABLET PO SCH (09:36)
[2020-06-21] MEDS: FUROSEMIDE INJ/PF 20 MG/2 ML SDV IV SCH (09:37)
[2020-06-21] MEDS: ESCITALOPRAM OXALATE 10 MG TABLET PO SCH (09:37)
[2020-06-21] MEDS: DEXAMETHASONE SOD PHOSPHATE INJ 4 MG/1 ML VIAL IV SCH (09:38)
[2020-06-21] MEDS: ENOXAPARIN SODIUM INJ 80 MG/0.8 ML DISP.SYRIN SUBCUT SCH ×2 (09:41→21:23)
[2020-06-21] MEDS: INSULIN GLARGINE,HUM.REC.ANLOG 1,000 UNIT/10 ML VIAL SUBCUT SCH (11:33)
--- NOTE | 2020-06-21 14:16 | PDOC PROGRESS REPORT ---
Subjective Date:: 06/21/20 Subjective:: Required CPAP earlier but is back on nasal cannula. He seems to want to exert himself more than he is capable. This creates windows of hypoxemia. Nursing reports that he does recover but it is not immediately. Reason For Visit: PNEUMONIA,URI UPPER RESPIRATORY INFECTION Physical Exam Vital Signs: Temp Pulse Resp BP Pulse Ox 98.5 F 91 30 H 127/79 H 98 06/21/20 11:26 06/21/20 11:26 06/21/20 11:26 06/21/20 11:26 06/21/20 11:26 Pulse Oximeter Continuous Start: 06/12/20 18:32 Freq: RTQ4 Status: Hold Protocol: Document 06/17/20 08:00 ALEXANDER (Rec: 06/17/20 09:32 J [id number]) Pulse Oximetry Assessment Oxygen Saturation (92-100) 96 Oxygen Delivery Method CPAP Fraction of Inspired Oxygen (FIO2) 70 Equipment Usage Equipment Standby Continuous SpO2 Machine # nurse monitor Intake & Output 06/20/20 06/21/20 06/22/20 06:59 06:59 06:59 Intake Total 607 797 Output Total 1125 1425 Balance -518 -628 Weight 80.1 kg 79.9 kg General appearance: PRESENT: no acute distress - Resting in bed., cooperative, well-developed Head exam: PRESENT: atraumatic, normocephalic Respiratory exam: PRESENT: clear to auscultation aaron - Anteriorly, symmetrical, unlabored. ABSENT: rales, rhonchi, tachypnea, wheezes Cardiovascular exam: PRESENT: RRR, +S1, +S2. ABSENT: bradycardia, diastolic murmur, irregular rhythm, systolic murmur, tachycardia GI/Abdominal exam: PRESENT: normal bowel sounds, soft. ABSENT: distended, guarding, tenderness Rectal exam: PRESENT: deferred Gentrourinary exam: ABSENT: indwelling catheter Extremities exam: ABSENT: pedal edema Musculoskeletal exam: PRESENT: ambulatory - Limited by respiratory status, normal inspection. ABSENT: deformity, dislocation Neurological exam: PRESENT: alert, awake, oriented to person, oriented to place, oriented to time, oriented to situation, CN II-XII grossly intact. ABSENT: altered Psychiatric exam: PRESENT: appropriate affect. ABSENT: agitated, anxious Focused psych exam: ABSENT: delusional, paranoid, restlessness Results Laboratory Results: 06/19/20 04:40 06/19/20 04:40 06/12/20 06/12/20 06/12/20 16:49 16:49 21:30 Creatine Kinase 119 Troponin I 0.046 0.105 NT-Pro-B Natriuret Pep 420 H 06/13/20 06:31 Creatine Kinase Troponin I 0.087 NT-Pro-B Natriuret Pep Impressions: Chest/Abdomen CTA 06/16/20 08:30 IMPRESSION: 1. Extensive bilateral alveolar airspace disease consistent with Covid 19 pneumonia. 2. Limited study for evaluation of pulmonary embolus due to timing of the bolus. Suspect filling defects in the right lower lobe pulmonary artery as discussed. Chest X-Ray 06/19/20 07:00 IMPRESSION: No change in diffuse bilateral airspace disease compared to CT 06/16/2020 Assessment and Plan - Diagnosis (1) Pneumonia due to COVID-19 virus Is this a current diagnosis for this admission?: Yes (2) Acute respiratory failure with hypoxia Is this a current diagnosis for this admission?: Yes (3) Elevated troponin Is this a current diagnosis for this admission?: Yes (4) Hypertension Qualifiers: Hypertension type: essential hypertension Qualified Code(s): I10 - Essential (primary) hypertension Is this a current diagnosis for this admission?: Yes (5) Hyperglycemia due to type 2 diabetes mellitus Qualifiers: Diabetes mellitus group home insulin use: without group home use Qualified Code(s): E11.65 - Type 2 diabetes mellitus with hyperglycemia Is this a current diagnosis for this admission?: Yes (6) Pulmonary embolism on right Is this a current diagnosis for this admission?: Yes (7) History of stroke Is this a current diagnosis for this admission?: Yes (8) Obesity (BMI 30.0-34.9) Is this a current diagnosis for this admission?: Yes - Plan Summary Summary: 06/18/2020 Complete Remdesivir today. The patient did not receive a full course of azithromycin so this was added. Steroids have been increased. The chills that the patient is complaining of do not have a clear etiology. We will continue aggressive treatment for Covid pneumonia and continue to try and taper back to room air as possible. Sbbrcsir-Gyog-Uqtzy still seem to be higher at night. Consider adding Lantus. Continue therapeutic dose Lovenox for Covid pneumonia and pulmonary emboli 06/19/2020 The patient desaturates quite easily. He completed remdesivir yesterday. He also has had convalescent serum. He does not feel that he needs the BiPAP/CPAP. We are going to start proning. The patient is in agreement. He normally sleeps on his stomach anyway. The white count is stable at 14.1. Hemoglobin is 11.6. D-dimer is significantly improved and is down to 3.63. C-reactive protein is still high at 86 which is not changed significantly since the last reading. Ferritin is actually gone up from 184-246. Previous echocardiogram showed grade 2/4 diastolic failure. We will try small doses of diuretic as well. 06/20/2020 Patient reports feeling better. We will encourage proning. He seems to be tolerating slightly more movement without desaturation. He does have a history of diastolic heart failure and we did add low-dose furosemide. This could be helping. No laboratory studies were drawn today however we will check laboratory studies tomorrow. He did complete his remdesivir and he did receive convalescent plasma earlier in his course. Continue therapeutic Lovenox. Will change to oral anticoagulant before disch arge. Continue current treatment plan. 06/21/2020 Forced to use BiPAP earlier. He feels that he was unable to tolerate proning. Every time he exerts himself he does desaturate. Continuing low-dose furosemide. Maintaining a negative fluid balance with good blood pressures. Recheck laboratory studies tomorrow including D-dimer and C-reactive protein. We will see how he tolerates mild exertion such as bed to chair or bed to commode tomorrow. - Time Time Spent with patient: Less than 15 minutes Medications reviewed and adjusted accordingly: Yes Anticipated Discharge Disposition: Home with Home Health Anticipated Discharge Timeframe: Unknown
[2020-06-21] MEDS: ACETAMINOPHEN 325 MG TABLET PO PRN (19:54)
[2020-06-21] MEDS: BENZOCAINE/MENTHOL SORE THROAT LOZENGE BUCCAL PRN (21:23)
[2020-06-21] MEDS: ATORVASTATIN CALCIUM 40 MG TABLET PO SCH (21:23)
[2020-06-22 06:18] LABS: ABSOLUTE EOSINOPHILS # (AUTO) 0.2 10^3/uL (0.0-0.6); ABSOLUTE LYMPHOCYTES (AUTO) 1.4 10^3/uL (0.5-4.7); ABSOLUTE MONOCYTES (AUTO) 0.4 10^3/uL (0.1-1.4); ABSOLUTE NEUT (AUTO) 14.9 10^3/uL (1.7-8.2); BASOPHILS % (AUTO) 0.2 % (0-2); EOSINOPHILS % (AUTO) 1.4 % (0-6); HEMATOCRIT 34.1 % (37.9-51.0); HEMOGLOBIN 11.7 g/dL (13.5-17.0); LYMPHOCYTES % (AUTO) 8.3 % (13-45); MEAN CORPUSCULAR HEMOGLOBIN 30.1 pg (27.0-33.4); MEAN CORPUSCULAR HGB CONC 34.3 g/dL (32.0-36.0); MEAN CORPUSCULAR VOLUME 88 fl (80-97); MONOCYTES % (AUTO) 2.2 % (3-13); PLATELET COUNT 375 10^3/uL (150-450); RED BLOOD COUNT 3.88 10^6/uL (4.35-5.55); SEGMENTED NEUTROPHILS % (AUTO) 87.9 % (42-78); TOTAL CELLS COUNTED % (AUTO) 100 %; WHITE BLOOD COUNT 16.9 10^3/uL (4.0-10.5)
[2020-06-22 06:43] LABS: ALBUMIN 2.5 g/dL (3.5-5.0); ALKALINE PHOSPHATASE 152 U/L (38-126); ANION GAP 9 (5-19); ASPARTATE AMINO TRANSFERASE 29 U/L (17-59); BILIRUBIN,DIRECT 0.2 mg/dL (0.0-0.4); BILIRUBIN,TOTAL 0.6 mg/dL (0.2-1.3); BLOOD UREA NITROGEN 26 mg/dL (7-20); C-REACTIVE PROTEIN 85.4 mg/L (<10.0); CALCIUM 8.3 mg/dL (8.4-10.2); CARBON DIOXIDE 25 mmol/L (22-30); CHLORIDE 108 mmol/L (98-107); GLUCOSE 108 mg/dL (75-110); POTASSIUM 4.1 mmol/L (3.6-5.0); TOTAL PROTEIN 6.1 g/dL (6.3-8.2)
[2020-06-22] MEDS: INSULIN LISPRO 100 UNIT/ML 3 ML VIAL SUBCUT SCH ×4 (11:03→22:33)
[2020-06-22] MEDS: ZINC SULFATE 220 MG CAPSULE PO SCH (11:09)
[2020-06-22] MEDS: ENALAPRIL MALEATE 5 MG TABLET PO SCH ×2 (11:09→22:32)
[2020-06-22] MEDS: GUAIFENESIN 600 MG TABLET.SA PO SCH ×2 (11:10→22:31)
[2020-06-22] MEDS: CHOLECALCIFEROL (D3) 1,000 UNIT (25 MCG) TABLET PO SCH (11:10)
[2020-06-22] MEDS: ESCITALOPRAM OXALATE 10 MG TABLET PO SCH (11:10)
[2020-06-22] MEDS: CLOPIDOGREL BISULFATE 75 MG TABLET PO SCH (11:10)
[2020-06-22] MEDS: ASCORBIC ACID 500 MG TABLET PO SCH ×2 (11:10→17:16)
[2020-06-22] MEDS: DOCUSATE SODIUM 100 MG CAPSULE PO SCH (11:11)
[2020-06-22] MEDS: ENOXAPARIN SODIUM INJ 80 MG/0.8 ML DISP.SYRIN SUBCUT SCH ×2 (11:11→22:34)
[2020-06-22] MEDS: FUROSEMIDE INJ/PF 20 MG/2 ML SDV IV SCH (11:11)
[2020-06-22] MEDS: INSULIN GLARGINE,HUM.REC.ANLOG 1,000 UNIT/10 ML VIAL SUBCUT SCH (11:12)
[2020-06-22] MEDS: DEXAMETHASONE SOD PHOSPHATE INJ 4 MG/1 ML VIAL IV SCH ×2 (11:14→22:34)
--- NOTE | 2020-06-22 11:51 | PDOC PROGRESS REPORT ---
Subjective Date:: 06/22/20 Subjective:: The patient is now on BiPAP. I worry that he is trying to do too much on nasal cannula. Based on his presentation I believe that he appreciates the fact that he needs to rest and rest on BiPAP. Reason For Visit: PNEUMONIA,URI UPPER RESPIRATORY INFECTION Physical Exam Vital Signs: Temp Pulse Resp BP Pulse Ox 98.7 F 85 37 H 125/78 90 L 06/22/20 07:55 06/22/20 07:55 06/22/20 08:54 06/22/20 07:55 06/22/20 08:54 Pulse Oximeter Continuous Start: 06/12/20 18:32 Freq: RTQ4 Status: Hold Protocol: Document 06/17/20 08:00 ALEXANDER (Rec: 06/17/20 09:32 J [id number]) Pulse Oximetry Assessment Oxygen Saturation (92-100) 96 Oxygen Delivery Method CPAP Fraction of Inspired Oxygen (FIO2) 70 Equipment Usage Equipment Standby Continuous SpO2 Machine # nurse monitor Intake & Output 06/21/20 06/22/20 06/23/20 06:59 06:59 06:59 Intake Total 797 120 Output Total 1425 1750 Balance -628 -1630 Weight 79.9 kg 78.6 kg General appearance: PRESENT: mild distress - Mild to moderate distress Respiratory exam: PRESENT: rales, symmetrical, tachypnea. ABSENT: accessory muscle use, rhonchi, wheezes Cardiovascular exam: PRESENT: RRR, +S1, +S2. ABSENT: bradycardia, diastolic murmur, irregular rhythm, systolic murmur, tachycardia GI/Abdominal exam: PRESENT: normal bowel sounds, soft. ABSENT: tenderness Rectal exam: PRESENT: deferred Gentrourinary exam: ABSENT: indwelling catheter Extremities exam: ABSENT: pedal edema Neurological exam: PRESENT: alert, awake, oriented to person, oriented to place, oriented to situation, CN II-XII grossly intact Psychiatric exam: PRESENT: flat affect. ABSENT: agitated, anxious Results Laboratory Results: 06/22/20 04:51 06/22/20 04:51 06/22/20 06/22/20 04:51 04:51 WBC 16.9 H RBC 3.88 L Hgb 11.7 L Hct 34.1 L MCV 88 MCH 30.1 MCHC 34.3 RDW 13.0 Plt Count 375 Seg Neutrophils % 87.9 H Sodium 142.0 Potassium 4.1 Chloride 108 H Carbon Dioxide 25 Anion Gap 9 BUN 26 H Creatinine 0.81 Est GFR ( Amer) > 60 Glucose 108 Calcium 8.3 L Magnesium 2.2 Total Bilirubin 0.6 AST 29 Alkaline Phosphatase 152 H C-Reactive Protein 85.4 H Total Protein 6.1 L Albumin 2.5 L 06/12/20 06/12/20 06/12/20 16:49 16:49 21:30 Creatine Kinase 119 Troponin I 0.046 0.105 NT-Pro-B Natriuret Pep 420 H 06/13/20 06:31 Creatine Kinase Troponin I 0.087 NT-Pro-B Natriuret Pep Impressions: Chest/Abdomen CTA 06/16/20 08:30 IMPRESSION: 1. Extensive bilateral alveolar airspace disease consistent with Covid 19 pneumonia. 2. Limited study for evaluation of pulmonary embolus due to timing of the bolus. Suspect filling defects in the right lower lobe pulmonary artery as discussed. Chest X-Ray 06/19/20 07:00 IMPRESSION: No change in diffuse bilateral airspace disease compared to CT 06/16/2020 Assessment and Plan - Diagnosis (1) Pneumonia due to COVID-19 virus Is this a current diagnosis for this admission?: Yes (2) Acute respiratory failure with hypoxia Is this a current diagnosis for this admission?: Yes (3) Elevated troponin Is this a current diagnosis for this admission?: Yes (4) Hypertension Qualifiers: Hypertension type: essential hypertension Qualified Code(s): I10 - Ess ential (primary) hypertension Is this a current diagnosis for this admission?: Yes (5) Hyperglycemia due to type 2 diabetes mellitus Qualifiers: Diabetes mellitus correction insulin use: without heat regulator use Qualified Code(s): E11.65 - Type 2 diabetes mellitus with hyperglycemia Is this a current diagnosis for this admission?: Yes (6) Pulmonary embolism on right Is this a current diagnosis for this admission?: Yes (7) History of stroke Is this a current diagnosis for this admission?: Yes (8) Obesity (BMI 30.0-34.9) Is this a current diagnosis for this admission?: Yes - Plan Summary Summary: 06/18/2020 Complete Remdesivir today. The patient did not receive a full course of azithromycin so this was added. Steroids have been increased. The chills that the patient is complaining of do not have a clear etiology. We will continue aggressive treatment for Covid pneumonia and continue to try and taper back to room air as possible. Tkeyvyyu-Twtt-Zzqan still seem to be higher at night. Consider adding Lantus. Continue therapeutic dose Lovenox for Covid pneumonia and pulmonary emboli 06/19/2020 The patient desaturates quite easily. He completed remdesivir yesterday. He also has had convalescent serum. He does not feel that he needs the BiPAP/CPAP. We are going to start proning. The patient is in agreement. He normally sleeps on his stomach anyway. The white count is stable at 14.1. Hemoglobin is 11.6. D-dimer is significantly improved and is down to 3.63. C-reactive protein is still high at 86 which is not changed significantly since the last reading. Ferritin is actually gone up from 184-246. Previous echocardiogram showed grade 2/4 diastolic failure. We will try small doses of diuretic as well. 06/20/2020 Patient reports feeling better. We will encourage proning. He seems to be tolerating slightly more movement without desaturation. He does have a history of diastolic heart failure and we did add low-dose furosemide. This could be helping. No laboratory studies were drawn today however we will check laboratory studies tomorrow. He did complete his remdesivir and he did receive convalescent plasma earlier in his course. Continue therapeutic Lovenox. Will change to oral anticoagulant before discharge. Continue current treatment plan. 06/21/2020 Forced to use BiPAP earlier. He feels that he was unable to tolerate proning. Every time he exerts himself he does desaturate. Continuing low-dose furosemide. Maintaining a negative fluid balance with good blood pressures. Recheck laboratory studies tomorrow including D-dimer and C-reactive protein. We will see how he tolerates mild exertion such as bed to chair or bed to commode tomorrow. 06/22/2020 Continue therapeutic dose Lovenox for Covid and pulmonary embolus White blood cell count is slightly elevated at 16.9. D-dimer is still 2.97. CRP is still 85.4. I will increase his Decadron to 4 mg twice a day. I stressed that the patient needs to rest on BiPAP more during the day. Continue furosemide. I have also made an albuterol inhaler available at the bedside. We will continue to monitor closely. We will recheck a chest x-ray today as the patient is susceptible to secondary pneumonia with the Covid. - Time Time Spent with patient: 15-24 minutes Medications reviewed and adjusted accordingly: Yes Anticipated Discharge Disposition: Home with Home Health Anticipated Discharge Timeframe: Unknown
--- NOTE | 2020-06-22 12:37 | RADIOLOGY REPORT (SQ) ---
EXAM DESCRIPTION: CHEST SINGLE VIEW IMAGES COMPLETED DATE/TIME: 06/22/2020 12:15 pm REASON FOR STUDY: Creased work of breathing/oxygen requirement COMPARISON: 06/19/2020 EXAM PARAMETERS: NUMBER OF VIEWS: One view. TECHNIQUE: Single frontal radiographic view of the chest acquired. RADIATION DOSE: NA LIMITATIONS: None. FINDINGS: LUNGS AND PLEURA: Diffuse parenchymal opacities in both lungs. No improvement or deterior ation. No effusions. MEDIASTINUM AND HILAR STRUCTURES: No masses. Contour normal. HEART AND VASCULAR STRUCTURES: Heart normal in size. Normal vasculature. BONES: No acute findings. HARDWARE: None in the chest. OTHER: No other significant finding. IMPRESSION: Diffuse pneumonia of covid 19. No improvement or deterioration. TECHNICAL DOCUMENTATION: JOB ID: [id number] 2010 [employer]- All Rights Reserved Reading location - IP/workstation name: [email or web address]
[2020-06-22] MEDS: ALBUTEROL SULFATE HFA (90 MCG/PUFF) 8 GM MDI IH SCH ×3 (16:03→23:55)
[2020-06-22] MEDS: ATORVASTATIN CALCIUM 40 MG TABLET PO SCH (22:31)
[2020-06-23] MEDS: ALBUTEROL SULFATE HFA (90 MCG/PUFF) 8 GM MDI IH SCH ×3 (05:48→17:57)
[2020-06-23] MEDS: INSULIN LISPRO 100 UNIT/ML 3 ML VIAL SUBCUT SCH ×4 (08:09→23:12)
[2020-06-23] MEDS: GUAIFENESIN 600 MG TABLET.SA PO SCH ×2 (09:35→23:08)
[2020-06-23] MEDS: ENALAPRIL MALEATE 5 MG TABLET PO SCH ×2 (09:35→23:08)
[2020-06-23] MEDS: ZINC SULFATE 220 MG CAPSULE PO SCH (09:35)
[2020-06-23] MEDS: DOCUSATE SODIUM 100 MG CAPSULE PO SCH (09:35)
[2020-06-23] MEDS: DEXAMETHASONE SOD PHOSPHATE INJ 4 MG/1 ML VIAL IV SCH ×2 (09:36→23:09)
[2020-06-23] MEDS: ESCITALOPRAM OXALATE 10 MG TABLET PO SCH (09:36)
[2020-06-23] MEDS: CLOPIDOGREL BISULFATE 75 MG TABLET PO SCH (09:36)
[2020-06-23] MEDS: ASCORBIC ACID 500 MG TABLET PO SCH ×2 (09:36→17:57)
[2020-06-23] MEDS: FUROSEMIDE INJ/PF 20 MG/2 ML SDV IV SCH (09:36)
[2020-06-23] MEDS: ENOXAPARIN SODIUM INJ 80 MG/0.8 ML DISP.SYRIN SUBCUT SCH ×2 (09:36→23:10)
[2020-06-23] MEDS: CHOLECALCIFEROL (D3) 1,000 UNIT (25 MCG) TABLET PO SCH (09:36)
[2020-06-23] MEDS: INSULIN GLARGINE,HUM.REC.ANLOG 1,000 UNIT/10 ML VIAL SUBCUT SCH (09:55)
--- NOTE | 2020-06-23 14:22 | PDOC PROGRESS REPORT ---
Subjective Date:: 06/23/20 Subjective:: Nursing reports that he was on BiPAP last night but has been on high flow nasal cannula for most of the day and maintaining oxygen saturations 90% or better. He does not appear to be in any distress however he does appear somewhat dejected by the prolonged hospital course. Reason For Visit: PNEUMONIA,URI UPPER RESPIRATORY INFECTION Physical Exam Vital Signs: Temp Pulse Resp BP Pulse Ox 98.4 F 84 18 116/62 97 06/23/20 12:58 06/23/20 12:58 06/23/20 12:58 06/23/20 12:58 06/23/20 12:58 Pulse Oximeter Continuous Start: 06/12/20 18: 32 Freq: RTQ4 Status: Complete Protocol: Document 06/23/20 03:42 CMI (Rec: 06/23/20 04:07 CMI [id number]) Pulse Oximetry Assessment Oxygen Saturation (92-100) 97 Oxygen Delivery Method CPAP Fraction of Inspired Oxygen (FIO2) 100 Equipment Usage Equipment Standby Continuous SpO2 Machine # on nurse monitor Intake & Output 06/22/20 06/23/20 06/24/20 06:59 06:59 06:59 Intake Total 120 330 320 Output Total 1750 1325 600 Balance -1630 -995 -280 Weight 78.6 kg 78.1 kg General appearance: PRESENT: cooperative, mild distress, well-developed Head exam: PRESENT: atraumatic, normocephalic Respiratory exam: PRESENT: symmetrical, unlabored, other - Very short inspiratory phase. Possible faint rales.. ABSENT: rales, rhonchi, tachypnea, wheezes Cardiovascular exam: PRESENT: RRR, +S1, +S2. ABSENT: bradycardia, diastolic murmur, irregular rhythm, systolic murmur, tachycardia GI/Abdominal exam: PRESENT: normal bowel sounds, soft. ABSENT: distended, guarding, tenderness Rectal exam: PRESENT: deferred Gentrourinary exam: ABSENT: indwelling catheter Extremities exam: ABSENT: pedal edema Musculoskeletal exam: PRESENT: normal inspection. ABSENT: deformity, dislocation, tenderness Neurological exam: PRESENT: alert, awake, oriented to person, oriented to place, oriented to time, oriented to situation, CN II-XII grossly intact. ABSENT: altered Psychiatric exam: PRESENT: depressed - Displaced dejected affect. ABSENT: agitated, anxious Focused psych exam: ABSENT: delusional, paranoid, restlessness Results Laboratory Results: 06/22/20 04:51 06/22/20 04:51 06/12/20 06/12/20 06/12/20 16:49 16:49 21:30 Creatine Kinase 119 Troponin I 0.046 0.105 NT-Pro-B Natriuret Pep 420 H 06/13/20 06:31 Creatine Kinase Troponin I 0.087 NT-Pro-B Natriuret Pep Impressions: Chest/Abdomen CTA 06/16/20 08:30 IMPRESSION: 1. Extensive bilateral alveolar airspace disease consistent with Covid 19 pneumonia. 2. Limited study for evaluation of pulmonary embolus due to timing of the bolus. Suspect filling defects in the right lower lobe pulmonary artery as discussed. Chest X-Ray 06/22/20 00:00 IMPRESSION: Diffuse pneumonia of covid 19. No improvement or deterioration. Assessment and Plan - Diagnosis (1) Pneumonia due to COVID-19 virus Is this a current diagnosis for this admission?: Yes (2) Acute respiratory failure with hypoxia Is this a current diagnosis for this admission?: Yes (3) Elevated troponin Is this a current diagnosis for this admission?: Yes (4) Hypertension Qualifiers: Hypertension type: essential hypertension Qualified Code(s): I10 - Essential (primary) hypertension Is this a current diagnosis for this admission?: Yes (5) Hyperglycemia due to type 2 diabetes mellitus Qualifiers: Diabetes mellitus residential insulin use: without terminal gauger use Qualified Code(s): E11.65 - Type 2 diabetes mellitus with hyperglycemia Is this a current diagnosis for this admission?: Yes (6) Pulmonary embolism on right Is this a current diagnosis for this admission?: Yes (7) History of stroke Is this a current diagnosis for this admission?: Yes (8) Obesity (BMI 30.0-34.9) Is this a current diagnosis for this admission?: Yes - Plan Summary Summary: 06/18/2020 Complete Remdesivir today. The patient did not receive a full course of azithromycin so this was added. Steroids have been increased. The chills that the patient is complaining of do not have a clear etiology. We will continue aggressive treatment for Covid pneumonia and continue to try and taper back to room air as possible. Mmpzddzk-Bkxi-Ywrxn still seem to be higher at night. Consider adding Lantus. Continue therapeutic dose Lovenox for Covid pneumonia and pulmonary emboli 06/19/2020 The patient desaturates quite easily. He completed remdesivir yesterday. He also has had convalescent serum. He does not feel that he needs the BiPAP/CPAP. We are going to start proning. The patient is in agreement. He normally sleeps on his stomach anyway. The white count is stable at 14.1. Hemoglobin is 11.6. D-dimer is significantly improved and is down to 3.63. C-reactive protein is still high at 86 which is not changed significantly since the last reading. Ferritin is actually gone up from 184-246. Previous echocardiogram showed grade 2/4 diastolic failure. We will try small doses of diuretic as well. 06/20/2020 Patient reports feeling better. We will encourage proning. He seems to be tolerating slightly more movement without desaturation. He does have a history of diastolic heart failure and we did add low-dose furosemide. This could be helping. No laboratory studies were drawn today however we will check laboratory studies tomorrow. He did complete his remdesivir and he did receive convalescent plasma earlier in his course. Continue therapeutic Lovenox. Will change to oral anticoagulant before discharge. Continue current treatment plan. 06/21/2020 Forced to use BiPAP earlier. He feels that he was unable to tolerate proning. Every time he exerts himself he does desaturate. Continuing low-dose furosemide. Maintaining a negative fluid balance with good blood pressures. Recheck laboratory studies tomorrow including D-dimer and C-reactive protein. We will see how he tolerates mild exertion such as bed to chair or bed to commode tomorrow. 06/22/2020 Continue therapeutic dose Lovenox for Covid and pulmonary embolus White blood cell count is slightly elevated at 16.9. D-dimer is still 2.97. CRP is still 85.4. I will increase his Decadron to 4 mg twice a day. I stressed that the patient needs to rest on BiPAP more during the day. Continue furosemide. I have also made an albuterol inhaler available at the bedside. We will continue to monitor closely. We will recheck a chest x-ray today as the patient is susceptible to secondary pneumonia with the Covid. 06/23/2020 The patient is tolerating high flow nasal cannula somewhat better today. I think periods of rest on BiPAP's, especially at night, are helping. Encouraged him to continue this pattern. Unfortunately he still desaturates with minimal exertion. We will recheck laboratory studies tomorrow. History of diastolic heart failure-continue low-dose furosemide at this time. Continue therapeutic Lovenox The chest x-ray obtained yesterday unfortunately shows no improvement but it also does not reveal any decline with regard to the bilateral Covid pneumonia. We will continue current regimen. His appetite is still poor and I encouraged him to try and eat a little more at this time. - Time Time Spent with patient: 15-24 minutes Medications reviewed and adjusted accordingly: Yes Anticipated Discharge Disposition: Home with Home Health Anticipated Discharge Timeframe: Unknown
[2020-06-23] MEDS: ATORVASTATIN CALCIUM 40 MG TABLET PO SCH (23:09)
[2020-06-24] MEDS: ALBUTEROL SULFATE HFA (90 MCG/PUFF) 8 GM MDI IH SCH ×5 (01:15→23:16)
[2020-06-24 05:27] LABS: HEMATOCRIT 33.8 % (37.9-51.0); HEMOGLOBIN 11.5 g/dL (13.5-17.0); MEAN CORPUSCULAR HEMOGLOBIN 30.1 pg (27.0-33.4); MEAN CORPUSCULAR HGB CONC 34.1 g/dL (32.0-36.0); MEAN CORPUSCULAR VOLUME 88 fl (80-97); RED BLOOD COUNT 3.84 10^6/uL (4.35-5.55); WHITE BLOOD COUNT 17.6 10^3/uL (4.0-10.5)
[2020-06-24 05:47] LABS: ALBUMIN 2.5 g/dL (3.5-5.0); ALKALINE PHOSPHATASE 131 U/L (38-126); ANION GAP 7 (5-19); ASPARTATE AMINO TRANSFERASE 28 U/L (17-59); BILIRUBIN,DIRECT 0.3 mg/dL (0.0-0.4); BILIRUBIN,TOTAL 0.7 mg/dL (0.2-1.3); BLOOD UREA NITROGEN 29 mg/dL (7-20); C-REACTIVE PROTEIN 80.3 mg/L (<10.0); CALCIUM 8.5 mg/dL (8.4-10.2); CARBON DIOXIDE 27 mmol/L (22-30); CHLORIDE 104 mmol/L (98-107); GLUCOSE 169 mg/dL (75-110); POTASSIUM 4.5 mmol/L (3.6-5.0); TOTAL PROTEIN 6.2 g/dL (6.3-8.2)
[2020-06-24 05:55] LABS: ABSOLUTE LYMPHOCYTES# (MANUAL) 0.4 10^3/uL (0.5-4.7); BASOPHILS % (MANUAL) 0 % (0-2); EOSINOPHILS % (MANUAL) 0 % (0-6); LYMPHOCYTES % (MANUAL) 2 % (13-45); MONOCYTES % (MANUAL) 0 % (3-13); SEGMENTED NEUTROPHILS % (MAN) 98 % (42-78); TOTAL CELLS COUNTED 100
[2020-06-24 05:57] LABS: PLATELET CLUMPS PRESENT; PLATELET COMMENT ADEQUATE
[2020-06-24 05:58] LABS: PLATELET COUNT 358 10^3/uL (150-450)
[2020-06-24] MEDS: INSULIN LISPRO 100 UNIT/ML 3 ML VIAL SUBCUT SCH ×4 (08:15→21:46)
[2020-06-24] MEDS: ESCITALOPRAM OXALATE 10 MG TABLET PO SCH (10:20)
[2020-06-24] MEDS: ENALAPRIL MALEATE 5 MG TABLET PO SCH ×2 (10:20→21:45)
[2020-06-24] MEDS: ASCORBIC ACID 500 MG TABLET PO SCH ×2 (10:20→17:07)
[2020-06-24] MEDS: DOCUSATE SODIUM 100 MG CAPSULE PO SCH (10:20)
[2020-06-24] MEDS: ZINC SULFATE 220 MG CAPSULE PO SCH (10:20)
[2020-06-24] MEDS: CHOLECALCIFEROL (D3) 1,000 UNIT (25 MCG) TABLET PO SCH (10:20)
[2020-06-24] MEDS: INSULIN GLARGINE,HUM.REC.ANLOG 1,000 UNIT/10 ML VIAL SUBCUT SCH (10:21)
[2020-06-24] MEDS: DEXAMETHASONE SOD PHOSPHATE INJ 4 MG/1 ML VIAL IV SCH (10:21)
[2020-06-24] MEDS: GUAIFENESIN 600 MG TABLET.SA PO SCH ×2 (10:21→21:45)
[2020-06-24] MEDS: CLOPIDOGREL BISULFATE 75 MG TABLET PO SCH (10:21)
[2020-06-24] MEDS: FUROSEMIDE INJ/PF 20 MG/2 ML SDV IV SCH (10:21)
[2020-06-24] MEDS: ENOXAPARIN SODIUM INJ 80 MG/0.8 ML DISP.SYRIN SUBCUT SCH (10:21)
--- NOTE | 2020-06-24 14:30 | PDOC PROGRESS REPORT ---
Subjective Date:: 06/24/20 Subjective:: Patient complaining of some cough today. Still with some shortness of breath. Is tolerating the high flow nasal cannula. States he is eating adequately. He denies any chest pain at the moment. Reason For Visit: PNEUMONIA,URI UPPER RESPIRATORY INFECTION Physical Exam Vital Signs: Temp Pulse Resp BP Pulse Ox 98.1 F 72 18 117/80 95 06/24/20 11:33 06/24/20 11:33 06/24/20 11:33 06/24/20 11:33 06/24/20 11:33 Pulse Oximeter Continuous Start: 06/12/20 18:32 Freq: RTQ4 Status: Complete Protocol: Document 06/23/20 03:42 CMI (Rec: 06/23/20 04:07 CMI [id number]) Pulse Oximetry Assessment Oxygen Saturation (92-100) 97 Oxygen Delivery Method CPAP Fraction of Inspired Oxygen (FIO2) 100 Equipment Usage Equipment Standby Continuous SpO2 Machine # on nurse monitor Intake & Output 06/23/20 06/24/20 06/25/20 06:59 06:59 06:59 Intake Total 330 741 380 Output Total 1325 1200 700 Balance -995 -459 -320 Weight 78.1 kg 77.1 kg General appearance: PRESENT: no acute distress, cooperative Neck exam: ABSENT: JVD Respiratory exam: PRESENT: clear to auscultation aaron, symmetrical, unlabored. ABSENT: accessory muscle use, tachypnea, wheezes Cardiovascular exam: PRESENT: RRR, +S1, +S2. ABSENT: tachycardia GI/Abdominal exam: PRESENT: soft. ABSENT: rebound, rigid, tenderness Neurological exam: PRESENT: alert, awake, oriented to person, oriented to place, oriented to time Results Laboratory Results: 06/24/20 04:28 06/24/20 04:28 06/24/20 06/24/20 04:28 04:28 WBC 17.6 H RBC 3.84 L Hgb 11.5 L Hct 33.8 L MCV 88 MCH 30.1 MCHC 34.1 RDW 13.0 Plt Count 358 Seg Neutrophils % Not Reportable Sodium 138.0 Potassium 4.5 Chloride 104 Carbon Dioxide 27 Anion Gap 7 BUN 29 H Creatinine 0.75 Est GFR ( Amer) > 60 Glucose 169 H Calcium 8.5 Magnesium 2.3 Ferritin 413.00 Total Bilirubin 0.7 AST 28 Alkaline Phosphatase 131 H C-Reactive Protein 80.3 H Total Protein 6.2 L Albumin 2.5 L 06/12/20 06/12/20 06/12/20 16:49 16:49 21:30 Creatine Kinase 119 Troponin I 0.046 0.105 NT-Pro-B Natriuret Pep 420 H 06/13/20 06:31 Creatine Kinase Troponin I 0.087 NT-Pro-B Natriuret Pep Impressions: Chest/Abdomen CTA 06/16/20 08:30 IMPRESSION: 1. Extensive bilateral alveolar airspace disease consistent with Covid 19 pneumonia. 2. Limited study for evaluation of pulmonary embolus due to timing of the bolus. Suspect filling defects in the right lower lobe pulmonary artery as discussed. Chest X-Ray 06/22/20 00:00 IMPRESSION: Diffuse pneumonia of covid 19. No improvement or deterioration. Assessment and Plan - Diagnosis (1) Pneumonia due to COVID-19 virus Is this a current diagnosis for this admission?: Yes Plan: Completed remdesivir and convalescent plasma. Will discontinue dexamethasone today. Also received some empiric antibiotics earlier in admission. At this point, we are essentially just waiting for his lungs to show any signs of improvement. (2) Acute respiratory failure with hypoxia Is this a current diagnosis for this admission?: Yes Plan: Secondary to COVID-19 Still on high flow nasal cannula 50 mL / 90%. Patient also been tried on low- dose iv Lasix to see if this will help with hypoxia. (3) Pulmonary embolism on right Is this a current diagnosis for this admission?: Yes Plan: Associated with COVID-19. Therapeutic Lovenox. (4) Hypertension Qualifiers: Hypertension type: essential hypertension Qualified Code(s): I10 - Essential (primary) hypertension Is this a current diagnosis for this admission?: Yes Plan: Continue antihypertensives (5) Diabetes Qualifiers: Diabetes mellitus type: type 2 Diabetes mellitus complication status: with circulatory complication Diabetes mellitus complication detail: with other circulatory complications Is this a current diagnosis for this admission?: Yes Plan: Sliding scale insulin and Accu-Cheks. Diabetic diet. On Lantus daily to help with hyperglycemia from steroids. (6) History of stroke Is this a current diagnosis for this admission?: Yes Plan: Continue Plavix and atorvastatin. Has residual left-sided paresis. (7) Obesity (BMI 30.0-34.9) Is this a current diagnosis for this admission?: Yes - Time Time Spent with patient: 15-24 minutes Anticipated Discharge Disposition: Home, Self Care Anticipated Discharge Timeframe: Unknown
[2020-06-24] MEDS: APIXABAN 5 MG TABLET PO SCH (21:45)
[2020-06-24] MEDS: ATORVASTATIN CALCIUM 40 MG TABLET PO SCH (21:46)
[2020-06-25] MEDS ORDERED: LORAZEPAM INJ 2 MG/1 ML VIAL IV ONE (03:45)
[2020-06-25] MEDS: GUAIFENESIN/D-METHORPHAN (200-20 MG) SYRUP 10 ML PO PRN (05:35)
[2020-06-25] MEDS: ALBUTEROL SULFATE HFA (90 MCG/PUFF) 8 GM MDI IH SCH ×4 (05:35→23:20)
[2020-06-25] MEDS ORDERED: MORPHINE SULFATE 10 MG/ML INJ IV ONE (07:00)
[2020-06-25 07:02] LABS: ARTERIAL BLOOD BASE EXCESS 3.7 mmol/L; ARTERIAL BLOOD H2CO3 1.15 mmol/L (1.05-1.35); ARTERIAL BLOOD HCO3 27.4 mmol/L (20-24); ARTERIAL BLOOD PCO2 38.3 mmHg (35-45); ARTERIAL BLOOD PH 7.47 (7.35-7.45); ARTERIAL BLOOD PO2 58.5 mmHg (80-100); ARTERIAL BLOOD TOTAL CO2 28.5 mmol/L (23-27)
[2020-06-25 07:03] LABS: ARTERIAL BLOOD FIO2 100%
[2020-06-25] MEDS: INSULIN LISPRO 100 UNIT/ML 3 ML VIAL SUBCUT SCH ×4 (07:54→21:45)
[2020-06-25] MEDS: INSULIN GLARGINE,HUM.REC.ANLOG 1,000 UNIT/10 ML VIAL SUBCUT SCH (09:40)
[2020-06-25] MEDS: ESCITALOPRAM OXALATE 10 MG TABLET PO SCH (09:40)
[2020-06-25] MEDS: FUROSEMIDE INJ/PF 20 MG/2 ML SDV IV SCH (09:40)
[2020-06-25] MEDS: GUAIFENESIN 600 MG TABLET.SA PO SCH ×2 (09:40→22:46)
[2020-06-25] MEDS: APIXABAN 5 MG TABLET PO SCH ×2 (09:40→22:47)
[2020-06-25] MEDS: ENALAPRIL MALEATE 5 MG TABLET PO SCH ×2 (09:40→22:46)
[2020-06-25] MEDS: CLOPIDOGREL BISULFATE 75 MG TABLET PO SCH (09:40)
[2020-06-25] MEDS: ZINC SULFATE 220 MG CAPSULE PO SCH (09:40)
[2020-06-25] MEDS: CHOLECALCIFEROL (D3) 1,000 UNIT (25 MCG) TABLET PO SCH (09:40)
[2020-06-25] MEDS: DOCUSATE SODIUM 100 MG CAPSULE PO SCH (09:40)
[2020-06-25] MEDS: ASCORBIC ACID 500 MG TABLET PO SCH ×2 (09:40→18:24)
[2020-06-25] MEDS ORDERED: LORAZEPAM INJ 2 MG/1 ML VIAL IV PRN (12:20)
--- NOTE | 2020-06-25 12:47 | PDOC PROGRESS REPORT ---
Subjective Date:: 06/25/20 Subjective:: Patient complains of persistent hacking cough. Not able to get up any sputum. I will switch his Robitussin DM to Robitussin with codeine. He was anxious overnight and did require some Ativan and morphine. Reason For Visit: PNEUMONIA,URI UPPER RESPIRATORY INFECTION Physical Exam Vital Signs: Temp Pulse Resp BP Pulse Ox 99.3 F 91 25 H 117/73 96 06/25/20 09:44 06/25/20 07:36 06/25/20 08:15 06/25/20 07:36 06/25/20 08:15 Pulse Oximeter Continuous Start: 06/12/20 18:32 Freq: RTQ4 Status: Complete Protocol: Document 06/23/20 03:42 CMI (Rec: 06/23/20 04:07 CMI [id number]) Pulse Oximetry Assessment Oxygen Saturation (92-100) 97 Oxygen Delivery Method CPAP Fraction of Inspired Oxygen (FIO2) 100 Equipment Usage Equipment Standby Continuous SpO2 Machine # on nurse monitor Intake & Output 06/24/20 06/25/20 06/26/20 06:59 06:59 06:59 Intake Total 741 500 Output Total 1200 1325 Balance -459 -825 Weight 77.1 kg 75.4 kg General appearance: PRESENT: no acute distress, cooperative Neck exam: ABSENT: JVD Respiratory exam: PRESENT: clear to auscultation aaron, symmetrical, unlabored. ABSENT: accessory muscle use, tachypnea, wheezes Cardiovascular exam: PRESENT: +S1, +S2, tachycardia. ABSENT: irregular rhythm GI/Abdominal exam: PRESENT: soft. ABSENT: rebound, rigid, tenderness Extremities exam: ABSENT: pedal edema Neurological exam: PRESENT: alert, awake, oriented to person, oriented to place, oriented to time Results Laboratory Results: 06/24/20 04:28 06/24/20 04:28 06/25/20 06:37 Carbonic Acid 1.15 HCO3/H2CO3 Ratio 23:1 ABG pH 7.47 H ABG pCO2 38.3 ABG pO2 58.5 L ABG HCO3 27.4 H ABG O2 Saturation 92.0 L ABG Base Excess 3.7 FiO2 100% 06/12/20 06/12/20 06/12/20 16:49 16:49 21:30 Creatine Kinase 119 Troponin I 0.046 0.105 NT-Pro-B Natriuret Pep 420 H 06/13/20 06:31 Creatine Kinase Troponin I 0.087 NT-Pro-B Natriuret Pep Impressions: Chest/Abdomen CTA 06/16/20 08:30 IMPRESSION: 1. Extensive bilateral alveolar airspace disease consistent with Covid 19 pneumonia. 2. Limited study for evaluation of pulmonary embolus due to timing of the bolus. Suspect filling defects in the right lower lobe pulmonary artery as discussed. Chest X-Ray 06/22/20 00:00 IMPRESSION: Diffuse pneumonia of covid 19. No improvement or deterioration. Assessment and Plan - Diagnosis (1) Pneumonia due to COVID-19 virus Is this a current diagnosis for this admission?: Yes Plan: Completed remdesivir and convalescent plasma. Will discontinue dexamethasone today. Also received some empiric antibiotics earlier in admission. At this point, we are essentially just waiting for his lungs to show any signs of improvement. (2) Acute respiratory failure with hypoxia Is this a current diagnosis for this admission?: Yes Plan: Secondary to COVID-19 Still on high flow nasal cannula 50 mL / 100%. Patient also been tried on low- dose iv Lasix to see if this will help with hypoxia but this does not seem to be helping despite having maintained a negative fluid balance. P/F ratio from abg is 58 C/w CPAP and HFNC intermittently to allow meals. Patient is 2 weeks into his stay and still without improvement. Prognosis is looking grim at this point. I updated Ren[place] Shivani about his situation. (3) Pulmonary embolism on right Is this a current diagnosis for this admission?: Yes Plan: Associated with COVID-19. Transitioned from lovenox to eliquis (4) Hypertension Qualifiers: Hypertension type: essential hypertension Qualified Code(s): I10 - E ssential (primary) hypertension Is this a current diagnosis for this admission?: Yes (5) Diabetes Qualifiers: Diabetes mellitus type: type 2 Diabetes mellitus complication status: with circulatory complication Diabetes mellitus complication detail: with other circulatory complications Is this a current diagnosis for this admission?: Yes (6) History of stroke Is this a current diagnosis for this admission?: Yes (7) Obesity (BMI 30.0-34.9) Is this a current diagnosis for this admission?: Yes - Time Time Spent with patient: 15-24 minutes Anticipated Discharge Disposition: Home, Self Care Anticipated Discharge Timeframe: 2weeks
[2020-06-25] MEDS ORDERED: METHYLPREDNISOLONE INJ 40 MG/1 ML SDV IV ONE (18:34)
[2020-06-25] MEDS ORDERED: METHYLPREDNISOLONE INJ 125 MG/2 ML SDV IV ONE ×2 (19:00→19:30)
[2020-06-25] MEDS: METHYLPREDNISOLONE INJ 40 MG/1 ML SDV IV SCH (19:22)
[2020-06-25] MEDS: ATORVASTATIN CALCIUM 40 MG TABLET PO SCH (22:46)
[2020-06-25] MEDS: GUAIFENESIN/CODEINE PHOS 100-10 MG/ 5 ML UDC PO PRN (22:56)
[2020-06-26 05:44] LABS: ANION GAP 7 (5-19); BLOOD UREA NITROGEN 32 mg/dL (7-20); CALCIUM 8.3 mg/dL (8.4-10.2); CARBON DIOXIDE 28 mmol/L (22-30); CHLORIDE 101 mmol/L (98-107); GLUCOSE 280 mg/dL (75-110); POTASSIUM 5.2 mmol/L (3.6-5.0)
[2020-06-26] MEDS: ALBUTEROL SULFATE HFA (90 MCG/PUFF) 8 GM MDI IH SCH ×3 (06:00→18:25)
[2020-06-26] MEDS: METHYLPREDNISOLONE INJ 40 MG/1 ML SDV IV SCH ×2 (10:09→18:23)
[2020-06-26] MEDS: ESCITALOPRAM OXALATE 10 MG TABLET PO SCH (10:09)
[2020-06-26] MEDS: INSULIN LISPRO 100 UNIT/ML 3 ML VIAL SUBCUT SCH ×4 (10:09→22:42)
[2020-06-26] MEDS: ENALAPRIL MALEATE 5 MG TABLET PO SCH ×2 (10:10→22:42)
[2020-06-26] MEDS: ZINC SULFATE 220 MG CAPSULE PO SCH (10:10)
[2020-06-26] MEDS: DOCUSATE SODIUM 100 MG CAPSULE PO SCH (10:10)
[2020-06-26] MEDS: CHOLECALCIFEROL (D3) 1,000 UNIT (25 MCG) TABLET PO SCH (10:10)
[2020-06-26] MEDS: CLOPIDOGREL BISULFATE 75 MG TABLET PO SCH (10:10)
[2020-06-26] MEDS: APIXABAN 5 MG TABLET PO SCH ×2 (10:10→22:41)
[2020-06-26] MEDS: GUAIFENESIN 600 MG TABLET.SA PO SCH ×2 (10:10→22:42)
[2020-06-26] MEDS: ASCORBIC ACID 500 MG TABLET PO SCH ×2 (10:10→18:23)
[2020-06-26] MEDS: INSULIN GLARGINE,HUM.REC.ANLOG 1,000 UNIT/10 ML VIAL SUBCUT SCH ×2 (10:30→22:43)
--- NOTE | 2020-06-26 12:04 | PDOC PROGRESS REPORT ---
Subjective Date:: 06/26/20 Subjective:: Feels better today. He is comfortable on the CPAP. Was requesting if he could take the mask off so he can eat. We will convert him to a high flow while he is eating. Denies any chest pain. Reason For Visit: PNEUMONIA,URI UPPER RESPIRATORY INFECTION Physical Exam Vital Signs: Temp Pulse Resp BP Pulse Ox 98.2 F 79 19 111/69 95 06/26/20 07:42 06/26/20 07:42 06/26/20 08:15 06/26/20 07:42 06/26/20 08:15 Pulse Oximeter Continuous Start: 06/12/20 18:32 Freq: RTQ4 Status: Complete Protocol: Document 06/23/20 03:42 CMI (Rec: 06/23/20 04:07 CMI [id number]) Pulse Oximetry Assessment Oxygen Saturation (92-100) 97 Oxygen Delivery Method CPAP Fraction of Inspired Oxygen (FIO2) 100 Equipment Usage Equipment Standby Continuous SpO2 Machine # on nurse monitor Intake & Output 06/25/20 06/26/20 06/27/20 06:59 06:59 06:59 Intake Total 500 1100 Output Total 1325 950 Balance -825 150 Weight 75.4 kg 76.9 kg General appearance: PRESENT: no acute distress, cooperative Neck exam: ABSENT: JVD Respiratory exam: PRESENT: clear to auscultation aaron, symmetrical, unlabored. ABSENT: tachypnea, wheezes Cardiovascular exam: PRESENT: RRR, +S1, +S2. ABSENT: tachycardia GI/Abdominal exam: PRESENT: soft. ABSENT: rebound, rigid, tenderness Neurological exam: PRESENT: alert, awake, oriented to person, oriented to place, oriented to time, oriented to situation Psychiatric exam: ABSENT: agitated, anxious Focused psych exam: ABSENT: pressured speech Skin exam: ABSENT: jaundice Results Laboratory Results: 06/24/20 04:28 06/26/20 04:08 06/26/20 04:08 Sodium 136.2 L Potassium 5.2 H Chloride 101 Carbon Dioxide 28 Anion Gap 7 BUN 32 H Creatinine 0.82 Est GFR ( Amer) > 60 Glucose 280 H Calcium 8.3 L Ferritin 404.00 C-Reactive Protein 83.0 H 06/12/20 06/12/20 06/12/20 16:49 16:49 21:30 Creatine Kinase 119 Troponin I 0.046 0.105 NT-Pro-B Natriuret Pep 420 H 06/13/20 06:31 Creatine Kinase Troponin I 0.087 NT-Pro-B Natriuret Pep Impressions: Chest/Abdomen CTA 06/16/20 08:30 IMPRESSION: 1. Extensive bilateral alveolar airspace disease consistent with Covid 19 pneumonia. 2. Limited study for evaluation of pulmonary embolus due to timing of the bolus. Suspect filling defects in the right lower lobe pulmonary artery as discussed. Chest X-Ray 06/22/20 00:00 IMPRESSION: Diffuse pneumonia of covid 19. No improvement or deterioration. Assessment and Plan - Diagnosis (1) Pneumonia due to COVID-19 virus Is this a current diagnosis for this admission?: Yes Plan: Completed remdesivir, dexamethasone and convalescent plasma. Also received some empiric antibiotics earlier in admission. At this point, we are essentially just waiting for his lungs to show any signs of improvement. (2) Acute respiratory failure with hypoxia Is this a current diagnosis for this admission?: Yes Plan: Secondary to COVID-19 Still severely hypoxic requiring CPAP 10/100% and intermittently HFNC at 100% to allow him to eat. I initiated him on IV Solu-Medrol Continue pulse oximetry (3) Pulmonary embolism on right Is this a current diagnosis for this admission?: Yes Plan: Associated with COVID-19. Continue Eliquis (4) Hypertension Qualifiers: Hypertension type: essential hypertension Qualified Code(s): I10 - Essential (primary) hypertension Is this a current diagnosis for this admission?: Yes Plan: Continue antihypertensives (5) Diabetes Qualifiers: Diabetes mellitus type: type 2 Diabetes mellitus complication status: with circulatory complication Diabetes mellitus complication detail: with other circulatory complications Is this a current diagnosis for this admission?: Yes Plan: Sliding scale insulin and Accu-Cheks. Diabetic diet. Increase Lantus dose to help with hyperglycemia from steroids. (6) History of stroke Is this a current diagnosis for this admission?: Yes Plan: Continue Plavix and atorvastatin. Has residual left-sided paresis. (7) Obesity (BMI 30.0-34.9) Is this a current diagnosis for this admission?: Yes - Time Time Spent with patient: 15-24 minutes Anticipated Discharge Disposition: Home, Self Care Anticipated Discharge Timeframe: unknown
[2020-06-26] MEDS ORDERED: INSULIN GLARGINE,HUM.REC.ANLOG 1,000 UNIT/10 ML VIAL (PYX) SUBCUT ONE (12:30)
[2020-06-26] MEDS: IVERMECTIN 3 MG TABLET PO SCH (13:57)
[2020-06-26] MEDS ORDERED: INSULIN LISPRO 100 UNIT/ML 3 ML VIAL SUBCUT ONE (16:25)
[2020-06-26] MEDS: ATORVASTATIN CALCIUM 40 MG TABLET PO SCH (22:41)
[2020-06-27] MEDS ORDERED: IPRATROPIUM/ALBUTEROL 0.5-2.5 MG/3 ML AMPUL NEB ONE ×3 (03:59→05:17)
[2020-06-27 04:27] LABS: ARTERIAL BLOOD BASE EXCESS 2.4 mmol/L; ARTERIAL BLOOD H2CO3 1.58 mmol/L (1.05-1.35); ARTERIAL BLOOD HCO3 28.9 mmol/L (20-24); ARTERIAL BLOOD O2 SATURATION 72.8 % (94-98); ARTERIAL BLOOD PCO2 52.5 mmHg (35-45); ARTERIAL BLOOD PH 7.36 (7.35-7.45); ARTERIAL BLOOD TOTAL CO2 30.5 mmol/L (23-27)
[2020-06-27 04:28] LABS: ARTERIAL BLOOD FIO2 100%; ARTERIAL BLOOD PO2 40.5 mmHg (80-100)
[2020-06-27] MEDS: GUAIFENESIN/CODEINE PHOS 100-10 MG/ 5 ML UDC PO PRN (04:40)
[2020-06-27] MEDS ORDERED: DEXAMETHASONE SOD PHOSPHATE INJ 4 MG/1 ML VIAL ONE (05:06)
[2020-06-27 05:14] LABS: ANION GAP 10 (5-19); BLOOD UREA NITROGEN 30 mg/dL (7-20); CALCIUM 8.7 mg/dL (8.4-10.2); CARBON DIOXIDE 27 mmol/L (22-30); CHLORIDE 102 mmol/L (98-107); GLUCOSE 134 mg/dL (75-110); POTASSIUM 4.4 mmol/L (3.6-5.0)
--- NOTE | 2020-06-27 05:16 | RADIOLOGY REPORT (SQ) ---
CLINICAL HISTORY: SOB] COMPARISON: 06/22/2020. TECHNIQUE: XR CHEST 1 VIEW 06/27/2020 12:00 AM BRUSH CUTTER FINDINGS: Cardiac silhouette is normal in size. There is bibasilar airspace disease. There is no pleural effusion. There is no pneumothorax. There are no acute osseous findings. IMPRESSION: No change.
[2020-06-27] MEDS: DEXAMETHASONE SOD PHOSPHATE INJ 4 MG/1 ML VIAL IV SCH ×2 (05:28→18:02)
[2020-06-27 05:50] LABS: ARTERIAL BLOOD BASE EXCESS 1.2 mmol/L; ARTERIAL BLOOD H2CO3 1.31 mmol/L (1.05-1.35); ARTERIAL BLOOD HCO3 26.3 mmol/L (20-24); ARTERIAL BLOOD PCO2 43.5 mmHg (35-45); ARTERIAL BLOOD PO2 47.3 mmHg (80-100); ARTERIAL BLOOD TOTAL CO2 27.6 mmol/L (23-27)
[2020-06-27] MEDS ORDERED: HEPARIN SOD (PORCINE) 5,000 UNIT/ML 1 ML VIAL SUBCUT SCH (06:00)
[2020-06-27] MEDS: PANTOPRAZOLE SODIUM 40 MG VIAL IV SCH ×3 (06:07→22:25)
[2020-06-27 06:14] LABS: ARTERIAL BLOOD FIO2 100%
[2020-06-27] MEDS ORDERED: MORPHINE SULFATE 10 MG/ML INJ IV ONE (07:06)
[2020-06-27] MEDS ORDERED: MORPHINE SULFATE 10 MG/ML INJ ONE (07:06)
[2020-06-27] MEDS: NORMAL SALINE 1000 ML 1,000 ML IV PRN ×3 (07:26→23:30)
[2020-06-27] MEDS: ALBUTEROL SULFATE HFA (90 MCG/PUFF) 8 GM MDI IH SCH ×3 (08:31→18:37)
[2020-06-27] MEDS: INSULIN LISPRO 100 UNIT/ML 3 ML VIAL SUBCUT SCH ×4 (08:31→22:20)
--- NOTE | 2020-06-27 08:54 | EKG REPORT ---
SEVERITY:- ABNORMAL ECG - SINUS RHYTHM VENTRICULAR PREMATURE COMPLEX INCOMPLETE RBBB AND LAFB : Confirmed by: Christian Burkett MD 27-Jun-2020 08:53:15
[2020-06-27] MEDS ORDERED: METHYLPREDNISOLONE INJ 40 MG/1 ML SDV IV SCH (10:00)
[2020-06-27] MEDS: ENALAPRIL MALEATE 5 MG TABLET PO SCH ×2 (10:30→22:28)
[2020-06-27] MEDS: DOCUSATE SODIUM 100 MG CAPSULE PO SCH (10:58)
[2020-06-27] MEDS: APIXABAN 5 MG TABLET PO SCH (10:58)
[2020-06-27] MEDS: ZINC SULFATE 220 MG CAPSULE PO SCH (10:58)
[2020-06-27] MEDS: CLOPIDOGREL BISULFATE 75 MG TABLET PO SCH (10:58)
[2020-06-27] MEDS: ASCORBIC ACID 500 MG TABLET PO SCH ×2 (10:59→18:46)
[2020-06-27] MEDS: GUAIFENESIN 600 MG TABLET.SA PO SCH (10:59)
[2020-06-27] MEDS: IVERMECTIN 3 MG TABLET PO SCH (10:59)
[2020-06-27] MEDS: ESCITALOPRAM OXALATE 10 MG TABLET PO SCH (10:59)
[2020-06-27] MEDS: CHOLECALCIFEROL (D3) 1,000 UNIT (25 MCG) TABLET PO SCH (10:59)
[2020-06-27] MEDS: INSULIN GLARGINE,HUM.REC.ANLOG 1,000 UNIT/10 ML VIAL SUBCUT SCH ×2 (11:10→22:29)
[2020-06-27] MEDS ORDERED: INSULIN GLARGINE,HUM.REC.ANLOG 1,000 UNIT/10 ML VIAL SUBCUT ONE (12:15)
[2020-06-27] MEDS ORDERED: HEPARIN SOD (PORCINE) 1,000 UNIT/ML 10 ML VIAL IV ONE (12:30)
[2020-06-27] MEDS ORDERED: IVERMECTIN 3 MG TABLET PO SCH (12:32)
[2020-06-27 12:50] LABS: HEMATOCRIT 34.3 % (37.9-51.0); HEMOGLOBIN 11.6 g/dL (13.5-17.0); MEAN CORPUSCULAR HEMOGLOBIN 30.1 pg (27.0-33.4); MEAN CORPUSCULAR HGB CONC 33.9 g/dL (32.0-36.0); MEAN CORPUSCULAR VOLUME 89 fl (80-97); PLATELET COUNT 295 10^3/uL (150-450); RED BLOOD COUNT 3.86 10^6/uL (4.35-5.55); RED CELL DISTRIBUTION WIDTH 12.9 % (11.5-14.0); WHITE BLOOD COUNT 21.6 10^3/uL (4.0-10.5)
[2020-06-27 12:56] LABS: INTERNATIONAL RATION (INR) 1.76; PROTHROMBIN TIME 20.6 SEC (11.4-15.4)
[2020-06-27 12:57] LABS: PARTIAL THROMBOPLASTIN TIME 37.9 SEC (23.5-35.8)
[2020-06-27 13:12] LABS: ABSOLUTE LYMPHOCYTES# (MANUAL) 0.4 10^3/uL (0.5-4.7); ABSOLUTE MONOCYTES # (MANUAL) 0.2 10^3/uL (0.1-1.4); BASOPHILS % (MANUAL) 0 % (0-2); EOSINOPHILS % (MANUAL) 0 % (0-6); LYMPHOCYTES % (MANUAL) 2 % (13-45); MONOCYTES % (MANUAL) 1 % (3-13); PLATELET COMMENT ADEQUATE; RBC MORPHOLOGY COMMENT NORMO-CYTIC/CHROMIC; SEGMENTED NEUTROPHILS % (MAN) 97 % (42-78); TOTAL CELLS COUNTED 100
[2020-06-27] MEDS: HEPARIN SODIUM,PORCINE/D5W 25,000 UNIT/250 ML RTUINJ IV PRN (13:14)
--- NOTE | 2020-06-27 13:34 | RADIOLOGY REPORT (SQ) ---
EXAM DESCRIPTION: VENOUS BILATERAL LOWER IMAGES COMPLETED DATE/TIME: 06/27/2020 12:53 pm REASON FOR STUDY: r/o bilateral DVT lower ext. COMPARISON: None. TECHNIQUE: Dynamic and static bethea scale and color images acquired of both lower extremity venous sy stems. Selected spectral images acquired with additional compression and augmentation maneuvers. Imag es stored on PACS. LIMITATIONS: None. FINDINGS: RIGHT LEG COMMON FEMORAL AND FEMORAL: Normal phasicity, compression and augmentation. No visualized echogenic m aterial on bethea scale. No defects on color images. POPLITEAL: Normal compression and augmentation. No visualized echogenic material on bethea scale. No de fects on color images. CALF VESSELS: Normal compression and augmentation. No visualized echogenic material on bethea scale. No defects on color image. GSV AND SSV: Normal compression. No visualized echogenic material on bethea scale. No defects on color images. ANY DEEP VENOUS INSUFFICIENCY: Not evaluated. ANY EVIDENCE OF POPLITEAL CYST: No. OTHER: No other findings. LEFT LEG COMMON FEMORAL AND FEMORAL: Normal phasicity, compression and augmentation. No visualized echogenic m aterial on bethea scale. No defects on color images. POPLITEAL: Normal compression and augmentation. No visualized echogenic material on bethea scale. No de fects on color images. CALF VESSELS: Normal compression and augmentation. No visualized echogenic material on bethea scale. No defects on color images. GSV AND SSV: Normal compression. No visualized echogenic material on bethea scale. No defects on color images. ANY DEEP VENOUS INSUFFICIENCY: Not evaluated. ANY EVIDENCE POPLITEAL CYST: No. OTHER: No other findings. IMPRESSION: NO EVIDENCE OF DVT OR SVT IN EITHER LEG. TECHNICAL DOCUMENTATION: JOB ID: [id number] 2010 [employer]- All Rights Reserved Reading location - IP/workstation name: [email or web address]
[2020-06-27] MEDS ORDERED: HEPARIN SOD (PORCINE) 1,000 UNIT/ML 10 ML VIAL IV PRN (15:17)
[2020-06-27 16:03] LABS: ARTERIAL BLOOD BASE EXCESS -0.4 mmol/L; ARTERIAL BLOOD FIO2 100%; ARTERIAL BLOOD H2CO3 1.29 mmol/L (1.05-1.35); ARTERIAL BLOOD HCO3 24.8 mmol/L (20-24); ARTERIAL BLOOD O2 SATURATION 98.2 % (94-98); ARTERIAL BLOOD PCO2 42.8 mmHg (35-45); ARTERIAL BLOOD PH 7.38 (7.35-7.45); ARTERIAL BLOOD PO2 118.1 mmHg (80-100); ARTERIAL BLOOD TOTAL CO2 26.1 mmol/L (23-27)
[2020-06-27 16:07] LABS: APPEARANCE,URINE CLEAR; BILIRUBIN,URINE NEGATIVE (NEGATIVE); COLOR,URINE YELLOW; GLUCOSE, URINE >=500 mg/dL (NEGATIVE); KETONES,URINE NEGATIVE (NEGATIVE); LEUKOCYTE ESTERASE,URINE NEGATIVE (NEGATIVE); NITRITE,URINE NEGATIVE (NEGATIVE); PROTEIN,URINE 30 mg/dL (NEGATIVE); URINE SPECIFIC GRAVITY 1.017; UROBILINOGEN,URINE NEGATIVE mg/dL (<2.0)
--- NOTE | 2020-06-27 19:22 | CRITICAL CARE ADMISSION REPORT ---
HPI Date:: 06/27/20 Time:: 05:00 Reason for ICU Reason:: acute respiratory failure - worsening hypoxia Admission Date/Time & PCP: Admission Date/Time: 06/12/20 17:29 Primary Care Provider: HPI: ABEBA MCLEOD is a 55 year old male with history of CVA with residual left- sided paresis, diabetes mellitus, hypertension, chronic anticoagulation on Coumadin, who presents to the hospital with complaints of chills for the past 2 days as well as fever. His symptoms have been associated with shortness of breath and cough. He is not having much sputum production. He does endorse body aches. Admits to significant soreness of his throat. He denies any sick contacts. Denies any dysphagia, loss of taste and loss of smell. He lives in [place] and just traveled into town about 2 to 3 days ago. Notably, patient was 72% on arrival of EMS and was placed on CPAP in route to the hospital. He was transitioned to a BiPAP currently on 60% FiO2 with adequate SPO2. 12/: ENGINEERING DRAWINGS CHECKER called for worsening hypoxia, O2 sat < 60% tachycardic , tachypniec History obtained from:: Hospitalist - Diagnosis/Plan (1) Acute respiratory failure with hypoxia Is this a current diagnosis for this admission?: Yes Plan: CPAP 16/100%. ABG as needed Duo Nebs (2) Bilateral pneumonia Qualifiers: Pneumonia type: due to unspecified organism Lung location: unspecified part of lung Qualified Code(s): J18.9 - Pneumonia, unspecified organism Is this a current diagnosis for this admission?: Yes (3) COVID-19 virus test result unknown Is this a current diagnosis for this admission?: Yes Plan: Completed remdesivir, dexamethasone and convalescent plasma (4) Chronic anticoagulation Is this a current diagnosis for this admission?: Yes (6) History of stroke Is this a current diagnosis for this admission?: Yes (7) Hyperglycemia due to type 2 diabetes mellitus Qualifiers: Diabetes mellitus terminal superintendent insulin use: without mcfp use Qualified Code(s): E11.65 - Type 2 diabetes mellitus with hyperglycemia Is this a current diagnosis for this admission?: Yes (8) Pulmonary embolism on right Is this a current diagnosis for this admission?: Yes (9) Diabetes Qualifiers: Diabetes mellitus type: type 2 Diabetes mellitus complication status: with circulatory complication Diabetes mellitus complication detail: with other circulatory complications Is this a current diagnosis for this admission?: Yes (10) Hypertension Qualifiers: Hypertension type: essential hypertension Qualified Code(s): I10 - Essential (primary) hypertension Is this a current diagnosis for this admission?: Yes (11) Obesity (BMI 30.0-34.9) Is this a current diagnosis for this admission?: Yes Past Medical History Cardiac Medical History: Reports: Hyperlipidema, Hypertension Neurological Medical History: Reports: Ischemic CVA Endocrine Medical History: Reports: Diabetes Mellitus Type 2 Psychiatric Medical History: Denies: Depression Past Surgical History Past Surgical History: Reports: Other Social/Family History - Social History Lives with: Family Smoking Status: Never Smoker Frequency of Alcohol Use: Occasional Hx Recreational Drug Use: No Drugs: None - Medication/Allergies Home Medications: Amlodipine Besylate [Norvasc 5 mg Tablet] 5 mg PO DAILY 06/12/20 Atorvastatin Calcium [Lipitor 40 mg Tablet] 40 mg PO QHS 06/12/20 Clopidogrel Bisulfate [Plavix 75 mg Tablet] 75 mg PO DAILY 06/12/20 Enalapril Maleate [Vasotec 5 mg Tablet] 5 mg PO DAILY 06/12/20 Escitalopram Oxalate [Lexapro 10 mg Tablet] 10 mg PO DAILY 06/12/20 Glyburide [Diabeta 5 mg Tablet] 5 mg PO QAM 06/12/20 Magnesium Oxide [Magnesium] 250 mg PO DAILY 06/12/20 [place]-3 Fatty Acids [[place]-3] 2,000 mg PO DAILY 06/12/20 Ubidecarenone/Vit E Acet [Co Q-10 100 mg Softgel] 1 each PO DAILY 06/12/20 Allergies/Adverse Reactions: No Known Allergies Allergy (Verified 06/12/20 17:04) Review of Systems Constitutional: PRESENT: as per HPI Eyes: PRESENT: as per HPI Ears: PRESENT: as per HPI Nose, Mouth, and Throat: PRESENT: as per HPI Breasts: PRESENT: as per HPI Cardiovascular: PRESENT: as per HPI Respiratory: PRESENT: as per HPI Gastrointestinal: PRESENT: as per HPI Genitourinary: PRESENT: as per HPI Musculoskeletal: PRESENT: as per HPI Endocrine: PRESENT: as per HPI Physical Exam Vital Signs: Temp Pulse Resp BP Pulse Ox 96.9 F L 115 H 27 H 105/68 63 L 06/27/20 05:25 06/27/20 05:25 06/27/20 05:25 06/27/20 05:25 06/27/20 05:25 Pulse Oximeter Continuous Start: 06/12/20 18:32 Freq: RTQ4 Status: Complete Protocol: Document 06/23/20 03:42 CMI (Rec: 06/23/20 04:07 CMI [id number]) Pulse Oximetry Assessment Oxygen Saturation (92-100) 97 Oxygen Delivery Method CPAP Fraction of Inspired Oxygen (FIO2) 100 Equipment Usage Equipment Standby Continuous SpO2 Machine # on nurse monitor Intake & Output 06/25/20 06/26/20 06/27/20 06:59 06:59 06:59 Intake Total 500 1100 840 Output Total 5631 441 0435 Balance -825 150 -885 Weight 75.4 kg 76.9 kg Weight/Height Weight 76.9 kg Height 5 ft 7 in General appearance: PRESENT: mild distress, morbidly obese, well-developed Head exam: PRESENT: atraumatic, normocephalic Eye exam: PRESENT: conjunctiva pink, PERRLA Ear exam: PRESENT: normal external ear exam Mouth exam: PRESENT: dry mucosa, moist, tongue midline Neck exam: PRESENT: full ROM, JVD Respiratory exam: PRESENT: accessory muscle use, decreased breath sounds, prolonged expiratory phas, tachypnea, other Cardiovascular exam: PRESENT: rubs, tachycardia Pulses: PRESENT: normal femoral pulses GI/Abdominal exam: PRESENT: hypoactive bowel sounds, soft Rectal exam: PRESENT: deferred Extremities exam: PRESENT: tenderness, +1 edema Musculoskeletal exam: PRESENT: normal inspection Neurological exam: PRESENT: alert, altered, awake, oriented to person, oriented to place, oriented to time, oriented to situation Psychiatric exam: PRESENT: anxious Focused psych exam: PRESENT: restlessness Laboratory/Radiographs Laboratory Results: 06/24/20 04:28 06/27/20 04:39 06/26/20 06/27/20 06/27/20 04:08 04:00 04:39 Carbonic Acid 1.58 H HCO3/H2CO3 Ratio 18:1 ABG pH 7.36 ABG pCO2 52.5 H ABG pO2 40.5 L* ABG HCO3 28.9 H ABG O2 Saturation 72.8 L ABG Base Excess 2.4 FiO2 100% Sodium 136.2 L 138.8 Potassium 5.2 H 4.4 Chloride 101 102 Carbon Dioxide 28 27 Anion Gap 7 10 BUN 32 H 30 H Creatinine 0.82 0.64 Est GFR ( Amer) > 60 > 60 Glucose 280 H 134 H Calcium 8.3 L 8.7 Ferritin 404.00 C-Reactive Protein 83.0 H 06/12/20 06/12/20 06/12/20 16:49 16:49 21:30 Creatine Kinase 119 Troponin I 0.046 0.105 NT-Pro-B Natriuret Pep 420 H 06/13/20 06:31 Creatine Kinase Troponin I 0.087 NT-Pro-B Natriuret Pep Impressions: Chest/Abdomen CTA 06/16/20 08:30 IMPRESSION: 1. Extensive bilateral alveolar airspace disease consistent with Covid 19 pneumonia. 2. Limited study for evaluation of pulmonary embolus due to timing of the bolus. Suspect filling defects in the right lower lobe pulmonary artery as discussed. Chest X-Ray 06/27/20 00:00 IMPRESSION: No change. All labs, radiographs, diagnostic studies and EKGs were personally reviewed: Yes In addition, reports of radiographic and diagnostic studies were read: Yes Critical Time Critical Time (minutes): 60 -: The care of a critically ill patient is dynamic. This note represents a static moment in the admission process. Orders and treatments may be given simultaneously and urgently, and time is not outside energy sales representatives of the treatment process. This patient requires Critical Care secondary to life threatening organ or limb dysfunction. Without Critical Care services, the patient is at risk for increased mortality and morbidity.
[2020-06-27] MEDS: BUDESONIDE NEB 0.25 MG/2 ML AMPUL NEB SCH (20:42)
[2020-06-27] MEDS: ATORVASTATIN CALCIUM 40 MG TABLET PO SCH (22:25)
[2020-06-28] MEDS: ALBUTEROL SULFATE HFA (90 MCG/PUFF) 8 GM MDI IH SCH ×4 (00:01→18:59)
[2020-06-28 02:53] LABS: D-DIMER 2.82 ug/mL (0.00-0.50)
[2020-06-28 03:11] LABS: CREATINE KINASE MB 1.34 ng/mL (<4.55); TROPONIN I 0.016 ng/mL
[2020-06-28 03:16] LABS: ARTERIAL BLOOD BASE EXCESS 0.9 mmol/L; ARTERIAL BLOOD H2CO3 1.16 mmol/L (1.05-1.35); ARTERIAL BLOOD HCO3 25.1 mmol/L (20-24); ARTERIAL BLOOD O2 SATURATION 88.7 % (94-98); ARTERIAL BLOOD PCO2 38.6 mmHg (35-45); ARTERIAL BLOOD PH 7.43 (7.35-7.45); ARTERIAL BLOOD PO2 53.3 mmHg (80-100); ARTERIAL BLOOD TOTAL CO2 26.3 mmol/L (23-27)
[2020-06-28 03:23] LABS: ARTERIAL BLOOD FIO2 ROOM AIR
[2020-06-28 03:33] LABS: BLOOD UREA NITROGEN 30 mg/dL (7-20); C-REACTIVE PROTEIN 69.4 mg/L (<10.0); CALCIUM 8.5 mg/dL (8.4-10.2); GLUCOSE 185 mg/dL (75-110); PHOSPHORUS 4.3 mg/dL (2.5-4.5); POTASSIUM 4.6 mmol/L (3.6-5.0)
[2020-06-28 03:36] LABS: CARBON DIOXIDE 26 mmol/L (22-30); CHLORIDE 107 mmol/L (98-107); HEMOGLOBIN 11.6 g/dL (13.5-17.0); MEAN CORPUSCULAR VOLUME 88 fl (80-97); PLATELET COUNT 319 10^3/uL (150-450); RED BLOOD COUNT 3.86 10^6/uL (4.35-5.55); RED CELL DISTRIBUTION WIDTH 13.2 % (11.5-14.0); WHITE BLOOD COUNT 21.4 10^3/uL (4.0-10.5)
[2020-06-28 03:42] LABS: ANION GAP 4 (5-19)
[2020-06-28 03:46] LABS: ABSOLUTE LYMPHOCYTES# (MANUAL) 0.4 10^3/uL (0.5-4.7); ABSOLUTE MONOCYTES # (MANUAL) 0.9 10^3/uL (0.1-1.4); BASOPHILS % (MANUAL) 0 % (0-2); EOSINOPHILS % (MANUAL) 0 % (0-6); LYMPHOCYTES % (MANUAL) 2 % (13-45); MONOCYTES % (MANUAL) 4 % (3-13); SEGMENTED NEUTROPHILS % (MAN) 94 % (42-78); TOTAL CELLS COUNTED 100
[2020-06-28 03:48] LABS: ANISOCYTOSIS SLIGHT; BURR CELLS SLIGHT; OVALOCYTES SLIGHT; PLATELET COMMENT ADEQUATE; POIKILOCYTOSIS SLIGHT; TEAR DROP CELLS SLIGHT; TOXIC GRANULATION SLIGHT; TOXIC VACUOLATION PRESENT
[2020-06-28] MEDS: DEXAMETHASONE SOD PHOSPHATE INJ 4 MG/1 ML VIAL IV SCH ×2 (05:06→17:35)
[2020-06-28] MEDS: HEPARIN SODIUM,PORCINE/D5W 25,000 UNIT/250 ML RTUINJ IV PRN ×2 (05:07→16:20)
--- NOTE | 2020-06-28 07:22 | EKG REPORT ---
SEVERITY:- ABNORMAL ECG - SINUS RHYTHM INCOMPLETE RBBB AND LAFB LEFT VENTRICULAR HYPERTROPHY : Confirmed by: Christian Burkett MD 28-Jun-2020 07:21:13
[2020-06-28] MEDS: BUDESONIDE NEB 0.25 MG/2 ML AMPUL NEB SCH ×3 (07:45→20:54)
[2020-06-28] MEDS: PANTOPRAZOLE SODIUM 40 MG VIAL IV SCH (10:05)
[2020-06-28] MEDS: INSULIN GLARGINE,HUM.REC.ANLOG 1,000 UNIT/10 ML VIAL SUBCUT SCH (10:05)
[2020-06-28] MEDS: INSULIN LISPRO 100 UNIT/ML 3 ML VIAL SUBCUT SCH ×4 (10:16→22:39)
[2020-06-28] MEDS: DOCUSATE SODIUM 100 MG CAPSULE PO SCH (10:25)
[2020-06-28] MEDS: ESCITALOPRAM OXALATE 10 MG TABLET PO SCH (10:25)
[2020-06-28] MEDS: CHOLECALCIFEROL (D3) 1,000 UNIT (25 MCG) TABLET PO SCH (10:26)
[2020-06-28] MEDS: ZINC SULFATE 220 MG CAPSULE PO SCH (10:26)
[2020-06-28] MEDS: ASCORBIC ACID 500 MG TABLET PO SCH (10:26)
[2020-06-28] MEDS: CLOPIDOGREL BISULFATE 75 MG TABLET PO SCH (11:34)
[2020-06-28] MEDS: ENALAPRIL MALEATE 5 MG TABLET PO SCH (11:34)
[2020-06-28] MEDS ORDERED: APIXABAN 5 MG TABLET PO SCH (12:00)
[2020-06-28] MEDS ORDERED: DEXTROSE 5%-NORMAL SALINE 1,000 ML IV PRN ×2 (12:00→16:35)
--- NOTE | 2020-06-28 12:49 | PDOC PROGRESS REPORT ---
Subjective Date:: 06/28/20 Subjective:: Patient was transferred out of ICU back to the floor overnight. Patient still appears SOB. Was requesting some food earlier but discussed with him that he will need to be on the cpap for today. Denies any chest pain. Reason For Visit: ACUTE RESPIRATORY DISTRESS,HYPOXIC,PE Physical Exam Vital Signs: Temp Pulse Resp BP Pulse Ox 97.7 F 91 23 H 139/79 H 94 06/28/20 08:46 06/28/20 11:34 06/28/20 08:43 06/28/20 11:34 06/28/20 08:43 Pulse Oximeter Continuous Start: 06/12/20 18:32 Freq: RTQ4 Status: Complete Protocol: Document 06/23/20 03:42 CMI (Rec: 06/23/20 04:07 CMI [id number]) Pulse Oximetry Assessment Oxygen Saturation (92-100) 97 Oxygen Delivery Method CPAP Fraction of Inspired Oxygen (FIO2) 100 Equipment Usage Equipment Standby Continuous SpO2 Machine # on nurse monitor Intake & Output 06/27/20 06/28/20 06/29/20 06:59 06:59 06:59 Intake Total 840 2091 972 Output Total 1845 850 Balance -1005 1241 972 Weight 74.9 kg 76.8 kg General appearance: PRESENT: no acute distress, cooperative Mouth exam: PRESENT: neck supple Neck exam: ABSENT: JVD Respiratory exam: PRESENT: crackles, symmetrical, tachypnea, unlabored. ABSENT: accessory muscle use, retraction, wheezes Cardiovascular exam: PRESENT: RRR, +S1, +S2. ABSENT: tachycardia GI/Abdominal exam: PRESENT: soft. ABSENT: rebound, rigid, tenderness Neurological exam: PRESENT: alert, awake, oriented to person, oriented to place, oriented to time Results Laboratory Results: 06/28/20 02:31 06/28/20 02:31 06/27/20 06/27/20 06/27/20 12:40 15:16 15:16 WBC 21.6 H RBC 3.86 L Hgb 11.6 L Hct 34.3 L MCV 89 MCH 30.1 MCHC 33.9 RDW 12.9 Plt Count 295 Seg Neutrophils % Not Reportable Carbonic Acid 1.29 HCO3/H2CO3 Ratio 19:1 ABG pH 7.38 ABG pCO2 42.8 ABG pO2 118.1 H ABG HCO3 24.8 H ABG O2 Saturation 98.2 H ABG Base Excess -0.4 FiO2 100% Sodium Potassium Chloride Carbon Dioxide Anion Gap BUN Creatinine Est GFR ( Amer) Glucose Calcium Phosphorus Magnesium Ferritin C-Reactive Protein Urine Color YELLOW Urine Appearance CLEAR Urine pH 5.0 Ur Specific [place] 1.017 Urine Protein 30 H Urine Glucose (UA) >=500 H Urine Ketones NEGATIVE Urine Blood NEGATIVE Urine Nitrite NEGATIVE Ur Leukocyte Esterase NEGATIVE Urine WBC (Auto) 0 Urine RBC (Auto) 1 06/28/20 06/28/20 06/28/20 02:31 02:31 03:00 WBC 21.4 H RBC 3.86 L Hgb 11.6 L Hct 34.0 L MCV 88 MCH 30.0 MCHC 34.0 RDW 13.2 Plt Count 319 Seg Neutrophils % Not Reportable Carbonic Acid 1.16 HCO3/H2CO3 Ratio 21:1 ABG pH 7.43 ABG pCO2 38.6 ABG pO2 53.3 L ABG HCO3 25.1 H ABG O2 Saturation 88.7 L ABG Base Excess 0.9 FiO2 ROOM AIR Sodium 136.8 L Potassium 4.6 Chloride 107 Carbon Dioxide 26 Anion Gap 4 L BUN 30 H Creatinine 0.68 Est GFR ( Amer) > 60 Glucose 185 H Calcium 8.5 Phosphorus 4.3 Magnesium 2.6 H Ferritin 533.00 H C-Reactive Protein 69.4 H Urine Color Urine Appearance Urine pH Ur Specific [place] Urine Protein Urine Glucose (UA) Urine Ketones Urine Blood Urine Nitrite Ur Leukocyte Esterase Urine WBC (Auto) Urine RBC (Auto) 06/12/20 06/12/20 06/12/20 16:49 16:49 21:30 Creatine Kinase 119 CK-MB (CK-2) Troponin I 0.046 0.105 NT-Pro-B Natriuret Pep 420 H 06/13/20 06/27/20 06/28/20 06:31 04:39 02:31 Creatine Kinase CK-MB (CK-2) Troponin I 0.087 < 0.012 NT-Pro-B Natriuret Pep 536 H 06/28/20 06/28/20 02:31 02:31 Creatine Kinase 32 L CK-MB (CK-2) 1.34 Troponin I 0.016 NT-Pro-B Natriuret Pep Impressions: Chest/Abdomen CTA 06/16/20 08:30 IMPRESSION: 1. Extensive bilateral alveolar airspace disease consistent with Covid 19 pneumonia. 2. Limited study for evaluation of pulmonary embolus due to timing of the bolus. Suspect filling defects in the right lower lobe pulmonary artery as discussed. Chest X-Ray 06/27/20 00:00 IMPRESSION: No change. Venous Doppler Study 06/27/20 00:00 IMPRESSION: NO EVIDENCE OF DVT OR SVT IN EITHER LEG. Assessment and Plan - Diagnosis (1) Pneumonia due to COVID-19 virus Is this a current diagnosis for this admission?: Yes Plan: Completed remdesivir, dexamethasone and convalescent plasma. Also received some empiric antibiotics earlier in admission. At this point, we are essentially just waiting for his lungs to show any signs of improvement. (2) Acute respiratory failure with hypoxia Is this a current diagnosis for this admission?: Yes Plan: Secondary to COVID-19 We will leave patient on CPAP for today. Current settings 8/100% His Solu-Medrol was changed to Decadron in the ICU. (3) Pulmonary embolism on right Is this a current diagnosis for this admission?: Yes Plan: Associated with COVID-19. Discontinue heparin drip. Resume Eliquis. Transition him to 5mg bid in couple of days. (4) Hypertension Qualifiers: Hypertension type: essential hypertension Qualified Code(s): I10 - Essential (primary) hypertension Is this a current diagnosis for this admission?: Yes Plan: Continue antihypertensives (5) Diabetes Qualifiers: Diabetes mellitus type: type 2 Diabetes mellitus complication status: with circulatory complication Diabetes mellitus complication detail: with other circulatory complications Is this a current diagnosis for this admission?: Yes Plan: Sliding scale insulin and Accu-Cheks. Diabetic diet. hold Lantus dose until diet is resumed. place on d5 saline while npo (6) History of stroke Is this a current diagnosis for this admission?: Yes Plan: Continue Plavix and atorvastatin. Has residual left-sided paresis. (7) Obesity (BMI 30.0-34.9) Is this a current diagnosis for this admission?: Yes - Time Time Spent with patient: 15-24 minutes Anticipated Discharge Disposition: Home, Self Care Anticipated Discharge Timeframe: unknown
[2020-06-28] MEDS ORDERED: MORPHINE SULFATE 10 MG/ML INJ ONE (14:51)
[2020-06-28] MEDS ORDERED: IPRATROPIUM/ALBUTEROL 0.5-2.5 MG/3 ML AMPUL NEB ONE (15:30)
[2020-06-28] MEDS ORDERED: DEXMEDETOMIDINE IN 0.9 % NACL 400 MCG/100 ML RTUPB IV ONE (15:58)
[2020-06-28] MEDS ORDERED: HEPARIN SODIUM,PORCINE/D5W 25,000 UNIT/250 ML RTUINJ IV ONE (16:07)
[2020-06-28 16:14] LABS: ARTERIAL BLOOD BASE EXCESS 0.3 mmol/L; ARTERIAL BLOOD H2CO3 1.31 mmol/L (1.05-1.35); ARTERIAL BLOOD HCO3 25.5 mmol/L (20-24); ARTERIAL BLOOD O2 SATURATION 82.1 % (94-98); ARTERIAL BLOOD PCO2 43.4 mmHg (35-45); ARTERIAL BLOOD PH 7.39 (7.35-7.45); ARTERIAL BLOOD PO2 46.8 mmHg (80-100); ARTERIAL BLOOD TOTAL CO2 26.8 mmol/L (23-27)
[2020-06-28 16:15] LABS: ARTERIAL BLOOD FIO2 100%
[2020-06-28] MEDS ORDERED: HEPARIN SOD (PORCINE) 1,000 UNIT/ML 10 ML VIAL IV ONE (16:17)
[2020-06-28] MEDS: DEXMEDETOMIDINE IN 0.9 % NACL 400 MCG/100 ML RTUPB IV PRN (16:20)
[2020-06-28] MEDS ORDERED: HEPARIN SOD (PORCINE) 1,000 UNIT/ML 10 ML VIAL ONE (16:22)
--- NOTE | 2020-06-28 16:28 | RADIOLOGY REPORT (SQ) ---
EXAM DESCRIPTION: CHEST SINGLE VIEW IMAGES COMPLETED DATE/TIME: 06/28/2020 4:19 pm REASON FOR STUDY: Resp Failure COMPARISON: Previous day. NUMBER OF VIEWS: One view. TECHNIQUE: Single frontal radiographic image of the chest acquired. LIMITATIONS: None. FINDINGS: LUNGS AND PLEURA: Diffuse bilateral airspace disease with increasing density in the lung b ases allowing for different technique. No evidence of cavitation. MEDIASTINUM AND HEART: Stable heart size and mediastinal structures. BONY STRUCTURES: No acute findings. HARDWARE: None. OTHER: No other significant finding. IMPRESSION: Rehydration versus progressing pneumonia. TECHNICAL DOCUMENTATION: JOB ID: [id number] Reading location - IP/workstation name: [email or web address]
[2020-06-28] MEDS ORDERED: MORPHINE SULFATE 10 MG/ML INJ IV ONE (16:30)
[2020-06-28] MEDS ORDERED: FUROSEMIDE INJ/PF 20 MG/2 ML SDV IV ONE (16:34)
[2020-06-28] MEDS ORDERED: FUROSEMIDE INJ/PF 20 MG/2 ML SDV ONE (16:44)
[2020-06-28] MEDS ORDERED: LABETALOL HCL INJ 20 MG/4 ML DISP.SYRIN IV ONE (17:00)
[2020-06-28] MEDS: LABETALOL HCL INJ 20 MG/4 ML DISP.SYRIN IV PRN (17:05)
--- NOTE | 2020-06-28 18:31 | PDOC CRITICAL CARE PROG REPORT ---
General Date:: 06/28/20 ICU Day:: 2 Hospital Day:: 2 Resuscitation Status: Full Code Events in the past 12 to 24 Hours:: This 55-year-old male presented to [facility] emergency department on 06/27/2020 via EMS with complaints of fever and chills for 2 days prior to presentation. Associated symptoms included myalgias, dyspnea, nonproductive cough and sore throat. He denied any change in taste or smell. Nonetheless, he was diagnosed with COVID-19 pneumonia. Per EMS report, the patient was hypoxic upon their arrival, SPO2 72%. He was placed on CPAP en route to the hospital. He was initially admitted by the hospitalist service. Rapid response team was called for worsening hypoxia. The patient was transferred to the ICU. 06/28: Yesterday, the patient was stable on CPAP 8, FiO2 100%. He was fully conversant, mentating well. He was able to take off his own mask to snack ( brought him home-cooked food) and drink water. He was initiated on heparin infusion. Maintained SPO2 100% throughout the entire day shift. He transferred out last night to [facility]. However, Dr. Bustamante called requesting transfer back to the ICU because the patient was becoming progressively more hypoxic. He was on CPAP 12, FiO2 100% with a respiratory rate in the 30s. He was transferred back to the ICU on CPAP 15, FiO2 100%. Respiratory rate 30s to 40s. SPO2 83%. He is still mentating well. He denies pain. He is tachycardic. He is anxious. Review of systems relevant to events:: Constitutional: Fever, chills, myalgia Respiratory: COVID-19 pneumonia, dyspnea, nonproductive cough Reason for ICU Addmission:: acute respiratory failure - worsening hypoxia - Medications: Medications reviewed and adjusted accordingly: Yes Physical Exam Vital Signs: Temp Pulse Resp BP Pulse Ox 98.5 F 91 38 H 139/79 H 91 L 06/28/20 11:22 06/28/20 11:34 06/28/20 13:39 06/28/20 11:34 06/28/20 13:39 Pulse Oximeter Continuous Start: 06/12/20 18:32 Freq: RTQ4 Status: Complete Protocol: Document 06/23/20 03:42 CMI (Rec: 06/23/20 04:07 CMI [id number]) Pulse Oximetry Assessment Oxygen Saturation (92-100) 97 Oxygen Delivery Method CPAP Fraction of Inspired Oxygen (FIO2) 100 Equipment Usage Equipment Standby Continuous SpO2 Machine # on nurse monitor Intake & Output 06/27/20 06/28/20 06/29/20 06:59 06:59 06:59 Intake Total 840 2091 972 Output Total 1845 850 400 Balance -1005 1241 572 Weight 74.9 kg 76.8 kg Weight/Height Weight 76.8 kg Height 1.7 m General appearance: PRESENT: mild distress, well-developed, well-nourished Head exam: PRESENT: atraumatic, normocephalic Eye exam: PRESENT: conjunctiva pink, EOMI, PERRLA. ABSENT: scleral icterus Mouth exam: PRESENT: dry mucosa, tongue midline Neck exam: ABSENT: carotid bruit, JVD, lymphadenopathy, thyromegaly Respiratory exam: PRESENT: clear to auscultation aaron, symmetrical, tachypnea. ABSENT: rales, rhonchi, wheezes Cardiovascular exam: PRESENT: RRR, tachycardia. ABSENT: diastolic murmur, rubs, systolic murmur Pulses: PRESENT: normal dorsalis pedis pul GI/Abdominal exam: PRESENT: normal bowel sounds, soft. ABSENT: distended, guarding, mass, organolmegaly, rebound, tenderness Extremities exam: PRESENT: full ROM. ABSENT: calf tenderness, clubbing, pedal edema Neurological exam: PRESENT: alert, awake, oriented to person, oriented to place, oriented to time, oriented to situation, CN II-XII grossly intact, motor sensory deficit - Left hemiparesis (old stroke) Psychiatric exam: PRESENT: agitated, anxious, appropriate affect, normal mood. ABSENT: homicidal ideation, suicidal ideation Skin exam: PRESENT: dry, intact, warm. ABSENT: cyanosis, rash Laboratory/Radiographs Laboratory Results: 06/28/20 02:31 06/28/20 02:31 06/27/20 06/27/20 06/28/20 15:16 15:16 02:31 WBC RBC Hgb Hct MCV MCH MCHC RDW Plt Count Seg Neutrophils % Carbonic Acid 1.29 HCO3/H2CO3 Ratio 19:1 ABG pH 7.38 ABG pCO2 42.8 ABG pO2 118.1 H ABG HCO3 24.8 H ABG O2 Saturation 98.2 H ABG Base Excess -0.4 FiO2 100% Sodium 136.8 L Potassium 4.6 Chloride 107 Carbon Dioxide 26 Anion Gap 4 L BUN 30 H Creatinine 0.68 Est GFR ( Amer) > 60 Glucose 185 H Calcium 8.5 Phosphorus 4.3 Magnesium 2.6 H Ferritin 533.00 H C-Reactive Protein 69.4 H Urine Color YELLOW Urine Appearance CLEAR Urine pH 5.0 Ur Specific [place] 1.017 Urine Protein 30 H Urine Glucose (UA) >=500 H Urine Ketones NEGATIVE Urine Blood NEGATIVE Urine Nitrite NEGATIVE Ur Leukocyte Esterase NEGATIVE Urine WBC (Auto) 0 Urine RBC (Auto) 1 06/28/20 06/28/20 02:31 03:00 WBC 21.4 H RBC 3.86 L Hgb 11.6 L Hct 34.0 L MCV 88 MCH 30.0 MCHC 34.0 RDW 13.2 Plt Count 319 Seg Neutrophils % Not Reportable Carbonic Acid 1.16 HCO3/H2CO3 Ratio 21:1 ABG pH 7.43 ABG pCO2 38.6 ABG pO2 53.3 L ABG HCO3 25.1 H ABG O2 Saturation 88.7 L ABG Base Excess 0.9 FiO2 ROOM AIR Sodium Potassium Chloride Carbon Dioxide Anion Gap BUN Creatinine Est GFR ( Amer) Glucose Calcium Phosphorus Magnesium Ferritin C-Reactive Protein Urine Color Urine Appearance Urine pH Ur Specific [place] Urine Protein Urine Glucose (UA) Urine Ketones Urine Blood Urine Nitrite Ur Leukocyte Esterase Urine WBC (Auto) Urine RBC (Auto) 06/12/20 06/12/20 06/12/20 16:49 16:49 21:30 Creatine Kinase 119 CK-MB (CK-2) Troponin I 0.046 0.105 NT-Pro-B Natriuret Pep 420 H 06/13/20 06/27/20 06/28/20 06:31 04:39 02:31 Creatine Kinase CK-MB (CK-2) Troponin I 0.087 < 0.012 NT-Pro-B Natriuret Pep 536 H 06/28/20 06/28/20 02:31 02:31 Creatine Kinase 32 L CK-MB (CK-2) 1.34 Troponin I 0.016 NT-Pro-B Natriuret Pep Impressions: Chest/Abdomen CTA 06/16/20 08:30 IMPRESSION: 1. Extensive bilateral alveolar airspace disease consistent with Covid 19 pneumonia. 2. Limited study for evaluation of pulmonary embolus due to timing of the bolus. Suspect filling defects in the right lower lobe pulmonary artery as discussed. Chest X-Ray 06/27/20 00:00 IMPRESSION: No change. Venous Doppler Study 06/27/20 00:00 IMPRESSION: NO EVIDENCE OF DVT OR SVT IN EITHER LEG. All labs, radiographs, diagnostic studies and EKGs were personally reviewed: Yes In addition, reports of radiographic and diagnostic studies were read: Yes Assessment and Plan - Diagnosis (1) Acute respiratory failure with hypoxia Is this a current diagnosis for this admission?: Yes Plan: * Secondary to COVID-19 * Titrate CPAP to maintain SPO2 90+ percent. Maximum pressure 20. * Trial of Precedex, in hopes of lowering heart rate. * Continue Decadron. (2) Pneumonia due to COVID-19 virus Is this a current diagnosis for this admission?: Yes Plan: * Completed remdesivir, ivermectin, dexamethasone and convalescent plasma. * Restart budesonide. * Monitor CRP, ferritin, D-dimer. (3) Pulmonary embolism on right Is this a current diagnosis for this admission?: Yes Plan: * Restart heparin infusion. * Stop Eliquis. (4) Hyperglycemia due to type 2 diabetes mellitus Qualifiers: Diabetes mellitus fpc insulin use: without fpc use Qualified Code(s): E11.65 - Type 2 diabetes mellitus with hyperglycemia Is this a current diagnosis for this admission?: Yes Plan: * Continue sliding scale insulin. (5) Hypertension Qualifiers: Hypertension type: essential hypertension Qualified Code(s): I10 - Essential (primary) hypertension Is this a current diagnosis for this admission?: Yes Plan: * Change Vasotec to 1.25 mg IV every 6 h. (6) Obesity (BMI 30.0-34.9) Is this a current diagnosis for this admission?: Yes Plan: * Keeping up with nutrition is of critical importance in COVID-19 pneumonia. The patient's has expressed her wishes to deliver home-cooked meals. We will make arrangements for this to be provided to the patient. Plan Summary: updated by phone. Critical Time Critical Time (minutes): 60 Level of Care: ICU -: 1. The care of a critical patient is a dynamic process. This note is a sales representative cash registers synopsis but static in nature. The timeframe for treatments given in order is not necessarily the actual time these treatments may have been done. 2. This patient requires critical care secondary to ongoing requirements for therapy not offered or safe outside the critical care environment. Transfer to a lower level of care will result in altered life or limb morbidity and mortality. 3. Multidisciplinary rounds completed. 4. ABCDE bundle addressed.
[2020-06-28] MEDS ORDERED: BUDESONIDE NEB 0.25 MG/2 ML AMPUL NEB SCH (20:00)
[2020-06-28 22:17] LABS: ARTERIAL BLOOD BASE EXCESS -0.9 mmol/L; ARTERIAL BLOOD H2CO3 1.08 mmol/L (1.05-1.35); ARTERIAL BLOOD HCO3 23.1 mmol/L (20-24); ARTERIAL BLOOD O2 SATURATION 91.2 % (94-98); ARTERIAL BLOOD PCO2 35.9 mmHg (35-45); ARTERIAL BLOOD PH 7.43 (7.35-7.45); ARTERIAL BLOOD PO2 58.6 mmHg (80-100); ARTERIAL BLOOD TOTAL CO2 24.2 mmol/L (23-27)
[2020-06-28 22:18] LABS: ARTERIAL BLOOD FIO2 100%
[2020-06-28] MEDS: ENALAPRILAT DIHYDRATE INJ/PF 1.25 MG/1 ML SDV IV SCH (22:39)
[2020-06-28] MEDS: ATORVASTATIN CALCIUM 40 MG TABLET PO SCH (22:52)
[2020-06-29] MEDS: PANTOPRAZOLE SODIUM 40 MG VIAL IV SCH ×2 (00:15→09:49)
[2020-06-29] MEDS: ENALAPRILAT DIHYDRATE INJ/PF 1.25 MG/1 ML SDV IV SCH ×4 (01:17→18:13)
[2020-06-29] MEDS: DEXMEDETOMIDINE IN 0.9 % NACL 400 MCG/100 ML RTUPB IV PRN (01:40)
[2020-06-29 04:41] LABS: ANION GAP 7 (5-19); BLOOD UREA NITROGEN 31 mg/dL (7-20); CALCIUM 8.4 mg/dL (8.4-10.2); CARBON DIOXIDE 25 mmol/L (22-30); CHLORIDE 109 mmol/L (98-107); GLUCOSE 223 mg/dL (75-110); PHOSPHORUS 4.8 mg/dL (2.5-4.5); POTASSIUM 4.9 mmol/L (3.6-5.0)
[2020-06-29 05:35] LABS: HEMATOCRIT 32.4 % (37.9-51.0); HEMOGLOBIN 10.9 g/dL (13.5-17.0); MEAN CORPUSCULAR HEMOGLOBIN 29.9 pg (27.0-33.4); MEAN CORPUSCULAR HGB CONC 33.7 g/dL (32.0-36.0); MEAN CORPUSCULAR VOLUME 89 fl (80-97); PLATELET COUNT 258 10^3/uL (150-450); RED BLOOD COUNT 3.66 10^6/uL (4.35-5.55); RED CELL DISTRIBUTION WIDTH 12.9 % (11.5-14.0)
[2020-06-29 05:55] LABS: ARTERIAL BLOOD BASE EXCESS 0.4 mmol/L; ARTERIAL BLOOD HCO3 24.3 mmol/L (20-24); ARTERIAL BLOOD O2 SATURATION 92.4 % (94-98); ARTERIAL BLOOD PCO2 36.6 mmHg (35-45); ARTERIAL BLOOD PH 7.44 (7.35-7.45); ARTERIAL BLOOD TOTAL CO2 25.4 mmol/L (23-27)
[2020-06-29 05:59] LABS: ARTERIAL BLOOD FIO2 100%
[2020-06-29] MEDS: ALBUTEROL SULFATE HFA (90 MCG/PUFF) 8 GM MDI IH SCH ×2 (07:29→11:50)
[2020-06-29] MEDS: DEXAMETHASONE SOD PHOSPHATE INJ 4 MG/1 ML VIAL IV SCH ×2 (07:30→18:13)
[2020-06-29] MEDS: BUDESONIDE NEB 0.25 MG/2 ML AMPUL NEB SCH ×2 (08:45→20:28)
[2020-06-29] MEDS: INSULIN LISPRO 100 UNIT/ML 3 ML VIAL SUBCUT SCH ×3 (09:48→16:18)
[2020-06-29] MEDS: DOCUSATE SODIUM 100 MG CAPSULE PO SCH ×2 (09:49→10:42)
[2020-06-29] MEDS: ESCITALOPRAM OXALATE 10 MG TABLET PO SCH ×2 (09:49→10:46)
[2020-06-29] MEDS: CLOPIDOGREL BISULFATE 75 MG TABLET PO SCH ×2 (09:49→10:46)
--- NOTE | 2020-06-29 10:44 | RADIOLOGY REPORT (SQ) ---
EXAM DESCRIPTION: CHEST SINGLE VIEW IMAGES COMPLETED DATE/TIME: 06/29/2020 5:40 am REASON FOR STUDY: ETT tube COMPARISON: Previous day NUMBER OF VIEWS: One view. TECHNIQUE: Single frontal radiographic image of the chest acquired. LIMITATIONS: None. FINDINGS: LUNGS AND PLEURA: Bilateral airspace disease not significantly changed. No evidence of ca vitation or pneumothorax. MEDIASTINUM AND HEART: Stable heart size and mediastinal structures. BONY STRUCTURES: No acute findings. HARDWARE: None. OTHER: No other significant finding. IMPRESSION: No significant change. TECHNICAL DOCUMENTATION: JOB ID: [id number] Reading location - IP/workstation name: [email or web address]
[2020-06-29] MEDS: HEPARIN SODIUM,PORCINE/D5W 25,000 UNIT/250 ML RTUINJ IV PRN (14:10)
[2020-06-29] MEDS ORDERED: PHENOL/SODIUM PHENOLATE 100 SPRAY/177 ML BOTTLE PO PRN (16:08)
[2020-06-29] MEDS ORDERED: ALBUTEROL SULFATE 0.083% NEB 2.5 MG/3 ML AMPUL NEB ONE (16:24)
[2020-06-29] MEDS: ALBUTEROL SULFATE 0.083% NEB 2.5 MG/3 ML AMPUL NEB SCH ×2 (16:25→20:28)
[2020-06-29] MEDS ORDERED: FUROSEMIDE INJ/PF 20 MG/2 ML SDV IV ONE (16:30)
--- NOTE | 2020-06-29 18:54 | PDOC CRITICAL CARE PROG REPORT ---
General Date:: 06/29/20 ICU Day:: 3 Hospital Day:: 3 Resuscitation Status: Full Code Events in the past 12 to 24 Hours:: This 55-year-old male presented to [facility] emergency department on 06/27/2020 via EMS with complaints of fever and chills for 2 days prior to presentation. Associated symptoms included myalgias, dyspnea, nonproductive cough and sore throat. He denied any change in taste or smell. Nonetheless, he was diagnosed with COVID-19 pneumonia. Per EMS report, the patient was hypoxic upon their arrival, SPO2 72%. He was placed on CPAP en route to the hospital. He was initially admitted by the hospitalist service. Rapid response team was called for worsening hypoxia. The patient was transferred to the ICU. 06/28: Yesterday, the patient was stable on CPAP 8, FiO2 100%. He was fully conversant, mentating well. He was able to take off his own mask to snack ( brought him home-cooked food) and drink water. He was initiated on heparin infusion. Maintained SPO2 100% throughout the entire day shift. He transferred out last night to [facility]. However, Dr. Bustamante called requesting transfer back to the ICU because the patient was becoming progressively more hypoxic. He was on CPAP 12, FiO2 100% with a respiratory rate in the 30s. He was transferred back to the ICU on CPAP 15, FiO2 100%. Respiratory rate 30s to 40s. SPO2 83%. He is still mentating well. He denies pain. He is tachycardic. He is anxious. 06/29: Remains CPAP dependent. Required as much his CPAP 16 yesterday. Now down to CPAP 1214. FiO2 100%. SPO2 89-90%. Mentating well. However, nurse reports that he is having difficulty with swallowing and is no longer able to take p.o. medications. Respiratory rate 30s. He denies pain. Tachycardia and hypertension are being addressed with Precedex and labetalol as needed. Less anxious. ABG this a.m.: 7.44/36/61. On heparin infusion for treatment of confirmed pulmonary embolism. Heparin currently on hold due to elevated PTT. Review of systems relevant to events:: Constitutional: Fever, chills, myalgia Respiratory: COVID-19 pneumonia, dyspnea, nonproductive cough Reason for ICU Addmission:: acute respiratory failure - worsening hypoxia - Medications: Medications reviewed and adjusted accordingly: Yes Vasopressors:: None Sedation:: Precedex Physical Exam Vital Signs: Temp Pulse Resp BP Pulse Ox 97.0 F 72 29 H 145/79 H 84 L 06/29/20 10:00 06/29/20 10:00 06/29/20 10:00 06/29/20 10:00 06/29/20 10:00 Pulse Oximeter Continuous Start: 06/12/20 18:32 Freq: RTQ4 Status: Complete Protocol: Document 06/23/20 03:42 CMI (Rec: 06/23/20 04:07 CMI [id number]) Pulse Oximetry Assessment Oxygen Saturation (92-100) 97 Oxygen Delivery Method CPAP Fraction of Inspired Oxygen (FIO2) 100 Equipment Usage Equipment Standby Continuous SpO2 Machine # on nurse monitor Intake & Output 06/28/20 06/29/20 06/30/20 06:59 06:59 06:59 Intake Total 2091 1637 624 Output Total 850 1560 275 Balance 1241 77 349 Weight 74.7 kg 75.1 kg Weight/Height Weight 75.1 kg Height 1.7 m General appearance: PRESENT: no acute distress, well-developed, well-nourished Head exam: PRESENT: atraumatic, normocephalic Eye exam: PRESENT: conjunctiva pink, EOMI, PERRLA. ABSENT: scleral icterus Mouth exam: PRESENT: dry mucosa, tongue midline Neck exam: ABSENT: carotid bruit, JVD, lymphadenopathy, thyromegaly Respiratory exam: PRESENT: crackles - Scattered. ABSENT: rales, rhonchi, wheezes Cardiovascular exam: PRESENT: RRR. ABSENT: diastolic murmur, rubs, systolic murmur GI/Abdominal exam: PRESENT: normal bowel sounds, soft. ABSENT: distended, guarding, mass, organolmegaly, rebound, tenderness Gentrourinary exam: PRESENT: indwelling catheter Extremities exam: PRESENT: full ROM. ABSENT: calf tenderness, clubbing, pedal edema Musculoskeletal exam: PRESENT: normal inspection. ABSENT: deformity Neurological exam: PRESENT: alert, awake, oriented to person, oriented to place, oriented to time, oriented to situation, CN II-XII grossly intact. ABSENT: motor sensory deficit Psychiatric exam: ABSENT: agitated, anxious Skin exam: PRESENT: dry, intact, warm. ABSENT: cyanosis, rash Laboratory/Radiographs Laboratory Results: 06/29/20 05:15 06/29/20 04:17 06/28/20 06/28/20 06/29/20 16:00 21:55 04:17 WBC RBC Hgb Hct MCV MCH MCHC RDW Plt Count Carbonic Acid 1.31 1.08 HCO3/H2CO3 Ratio 19:1 21:1 ABG pH 7.39 7.43 ABG pCO2 43.4 35.9 ABG pO2 46.8 L 58.6 L ABG HCO3 25.5 H 23.1 ABG O2 Saturation 82.1 L 91.2 L ABG Base Excess 0.3 -0.9 FiO2 100% 100% Sodium 141.1 Potassium 4.9 Chloride 109 H Carbon Dioxide 25 Anion Gap 7 BUN 31 H Creatinine 0.95 Est GFR ( Amer) > 60 Glucose 223 H Calcium 8.4 Phosphorus 4.8 H Magnesium 2.3 06/29/20 06/29/20 05:15 05:15 WBC 17.0 H RBC 3.66 L Hgb 10.9 L Hct 32.4 L MCV 89 MCH 29.9 MCHC 33.7 RDW 12.9 Plt Count 258 Carbonic Acid 1.10 HCO3/H2CO3 Ratio 22:1 ABG pH 7.44 ABG pCO2 36.6 ABG pO2 61.0 L ABG HCO3 24.3 H ABG O2 Saturation 92.4 L ABG Base Excess 0.4 FiO2 100% Sodium Potassium Chloride Carbon Dioxide Anion Gap BUN Creatinine Est GFR ( Amer) Glucose Calcium Phosphorus Magnesium 06/12/20 06/12/20 06/12/20 16:49 16:49 21:30 Creatine Kinase 119 CK-MB (CK-2) Troponin I 0.046 0.105 NT-Pro-B Natriuret Pep 420 H 06/13/20 06/27/20 06/28/20 06:31 04:39 02:31 Creatine Kinase CK-MB (CK-2) Troponin I 0.087 < 0.012 NT-Pro-B Natriuret Pep 536 H 06/28/20 06/28/20 06/28/20 02:31 02:31 15:37 Creatine Kinase 32 L CK-MB (CK-2) 1.34 Troponin I 0.016 < 0.012 NT-Pro-B Natriuret Pep Impressions: Chest/Abdomen CTA 06/16/20 08:30 IMPRESSION: 1. Extensive bilateral alveolar airspace disease consistent with Covid 19 pneumonia. 2. Limited study for evaluation of pulmonary embolus due to timing of the bolus. Suspect filling defects in the right lower lobe pulmonary artery as discussed. Venous Doppler Study 06/27/20 00:00 IMPRESSION: NO EVIDENCE OF DVT OR SVT IN EITHER LEG. Chest X-Ray 06/29/20 05:00 IMPRESSION: No significant change. All labs, radiographs, diagnostic studies and EKGs were personally reviewed: Yes In addition, reports of radiographic and diagnostic studies were read: Yes Assessment and Plan - Diagnosis (1) Acute respiratory failure with hypoxia Is this a current diagnosis for this admission?: Yes Plan: * Secondary to COVID-19 * Titrate CPAP to maintain SPO2 90+ percent. Maximum pressure 20. * Trial of Precedex, in hopes of lowering heart rate. * Continue Decadron. (2) Hypertension Qualifiers: Hypertension type: essential hypertension Qualified Code(s): I10 - Essential (primary) hypertension Is this a current diagnosis for this admission?: Yes Plan: * Change Vasotec to 1.25 mg IV every 6 h. * Continue labetalol as needed (3) Pneumonia due to COVID-19 virus Is this a current diagnosis for this admission?: Yes Plan: * Completed remdesivir, ivermectin, dexamethasone and convalescent plasma. * Continue budesonide. * Monitor CRP, ferritin, D-dimer. (4) Pulmonary embolism on right Is this a current diagnosis for this admission?: Yes Plan: * Continue heparin infusion per protocol. 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 Critical Time Critical Time (minutes): 45 Level of Care: ICU -: 1. The care of a critical patient is a dynamic process. This note is a chain sales representative synopsis but static in nature. The timeframe for treatments given in order is not necessarily the actual time these treatments may have been done. 2. This patient requires critical care secondary to ongoing requirements for therapy not offered or safe outside the critical care environment. Transfer to a lower level of care will result in altered life or limb morbidity and morta lity. 3. Multidisciplinary rounds completed. 4. ABCDE bundle addressed.
[2020-06-30] MEDS: ATORVASTATIN CALCIUM 40 MG TABLET PO SCH ×2 (01:54→22:22)
[2020-06-30] MEDS: ENALAPRILAT DIHYDRATE INJ/PF 1.25 MG/1 ML SDV IV SCH ×4 (01:55→17:00)
[2020-06-30] MEDS: ALBUTEROL SULFATE 0.083% NEB 2.5 MG/3 ML AMPUL NEB SCH ×4 (02:15→19:52)
[2020-06-30] MEDS: ONDANSETRON HCL INJ/PF 4 MG/2 ML SDV IV PRN ×2 (03:15→16:49)
[2020-06-30] MEDS: PANTOPRAZOLE SODIUM 40 MG VIAL IV SCH ×3 (03:15→22:22)
[2020-06-30 04:37] LABS: ABSOLUTE BASOPHILS # (AUTO) 0.1 10^3/uL (0.0-0.2); ABSOLUTE LYMPHOCYTES (AUTO) 0.7 10^3/uL (0.5-4.7); ABSOLUTE MONOCYTES (AUTO) 0.5 10^3/uL (0.1-1.4); BASOPHILS % (AUTO) 0.4 % (0-2); HEMATOCRIT 34.6 % (37.9-51.0); HEMOGLOBIN 11.5 g/dL (13.5-17.0); LYMPHOCYTES % (AUTO) 5.3 % (13-45); MEAN CORPUSCULAR HEMOGLOBIN 29.6 pg (27.0-33.4); MEAN CORPUSCULAR HGB CONC 33.3 g/dL (32.0-36.0); MEAN CORPUSCULAR VOLUME 89 fl (80-97); MONOCYTES % (AUTO) 4.1 % (3-13); PLATELET COUNT 232 10^3/uL (150-450); RED BLOOD COUNT 3.89 10^6/uL (4.35-5.55); RED CELL DISTRIBUTION WIDTH 13.1 % (11.5-14.0); SEGMENTED NEUTROPHILS % (AUTO) 90.2 % (42-78); TOTAL CELLS COUNTED % (AUTO) 100 %; WHITE BLOOD COUNT 13.3 10^3/uL (4.0-10.5)
[2020-06-30 05:09] LABS: ALBUMIN 2.5 g/dL (3.5-5.0); ALKALINE PHOSPHATASE 167 U/L (38-126); ANION GAP 6 (5-19); ASPARTATE AMINO TRANSFERASE 37 U/L (17-59); BILIRUBIN,DIRECT 0.4 mg/dL (0.0-0.4); BILIRUBIN,TOTAL 0.7 mg/dL (0.2-1.3); BLOOD UREA NITROGEN 36 mg/dL (7-20); CALCIUM 8.5 mg/dL (8.4-10.2); CARBON DIOXIDE 27 mmol/L (22-30); CHLORIDE 110 mmol/L (98-107); GLUCOSE 224 mg/dL (75-110); POTASSIUM 4.8 mmol/L (3.6-5.0); TOTAL PROTEIN 6.2 g/dL (6.3-8.2)
[2020-06-30 05:13] LABS: PHOSPHORUS 5.5 mg/dL (2.5-4.5)
[2020-06-30 05:18] LABS: PREALBUMIN 11.5 mg/dL (17.6-36.0)
[2020-06-30 05:28] LABS: C-REACTIVE PROTEIN 152.8 mg/L (<10.0)
[2020-06-30] MEDS: INSULIN LISPRO 100 UNIT/ML 3 ML VIAL SUBCUT SCH ×5 (06:43→22:23)
[2020-06-30] MEDS: DEXAMETHASONE SOD PHOSPHATE INJ 4 MG/1 ML VIAL IV SCH ×2 (06:55→17:01)
[2020-06-30 07:42] LABS: ARTERIAL BLOOD BASE EXCESS 1.2 mmol/L; ARTERIAL BLOOD H2CO3 1.15 mmol/L (1.05-1.35); ARTERIAL BLOOD HCO3 25.3 mmol/L (20-24); ARTERIAL BLOOD O2 SATURATION 92.5 % (94-98); ARTERIAL BLOOD PCO2 38.3 mmHg (35-45); ARTERIAL BLOOD PH 7.44 (7.35-7.45); ARTERIAL BLOOD PO2 61.7 mmHg (80-100); ARTERIAL BLOOD TOTAL CO2 26.5 mmol/L (23-27)
[2020-06-30 07:45] LABS: ARTERIAL BLOOD FIO2 100%
[2020-06-30] MEDS: DEXMEDETOMIDINE IN 0.9 % NACL 400 MCG/100 ML RTUPB IV PRN (07:48)
--- NOTE | 2020-06-30 08:29 | RADIOLOGY REPORT (SQ) ---
EXAM DESCRIPTION: CHEST SINGLE VIEW IMAGES COMPLETED DATE/TIME: 06/30/2020 6:08 am REASON FOR STUDY: ETT tube COMPARISON: AP view of the chest from 06/29/2020. EXAM PARAMETERS: NUMBER OF VIEWS: One view. TECHNIQUE: An AP view of the chest was obtained. RADIATION DOSE: NA LIMITATIONS: None. FINDINGS: LUNGS AND PLEURA: Unchanged patchy bilateral basilar predominant parenchymal opacities. T here is no sizable pleural effusion or pneumothorax. MEDIASTINUM AND HILAR STRUCTURES: Stable mediastinal and hilar contours. HEART AND VASCULAR STRUCTURES: Stable cardiac silhouette. BONES: No acute findings. HARDWARE: None in the chest. OTHER: No other finding. IMPRESSION: Unchanged radiographic appearance of the chest. TECHNICAL DOCUMENTATION: JOB ID: [id number] 2010 [employer]- All Rights Reserved Reading location - IP/workstation name: [email or web address]
[2020-06-30] MEDS: BUDESONIDE NEB 0.25 MG/2 ML AMPUL NEB SCH ×2 (08:30→19:52)
--- NOTE | 2020-06-30 11:29 | PDOC CRITICAL CARE PROG REPORT ---
General Date:: 06/30/20 ICU Day:: 3 Hospital Day:: 18 Resuscitation Status: Full Code Events in the past 12 to 24 Hours:: This 55-year-old male presented to [facility] emergency department on 06/27/2020 via EMS with complaints of fever and chills for 2 days prior to presentation. Associated symptoms included myalgias, dyspnea, nonproductive cough and sore throat. He denied any change in taste or smell. Nonetheless, he was diagnosed with COVID-19 pneumonia. Per EMS report, the patient was hypoxic upon their arrival, SPO2 72%. He was placed on CPAP en route to the hospital. He was initially admitted by the hospitalist service. Rapid response team was called for worsening hypoxia. The patient was transferred to the ICU. 06/28: Yesterday, the patient was stable on CPAP 8, FiO2 100%. He was fully conversant, mentating well. He was able to take off his own mask to snack ( brought him home-cooked food) and drink water. He was initiated on heparin infusion. Maintained SPO2 100% throughout the entire day shift. He transferred out last night to [facility]. However, Dr. Bustamante called requesting transfer back to the ICU because the patient was becoming progressively more hypoxic. He was on CPAP 12, FiO2 100% with a respiratory rate in the 30s. He was transferred back to the ICU on CPAP 15, FiO2 100%. Respiratory rate 30s to 40s. SPO2 83%. He is still mentating well. He denies pain. He is tachycardic. He is anxious. 06/29: Remains CPAP dependent. Required as much his CPAP 16 yesterday. Now down to CPAP 1214. FiO2 100%. SPO2 89-90%. Mentating well. However, nurse reports that he is having difficulty with swallowing and is no longer able to take p.o. medications. Respiratory rate 30s. He denies pain. Tachycardia and hypertension are being addressed with Precedex and labetalol as needed. Less anxious. ABG this a.m.: 7.44/36/61. On heparin infusion for treatment of confirmed pulmonary embolism. Heparin currently on hold due to elevated PTT. 06/30: No real change. Still mentating well. O2 saturations 85-90%. Needing precedex. If unable to come of CPAP and eat he will need a PICC and TPN by rimma. On heparin for PE. Review of systems relevant to events:: Pulmonary Reason for ICU Addmission:: acute respiratory failure - worsening hypoxia - Medications: Medications reviewed and adjusted accordingly: Yes Vasopressors:: None Sedation:: Precedex Physical Exam Vital Signs: Temp Pulse Resp BP Pulse Ox 98.2 F 80 18 100/77 86 L 06/30/20 09:58 06/30/20 11:08 06/30/20 10:00 06/30/20 11:08 06/30/20 10:00 Pulse Oximeter Continuous Start: 06/12/20 18:32 Freq: RTQ4 Status: Complete Protocol: Document 06/23/20 03:42 CMI (Rec: 06/23/20 04:07 CMI [id number]) Pulse Oximetry Assessment Oxygen Saturation (92-100) 97 Oxygen Delivery Method CPAP Fraction of Inspired Oxygen (FIO2) 100 Equipment Usage Equipment Standby Continuous SpO2 Machine # on nurse monitor Intake & Output 06/29/20 06/30/20 07/01/20 06:59 06:59 06:59 Intake Total 1670 957 10 Output Total 1560 1705 275 Balance 110 -748 -265 Weight 75.1 kg 72.6 kg Weight/Height Weight 72.6 kg Height 5 ft 7 in General appearance: PRESENT: no acute distress, cooperative, well-nourished Head exam: PRESENT: atraumatic, normocephalic Eye exam: PRESENT: conjunctiva pink, EOMI, PERRLA. ABSENT: scleral icterus Ear exam: PRESENT: normal external ear exam Mouth exam: PRESENT: moist, tongue midline Respiratory exam: PRESENT: clear to auscultation aaron. ABSENT: rales, rhonchi, wheezes Cardiovascular exam: PRESENT: RRR. ABSENT: diastolic murmur, rubs, systolic murmur GI/Abdominal exam: PRESENT: normal bowel sounds, soft. ABSENT: distended, guarding, mass, organolmegaly, rebound, tenderness Rectal exam: PRESENT: deferred Extremities exam: PRESENT: full ROM. ABSENT: calf tenderness, clubbing, pedal edema Neurological exam: PRESENT: alert, altered, awake Psychiatric exam: PRESENT: appropriate affect, normal mood. ABSENT: homicidal ideation, suicidal ideation Skin exam: PRESENT: dry, intact, warm. ABSENT: cyanosis, rash Tubes/Lines: PRESENT: Other - CPAP Laboratory/Radiographs Laboratory Results: 06/30/20 04:16 06/30/20 04:16 06/30/20 06/30/20 06/30/20 04:16 04:16 04:16 WBC 13.3 H RBC 3.89 L Hgb 11.5 L Hct 34.6 L MCV 89 MCH 29.6 MCHC 33.3 RDW 13.1 Plt Count 232 Seg Neutrophils % 90.2 H Carbonic Acid HCO3/H2CO3 Ratio ABG pH ABG pCO2 ABG pO2 ABG HCO3 ABG O2 Saturation ABG Base Excess FiO2 Sodium 143.4 Potassium 4.8 Chloride 110 H Carbon Dioxide 27 Anion Gap 6 BUN 36 H Creatinine 0.91 Est GFR ( Amer) > 60 Glucose 224 H Calcium 8.5 Phosphorus 5.5 H Magnesium 2.5 H Ferritin 608.00 H Total Bilirubin 0.7 AST 37 Alkaline Phosphatase 167 H C-Reactive Protein 152.8 H Total Protein 6.2 L Albumin 2.5 L Prealbumin 11.5 L 06/30/20 07:29 WBC RBC Hgb Hct MCV MCH MCHC RDW Plt Count Seg Neutrophils % Carbonic Acid 1.15 HCO3/H2CO3 Ratio 22:1 ABG pH 7.44 ABG pCO2 38.3 ABG pO2 61.7 L ABG HCO3 25.3 H ABG O2 Saturation 92.5 L ABG Base Excess 1.2 FiO2 100% Sodium Potassium Chloride Carbon Dioxide Anion Gap BUN Creatinine Est GFR ( Amer) Glucose Calcium Phosphorus Magnesium Ferritin Total Bilirubin AST Alkaline Phosphatase C-Reactive Protein Total Protein Albumin Prealbumin 06/12/20 06/12/20 06/12/20 16:49 16:49 21:30 Creatine Kinase 119 CK-MB (CK-2) Troponin I 0.046 0.105 NT-Pro-B Natriuret Pep 420 H 06/13/20 06/27/20 06/28/20 06:31 04:39 02:31 Creatine Kinase CK-MB (CK-2) Troponin I 0.087 < 0.012 NT-Pro-B Natriuret Pep 536 H 06/28/20 06/28/20 06/28/20 02:31 02:31 15:37 Creatine Kinase 32 L CK-MB (CK-2) 1.34 Troponin I 0.016 < 0.012 NT-Pro-B Natriuret Pep Impressions: Chest/Abdomen CTA 06/16/20 08:30 IMPRESSION: 1. Extensive bilateral alveolar airspace disease consistent with Covid 19 pneumonia. 2. Limited study for evaluation of pulmonary embolus due to timing of the bolus. Suspect filling defects in the right lower lobe pulmonary artery as discussed. Venous Doppler Study 06/27/20 00:00 IMPRESSION: NO EVIDENCE OF DVT OR SVT IN EITHER LEG. Chest X-Ray 06/30/20 05:00 IMPRESSION: Unchanged radiographic appearance of the chest. All labs, radiographs, diagnostic studies and EKGs were personally reviewed: Yes In addition, reports of radiographic and diagnostic studies were read: Yes Assessment and Plan - Diagnosis (1) Acute respiratory failure with hypoxia Is this a current diagnosis for this admission?: Yes Plan: He is currrently stable on CPAP. Recent Covid suggestions regarding intubation do not call for intubation for stable hypoxic states, more for acidosis and drop in mental status. However agree with observation in the ICU for possible need for intubation. Keep treatment as is. (2) Hyperglycemia due to type 2 diabetes mellitus Qualifiers: Diabetes mellitus detention insulin use: without detention use Qualified Code(s): E11.65 - Type 2 diabetes mellitus with hyperglycemia Is this a current diagnosis for this admission?: Yes Plan: BG largely under 200. (3) Pneumonia due to COVID-19 virus Is this a current diagnosis for this admission?: Yes Plan: No real change Plan Summary: Keep support as is and maintain in the ICU. Critical Time Critical Time (minutes): 35 Level of Care: ICU Anticipated discharge: Home Anticipated DC Timeframe: Other -: 1. The care of a critical patient is a dynamic process. This note is a junior sales representative synopsis but static in nature. The timeframe for treatments given in order is not necessarily the actual time these treatments may have been done. 2. This patient requires critical care secondary to ongoing requirements for therapy not offered or safe outside the critical care environment. Transfer to a lower level of care will result in altered life or limb morbidity and mortality. 3. Multidisciplinary rounds completed. 4. ABCDE bundle addressed.
[2020-06-30 11:44] LABS: APPEARANCE,URINE CLEAR; BILIRUBIN,URINE NEGATIVE (NEGATIVE); COLOR,URINE YELLOW; GLUCOSE, URINE NEGATIVE (NEGATIVE); KETONES,URINE TRACE mg/dL (NEGATIVE); LEUKOCYTE ESTERASE,URINE SMALL (NEGATIVE); NITRITE,URINE POSITIVE (NEGATIVE); PROTEIN,URINE 30 mg/dL (NEGATIVE); URINE SPECIFIC GRAVITY 1.018
[2020-06-30] MEDS: HEPARIN SODIUM,PORCINE/D5W 25,000 UNIT/250 ML RTUINJ IV PRN (17:01)
[2020-07-01] MEDS: ENALAPRILAT DIHYDRATE INJ/PF 1.25 MG/1 ML SDV IV SCH ×4 (00:07→17:56)
[2020-07-01] MEDS: ALBUTEROL SULFATE 0.083% NEB 2.5 MG/3 ML AMPUL NEB SCH ×4 (02:21→21:18)
[2020-07-01] MEDS: DEXAMETHASONE SOD PHOSPHATE INJ 4 MG/1 ML VIAL IV SCH ×2 (05:52→10:21)
[2020-07-01 06:21] LABS: HEMATOCRIT 32.1 % (37.9-51.0); HEMOGLOBIN 10.8 g/dL (13.5-17.0); MEAN CORPUSCULAR HEMOGLOBIN 29.6 pg (27.0-33.4); MEAN CORPUSCULAR HGB CONC 33.5 g/dL (32.0-36.0); MEAN CORPUSCULAR VOLUME 88 fl (80-97); PLATELET COUNT 262 10^3/uL (150-450); RED BLOOD COUNT 3.64 10^6/uL (4.35-5.55); RED CELL DISTRIBUTION WIDTH 12.9 % (11.5-14.0); WHITE BLOOD COUNT 19.4 10^3/uL (4.0-10.5)
[2020-07-01 06:37] LABS: ARTERIAL BLOOD H2CO3 1.28 mmol/L (1.05-1.35); ARTERIAL BLOOD HCO3 28.5 mmol/L (20-24); ARTERIAL BLOOD O2 SATURATION 90.8 % (94-98); ARTERIAL BLOOD PCO2 42.5 mmHg (35-45); ARTERIAL BLOOD PH 7.45 (7.35-7.45); ARTERIAL BLOOD PO2 57.3 mmHg (80-100); ARTERIAL BLOOD TOTAL CO2 29.8 mmol/L (23-27)
[2020-07-01 06:37] LABS: ANION GAP 6 (5-19); BLOOD UREA NITROGEN 39 mg/dL (7-20); C-REACTIVE PROTEIN 61.6 mg/L (<10.0); CALCIUM 8.6 mg/dL (8.4-10.2); CARBON DIOXIDE 29 mmol/L (22-30); CHLORIDE 113 mmol/L (98-107); GLUCOSE 235 mg/dL (75-110); PHOSPHORUS 5.2 mg/dL (2.5-4.5); POTASSIUM 4.6 mmol/L (3.6-5.0)
[2020-07-01 06:39] LABS: ARTERIAL BLOOD FIO2 100%
[2020-07-01 06:51] LABS: ABSOLUTE LYMPHOCYTES# (MANUAL) 0.4 10^3/uL (0.5-4.7); ABSOLUTE MONOCYTES # (MANUAL) 1.4 10^3/uL (0.1-1.4); BASOPHILS % (MANUAL) 0 % (0-2); EOSINOPHILS % (MANUAL) 0 % (0-6); LYMPHOCYTES % (MANUAL) 2 % (13-45); MONOCYTES % (MANUAL) 7 % (3-13); SEGMENTED NEUTROPHILS % (MAN) 91 % (42-78); TOTAL CELLS COUNTED 100
[2020-07-01] MEDS: DEXMEDETOMIDINE IN 0.9 % NACL 400 MCG/100 ML RTUPB IV PRN (06:51)
[2020-07-01 06:52] LABS: PLATELET COMMENT ADEQUATE; RBC MORPHOLOGY COMMENT NORMO-CYTIC/CHROMIC
[2020-07-01] MEDS: INSULIN LISPRO 100 UNIT/ML 3 ML VIAL SUBCUT SCH ×2 (08:00→11:03)
--- NOTE | 2020-07-01 08:11 | PDOC CRITICAL CARE PROG REPORT ---
General Date:: 07/01/20 ICU Day:: 4 Hospital Day:: 19 Resuscitation Status: Full Code Events in the past 12 to 24 Hours:: This 55-year-old male presented to [facility] emergency department on 06/27/2020 via EMS with complaints of fever and chills for 2 days prior to presentation. Associated symptoms included myalgias, dyspnea, nonproductive cough and sore throat. He denied any change in taste or smell. Nonetheless, he was diagnosed with COVID-19 pneumonia. Per EMS report, the patient was hypoxic upon their arrival, SPO2 72%. He was placed on CPAP en route to the hospital. He was initially admitted by the hospitalist service. Rapid response team was called for worsening hypoxia. The patient was transferred to the ICU. 06/28: Yesterday, the patient was stable on CPAP 8, FiO2 100%. He was fully conversant, mentating well. He was able to take off his own mask to snack ( brought him home-cooked food) and drink water. He was initiated on heparin infusion. Maintained SPO2 100% throughout the entire day shift. He transferred out last night to [facility]. However, Dr. Bustamante called requesting transfer back to the ICU because the patient was becoming progressively more hypoxic. He was on CPAP 12, FiO2 100% with a respiratory rate in the 30s. He was transferred back to the ICU on CPAP 15, FiO2 100%. Respiratory rate 30s to 40s. SPO2 83%. He is still mentating well. He denies pain. He is tachycardic. He is anxious. 06/29: Remains CPAP dependent. Required as much his CPAP 16 yesterday. Now down to CPAP 1214. FiO2 100%. SPO2 89-90%. Mentating well. However, nurse reports that he is having difficulty with swallowing and is no longer able to take p.o. medications. Respiratory rate 30s. He denies pain. Tachycardia and hypertension are being addressed with Precedex and labetalol as needed. Less anxious. ABG this a.m.: 7.44/36/61. On heparin infusion for treatment of confirmed pulmonary embolism. Heparin currently on hold due to elevated PTT. 06/30: No real change. Still mentating well. O2 saturations 85-90%. Needing precedex. If unable to come of CPAP and eat he will need a PICC and TPN by rimma. On heparin for PE. 07/01: Beginning to be concerned regarding nutrition status. Not eaten in 5 days for previously well-nourished [address] PICC for TPN as he is not very hun gry and cant stay off CPAP long to eat. Review of systems relevant to events:: Pulmonary Reason for ICU Addmission:: acute respiratory failure - worsening hypoxia - Medications: Medications reviewed and adjusted accordingly: Yes Vasopressors:: None Sedation:: Precedex. Physical Exam Vital Signs: Temp Pulse Resp BP Pulse Ox 97.9 F 86 18 120/84 91 L 06/30/20 22:00 07/01/20 02:00 07/01/20 04:00 07/01/20 00:07 07/01/20 04:00 Pulse Oximeter Continuous Start: 06/12/20 18:32 Freq: RTQ4 Status: Complete Protocol: Document 06/23/20 03:42 CMI (Rec: 06/23/20 04:07 CMI [id number]) Pulse Oximetry Assessment Oxygen Saturation (92-100) 97 Oxygen Delivery Method CPAP Fraction of Inspired Oxygen (FIO2) 100 Equipment Usage Equipment Standby Continuous SpO2 Machine # on nurse monitor Intake & Output 06/30/20 07/01/20 07/02/20 06:59 06:59 06:59 Intake Total 957 214 110 Output Total 1705 1070 Balance -748 -856 110 Weight 72.6 kg 72.6 kg Weight/Height Weight 72.6 kg Height 5 ft 7 in General appearance: PRESENT: no acute distress, cooperative, well-nourished Head exam: PRESENT: atraumatic, normocephalic Eye exam: PRESENT: conjunctiva pink, EOMI, PERRLA. ABSENT: scleral icterus Ear exam: PRESENT: normal external ear exam Mouth exam: PRESENT: moist, tongue midline Respiratory exam: PRESENT: clear to auscultation aaron. ABSENT: rales, rhonchi, wheezes Cardiovascular exam: PRESENT: RRR. ABSENT: diastolic murmur, rubs, systolic murmur GI/Abdominal exam: PRESENT: normal bowel sounds, soft. ABSENT: distended, guarding, mass, organolmegaly, rebound, tenderness Rectal exam: PRESENT: deferred Gentrourinary exam: PRESENT: indwelling catheter Extremities exam: PRESENT: full ROM. ABSENT: calf tenderness, clubbing, pedal edema Musculoskeletal exam: PRESENT: normal inspection Neurological exam: PRESENT: alert, awake, oriented to person, oriented to place, oriented to time, oriented to situation, CN II-XII grossly intact, other - Mildly sedated. Psychiatric exam: PRESENT: agitated - At times Skin exam: PRESENT: dry, intact, warm. ABSENT: cyanosis, rash Tubes/Lines: PRESENT: Other - CPAP. Laboratory/Radiographs Laboratory Results: 07/01/20 06:05 07/01/20 06:05 06/30/20 07/01/20 07/01/20 11:15 05:50 06:05 WBC RBC Hgb Hct MCV MCH MCHC RDW Plt Count Seg Neutrophils % Carbonic Acid 1.28 HCO3/H2CO3 Ratio 22:1 ABG pH 7.45 ABG pCO2 42.5 ABG pO2 57.3 L ABG HCO3 28.5 H ABG O2 Saturation 90.8 L ABG Base Excess 4.0 FiO2 100% Sodium 148.3 H Potassium 4.6 Chloride 113 H Carbon Dioxide 29 Anion Gap 6 BUN 39 H Creatinine 0.79 Est GFR ( Amer) > 60 Glucose 235 H Calcium 8.6 Phosphorus 5.2 H Magnesium 2.8 H C-Reactive Protein 61.6 H Urine Color YELLOW Urine Appearance CLEAR Urine pH 6.0 Ur Specific [place] 1.018 Urine Protein 30 H Urine Glucose (UA) NEGATIVE Urine Ketones TRACE H Urine Blood MODERATE H Urine Nitrite POSITIVE H Ur Leukocyte Esterase SMALL H Urine WBC (Auto) 6 Urine RBC (Auto) 25 07/01/20 06:05 WBC 19.4 H RBC 3.64 L Hgb 10.8 L Hct 32.1 L MCV 88 MCH 29.6 MCHC 33.5 RDW 12.9 Plt Count 262 Seg Neutrophils % Not Reportable Carbonic Acid HCO3/H2CO3 Ratio ABG pH ABG pCO2 ABG pO2 ABG HCO3 ABG O2 Saturation ABG Base Excess FiO2 Sodium Potassium Chloride Carbon Dioxide Anion Gap BUN Creatinine Est GFR ( Amer) Glucose Calcium Phosphorus Magnesium C-Reactive Protein Urine Color Urine Appearance Urine pH Ur Specific [place] Urine Protein Urine Glucose (UA) Urine Ketones Urine Blood Urine Nitrite Ur Leukocyte Esterase Urine WBC (Auto) Urine RBC (Auto) 06/12/20 06/12/20 06/12/20 16:49 16:49 21:30 Creatine Kinase 119 CK-MB (CK-2) Troponin I 0.046 0.105 NT-Pro-B Natriuret Pep 420 H 06/13/20 06/27/20 06/28/20 06:31 04:39 02:31 Creatine Kinase CK-MB (CK-2) Troponin I 0.087 < 0.012 NT-Pro-B Natriuret Pep 536 H 06/28/20 06/28/20 06/28/20 02:31 02:31 15:37 Creatine Kinase 32 L CK-MB (CK-2) 1.34 Troponin I 0.016 < 0.012 NT-Pro-B Natriuret Pep Impressions: Chest/Abdomen CTA 06/16/20 08:30 IMPRESSION: 1. Extensive bilateral alveolar airspace disease consistent with Covid 19 pneumonia. 2. Limited study for evaluation of pulmonary embolus due to timing of the bolus. Suspect filling defects in the right lower lobe pulmonary artery as discussed. Venous Doppler Study 06/27/20 00:00 IMPRESSION: NO EVIDENCE OF DVT OR SVT IN EITHER LEG. Chest X-Ray 06/30/20 05:00 IMPRESSION: Unchanged radiographic appearance of the chest. All labs, radiographs, diagnostic studies and EKGs were personally reviewed: Yes In addition, reports of radiographic and diagnostic studies were read: Yes Assessment and Plan - Diagnosis (1) Acute respiratory failure with hypoxia Is this a current diagnosis for this admission?: Yes Plan: Seems to need CPAP. Dependant for days. Stable, no worsening but not improving either. On 100% and CPAP 14. (2) Hyperglycemia due to type 2 diabetes mellitus Qualifiers: Diabetes mellitus oil heaterman insulin use: without half-way use Qualified Code(s): E11.65 - Type 2 diabetes mellitus with hyperglycemia Is this a current diagnosis for this admission?: Yes Plan: Still about 200. Decadron decreased and lantus slightly increased. (3) Pneumonia due to COVID-19 virus Is this a current diagnosis for this admission?: Yes Plan: Still awaiting improvement Plan Summary: PICC placement for TPN. Pt accepts Critical Time Critical Time (minutes): 35 Level of Care: ICU Anticipated discharge: Home with Homehealth Anticipated DC Timeframe: Other -: 1. The care of a critical patient is a dynamic process. This note is a passenger relations representative synopsis but static in nature. The timeframe for treatments given in order is not necessarily the actual time these treatments may have been done. 2. This patient requires critical care secondary to ongoing requirements for therapy not offered or safe outside the critical care environment. Transfer to a lower level of care will result in altered life or limb morbidity and mortality. 3. Multidisciplinary rounds completed. 4. ABCDE bundle addressed.
[2020-07-01 08:13] LABS: INTERNATIONAL RATION (INR) 1.47
[2020-07-01] MEDS: BUDESONIDE NEB 0.25 MG/2 ML AMPUL NEB SCH ×2 (08:27→21:17)
[2020-07-01] MEDS ORDERED: INSULIN GLARGINE,HUM.REC.ANLOG 1,000 UNIT/10 ML VIAL SUBCUT SCH (10:00)
[2020-07-01] MEDS: PANTOPRAZOLE SODIUM 40 MG VIAL IV SCH (10:20)
[2020-07-01] MEDS ORDERED: DEXTROSE 50%-WATER SYRINGE 12.5 GM/25 ML DOSE IV PRN (12:30)
[2020-07-01] MEDS ORDERED: DEXTROSE 50%-WATER SYRINGE 25 GM/50 ML DOSE IV PRN (12:30)
[2020-07-01] MEDS ORDERED: DEXTROSE 40% GEL 15 GM TUBE PO PRN (12:30)
[2020-07-01] MEDS ORDERED: GLUCAGON,HUMAN RECOMB 1 MG INJ IM PRN (12:30)
[2020-07-01] MEDS ORDERED: DEXTROSE 40% GEL 15 GM TUBE X 2 PO PRN (12:30)
--- NOTE | 2020-07-01 14:36 | RADIOLOGY REPORT (SQ) ---
EXAM DESCRIPTION: PICC INSERTION IMAGES COMPLETED DATE/TIME: 07/01/2020 2:20 pm REASON FOR STUDY: salvage determiner IV access and TPN COMPARISON: None. FLUOROSCOPY TIME: Fluoroscopy not used 3 portable chest radiographic images saved to PACS. TECHNIQUE: Ultrasound guided PICC placement at bedside. LIMITATIONS: None. PROCEDURE: After written consent and assessment were obtained, ultrasound evaluation of potential ac cess sites were performed. After successfully identifying a patent right basilic vein, the right arm was prepped and draped in a sterile fashion along with the ultrasound probe. The entry site was anest hetized with 1% lidocaine. A 21 gauge 7 cm needle was advanced through the skin and into the basilic vein under live ultrasound guidance. An ultrasound image was saved to PACS confirming access site. A .018 guide wire was then inserted through the needle and into the venous system. The needle was the n removed and an 11 blade scalpel was used to make a 1cm skin incision. A 5 fr peel-away sheath was advanced over the wire and into the venous system. A measurement was then made using the existing wir e. The wire was then removed and the catheter wire was trimmed. The PICC was advanced through the pee l-away sheath and into the venous system. The peel-away sheath was removed and the catheter was adher ed to the patients arm with a stat lock. The catheter was then aspirated and flushed and a sterile ba ndage was placed over the access site. A portable chest x-ray was saved to PACS confirming the maryjane ter tip within the superior vena cava. IMPRESSION: SUCCESSFUL PLACEMENT OF A 5 FR DUAL LUMEN 38 CM PICC IN THE RIGHT BASILIC VEIN. COMMENT: Patient medication list reviewed: Yes- Quality ID# 130:Eligible professional attests to doc umenting in the medical record they obtained, updated, or reviewed the patient's current medications. . Quality ID 145: Final reports for procedures using fluoroscopy that document radiation exposure jorge nicky, or exposure time and number of fluorographic images (if radiation exposure indices are not avail able) Quality ID #76: The patient was prepped and draped using maximum sterile barrier technique including cap, mask, sterile gown, sterile gloves, a large sterile sheet, hand hygiene, and 2% Chlorhexidine fo r cutaneous antisepsis. When ultrasound is used, sterile ultrasound techniques are followed requiring sterile gel and sterile probes. TECHNICAL DOCUMENTATION: JOB ID: [id number] 2010 [employer]- All Rights Reserved rev Reading location - IP/workstation name: [email or web address]
[2020-07-01 14:47] LABS: INTERNATIONAL RATION (INR) 1.65; PROTHROMBIN TIME 19.6 SEC (11.4-15.4)
[2020-07-01 14:49] LABS: PARTIAL THROMBOPLASTIN TIME 82.1 SEC (23.5-35.8)
[2020-07-01] MEDS ORDERED: NORMAL SALINE 10 ML SDV (AFTER EACH USE) IV PRN (15:00)
[2020-07-01] MEDS: INSULIN REG, HUMAN 100 UNIT/ML 3 ML VIAL (PYX) SUBCUT SCH ×2 (17:55→23:47)
[2020-07-01] MEDS: ATORVASTATIN CALCIUM 40 MG TABLET PO SCH (21:27)
[2020-07-01] MEDS: NORMAL SALINE 10 ML SDV (SCHEDULED) IV SCH (21:27)
[2020-07-01] MEDS ORDERED: MORPHINE SULFATE 10 MG/ML INJ ONE (22:19)
[2020-07-01] MEDS ORDERED: DEXAMETHASONE SOD PHOSPHATE INJ 4 MG/1 ML VIAL ONE (22:42)
[2020-07-01] MEDS ORDERED: ALBUTEROL SULFATE 0.083% NEB 2.5 MG/3 ML AMPUL NEB ONE (22:43)
[2020-07-01] MEDS ORDERED: DEXAMETHASONE SOD PHOS INJ 10 MG/1 ML VIAL IV ONE (22:44)
[2020-07-01] MEDS ORDERED: MORPHINE SULFATE 10 MG/ML INJ IV PRN (22:47)
[2020-07-01 23:29] LABS: ARTERIAL BLOOD BASE EXCESS 0.5 mmol/L; ARTERIAL BLOOD HCO3 26.2 mmol/L (20-24); ARTERIAL BLOOD O2 SATURATION 85.9 % (94-98); ARTERIAL BLOOD PCO2 46.4 mmHg (35-45); ARTERIAL BLOOD PH 7.37 (7.35-7.45); ARTERIAL BLOOD PO2 52.4 mmHg (80-100); ARTERIAL BLOOD TOTAL CO2 27.6 mmol/L (23-27)
[2020-07-01 23:30] LABS: ARTERIAL BLOOD FIO2 100%
[2020-07-01] MEDS ORDERED: NORMAL SALINE 500 ML IV ONE (23:30)
[2020-07-01] MEDS: ALBUMIN HUMAN 12.5 GM/50 ML RTUINJ IV SCH (23:35)
[2020-07-02] MEDS: HEPARIN SODIUM,PORCINE/D5W 25,000 UNIT/250 ML RTUINJ IV PRN ×2 (00:03→21:41)
[2020-07-02] MEDS: AMINO ACIDS 5 %/DEXTROSE 20 % 1,000 ML IV PRN (00:04)
[2020-07-02] MEDS: ALBUMIN HUMAN 12.5 GM/50 ML RTUINJ IV SCH ×4 (00:35→22:02)
[2020-07-02] MEDS: ENALAPRILAT DIHYDRATE INJ/PF 1.25 MG/1 ML SDV IV SCH ×4 (00:44→17:07)
[2020-07-02] MEDS ORDERED: MORPHINE SULFATE 10 MG/ML INJ ONE ×2 (02:01→02:04)
[2020-07-02] MEDS: ALBUTEROL SULFATE 0.083% NEB 2.5 MG/3 ML AMPUL NEB SCH ×4 (02:09→20:45)
[2020-07-02] MEDS: MORPHINE SULFATE 10 MG/ML INJ IV PRN ×3 (02:11→17:17)
[2020-07-02] MEDS: DEXMEDETOMIDINE IN 0.9 % NACL 400 MCG/100 ML RTUPB IV PRN ×4 (02:20→20:52)
[2020-07-02 05:21] LABS: ARTERIAL BLOOD BASE EXCESS -0.8 mmol/L; ARTERIAL BLOOD FIO2 100%; ARTERIAL BLOOD H2CO3 1.29 mmol/L (1.05-1.35); ARTERIAL BLOOD HCO3 24.5 mmol/L (20-24); ARTERIAL BLOOD O2 SATURATION 91.2 % (94-98); ARTERIAL BLOOD PH 7.37 (7.35-7.45); ARTERIAL BLOOD TOTAL CO2 25.8 mmol/L (23-27)
[2020-07-02] MEDS: INSULIN REG, HUMAN 100 UNIT/ML 3 ML VIAL (PYX) SUBCUT SCH ×3 (06:19→17:20)
[2020-07-02] MEDS: LABETALOL HCL INJ 20 MG/4 ML DISP.SYRIN IV PRN ×2 (06:24→13:23)
[2020-07-02 06:55] LABS: ALBUMIN 2.9 g/dL (3.5-5.0); ALKALINE PHOSPHATASE 163 U/L (38-126); ANION GAP 6 (5-19); ASPARTATE AMINO TRANSFERASE 31 U/L (17-59); BILIRUBIN,DIRECT 0.2 mg/dL (0.0-0.4); BILIRUBIN,TOTAL 0.4 mg/dL (0.2-1.3); BLOOD UREA NITROGEN 41 mg/dL (7-20); C-REACTIVE PROTEIN 42.5 mg/L (<10.0); CALCIUM 8.6 mg/dL (8.4-10.2); CARBON DIOXIDE 30 mmol/L (22-30); CHLORIDE 113 mmol/L (98-107); PHOSPHORUS 3.9 mg/dL (2.5-4.5); POTASSIUM 4.4 mmol/L (3.6-5.0); TOTAL PROTEIN 6.6 g/dL (6.3-8.2)
[2020-07-02 07:01] LABS: PREALBUMIN 11.6 mg/dL (17.6-36.0)
[2020-07-02 07:05] LABS: GLUCOSE 498 mg/dL (75-110)
[2020-07-02 07:20] LABS: HEMATOCRIT 34.5 % (37.9-51.0); HEMOGLOBIN 11.3 g/dL (13.5-17.0); MEAN CORPUSCULAR HEMOGLOBIN 29.8 pg (27.0-33.4); MEAN CORPUSCULAR HGB CONC 32.7 g/dL (32.0-36.0); MEAN CORPUSCULAR VOLUME 91 fl (80-97); PLATELET COUNT 229 10^3/uL (150-450); RED BLOOD COUNT 3.79 10^6/uL (4.35-5.55); RED CELL DISTRIBUTION WIDTH 13.1 % (11.5-14.0); WHITE BLOOD COUNT 14.6 10^3/uL (4.0-10.5)
[2020-07-02 08:01] LABS: ABSOLUTE LYMPHOCYTES# (MANUAL) 0.4 10^3/uL (0.5-4.7); ABSOLUTE MONOCYTES # (MANUAL) 0.1 10^3/uL (0.1-1.4); ANISOCYTOSIS SLIGHT; BASOPHILS % (MANUAL) 0 % (0-2); EOSINOPHILS % (MANUAL) 1 % (0-6); LYMPHOCYTES % (MANUAL) 3 % (13-45); MONOCYTES % (MANUAL) 1 % (3-13); PLATELET COMMENT ADEQUATE; SEGMENTED NEUTROPHILS % (MAN) 95 % (42-78); TOTAL CELLS COUNTED 100
[2020-07-02] MEDS: BUDESONIDE NEB 0.25 MG/2 ML AMPUL NEB SCH ×2 (08:32→20:45)
--- NOTE | 2020-07-02 09:37 | PDOC CRITICAL CARE PROG REPORT ---
General Date:: 07/02/20 ICU Day:: 5 Hospital Day:: 20 Resuscitation Status: Full Code Events in the past 12 to 24 Hours:: This 55-year-old male presented to [facility] emergency department on 06/27/2020 via EMS with complaints of fever and chills for 2 days prior to presentation. Associated symptoms included myalgias, dyspnea, nonproductive cough and sore throat. He denied any change in taste or smell. Nonetheless, he was diagnosed with COVID-19 pneumonia. Per EMS report, the patient was hypoxic upon their arrival, SPO2 72%. He was placed on CPAP en route to the hospital. He was initially admitted by the hospitalist service. Rapid response team was called for worsening hypoxia. The patient was transferred to the ICU. 06/28: Yesterday, the patient was stable on CPAP 8, FiO2 100%. He was fully conversant, mentating well. He was able to take off his own mask to snack ( brought him home-cooked food) and drink water. He was initiated on heparin infusion. Maintained SPO2 100% throughout the entire day shift. He transferred out last night to [facility]. However, Dr. Bustamante called requesting transfer back to the ICU because the patient was becoming progressively more hypoxic. He was on CPAP 12, FiO2 100% with a respiratory rate in the 30s. He was transferred back to the ICU on CPAP 15, FiO2 100%. Respiratory rate 30s to 40s. SPO2 83%. He is still mentating well. He denies pain. He is tachycardic. He is anxious. 06/29: Remains CPAP dependent. Required as much his CPAP 16 yesterday. Now down to CPAP 1214. FiO2 100%. SPO2 89-90%. Mentating well. However, nurse reports that he is having difficulty with swallowing and is no longer able to take p.o. medications. Respiratory rate 30s. He denies pain. Tachycardia and hypertension are being addressed with Precedex and labetalol as needed. Less anxious. ABG this a.m.: 7.44/36/61. On heparin infusion for treatment of confirmed pulmonary embolism. Heparin currently on hold due to elevated PTT. 06/30: No real change. Still mentating well. O2 saturations 85-90%. Needing precedex. If unable to come of CPAP and eat he will need a PICC and TPN by rimma. On heparin for PE. 07/01: Beginning to be concerned regarding nutrition status. Not eaten in 5 days for previously well-nourished [address] PICC for TPN as he is not very hun gry and cant stay off CPAP long to eat. 07/02: Desaturated to 70s. Now proned and doing much better. Review of systems relevant to events:: Pulmonary Reason for ICU Addmission:: acute respiratory failure - worsening hypoxia - Medications: Medications reviewed and adjusted accordingly: Yes Vasopressors:: None Sedation:: Precedex. Physical Exam Vital Signs: Temp Pulse Resp BP Pulse Ox 97.7 F 85 35 H 151/97 H 95 07/02/20 08:00 07/02/20 08:33 07/02/20 08:33 07/02/20 08:00 07/02/20 08:54 Pulse Oximeter Continuous Start: 06/12/20 18:32 Freq: RTQ4 Status: Complete Protocol: Document 06/23/20 03:42 CMI (Rec: 06/23/20 04:07 CMI [id number]) Pulse Oximetry Assessment Oxygen Saturation (92-100) 97 Oxygen Delivery Method CPAP Fraction of Inspired Oxygen (FIO2) 100 Equipment Usage Equipment Standby Continuous SpO2 Machine # on nurse monitor Intake & Output 07/01/20 07/02/20 07/03/20 06:59 06:59 06:59 Intake Total 214 1190 Output Total 1070 800 0 Balance -856 390 0 Weight 72.6 kg 67.2 kg Weight/Height Weight 67.2 kg Height 5 ft 7 in General appearance: PRESENT: no acute distress, cooperative, well-developed, well-nourished Head exam: PRESENT: atraumatic, normocephalic Eye exam: PRESENT: conjunctiva pink, EOMI, PERRLA. ABSENT: scleral icterus Ear exam: PRESENT: normal external ear exam Mouth exam: PRESENT: moist, tongue midline Respiratory exam: PRESENT: clear to auscultation aaron. ABSENT: rales, rhonchi, wheezes Cardiovascular exam: PRESENT: RRR. ABSENT: diastolic murmur, rubs, systolic murmur GI/Abdominal exam: PRESENT: normal bowel sounds, soft. ABSENT: distended, guarding, mass, organolmegaly, rebound, tenderness Rectal exam: PRESENT: deferred Gentrourinary exam: PRESENT: indwelling catheter Extremities exam: PRESENT: full ROM. ABSENT: calf tenderness, clubbing, pedal edema Musculoskeletal exam: PRESENT: normal inspection Neurological exam: PRESENT: alert, altered, awake, oriented to person, oriented to place Psychiatric exam: PRESENT: appropriate affect, normal mood. ABSENT: homicidal ideation, suicidal ideation Tubes/Lines: PRESENT: Other - Bipap Laboratory/Radiographs Laboratory Results: 07/02/20 06:30 07/02/20 06:20 07/01/20 07/02/20 07/02/20 23:03 04:20 04:20 WBC Cancelled RBC Cancelled Hgb Cancelled Hct Cancelled MCV Cancelled MCH Cancelled MCHC Cancelled RDW Cancelled Plt Count Cancelled Seg Neutrophils % Cancelled Carbonic Acid 1.40 H HCO3/H2CO3 Ratio 18:1 ABG pH 7.37 ABG pCO2 46.4 H ABG pO2 52.4 L ABG HCO3 26.2 H ABG O2 Saturation 85.9 L ABG Base Excess 0.5 FiO2 100% Sodium Potassium Chloride Carbon Dioxide Anion Gap BUN Creatinine Est GFR ( Amer) Est GFR (Non-Af Amer) Glucose Calcium Phosphorus Ferritin Total Bilirubin AST Alkaline Phosphatase C-Reactive Protein Total Protein Albumin Prealbumin 07/02/20 07/02/20 07/02/20 04:20 06:20 06:30 WBC 14.6 H RBC 3.79 L Hgb 11.3 L Hct 34.5 L MCV 91 MCH 29.8 MCHC 32.7 RDW 13.1 Plt Count 229 Seg Neutrophils % Not Reportable Carbonic Acid 1.29 HCO3/H2CO3 Ratio 18:1 ABG pH 7.37 ABG pCO2 43.0 ABG pO2 62.0 L ABG HCO3 24.5 H ABG O2 Saturation 91.2 L ABG Base Excess -0.8 FiO2 100% Sodium 148.5 H Potassium 4.4 Chloride 113 H Carbon Dioxide 30 Anion Gap 6 BUN 41 H Creatinine 0.79 Est GFR ( Amer) > 60 Est GFR (Non-Af Amer) Glucose 498 H* Calcium 8.6 Phosphorus 3.9 Ferritin 501.00 H Total Bilirubin 0.4 AST 31 Alkaline Phosphatase 163 H C-Reactive Protein 42.5 H Total Protein 6.6 Albumin 2.9 L Prealbumin 11.6 L 1106/12/20 06/12/20 16:49 16:49 21:30 Creatine Kinase 119 CK-MB (CK-2) Troponin I 0.046 0.105 NT-Pro-B Natriuret Pep 420 H 06/13/20 06/27/20 06/28/20 06:31 04:39 02:31 Creatine Kinase CK-MB (CK-2) Troponin I 0.087 < 0.012 NT-Pro-B Natriuret Pep 536 H 06/28/20 06/28/20 06/28/20 02:31 02:31 15:37 Creatine Kinase 32 L CK-MB (CK-2) 1.34 Troponin I 0.016 < 0.012 NT-Pro-B Natriuret Pep Impressions: Chest/Abdomen CTA 06/16/20 08:30 IMPRESSION: 1. Extensive bilateral alveolar airspace disease consistent with Covid 19 pneumonia. 2. Limited study for evaluation of pulmonary embolus due to timing of the bolus. Suspect filling defects in the right lower lobe pulmonary artery as discussed. Venous Doppler Study 06/27/20 00:00 IMPRESSION: NO EVIDENCE OF DVT OR SVT IN EITHER LEG. Chest X-Ray 06/30/20 05:00 IMPRESSION: Unchanged radiographic appearance of the chest. PICC Line Insertion 07/01/20 00:00 IMPRESSION: SUCCESSFUL PLACEMENT OF A 5 FR DUAL LUMEN 38 CM PICC IN THE RIGHT BASILIC VEIN. All labs, radiographs, diagnostic studies and EKGs were personally reviewed: Yes In addition, reports of radiographic and diagnostic studies were read: Yes Assessment and Plan - Diagnosis (1) Acute respiratory failure with hypoxia Is this a current diagnosis for this admission?: Yes Plan: Due to increasing hypoxia, he is now on bipap and proned. Doing better. Prone 16 hours, supine 8. (2) Hyperglycemia due to type 2 diabetes mellitus Qualifiers: Diabetes mellitus detention insulin use: without vermin exterminator use Qualified Code(s): E11.65 - Type 2 diabetes mellitus with hyperglycemia Is this a current diagnosis for this admission?: Yes Plan: A Covid mortality risk factor but controlled. (3) Pneumonia due to COVID-19 virus Is this a current diagnosis for this admission?: Yes Plan: Slightly worse overnight. Plan Summary: Keep proned 16 hours then upright. Critical Time Critical Time (minutes): 35 Level of Care: ICU Anticipated discharge: Home Anticipated DC Timeframe: Other -: 1. The care of a critical patient is a dynamic process. This note is a wire rope sales representative synopsis but static in nature. The timeframe for treatments given in order is not necessarily the actual time these treatments may have been done. 2. This patient requires critical care secondary to ongoing requirements for th erapy not offered or safe outside the critical care environment. Transfer to a lower level of care will result in altered life or limb morbidity and mortality. 3. Multidisciplinary rounds completed. 4. ABCDE bundle addressed.
[2020-07-02] MEDS: DEXAMETHASONE SOD PHOSPHATE INJ 4 MG/1 ML VIAL IV SCH (11:18)
[2020-07-02] MEDS: NORMAL SALINE 10 ML SDV (SCHEDULED) IV SCH ×2 (11:19→21:32)
[2020-07-02 15:15] LABS: APPEARANCE,URINE CLOUDY
[2020-07-02 15:16] LABS: BILIRUBIN,URINE NEGATIVE (NEGATIVE); COLOR,URINE COLORLESS; GLUCOSE, URINE >=1000 mg/dL (NEGATIVE); KETONES,URINE NEGATIVE (NEGATIVE); PROTEIN,URINE NEGATIVE (NEGATIVE); URINE SPECIFIC GRAVITY 1.022; UROBILINOGEN,URINE NEGATIVE mg/dL (<2.0)
[2020-07-02 15:17] LABS: ADD MANUAL MICROSCOPIC YES; LEUKOCYTE ESTERASE,URINE SMALL (NEGATIVE); NITRITE,URINE NEGATIVE (NEGATIVE)
[2020-07-02 15:18] LABS: WBC,URINE TOO NUMEROUS TO CNT /HPF
[2020-07-02 15:19] LABS: BACTERIA,URINE 4+ /HPF
[2020-07-02] MEDS: HEPARIN SOD (PORCINE) 1,000 UNIT/ML 10 ML VIAL IV PRN (17:07)
[2020-07-02] MEDS ORDERED: METOPROLOL TARTRATE PF/INJ 5 MG/5 ML SDV IV ONE ×3 (20:22→21:34)
[2020-07-02] MEDS: ATORVASTATIN CALCIUM 40 MG TABLET PO SCH (21:32)
[2020-07-02] MEDS ORDERED: INSULIN GLARGINE,HUM.REC.ANLOG 1,000 UNIT/10 ML VIAL (PYX) SUBCUT ONE (21:33)
[2020-07-02] MEDS: INSULIN GLARGINE,HUM.REC.ANLOG 1,000 UNIT/10 ML VIAL SUBCUT SCH (21:34)
[2020-07-02] MEDS ORDERED: DILTIAZEM HCL/D5W 125 MG/125 ML RTUINJ IV ONE (23:11)
[2020-07-02] MEDS ORDERED: DILTIAZEM HCL INJ 25 MG/5 ML VIAL IV ONE (23:12)
[2020-07-02] MEDS ORDERED: DILTIAZEM HCL/D5W 125 MG/125 ML RTUINJ IV PRN (23:13)
[2020-07-02] MEDS ORDERED: AMIODARONE HCL INJ 150 MG/3 ML VIAL IV ONE ×2 (23:15→23:17)
[2020-07-02] MEDS ORDERED: AMIODARONE HCL 150 MG in DEXTROSE 5%-WATER 100 ML IV ONE (23:16)
[2020-07-02] MEDS ORDERED: NOREPINEPHRINE BITARTRATE INJ/PF 4 MG/4 ML SDV IV ONE (23:21)
[2020-07-02] MEDS ORDERED: ETOMIDATE INJ/PF 20 MG/10 ML SDV IV ONE (23:28)
[2020-07-02] MEDS: DEXTROSE 5%-WATER 250 ML with NOREPINEPHRINE BITARTRATE 4 MG IV PRN ×2 (23:30)
[2020-07-02 23:40] LABS: ARTERIAL BLOOD BASE EXCESS -1.5 mmol/L; ARTERIAL BLOOD H2CO3 1.33 mmol/L (1.05-1.35); ARTERIAL BLOOD HCO3 24.1 mmol/L (20-24); ARTERIAL BLOOD O2 SATURATION 76.5 % (94-98); ARTERIAL BLOOD PCO2 44.1 mmHg (35-45); ARTERIAL BLOOD PH 7.36 (7.35-7.45); ARTERIAL BLOOD TOTAL CO2 25.4 mmol/L (23-27)
[2020-07-02 23:43] LABS: ARTERIAL BLOOD FIO2 100%
[2020-07-02 23:45] LABS: HEMATOCRIT 33.9 % (37.9-51.0); MEAN CORPUSCULAR HEMOGLOBIN 29.4 pg (27.0-33.4); MEAN CORPUSCULAR HGB CONC 32.6 g/dL (32.0-36.0); MEAN CORPUSCULAR VOLUME 90 fl (80-97); PLATELET COUNT 199 10^3/uL (150-450); RED BLOOD COUNT 3.75 10^6/uL (4.35-5.55); RED CELL DISTRIBUTION WIDTH 13.4 % (11.5-14.0); WHITE BLOOD COUNT 16.5 10^3/uL (4.0-10.5)
[2020-07-03] MEDS: DEXMEDETOMIDINE IN 0.9 % NACL 400 MCG/100 ML RTUPB IV PRN ×4 (01:27→19:03)
[2020-07-03] MEDS: METOPROLOL TARTRATE PF/INJ 5 MG/5 ML SDV IV SCH ×4 (01:34→17:03)
[2020-07-03] MEDS: MORPHINE SULFATE 10 MG/ML INJ IV PRN ×3 (01:34→19:55)
[2020-07-03] MEDS: INSULIN REG, HUMAN 100 UNIT/ML 3 ML VIAL (PYX) SUBCUT SCH ×4 (01:46→17:01)
[2020-07-03] MEDS: ALBUTEROL SULFATE 0.083% NEB 2.5 MG/3 ML AMPUL NEB SCH ×4 (02:35→20:44)
[2020-07-03 05:11] LABS: ARTERIAL BLOOD BASE EXCESS -0.9 mmol/L; ARTERIAL BLOOD H2CO3 1.49 mmol/L (1.05-1.35); ARTERIAL BLOOD HCO3 25.5 mmol/L (20-24); ARTERIAL BLOOD PCO2 49.5 mmHg (35-45); ARTERIAL BLOOD PH 7.33 (7.35-7.45); ARTERIAL BLOOD PO2 59.8 mmHg (80-100)
[2020-07-03 05:12] LABS: ARTERIAL BLOOD FIO2 100%
[2020-07-03 05:54] LABS: ALBUMIN 3.1 g/dL (3.5-5.0); ANION GAP 7 (5-19); ASPARTATE AMINO TRANSFERASE 40 U/L (17-59); BILIRUBIN,DIRECT 0.4 mg/dL (0.0-0.4); BILIRUBIN,TOTAL 0.8 mg/dL (0.2-1.3); BLOOD UREA NITROGEN 50 mg/dL (7-20); CALCIUM 8.9 mg/dL (8.4-10.2); CARBON DIOXIDE 29 mmol/L (22-30); CHLORIDE 118 mmol/L (98-107); GLUCOSE 77 mg/dL (75-110); NEONATAL BILIRUBIN RESULT 0.4 mg/dL (0.1-1.1); PHOSPHORUS 4.4 mg/dL (2.5-4.5); POTASSIUM 4.3 mmol/L (3.6-5.0); TOTAL PROTEIN 6.8 g/dL (6.3-8.2)
[2020-07-03 05:59] LABS: ALKALINE PHOSPHATASE 161 U/L (38-126)
[2020-07-03] MEDS ORDERED: NOREPINEPHRINE BITARTRATE INJ/PF 4 MG/4 ML SDV IV ONE (06:07)
[2020-07-03 06:10] LABS: PREALBUMIN 11.5 mg/dL (17.6-36.0)
[2020-07-03] MEDS: DEXTROSE 5%-WATER 250 ML with NOREPINEPHRINE BITARTRATE 4 MG IV PRN ×2 (06:11)
[2020-07-03] MEDS ORDERED: DEXTROSE 5%-WATER 500 ML with AMIODARONE HCL 900 MG IV PRN ×2 (06:18)
[2020-07-03] MEDS: BUDESONIDE NEB 0.25 MG/2 ML AMPUL NEB SCH ×2 (08:11→20:44)
--- NOTE | 2020-07-03 08:29 | PDOC CRITICAL CARE PROG REPORT ---
General Date:: 07/03/20 ICU Day:: 6 Hospital Day:: 21 Resuscitation Status: Full Code Events in the past 12 to 24 Hours:: This 55-year-old male presented to [facility] emergency department on 06/27/2020 via EMS with complaints of fever and chills for 2 days prior to presentation. Associated symptoms included myalgias, dyspnea, nonproductive cough and sore throat. He denied any change in taste or smell. Nonetheless, he was diagnosed with COVID-19 pneumonia. Per EMS report, the patient was hypoxic upon their arrival, SPO2 72%. He was placed on CPAP en route to the hospital. He was initially admitted by the hospitalist service. Rapid response team was called for worsening hypoxia. The patient was transferred to the ICU. 06/28: Yesterday, the patient was stable on CPAP 8, FiO2 100%. He was fully conversant, mentating well. He was able to take off his own mask to snack ( brought him home-cooked food) and drink water. He was initiated on heparin infusion. Maintained SPO2 100% throughout the entire day shift. He transferred out last night to [facility]. However, Dr. Bustamante called requesting transfer back to the ICU because the patient was becoming progressively more hypoxic. He was on CPAP 12, FiO2 100% with a respiratory rate in the 30s. He was transferred back to the ICU on CPAP 15, FiO2 100%. Respiratory rate 30s to 40s. SPO2 83%. He is still mentating well. He denies pain. He is tachycardic. He is anxious. 06/29: Remains CPAP dependent. Required as much his CPAP 16 yesterday. Now down to CPAP 1214. FiO2 100%. SPO2 89-90%. Mentating well. However, nurse reports that he is having difficulty with swallowing and is no longer able to take p.o. medications. Respiratory rate 30s. He denies pain. Tachycardia and hypertension are being addressed with Precedex and labetalol as needed. Less anxious. ABG this a.m.: 7.44/36/61. On heparin infusion for treatment of confirmed pulmonary embolism. Heparin currently on hold due to elevated PTT. 06/30: No real change. Still mentating well. O2 saturations 85-90%. Needing precedex. If unable to come of CPAP and eat he will need a PICC and TPN by rimma. On heparin for PE. 07/01: Beginning to be concerned regarding nutrition status. Not eaten in 5 days for previously well-nourished [address] PICC for TPN as he is not very hun gry and cant stay off CPAP long to eat. 07/02: Desaturated to 70s. Now proned and doing much better. 07/03: Reproned. O2 saturations about 90%. Had run of what was said to be VT. Now on amiodarone. Unfortunately no EKG or strips. No recurrence. Review of systems relevant to events:: Pulmonary, CV Reason for ICU Addmission:: acute respiratory failure - worsening hypoxia - Medications: Medications reviewed and adjusted accordingly: Yes Vasopressors:: None Sedation:: Precedx. Physical Exam Vital Signs: Temp Pulse Resp BP Pulse Ox 100.0 F 107 H 23 H 113/65 89 L 07/03/20 06:00 07/03/20 07:00 07/03/20 07:41 07/03/20 07:41 07/03/20 07:41 Pulse Oximeter Continuous Start: 06/12/20 18:32 Freq: RTQ4 Status: Complete Protocol: Document 06/23/20 03:42 CMI (Rec: 06/23/20 04:07 CMI [id number]) Pulse Oximetry Assessment Oxygen Saturation (92-100) 97 Oxygen Delivery Method CPAP Fraction of Inspired Oxygen (FIO2) 100 Equipment Usage Equipment Standby Continuous SpO2 Machine # on nurse monitor Intake & Output 07/02/20 07/03/20 07/04/20 06:59 06:59 06:59 Intake Total 1190 1036 Output Total 800 930 Balance 390 106 Weight 67.2 kg 70.6 kg Weight/Height Weight 70.6 kg Height 5 ft 7 in General appearance: PRESENT: no acute distress Head exam: PRESENT: atraumatic, normocephalic Eye exam: PRESENT: conjunctiva pink, EOMI, PERRLA. ABSENT: scleral icterus Ear exam: PRESENT: normal external ear exam Mouth exam: PRESENT: moist, tongue midline Respiratory exam: PRESENT: clear to auscultation aaron, decreased breath sounds. ABSENT: rales, rhonchi, wheezes Cardiovascular exam: PRESENT: bradycardia, RRR. ABSENT: diastolic murmur, rubs, systolic murmur GI/Abdominal exam: PRESENT: normal bowel sounds, soft. ABSENT: distended, g uarding, mass, organolmegaly, rebound, tenderness Rectal exam: PRESENT: deferred Gentrourinary exam: PRESENT: indwelling catheter Extremities exam: PRESENT: full ROM. ABSENT: calf tenderness, clubbing, pedal edema Neurological exam: PRESENT: altered, other - Sedated on Precedex. Arousable but sleepy. Psychiatric exam: PRESENT: appropriate affect, normal mood. ABSENT: homicidal ideation, suicidal ideation Skin exam: PRESENT: dry, intact, warm. ABSENT: cyanosis, rash Tubes/Lines: PRESENT: Other - Bipap. Laboratory/Radiographs Laboratory Results: 07/02/20 22:45 07/03/20 04:20 07/02/20 07/02/20 07/02/20 12:50 20:50 22:45 WBC Cancelled 16.5 H RBC Cancelled 3.75 L Hgb Cancelled 11.0 L Hct Cancelled 33.9 L MCV Cancelled 90 MCH Cancelled 29.4 MCHC Cancelled 32.6 RDW Cancelled 13.4 Plt Count Cancelled 199 Carbonic Acid HCO3/H2CO3 Ratio ABG pH ABG pCO2 ABG pO2 ABG HCO3 ABG O2 Saturation ABG Base Excess FiO2 Sodium Potassium Chloride Carbon Dioxide Anion Gap BUN Creatinine Est GFR ( Amer) Glucose Calcium Phosphorus Total Bilirubin AST Alkaline Phosphatase Total Protein Albumin Prealbumin Urine Color COLORLESS Urine Appearance CLOUDY Urine pH 5.0 Ur Specific [place] 1.022 Urine Protein NEGATIVE Urine Glucose (UA) >=1000 H Urine Ketones NEGATIVE Urine Blood MODERATE H Urine Nitrite NEGATIVE Ur Leukocyte Esterase SMALL H 07/02/20 07/03/20 07/03/20 23:21 04:20 04:20 WBC RBC Hgb Hct MCV MCH MCHC RDW Plt Count Carbonic Acid 1.33 1.49 H HCO3/H2CO3 Ratio 18:1 17:1 ABG pH 7.36 7.33 L ABG pCO2 44.1 49.5 H ABG pO2 43.0 L 59.8 L ABG HCO3 24.1 H 25.5 H ABG O2 Saturation 76.5 L 89.0 L ABG Base Excess -1.5 -0.9 FiO2 100% 100% Sodium 153.6 H Potassium 4.3 Chloride 118 H Carbon Dioxide 29 Anion Gap 7 BUN 50 H Creatinine 1.10 Est GFR ( Amer) > 60 Glucose 77 Calcium 8.9 Phosphorus 4.4 Total Bilirubin 0.8 AST 40 Alkaline Phosphatase 161 H Total Protein 6.8 Albumin 3.1 L Prealbumin 11.5 L Urine Color Urine Appearance Urine pH Ur Specific [place] Urine Protein Urine Glucose (UA) Urine Ketones Urine Blood Urine Nitrite Ur Leukocyte Esterase 06/12/20 06/12/20 06/12/20 16:49 16:49 21:30 Creatine Kinase 119 CK-MB (CK-2) Troponin I 0.046 0.105 NT-Pro-B Natriuret Pep 420 H 06/13/20 06/27/20 06/28/20 06:31 04:39 02:31 Creatine Kinase CK-MB (CK-2) Troponin I 0.087 < 0.012 NT-Pro-B Natriuret Pep 536 H 06/28/20 06/28/20 06/28/20 02:31 02:31 15:37 Creatine Kinase 32 L CK-MB (CK-2) 1.34 Troponin I 0.016 < 0.012 NT-Pro-B Natriuret Pep Impressions: Chest/Abdomen CTA 06/16/20 08:30 IMPRESSION: 1. Extensive bilateral alveolar airspace disease consistent with Covid 19 pneumonia. 2. Limited study for evaluation of pulmonary embolus due to timing of the bolus. Suspect filling defects in the right lower lobe pulmonary artery as discussed. Venous Doppler Study 06/27/20 00:00 IMPRESSION: NO EVIDENCE OF DVT OR SVT IN EITHER LEG. Chest X-Ray 06/30/20 05:00 IMPRESSION: Unchanged radiographic appearance of the chest. PICC Line Insertion 07/01/20 00:00 IMPRESSION: SUCCESSFUL PLACEMENT OF A 5 FR DUAL LUMEN 38 CM PICC IN THE RIGHT BASILIC VEIN. All labs, radiographs, diagnostic studies and EKGs were personally reviewed: Yes In addition, reports of radiographic and diagnostic studies were read: Yes Assessment and Plan - Diagnosis (1) Acute respiratory failure with hypoxia Is this a current diagnosis for this admission?: Yes Plan: Better proned. Recent studies do not suggest intubation for hypoxia alone. Low pH and decreasing mental status are more major reasons. This does not apply at this time. (2) Hyperglycemia due to type 2 diabetes mellitus Qualifiers: Diabetes mellitus long term acute care registered nurse insulin use: without care home use Qualified Code(s): E11.65 - Type 2 diabetes mellitus with hyperglycemia Is this a current diagnosis for this admission?: Yes Plan: Resolved with adjustment of lantus. BG is 77, will need to lower lantus at this time. (3) Pneumonia due to COVID-19 virus Is this a current diagnosis for this admission?: Yes Plan: Same (4) Ventricular tachycardia Is this a current diagnosis for this admission?: Yes Plan: By report, the reason for amiodarone. There are no strips capturing this though and no EKG. Plan Summary: Keep proned for now. Stop amiodarone at 24 hours. Does not need intubation yet. Critical Time Critical Time (minutes): 35 Level of Care: ICU Anticipated discharge: Home with Homehealth Anticipated DC Timeframe: Other -: 1. The care of a critical patient is a dynamic process. This note is a circulation sales representative synopsis but static in nature. The timeframe for treatments given in order is not necessarily the actual time these treatments may have been done. 2. This patient requires critical care secondary to ongoing requirements for therapy not offered or safe outside the critical care environment. Transfer to a lower level of care will result in altered life or limb morbidity and mortality. 3. Multidisciplinary rounds completed. 4. ABCDE bundle addressed.
[2020-07-03] MEDS: NORMAL SALINE 10 ML SDV (SCHEDULED) IV SCH ×2 (10:31→21:19)
[2020-07-03] MEDS: DEXAMETHASONE SOD PHOSPHATE INJ 4 MG/1 ML VIAL IV SCH (10:32)
[2020-07-03] MEDS: FAT EMULSIONS 250 ML IV SCH (10:56)
[2020-07-03] MEDS: INSULIN GLARGINE,HUM.REC.ANLOG 1,000 UNIT/10 ML VIAL SUBCUT SCH ×2 (13:20→22:11)
[2020-07-03] MEDS ORDERED: INSULIN GLARGINE,HUM.REC.ANLOG 1,000 UNIT/10 ML VIAL (PYX) SUBCUT ONE (13:30)
[2020-07-03] MEDS: ATORVASTATIN CALCIUM 40 MG TABLET PO SCH (21:19)
[2020-07-04] MEDS: DEXMEDETOMIDINE IN 0.9 % NACL 400 MCG/100 ML RTUPB IV PRN ×6 (00:25→22:05)
[2020-07-04] MEDS: METOPROLOL TARTRATE PF/INJ 5 MG/5 ML SDV IV SCH ×4 (00:56→17:29)
[2020-07-04] MEDS: INSULIN REG, HUMAN 100 UNIT/ML 3 ML VIAL (PYX) SUBCUT SCH ×4 (00:56→18:16)
[2020-07-04] MEDS: HEPARIN SODIUM,PORCINE/D5W 25,000 UNIT/250 ML RTUINJ IV PRN (01:30)
[2020-07-04] MEDS: MORPHINE SULFATE 10 MG/ML INJ IV PRN ×4 (01:31→21:39)
[2020-07-04] MEDS: ALBUTEROL SULFATE 0.083% NEB 2.5 MG/3 ML AMPUL NEB SCH ×4 (02:40→20:52)
[2020-07-04 05:34] LABS: ABSOLUTE LYMPHOCYTES (AUTO) 1.2 10^3/uL (0.5-4.7); ABSOLUTE MONOCYTES (AUTO) 0.6 10^3/uL (0.1-1.4); ABSOLUTE NEUT (AUTO) 13.3 10^3/uL (1.7-8.2); BASOPHILS % (AUTO) 0.1 % (0-2); EOSINOPHILS % (AUTO) 0.2 % (0-6); HEMATOCRIT 34.4 % (37.9-51.0); HEMOGLOBIN 11.1 g/dL (13.5-17.0); LYMPHOCYTES % (AUTO) 7.6 % (13-45); MEAN CORPUSCULAR HEMOGLOBIN 29.1 pg (27.0-33.4); MEAN CORPUSCULAR HGB CONC 32.1 g/dL (32.0-36.0); MEAN CORPUSCULAR VOLUME 91 fl (80-97); PLATELET COUNT 132 10^3/uL (150-450); RED CELL DISTRIBUTION WIDTH 13.4 % (11.5-14.0); SEGMENTED NEUTROPHILS % (AUTO) 88.1 % (42-78); TOTAL CELLS COUNTED % (AUTO) 100 %; WHITE BLOOD COUNT 15.2 10^3/uL (4.0-10.5)
[2020-07-04 05:38] LABS: APPEARANCE,URINE CLOUDY; BILIRUBIN,URINE NEGATIVE (NEGATIVE); COLOR,URINE YELLOW; GLUCOSE, URINE >=500 mg/dL (NEGATIVE); KETONES,URINE NEGATIVE (NEGATIVE); LEUKOCYTE ESTERASE,URINE LARGE (NEGATIVE); NITRITE,URINE POSITIVE (NEGATIVE); PROTEIN,URINE 100 mg/dL (NEGATIVE); URINE SPECIFIC GRAVITY 1.017; UROBILINOGEN,URINE NEGATIVE mg/dL (<2.0)
[2020-07-04 05:38] LABS: PARTIAL THROMBOPLASTIN TIME 108.6 SEC (23.5-35.8)
[2020-07-04 05:39] LABS: D-DIMER 2.94 ug/mL (0.00-0.50)
[2020-07-04 06:15] LABS: BLOOD UREA NITROGEN 39 mg/dL (7-20); CALCIUM 8.7 mg/dL (8.4-10.2); CARBON DIOXIDE 33 mmol/L (22-30); CHLORIDE 117 mmol/L (98-107); GLUCOSE 164 mg/dL (75-110); PHOSPHORUS 3.4 mg/dL (2.5-4.5); POTASSIUM 5.1 mmol/L (3.6-5.0)
[2020-07-04 06:19] LABS: PREALBUMIN 7.9 mg/dL (17.6-36.0)
[2020-07-04 06:37] LABS: ANION GAP 1 (5-19); C-REACTIVE PROTEIN 185.4 mg/L (<10.0)
[2020-07-04] MEDS: BUDESONIDE NEB 0.25 MG/2 ML AMPUL NEB SCH ×2 (08:07→20:52)
[2020-07-04] MEDS: DEXAMETHASONE SOD PHOSPHATE INJ 4 MG/1 ML VIAL IV SCH (09:25)
[2020-07-04] MEDS: NORMAL SALINE 10 ML SDV (SCHEDULED) IV SCH ×2 (09:26→21:08)
[2020-07-04] MEDS: AMINO ACIDS 5 %/DEXTROSE 20 % 1,000 ML IV PRN (09:29)
[2020-07-04] MEDS: INSULIN GLARGINE,HUM.REC.ANLOG 1,000 UNIT/10 ML VIAL SUBCUT SCH ×2 (12:21→21:31)
[2020-07-04] MEDS: ATORVASTATIN CALCIUM 40 MG TABLET PO SCH (21:08)
[2020-07-04] MEDS: HEPARIN SOD (PORCINE) 1,000 UNIT/ML 10 ML VIAL IV PRN (21:32)
[2020-07-05] MEDS: METOPROLOL TARTRATE PF/INJ 5 MG/5 ML SDV IV SCH ×4 (00:03→17:09)
[2020-07-05] MEDS: INSULIN REG, HUMAN 100 UNIT/ML 3 ML VIAL (PYX) SUBCUT SCH ×3 (00:09→12:02)
[2020-07-05] MEDS: ALBUTEROL SULFATE 0.083% NEB 2.5 MG/3 ML AMPUL NEB SCH ×4 (02:25→20:31)
[2020-07-05 02:52] LABS: HEMATOCRIT 34.8 % (37.9-51.0); HEMOGLOBIN 11.4 g/dL (13.5-17.0); MEAN CORPUSCULAR HEMOGLOBIN 29.9 pg (27.0-33.4); MEAN CORPUSCULAR HGB CONC 32.7 g/dL (32.0-36.0); MEAN CORPUSCULAR VOLUME 92 fl (80-97); PLATELET COUNT 130 10^3/uL (150-450); RED CELL DISTRIBUTION WIDTH 13.4 % (11.5-14.0); WHITE BLOOD COUNT 14.9 10^3/uL (4.0-10.5)
[2020-07-05] MEDS: HEPARIN SODIUM,PORCINE/D5W 25,000 UNIT/250 ML RTUINJ IV PRN (03:03)
[2020-07-05] MEDS: DEXMEDETOMIDINE IN 0.9 % NACL 400 MCG/100 ML RTUPB IV PRN ×6 (03:03→23:07)
[2020-07-05 03:31] LABS: PHOSPHORUS 2.8 mg/dL (2.5-4.5)
[2020-07-05 04:09] LABS: BLOOD UREA NITROGEN 41 mg/dL (7-20); CALCIUM 8.9 mg/dL (8.4-10.2); CHLORIDE 113 mmol/L (98-107); GLUCOSE 354 mg/dL (75-110); POTASSIUM 5.6 mmol/L (3.6-5.0)
[2020-07-05 04:14] LABS: CARBON DIOXIDE 32 mmol/L (22-30)
[2020-07-05 04:15] LABS: ANION GAP 1 (5-19)
[2020-07-05] MEDS: MORPHINE SULFATE 10 MG/ML INJ IV PRN ×5 (05:01→21:25)
[2020-07-05 06:34] LABS: ARTERIAL BLOOD BASE EXCESS -1.3 mmol/L; ARTERIAL BLOOD H2CO3 1.93 mmol/L (1.05-1.35); ARTERIAL BLOOD HCO3 27.1 mmol/L (20-24); ARTERIAL BLOOD O2 SATURATION 97.4 % (94-98); ARTERIAL BLOOD PCO2 64.1 mmHg (35-45); ARTERIAL BLOOD PH 7.24 (7.35-7.45); ARTERIAL BLOOD TOTAL CO2 29.1 mmol/L (23-27)
[2020-07-05 06:35] LABS: ARTERIAL BLOOD FIO2 100%
[2020-07-05] MEDS: BUDESONIDE NEB 0.25 MG/2 ML AMPUL NEB SCH ×2 (08:03→20:31)
--- NOTE | 2020-07-05 08:34 | RADIOLOGY REPORT (SQ) ---
EXAM DESCRIPTION: CHEST SINGLE VIEW IMAGES COMPLETED DATE/TIME: 07/05/2020 5:37 am REASON FOR STUDY: covid COMPARISON: 07/01/2020 FINDINGS: One-view chest PA prone. Right PICC line appropriate. Patchy diffuse slightly shifting infiltrates. Doubt change. TECHNICAL DOCUMENTATION: JOB ID: [id number] Reading location - IP/workstation name: [email or web address]
--- NOTE | 2020-07-05 09:43 | PDOC CRITICAL CARE PROG REPORT ---
General Date:: 07/05/20 ICU Day:: 8 Hospital Day:: 23 Resuscitation Status: Full Code Events in the past 12 to 24 Hours:: This 55-year-old male presented to [facility] emergency department on 06/27/2020 via EMS with complaints of fever and chills for 2 days prior to presentation. Associated symptoms included myalgias, dyspnea, nonproductive cough and sore throat. He denied any change in taste or smell. Nonetheless, he was diagnosed with COVID-19 pneumonia. Per EMS report, the patient was hypoxic upon their arrival, SPO2 72%. He was placed on CPAP en route to the hospital. He was initially admitted by the hospitalist service. Rapid response team was called for worsening hypoxia. The patient was transferred to the ICU. 06/28: Yesterday, the patient was stable on CPAP 8, FiO2 100%. He was fully conversant, mentating well. He was able to take off his own mask to snack ( brought him home-cooked food) and drink water. He was initiated on heparin infusion. Maintained SPO2 100% throughout the entire day shift. He transferred out last night to [facility]. However, Dr. Bustamante called requesting transfer back to the ICU because the patient was becoming progressively more hypoxic. He was on CPAP 12, FiO2 100% with a respiratory rate in the 30s. He was transferred back to the ICU on CPAP 15, FiO2 100%. Respiratory rate 30s to 40s. SPO2 83%. He is still mentating well. He denies pain. He is tachycardic. He is anxious. 06/29: Remains CPAP dependent. Required as much his CPAP 16 yesterday. Now down to CPAP 1214. FiO2 100%. SPO2 89-90%. Mentating well. However, nurse reports that he is having difficulty with swallowing and is no longer able to take p.o. medications. Respiratory rate 30s. He denies pain. Tachycardia and hypertension are being addressed with Precedex and labetalol as needed. Less anxious. ABG this a.m.: 7.44/36/61. On heparin infusion for treatment of confirmed pulmonary embolism. Heparin currently on hold due to elevated PTT. 06/30: No real change. Still mentating well. O2 saturations 85-90%. Needing precedex. If unable to come of CPAP and eat he will need a PICC and TPN by rimma. On heparin for PE. 07/01: Beginning to be concerned regarding nutrition status. Not eaten in 5 days for previously well-nourished [address] PICC for TPN as he is not very hun gry and cant stay off CPAP long to eat. 07/02: Desaturated to 70s. Now proned and doing much better. 07/03: Reproned. O2 saturations about 90%. Had run of what was said to be VT. Now on amiodarone. Unfortunately no EKG or strips. No recurrence. 07/05: Calmer and stable and proned. Review of systems relevant to events:: Pulmonary Reason for ICU Addmission:: acute respiratory failure - worsening hypoxia - Medications: Medications reviewed and adjusted accordingly: Yes Vasopressors:: None Sedation:: Precedex. Physical Exam Vital Signs: Temp Pulse Resp BP Pulse Ox 100.0 F 78 42 H 99/65 L 100 07/05/20 08:00 07/05/20 08:03 07/05/20 08:03 07/05/20 08:00 07/05/20 08:03 Pulse Oximeter Continuous Start: 06/12/20 18:32 Freq: RTQ4 Status: Complete Protocol: Document 06/23/20 03:42 CMI (Rec: 06/23/20 04:07 CMI [id number]) Pulse Oximetry Assessment Oxygen Saturation (92-100) 97 Oxygen Delivery Method CPAP Fraction of Inspired Oxygen (FIO2) 100 Equipment Usage Equipment Standby Continuous SpO2 Machine # on nurse monitor Intake & Output 07/04/20 07/05/20 07/06/20 06:59 06:59 06:59 Intake Total 1514 683 100 Output Total 2185 2405 300 Balance -671 -1722 -200 Weight 71.8 kg 68.6 kg Weight/Height Weight 68.6 kg Height 5 ft 7 in General appearance: PRESENT: no acute distress Head exam: PRESENT: atraumatic, normocephalic Eye exam: PRESENT: conjunctiva pink, EOMI, PERRLA. ABSENT: scleral icterus Ear exam: PRESENT: normal external ear exam Mouth exam: PRESENT: moist, tongue midline Neck exam: ABSENT: carotid bruit, JVD, lymphadenopathy, thyromegaly Respiratory exam: PRESENT: clear to auscultation aaron. ABSENT: rales, rhonchi, wheezes Cardiovascular exam: PRESENT: RRR. ABSENT: diastolic murmur, rubs, systolic murmur GI/Abdominal exam: PRESENT: normal bowel sounds, soft. ABSENT: distended, guarding, mass, organolmegaly, rebound, tenderness Rectal exam: PRESENT: deferred Gentrourinary exam: PRESENT: indwelling catheter Extremities exam: PRESENT: full ROM. ABSENT: calf tenderness, clubbing, pedal edema Musculoskeletal exam: PRESENT: normal inspection Neurological exam: PRESENT: altered, other - Sedated on precedex. Psychiatric exam: PRESENT: appropriate affect, normal mood. ABSENT: homicidal ideation, suicidal ideation Skin exam: PRESENT: dry, intact, warm. ABSENT: cyanosis, rash Tubes/Lines: PRESENT: Other - Bipap Laboratory/Radiographs Laboratory Results: 07/05/20 02:30 07/05/20 02:30 07/05/20 07/05/20 07/05/20 02:30 02:30 02:30 WBC 14.9 H RBC 3.80 L Hgb 11.4 L Hct 34.8 L MCV 92 MCH 29.9 MCHC 32.7 RDW 13.4 Plt Count 130 L Carbonic Acid HCO3/H2CO3 Ratio ABG pH ABG pCO2 ABG pO2 ABG HCO3 ABG O2 Saturation ABG Base Excess FiO2 Sodium Potassium Chloride Carbon Dioxide Anion Gap BUN Creatinine Est GFR ( Amer) Glucose 360 H Calcium Phosphorus 2.8 Magnesium 2.4 H 07/05/20 07/05/20 02:30 06:15 WBC RBC Hgb Hct MCV MCH MCHC RDW Plt Count Carbonic Acid 1.93 H HCO3/H2CO3 Ratio 14:1 ABG pH 7.24 L ABG pCO2 64.1 H ABG pO2 116.0 H ABG HCO3 27.1 H ABG O2 Saturation 97.4 ABG Base Excess -1.3 FiO2 100% Sodium 146.4 H Potassium 5.6 H Chloride 113 H Carbon Dioxide 32 H Anion Gap 1 L BUN 41 H Creatinine 0.75 Est GFR ( Amer) > 60 Glucose 354 H Calcium 8.9 Phosphorus Magnesium 06/12/20 06/12/20 06/12/20 16:49 16:49 21:30 Creatine Kinase 119 CK-MB (CK-2) Troponin I 0.046 0.105 NT-Pro-B Natriuret Pep 420 H 06/13/20 06/27/20 06/28/20 06:31 04:39 02:31 Creatine Kinase CK-MB (CK-2) Troponin I 0.087 < 0.012 NT-Pro-B Natriuret Pep 536 H 06/28/20 06/28/20 06/28/20 02:31 02:31 15:37 Creatine Kinase 32 L CK-MB (CK-2) 1.34 Troponin I 0.016 < 0.012 NT-Pro-B Natriuret Pep Impressions: Chest/Abdomen CTA 06/16/20 08:30 IMPRESSION: 1. Extensive bilateral alveolar airspace disease consistent with Covid 19 pneumonia. 2. Limited study for evaluation of pulmonary embolus due to timing of the bolus. Suspect filling defects in the right lower lobe pulmonary artery as discussed. Venous Doppler Study 06/27/20 00:00 IMPRESSION: NO EVIDENCE OF DVT OR SVT IN EITHER LEG. PICC Line Insertion 07/01/20 00:00 IMPRESSION: SUCCESSFUL PLACEMENT OF A 5 FR DUAL LUMEN 38 CM PICC IN THE RIGHT BASILIC VEIN. All labs, radiographs, diagnostic studies and EKGs were personally reviewed: Yes In addition, reports of radiographic and diagnostic studies were read: Yes Assessment and Plan - Diagnosis (1) Acute respiratory failure with hypoxia Is this a current diagnosis for this admission?: Yes Plan: Proned. Keep proned for 18 hours and supine 8. Saturations in 90s and comfortable. Sedated on precedex. (2) Hyperglycemia due to type 2 diabetes mellitus Qualifiers: Diabetes mellitus tank terminal gauger insulin use: without skilled nursing use Qualified Code(s): E11.65 - Type 2 diabetes mellitus with hyperglycemia Is this a current diagnosis for this admission?: Yes Plan: Lantus increased may have to add insulin to TPN. (3) Pneumonia due to COVID-19 virus Is this a current diagnosis for this admission?: Yes Plan: Right now stable but neither improving or worsening. (4) Ventricular tachycardia Is this a current diagnosis for this admission?: Yes Plan: I am not sure the rhythym. There are no strips or EKG to record. Stop amiodarone. Plan Summary: Will still need the ICU for tenous respiratory status. Critical Time Critical Time (minutes): 35 Level of Care: ICU Anticipated discharge: Home Anticipated DC Timeframe: Other -: 1. The care of a critical patient is a dynamic process. This note is a education courses sales representative synopsis but static in nature. The timeframe for treatments given in order is not necessarily the actual time these treatments may have been done. 2. This patient requires critical care secondary to ongoing requirements for therapy not offered or safe outside the critical care environment. Transfer to a lower level of care will result in altered life or limb morbidity and mortality. 3. Multidisciplinary rounds completed. 4. ABCDE bundle addressed.
--- NOTE | 2020-07-05 09:53 | PDOC CRITICAL CARE PROG REPORT ---
General Date:: 07/04/20 ICU Day:: 7 Hospital Day:: 22 Resuscitation Status: Full Code Events in the past 12 to 24 Hours:: This 55-year-old male presented to [facility] emergency department on 06/27/2020 via EMS with complaints of fever and chills for 2 days prior to presentation. Associated symptoms included myalgias, dyspnea, nonproductive cough and sore throat. He denied any change in taste or smell. Nonetheless, he was diagnosed with COVID-19 pneumonia. Per EMS report, the patient was hypoxic upon their arrival, SPO2 72%. He was placed on CPAP en route to the hospital. He was initially admitted by the hospitalist service. Rapid response team was called for worsening hypoxia. The patient was transferred to the ICU. 06/28: Yesterday, the patient was stable on CPAP 8, FiO2 100%. He was fully conversant, mentating well. He was able to take off his own mask to snack ( brought him home-cooked food) and drink water. He was initiated on heparin infusion. Maintained SPO2 100% throughout the entire day shift. He transferred out last night to [facility]. However, Dr. Bustamante called requesting transfer back to the ICU because the patient was becoming progressively more hypoxic. He was on CPAP 12, FiO2 100% with a respiratory rate in the 30s. He was transferred back to the ICU on CPAP 15, FiO2 100%. Respiratory rate 30s to 40s. SPO2 83%. He is still mentating well. He denies pain. He is tachycardic. He is anxious. 06/29: Remains CPAP dependent. Required as much his CPAP 16 yesterday. Now down to CPAP 1214. FiO2 100%. SPO2 89-90%. Mentating well. However, nurse reports that he is having difficulty with swallowing and is no longer able to take p.o. medications. Respiratory rate 30s. He denies pain. Tachycardia and hypertension are being addressed with Precedex and labetalol as needed. Less anxious. ABG this a.m.: 7.44/36/61. On heparin infusion for treatment of confirmed pulmonary embolism. Heparin currently on hold due to elevated PTT. 06/30: No real change. Still mentating well. O2 saturations 85-90%. Needing precedex. If unable to come of CPAP and eat he will need a PICC and TPN by rimma. On heparin for PE. 07/01: Beginning to be concerned regarding nutrition status. Not eaten in 5 days for previously well-nourished [address] PICC for TPN as he is not very hun gry and cant stay off CPAP long to eat. 07/02: Desaturated to 70s. Now proned and doing much better. 07/03: Reproned. O2 saturations about 90%. Had run of what was said to be VT. Now on amiodarone. Unfortunately no EKG or strips. No recurrence. 07/04. Now on IV amiodarone for possible VT 07/05: Calmer and stable and proned. Review of systems relevant to events:: Pulmonary, CV Reason for ICU Addmission:: acute respiratory failure - worsening hypoxia - Medications: Medications reviewed and adjusted accordingly: Yes Vasopressors:: None Sedation:: Precedex. Physical Exam Vital Signs: Temp Pulse Resp BP Pulse Ox 100.0 F 78 42 H 99/65 L 100 07/05/20 08:00 07/05/20 08:03 07/05/20 08:03 07/05/20 08:00 07/05/20 08:03 Pulse Oximeter Continuous Start: 06/12/20 18:32 Freq: RTQ4 Status: Complete Protocol: Document 06/23/20 03:42 CMI (Rec: 06/23/20 04:07 CMI [id number]) Pulse Oximetry Assessment Oxygen Saturation (92-100) 97 Oxygen Delivery Method CPAP Fraction of Inspired Oxygen (FIO2) 100 Equipment Usage Equipment Standby Continuous SpO2 Machine # on nurse monitor Intake & Output 07/04/20 07/05/20 07/06/20 06:59 06:59 06:59 Intake Total 1514 683 100 Output Total 2185 2405 300 Balance -671 -1722 -200 Weight 71.8 kg 68.6 kg Weight/Height Weight 68.6 kg Height 5 ft 7 in General appearance: PRESENT: no acute distress Head exam: PRESENT: atraumatic, normocephalic Eye exam: PRESENT: conjunctiva pink, EOMI, PERRLA. ABSENT: scleral icterus Ear exam: PRESENT: normal external ear exam Mouth exam: PRESENT: moist, tongue midline Respiratory exam: PRESENT: clear to auscultation aaron. ABSENT: rales, rhonchi, wheezes Cardiovascular exam: PRESENT: RRR, other - No ectopy noted.. ABSENT: diastolic murmur, rubs, systolic murmur GI/Abdominal exam: PRESENT: normal bowel sounds, soft. ABSENT: distended, guarding, mass, organolmegaly, rebound, tenderness Rectal exam: PRESENT: deferred Gentrourinary exam: PRESENT: indwelling catheter Extremities exam: PRESENT: full ROM. ABSENT: calf tenderness, clubbing, pedal edema Musculoskeletal exam: PRESENT: normal inspection Neurological exam: PRESENT: other - Sedated Psychiatric exam: PRESENT: anxious - Before precedex. Skin exam: PRESENT: dry, intact, warm. ABSENT: cyanosis, rash Tubes/Lines: PRESENT: Other - Bipap. Laboratory/Radiographs Laboratory Results: 07/05/20 02:30 07/05/20 02:30 07/05/20 07/05/20 07/05/20 02:30 02:30 02:30 WBC 14.9 H RBC 3.80 L Hgb 11.4 L Hct 34.8 L MCV 92 MCH 29.9 MCHC 32.7 RDW 13.4 Plt Count 130 L Carbonic Acid HCO3/H2CO3 Ratio ABG pH ABG pCO2 ABG pO2 ABG HCO3 ABG O2 Saturation ABG Base Excess FiO2 Sodium Potassium Chloride Carbon Dioxide Anion Gap BUN Creatinine Est GFR ( Amer) Glucose 360 H Calcium Phosphorus 2.8 Magnesium 2.4 H 07/05/20 07/05/20 02:30 06:15 WBC RBC Hgb Hct MCV MCH MCHC RDW Plt Count Carbonic Acid 1.93 H HCO3/H2CO3 Ratio 14:1 ABG pH 7.24 L ABG pCO2 64.1 H ABG pO2 116.0 H ABG HCO3 27.1 H ABG O2 Saturation 97.4 ABG Base Excess -1.3 FiO2 100% Sodium 146.4 H Potassium 5.6 H Chloride 113 H Carbon Dioxide 32 H Anion Gap 1 L BUN 41 H Creatinine 0.75 Est GFR ( Amer) > 60 Glucose 354 H Calcium 8.9 Phosphorus Magnesium 06/12/20 06/12/20 06/12/20 16:49 16:49 21:30 Creatine Kinase 119 CK-MB (CK-2) Troponin I 0.046 0.105 NT-Pro-B Natriuret Pep 420 H 06/13/20 06/27/20 06/28/20 06:31 04:39 02:31 Creatine Kinase CK-MB (CK-2) Troponin I 0.087 < 0.012 NT-Pro-B Natriuret Pep 536 H 06/28/20 06/28/20 06/28/20 02:31 02:31 15:37 Creatine Kinase 32 L CK-MB (CK-2) 1.34 Troponin I 0.016 < 0.012 NT-Pro-B Natriuret Pep Impressions: Chest/Abdomen CTA 06/16/20 08:30 IMPRESSION: 1. Extensive bilateral alveolar airspace disease consistent with Co vid 19 pneumonia. 2. Limited study for evaluation of pulmonary embolus due to timing of the bolus. Suspect filling defects in the right lower lobe pulmonary artery as discussed. Venous Doppler Study 06/27/20 00:00 IMPRESSION: NO EVIDENCE OF DVT OR SVT IN EITHER LEG. PICC Line Insertion 07/01/20 00:00 IMPRESSION: SUCCESSFUL PLACEMENT OF A 5 FR DUAL LUMEN 38 CM PICC IN THE RIGHT BASILIC VEIN. All labs, radiographs, diagnostic studies and EKGs were personally reviewed: Yes In addition, reports of radiographic and diagnostic studies were read: Yes Assessment and Plan - Diagnosis (1) Acute respiratory failure with hypoxia Is this a current diagnosis for this admission?: Yes Plan: Still needs bipap. Respiratory stable but not improved or worsened. (2) Hyperglycemia due to type 2 diabetes mellitus Qualifiers: Diabetes mellitus ebay reseller insulin use: without intermediate use Qualified Code(s): E11.65 - Type 2 diabetes mellitus with hyperglycemia Is this a current diagnosis for this admission?: Yes Plan: Improved with higher lantus dose. (3) Pneumonia due to COVID-19 virus Is this a current diagnosis for this admission?: Yes Plan: As above. (4) Ventricular tachycardia Is this a current diagnosis for this admission?: Yes Plan: It was said to VT but there are no strips or EKG to confirm. Stop amiodarone after 24 hours. Plan Summary: Continue amiodarone for tahmina. If no further ectopy will stop. Critical Time Critical Time (minutes): 35 Level of Care: ICU Anticipated discharge: Home Anticipated DC Timeframe: Other -: 1. The care of a critical patient is a dynamic process. This note is a access representative synopsis but static in nature. The timeframe for treatments given in order is not necessarily the actual time these treatments may have been done. 2. This patient requires critical care secondary to ongoing requirements for therapy not offered or safe outside the critical care environment. Transfer to a lower level of care will result in altered life or limb morbidity and mortality. 3. Multidisciplinary rounds completed. 4. ABCDE bundle addressed.
[2020-07-05] MEDS ORDERED: INSULIN GLARGINE,HUM.REC.ANLOG 1,000 UNIT/10 ML VIAL SUBCUT SCH ×2 (10:00→22:00)
[2020-07-05] MEDS: DEXAMETHASONE SOD PHOSPHATE INJ 4 MG/1 ML VIAL IV SCH (10:19)
[2020-07-05] MEDS: NORMAL SALINE 10 ML SDV (SCHEDULED) IV SCH ×2 (10:20→21:24)
[2020-07-05] MEDS ORDERED: AMINO ACIDS 5 %/DEXTROSE 20 % 2,000 ML IV PRN (10:29)
[2020-07-05] MEDS ORDERED: INSULIN REG, HUMAN 100 UNIT/ML 3 ML VIAL (PYX) SUBCUT ONE (12:30)
[2020-07-05] MEDS ORDERED: DEXTROSE 40% GEL 15 GM TUBE PO PRN ×2 (13:40)
[2020-07-05] MEDS ORDERED: GLUCAGON,HUMAN RECOMB 1 MG INJ IM PRN (13:40)
[2020-07-05] MEDS ORDERED: DEXTROSE 50%-WATER 25 GM/50 ML DISP.SYRIN IV PRN ×2 (13:40)
[2020-07-05] MEDS ORDERED: NORMAL SALINE 100 ML with INSULIN REGULAR, HUMAN 100 UNIT IV PRN ×2 (13:40)
[2020-07-05] MEDS ORDERED: ACETAMINOPHEN 650 MG SUPP.RECT PR ONE (17:00)
[2020-07-05] MEDS: ACETAMINOPHEN 650 MG SUPP.RECT PR PRN (18:08)
[2020-07-05] MEDS: ATORVASTATIN CALCIUM 40 MG TABLET PO SCH (21:24)
[2020-07-05] MEDS ORDERED: AZITHROMYCIN 500 MG in DEXTROSE 5%-WATER 250 ML IV ONE (23:00)
[2020-07-05] MEDS ORDERED: AZITHROMYCIN INJ 500 MG VIAL IV SCH (23:00)
[2020-07-05] MEDS ORDERED: AZITHROMYCIN INJ 500 MG VIAL IV PRN (23:00)
[2020-07-05] MEDS ORDERED: CEFTRIAXONE 2 GM/D5W RTU 2 GM/50 ML RTUPB IV ONE (23:00)
[2020-07-06] MEDS: ALBUTEROL SULFATE 0.083% NEB 2.5 MG/3 ML AMPUL NEB SCH ×4 (02:10→20:30)
[2020-07-06] MEDS: METOPROLOL TARTRATE PF/INJ 5 MG/5 ML SDV IV SCH ×4 (02:19→18:29)
[2020-07-06] MEDS: DEXMEDETOMIDINE IN 0.9 % NACL 400 MCG/100 ML RTUPB IV PRN ×6 (02:42→21:10)
[2020-07-06] MEDS: MORPHINE SULFATE 10 MG/ML INJ IV PRN ×5 (04:26→20:08)
[2020-07-06 04:39] LABS: D-DIMER 2.02 ug/mL (0.00-0.50)
[2020-07-06 05:03] LABS: ANION GAP 5 (5-19); BLOOD UREA NITROGEN 39 mg/dL (7-20); C-REACTIVE PROTEIN 58.7 mg/L (<10.0); CALCIUM 8.7 mg/dL (8.4-10.2); CARBON DIOXIDE 31 mmol/L (22-30); CHLORIDE 111 mmol/L (98-107); GLUCOSE 285 mg/dL (75-110); POTASSIUM 5.1 mmol/L (3.6-5.0)
[2020-07-06] MEDS ORDERED: MORPHINE SULFATE 10 MG/ML INJ IV ONE (06:43)
--- NOTE | 2020-07-06 08:01 | PDOC CRITICAL CARE PROG REPORT ---
General Date:: 07/06/20 ICU Day:: 9 Hospital Day:: 24 Resuscitation Status: Full Code Events in the past 12 to 24 Hours:: This 55-year-old male presented to [facility] emergency department on 06/27/2020 via EMS with complaints of fever and chills for 2 days prior to presentation. Associated symptoms included myalgias, dyspnea, nonproductive cough and sore throat. He denied any change in taste or smell. Nonetheless, he was diagnosed with COVID-19 pneumonia. Per EMS report, the patient was hypoxic upon their arrival, SPO2 72%. He was placed on CPAP en route to the hospital. He was initially admitted by the hospitalist service. Rapid response team was called for worsening hypoxia. The patient was transferred to the ICU. 06/28: Yesterday, the patient was stable on CPAP 8, FiO2 100%. He was fully conversant, mentating well. He was able to take off his own mask to snack ( brought him home-cooked food) and drink water. He was initiated on heparin infusion. Maintained SPO2 100% throughout the entire day shift. He transferred out last night to [facility]. However, Dr. Bustamante called requesting transfer back to the ICU because the patient was becoming progressively more hypoxic. He was on CPAP 12, FiO2 100% with a respiratory rate in the 30s. He was transferred back to the ICU on CPAP 15, FiO2 100%. Respiratory rate 30s to 40s. SPO2 83%. He is still mentating well. He denies pain. He is tachycardic. He is anxious. 06/29: Remains CPAP dependent. Required as much his CPAP 16 yesterday. Now down to CPAP 1214. FiO2 100%. SPO2 89-90%. Mentating well. However, nurse reports that he is having difficulty with swallowing and is no longer able to take p.o. medications. Respiratory rate 30s. He denies pain. Tachycardia and hypertension are being addressed with Precedex and labetalol as needed. Less anxious. ABG this a.m.: 7.44/36/61. On heparin infusion for treatment of confirmed pulmonary embolism. Heparin currently on hold due to elevated PTT. 06/30: No real change. Still mentating well. O2 saturations 85-90%. Needing precedex. If unable to come of CPAP and eat he will need a PICC and TPN by rimma. On heparin for PE. 07/01: Beginning to be concerned regarding nutrition status. Not eaten in 5 days for previously well-nourished [address] PICC for TPN as he is not very hun gry and cant stay off CPAP long to eat. 07/02: Desaturated to 70s. Now proned and doing much better. 07/03: Reproned. O2 saturations about 90%. Had run of what was said to be VT. Now on amiodarone. Unfortunately no EKG or strips. No recurrence. 07/04. Now on IV amiodarone for possible VT 07/05: Calmer and stable and proned. 07/06. Supine with oxygen saturations 89-95% TPN back at 50cc/hr. Off insulin drip. Review of systems relevant to events:: Pulmonary, endocrine Reason for ICU Addmission:: acute respiratory failure - worsening hypoxia - Medications: Medications reviewed and adjusted accordingly: Yes Vasopressors:: None Sedation:: Precedex Physical Exam Vital Signs: Temp Pulse Resp BP Pulse Ox 100.8 F H 65 46 H 75/67 L 93 07/05/20 23:08 07/06/20 02:10 07/06/20 03:58 07/06/20 00:15 07/06/20 03:58 Pulse Oximeter Continuous Start: 06/12/20 18:32 Freq: RTQ4 Status: Complete Protocol: Document 06/23/20 03:42 CMI (Rec: 06/23/20 04:07 CMI [id number]) Pulse Oximetry Assessment Oxygen Saturation (92-100) 97 Oxygen Delivery Method CPAP Fraction of Inspired Oxygen (FIO2) 100 Equipment Usage Equipment Standby Continuous SpO2 Machine # on nurse monitor Intake & Output 07/05/20 07/06/20 07/07/20 06:59 06:59 06:59 Intake Total 683 590 Output Total 1226 2378 Balance -1722 -152 Weight 68.6 kg 67.6 kg Weight/Height Weight 67.6 kg Height 5 ft 7 in General appearance: PRESENT: no acute distress Head exam: PRESENT: atraumatic, normocephalic Eye exam: PRESENT: conjunctiva pink, EOMI, PERRLA. ABSENT: scleral icterus Ear exam: PRESENT: normal external ear exam Mouth exam: PRESENT: moist, tongue midline Respiratory exam: PRESENT: clear to auscultation aaron. ABSENT: rales, rhonchi, wheezes Cardiovascular exam: PRESENT: RRR. ABSENT: diastolic murmur, rubs, systolic murmur GI/Abdominal exam: PRESENT: normal bowel sounds, soft. ABSENT: distended, guarding, mass, organolmegaly, rebound, tenderness Rectal exam: PRESENT: deferred Gentrourinary exam: PRESENT: indwelling catheter Extremities exam: PRESENT: full ROM, other - Evidence of muscle wasting.. ABSENT: calf tenderness, clubbing, pedal edema Neurological exam: PRESENT: altered, CN II-XII grossly intact, other - Sedated with Precedex. Psychiatric exam: PRESENT: agitated - At times Skin exam: PRESENT: dry, intact, warm. ABSENT: cyanosis, rash Tubes/Lines: PRESENT: Other - Bipap. Laboratory/Radiographs Laboratory Results: 07/05/20 02:30 07/06/20 04:00 07/06/20 04:00 Sodium 147.4 H Potassium 5.1 H Chloride 111 H Carbon Dioxide 31 H Anion Gap 5 BUN 39 H Creatinine 0.74 Est GFR ( Amer) > 60 Glucose 285 H Calcium 8.7 Ferritin 763.00 H C-Reactive Protein 58.7 H 06/12/20 06/12/20 06/12/20 16:49 16:49 21:30 Creatine Kinase 119 CK-MB (CK-2) Troponin I 0.046 0.105 NT-Pro-B Natriuret Pep 420 H 06/13/20 06/27/20 06/28/20 06:31 04:39 02:31 Creatine Kinase CK-MB (CK-2) Troponin I 0.087 < 0.012 NT-Pro-B Natriuret Pep 536 H 06/28/20 06/28/20 06/28/20 02:31 02:31 15:37 Creatine Kinase 32 L CK-MB (CK-2) 1.34 Troponin I 0.016 < 0.012 NT-Pro-B Natriuret Pep Impressions: Chest/Abdomen CTA 06/16/20 08:30 IMPRESSION: 1. Extensive bilateral alveolar airspace disease consistent with Covid 19 pneumonia. 2. Limited study for evaluation of pulmonary embolus due to timing of the bolus. Suspect filling defects in the right lower lobe pulmonary artery as discussed. Venous Doppler Study 06/27/20 00:00 IMPRESSION: NO EVIDENCE OF DVT OR SVT IN EITHER LEG. PICC Line Insertion 07/01/20 00:00 IMPRESSION: SUCCESSFUL PLACEMENT OF A 5 FR DUAL LUMEN 38 CM PICC IN THE RIGHT BASILIC VEIN. All labs, radiographs, diagnostic studies and EKGs were personally reviewed: Yes In addition, reports of radiographic and diagnostic studies were read: Yes Assessment and Plan - Diagnosis (1) Acute respiratory failure with hypoxia Is this a current diagnosis for this admission?: Yes Plan: Still needing bipap. Precedex helpful. Not able to take mask off to eat, hence TPN. Doing slightly better proning and being supine but slight. (2) Hyperglycemia due to type 2 diabetes mellitus Qualifiers: Diabetes mellitus superintendent terminal insulin use: without half-way use Qualified Code(s): E11.65 - Type 2 diabetes mellitus with hyperglycemia Is this a current diagnosis for this admission?: Yes Plan: BG 350-285 range. Does not need insulin drip. Try lantus and sliding scale again. (3) Pneumonia due to COVID-19 virus Is this a current diagnosis for this admission?: Yes Plan: He is on a heparin drip for a week to prevent clotting. Normal kidneys so will transition to lovenox. (4) Hyperkalemia Is this a current diagnosis for this admission?: Yes Plan: K level down to 5.1 with manipulation of TPN. Plan Summary: Continue plan as is. No carlos for intubation but still to tenuous to downgrade. Critical Time Critical Time (minutes): 35 Level of Care: ICU Anticipated discharge: Home Anticipated DC Timeframe: Other -: 1. The care of a critical patient is a dynamic process. This note is a customer field representative synopsis but static in nature. The timeframe for treatments given in order is not necessarily the actual time these treatments may have been done. 2. This patient requires critical care secondary to ongoing requirements for therapy not offered or safe outside the critical care environment. Transfer to a lower level of care will result in altered life or limb morbidity and mortality. 3. Multidisciplinary rounds completed. 4. ABCDE bundle addressed.
[2020-07-06] MEDS ORDERED: GLUCAGON,HUMAN RECOMB 1 MG INJ IM PRN (08:14)
[2020-07-06] MEDS ORDERED: DEXTROSE 50%-WATER 25 GM/50 ML DISP.SYRIN IV PRN ×2 (08:14)
[2020-07-06] MEDS ORDERED: DEXTROSE 40% GEL 15 GM TUBE PO PRN ×2 (08:14)
[2020-07-06] MEDS: BUDESONIDE NEB 0.25 MG/2 ML AMPUL NEB SCH ×2 (08:26→20:30)
[2020-07-06] MEDS ORDERED: INSULIN GLARGINE,HUM.REC.ANLOG 1,000 UNIT/10 ML VIAL (PYX) SUBCUT ONE (09:36)
[2020-07-06] MEDS: DEXAMETHASONE SOD PHOSPHATE INJ 4 MG/1 ML VIAL IV SCH (09:42)
[2020-07-06] MEDS: INSULIN GLARGINE,HUM.REC.ANLOG 1,000 UNIT/10 ML VIAL SUBCUT SCH ×2 (09:52→21:47)
[2020-07-06] MEDS: ENOXAPARIN SODIUM INJ 80 MG/0.8 ML DISP.SYRIN SUBCUT SCH ×2 (09:52→21:47)
[2020-07-06] MEDS: NORMAL SALINE 10 ML SDV (SCHEDULED) IV SCH ×2 (11:10→21:48)
[2020-07-06] MEDS: INSULIN REG, HUMAN 100 UNIT/ML 3 ML VIAL (PYX) SUBCUT SCH ×2 (12:16→17:43)
[2020-07-06] MEDS: ACETAMINOPHEN 650 MG SUPP.RECT PR PRN (12:17)
[2020-07-06] MEDS: ATORVASTATIN CALCIUM 40 MG TABLET PO SCH (21:48)
[2020-07-06] MEDS: CEFTRIAXONE 2 GM/D5W RTU 2 GM/50 ML RTUPB IV SCH (21:48)
[2020-07-06] MEDS ORDERED: AZITHROMYCIN 500 MG in DEXTROSE 5%-WATER 250 ML IV SCH (22:00)
[2020-07-07] MEDS: DEXMEDETOMIDINE IN 0.9 % NACL 400 MCG/100 ML RTUPB IV PRN ×7 (00:31→21:03)
[2020-07-07] MEDS: INSULIN REG, HUMAN 100 UNIT/ML 3 ML VIAL (PYX) SUBCUT SCH ×3 (00:52→12:49)
[2020-07-07] MEDS: MORPHINE SULFATE 10 MG/ML INJ IV PRN ×3 (00:53→09:46)
[2020-07-07] MEDS: METOPROLOL TARTRATE PF/INJ 5 MG/5 ML SDV IV SCH ×2 (00:53→06:07)
[2020-07-07] MEDS: ALBUTEROL SULFATE 0.083% NEB 2.5 MG/3 ML AMPUL NEB SCH ×4 (02:20→20:09)
[2020-07-07 05:15] LABS: HEMATOCRIT 34.6 % (37.9-51.0); HEMOGLOBIN 11.1 g/dL (13.5-17.0); MEAN CORPUSCULAR HEMOGLOBIN 29.3 pg (27.0-33.4); MEAN CORPUSCULAR HGB CONC 32.2 g/dL (32.0-36.0); MEAN CORPUSCULAR VOLUME 91 fl (80-97); PLATELET COUNT 136 10^3/uL (150-450); RED BLOOD COUNT 3.79 10^6/uL (4.35-5.55); RED CELL DISTRIBUTION WIDTH 13.2 % (11.5-14.0); WHITE BLOOD COUNT 12.7 10^3/uL (4.0-10.5)
[2020-07-07 05:21] LABS: INTERNATIONAL RATION (INR) 1.25; PROTHROMBIN TIME 15.9 SEC (11.4-15.4)
[2020-07-07 05:23] LABS: APPEARANCE,URINE SLIGHTLY-CLOUDY; BILIRUBIN,URINE NEGATIVE (NEGATIVE); COLOR,URINE YELLOW; GLUCOSE, URINE >=500 mg/dL (NEGATIVE); KETONES,URINE NEGATIVE (NEGATIVE); LEUKOCYTE ESTERASE,URINE SMALL (NEGATIVE); NITRITE,URINE NEGATIVE (NEGATIVE); PROTEIN,URINE 30 mg/dL (NEGATIVE); URINE SPECIFIC GRAVITY 1.016; UROBILINOGEN,URINE NEGATIVE mg/dL (<2.0)
[2020-07-07 05:37] LABS: BLOOD UREA NITROGEN 38 mg/dL (7-20); CALCIUM 8.8 mg/dL (8.4-10.2); GLUCOSE 365 mg/dL (75-110); PHOSPHORUS 3.4 mg/dL (2.5-4.5); POTASSIUM 5.1 mmol/L (3.6-5.0)
[2020-07-07 05:43] LABS: CARBON DIOXIDE 37 mmol/L (22-30); CHLORIDE 107 mmol/L (98-107)
[2020-07-07 05:44] LABS: ANION GAP 1 (5-19); PREALBUMIN 7.6 mg/dL (17.6-36.0)
[2020-07-07 08:24] LABS: ARTERIAL BLOOD BASE EXCESS 3.4 mmol/L; ARTERIAL BLOOD H2CO3 2.07 mmol/L (1.05-1.35); ARTERIAL BLOOD HCO3 31.9 mmol/L (20-24); ARTERIAL BLOOD O2 SATURATION 89.9 % (94-98); ARTERIAL BLOOD PCO2 68.8 mmHg (35-45); ARTERIAL BLOOD PH 7.28 (7.35-7.45); ARTERIAL BLOOD PO2 65.9 mmHg (80-100)
[2020-07-07] MEDS: BUDESONIDE NEB 0.25 MG/2 ML AMPUL NEB SCH ×2 (08:24→20:09)
[2020-07-07 08:38] LABS: ARTERIAL BLOOD FIO2 70%
[2020-07-07] MEDS: NORMAL SALINE 10 ML SDV (SCHEDULED) IV SCH ×2 (09:25→21:49)
[2020-07-07] MEDS: DEXAMETHASONE SOD PHOSPHATE INJ 4 MG/1 ML VIAL IV SCH (09:46)
[2020-07-07] MEDS: FAT EMULSIONS 250 ML IV SCH (09:46)
[2020-07-07] MEDS: INSULIN GLARGINE,HUM.REC.ANLOG 1,000 UNIT/10 ML VIAL SUBCUT SCH (09:47)
[2020-07-07] MEDS: ENOXAPARIN SODIUM INJ 80 MG/0.8 ML DISP.SYRIN SUBCUT SCH (09:47)
[2020-07-07 10:57] LABS: APPEARANCE,URINE TURBID; BILIRUBIN,URINE NEGATIVE (NEGATIVE); COLOR,URINE YELLOW; GLUCOSE, URINE NEGATIVE (NEGATIVE); KETONES,URINE NEGATIVE (NEGATIVE); LEUKOCYTE ESTERASE,URINE LARGE (NEGATIVE); NITRITE,URINE NEGATIVE (NEGATIVE); PROTEIN,URINE 30 mg/dL (NEGATIVE); URINE SPECIFIC GRAVITY 1.016; UROBILINOGEN,URINE NEGATIVE mg/dL (<2.0)
[2020-07-07] MEDS: DEXTROSE 10%-WATER 1,000 ML IV PRN (11:18)
[2020-07-07] MEDS: ENALAPRILAT DIHYDRATE INJ/PF 1.25 MG/1 ML SDV IV SCH ×3 (12:50→23:20)
[2020-07-07] MEDS: PANTOPRAZOLE SODIUM 40 MG VIAL IV SCH (12:51)
[2020-07-07] MEDS ORDERED: DEXTROSE 40% GEL 15 GM TUBE PO PRN (14:41)
[2020-07-07] MEDS: NORMAL SALINE 100 ML with INSULIN REGULAR, HUMAN 100 UNIT IV PRN ×2 (16:30)
--- NOTE | 2020-07-07 19:24 | PDOC CRITICAL CARE PROG REPORT ---
General Date:: 07/07/20 ICU Day:: 11 Hospital Day:: 11 Resuscitation Status: Full Code Events in the past 12 to 24 Hours:: This 55-year-old male presented to [facility] emergency department on 06/27/2020 via EMS with complaints of fever and chills for 2 days prior to presentation. Associated symptoms included myalgias, dyspnea, nonproductive cough and sore throat. He denied any change in taste or smell. Nonetheless, he was diagnosed with COVID-19 pneumonia. Per EMS report, the patient was hypoxic upon their arrival, SPO2 72%. He was placed on CPAP en route to the hospital. He was initially admitted by the hospitalist service. Rapid response team was called for worsening hypoxia. The patient was transferred to the ICU. 06/28: Yesterday, the patient was stable on CPAP 8, FiO2 100%. He was fully conversant, mentating well. He was able to take off his own mask to snack ( brought him home-cooked food) and drink water. He was initiated on heparin infusion. Maintained SPO2 100% throughout the entire day shift. He transferred out last night to [facility]. However, Dr. Bustamante called requesting transfer back to the ICU because the patient was becoming progressively more hypoxic. He was on CPAP 12, FiO2 100% with a respiratory rate in the 30s. He was transferred back to the ICU on CPAP 15, FiO2 100%. Respiratory rate 30s to 40s. SPO2 83%. He is still mentating well. He denies pain. He is tachycardic. He is anxious. : Remains CPAP dependent. However, nurse reports that he is having difficulty with swallowing and is no longer able to take p.o. medications. Respiratory rate 30s. He denies pain. Tachycardia and hypertension are being addressed with Precedex and labetalol as needed. On heparin infusion for treatment of confirmed pulmonary embolism. Heparin currently on hold due to elevated PTT. If unable to come of CPAP and eat he will need a PICC and TPN by rimma. On heparin for PE. 07/01: Beginning to be concerned regarding nutrition status. Not eaten in 5 days for previously well-nourished 55 yo. PICC for TPN. 07/02-: Desaturated to 70s. Started proning. Had run of what was said to be VT (07/03). Now on amiodarone. Unfortunately no EKG or strips. No recurrence. Thrombocytopenia was noted on 07/04. Heparin infusion was changed to Lovenox. 07/06: Supine with oxygen saturations 89-95%. TPN back at 50cc/hr. Off insulin drip. 07/07: Remains BiPAP dependent, 13/07. FiO2 80%. He is on Lovenox for treatment of pulmonary embolism. On Precedex and scheduled morphine. He is arousable. Agitated when aroused. Thrashing his right arm, which I believe is due to dissatisfaction over his restraints. On Lovenox. Platelets 136. On TPN. Chest x-ray from 07/05 showed migratory infiltrates. On Rocephin for empiric treatment of urinary tract infection. No culture data. Currently afebrile. T-max 24-hour 99.5 F. Was hypotensive yesterday. Currently, 100/60. Heart rate 63. On Decadron 6 mg IV daily. WBC 12.7. Platelets 136. D-dimer 2.02, CRP 58.7. Prealbumin 7.6. Review of systems relevant to events:: Pulmonary, endocrine Reason for ICU Addmission:: acute respiratory failure - worsening hypoxia - Medications: Medications reviewed and adjusted accordingly: Yes Vasopressors:: None Sedation:: Precedex Physical Exam Vital Signs: Temp Pulse Resp BP Pulse Ox 99.1 F 66 39 H 102/67 94 07/07/20 05:43 07/07/20 07:00 07/07/20 04:23 07/06/20 18:00 07/07/20 04:23 Pulse Oximeter Continuous Start: 06/12/20 18:32 Freq: RTQ4 Status: Complete Protocol: Document 06/23/20 03:42 CMI (Rec: 06/23/20 04:07 CMI [id number]) Pulse Oximetry Assessment Oxygen Saturation (92-100) 97 Oxygen Delivery Method CPAP Fraction of Inspired Oxygen (FIO2) 100 Equipment Usage Equipment Standby Continuous SpO2 Machine # on nurse monitor Intake & Output 07/06/20 07/07/20 07/08/20 06:59 06:59 06:59 Intake Total 590 710 Output Total 5271 8081 Balance -1525 -7020 Weight 67.6 kg 67.8 kg Weight/Height Weight 67.8 kg Height 1.7 m General appearance: PRESENT: mild distress, well-developed, well-nourished Head exam: PRESENT: atraumatic, normocephalic Eye exam: PRESENT: conjunctiva pink, EOMI, PERRLA. ABSENT: scleral icterus Mouth exam: PRESENT: dry mucosa, tongue midline Neck exam: ABSENT: carotid bruit, JVD, lymphadenopathy, thyromegaly Respiratory exam: PRESENT: crackles, rales. ABSENT: rhonchi, wheezes Cardiovascular exam: PRESENT: RRR. ABSENT: diastolic murmur, rubs, systolic murmur Pulses: PRESENT: normal dorsalis pedis pul GI/Abdominal exam: PRESENT: normal bowel sounds, soft. ABSENT: distended, guarding, mass, organolmegaly, rebound, tenderness Gentrourinary exam: PRESENT: indwelling catheter Extremities exam: PRESENT: full ROM, pedal edema. ABSENT: calf tenderness, clubbing Musculoskeletal exam: PRESENT: normal inspection. ABSENT: deformity Neurological exam: PRESENT: altered, reflexes normal, CN II-XII grossly intact, motor sensory deficit - Left hemiparesis Psychiatric exam: PRESENT: agitated. ABSENT: anxious Skin exam: PRESENT: dry, intact, warm. ABSENT: cyanosis, rash Laboratory/Radiographs Laboratory Results: 07/07/20 04:15 07/07/20 04:15 07/07/20 07/07/20 07/07/20 04:15 04:15 04:15 WBC 12.7 H RBC 3.79 L Hgb 11.1 L Hct 34.6 L MCV 91 MCH 29.3 MCHC 32.2 RDW 13.2 Plt Count 136 L Sodium 145.3 H Potassium 5.1 H Chloride 107 Carbon Dioxide 37 H Anion Gap 1 L BUN 38 H Creatinine 0.85 Est GFR ( Amer) > 60 Glucose 365 H Calcium 8.8 Phosphorus 3.4 Magnesium 2.3 Prealbumin 7.6 L Urine Color YELLOW Urine Appearance SLIGHTLY-CLOUDY Urine pH 5.0 Ur Specific [place] 1.016 Urine Protein 30 H Urine Glucose (UA) >=500 H Urine Ketones NEGATIVE Urine Blood MODERATE H Urine Nitrite NEGATIVE Ur Leukocyte Esterase SMALL H Urine WBC (Auto) 30 Urine RBC (Auto) 17 06/12/20 06/12/20 06/12/20 16:49 16:49 21:30 Creatine Kinase 119 CK-MB (CK-2) Troponin I 0.046 0.105 NT-Pro-B Natriuret Pep 420 H 06/13/20 06/27/20 06/28/20 06:31 04:39 02:31 Creatine Kinase CK-MB (CK-2) Troponin I 0.087 < 0.012 NT-Pro-B Natriuret Pep 536 H 06/28/20 06/28/20 06/28/20 02:31 02:31 15:37 Creatine Kinase 32 L CK-MB (CK-2) 1.34 Troponin I 0.016 < 0.012 NT-Pro-B Natriuret Pep Impressions: Chest/Abdomen CTA 06/16/20 08:30 IMPRESSION: 1. Extensive bilateral alveolar airspace disease consistent with Covid 19 pneumonia. 2. Limited study for evaluation of pulmonary embolus due to timing of the bolus. Suspect filling defects in the right lower lobe pulmonary artery as discussed. Venous Doppler Study 06/27/20 00:00 IMPRESSION: NO EVIDENCE OF DVT OR SVT IN EITHER LEG. PICC Line Insertion 07/01/20 00:00 IMPRESSION: SUCCESSFUL PLACEMENT OF A 5 FR DUAL LUMEN 38 CM PICC IN THE RIGHT BASILIC VEIN. All labs, radiographs, diagnostic studies and EKGs were personally reviewed: Yes In addition, reports of radiographic and diagnostic studies were read: Yes Assessment and Plan - Diagnosis (1) Acute respiratory failure with hypoxia Is this a current diagnosis for this admission?: Yes Plan: * Stop scheduled morphine. * Check ABG. * Titrate BiPAP settings based on ABG results. * Continue Precedex. * Continue TPN. (2) Pneumonia due to COVID-19 virus Is this a current diagnosis for this admission?: Yes Plan: * Continue Decadron. (3) Pulmonary embolism on right Is this a current diagnosis for this admission?: Yes Plan: * Stop Lovenox. * Start argatroban infusion. (4) Thrombocytopenia Is this a current diagnosis for this admission?: Yes Plan: * Onset 07/04/2020. Heparin infusion was changed to Lovenox. * Stop Lovenox. Start argatroban infusion. * Check heparin-induced platelet antibodies on 07/09. * Removed Pepcid from TPN formulation. Start Protonix for GI prophylaxis. (5) Hypertension Qualifiers: Hypertension type: essential hypertension Qualified Code(s): I10 - Essential (primary) hypertension Is this a current diagnosis for this admission?: Yes Plan: * Change metoprolol to as needed dosing for heart rate greater than 130. * Restart Vasotec (at reduced dose): 0.625 mg IV 6 hours. (6) Hyperglycemia due to type 2 diabetes mellitus Qualifiers: Diabetes mellitus continuous churn buttermaker insulin use: without continuous churn buttermaker use Qualified Code(s): E11.65 - Type 2 diabetes mellitus with hyperglycemia Is this a current diagnosis for this admission?: Yes Plan: * Top Lantus/sliding scale. * Start insulin infusion. (7) Severe protein-calorie malnutrition Is this a current diagnosis for this admission?: Yes Plan: * Continue TPN. * Check prealbumin weekly. (8) Obesity (BMI 30.0-34.9) Is this a current diagnosis for this admission?: Yes Critical Time Critical Time (minutes): 60 Level of Care: ICU -: 1. The care of a critical patient is a dynamic process. This note is a r epresentative synopsis but static in nature. The timeframe for treatments given in order is not necessarily the actual time these treatments may have been done. 2. This patient requires critical care secondary to ongoing requirements for therapy not offered or safe outside the critical care environment. Transfer to a lower level of care will result in altered life or limb morbidity and mortali ty. 3. Multidisciplinary rounds completed. 4. ABCDE bundle addressed.
[2020-07-07] MEDS: AMINO ACIDS 5 %/DEXTROSE 20 % 1,000 ML IV PRN (20:29)
[2020-07-07] MEDS: ARGATROBAN 250 MG/NS 250 ML (NON-ESRD) IV PRN ×2 (20:30)
[2020-07-07] MEDS: CEFTRIAXONE 2 GM/D5W RTU 2 GM/50 ML RTUPB IV SCH (21:48)
[2020-07-07] MEDS: ATORVASTATIN CALCIUM 40 MG TABLET PO SCH (21:49)
[2020-07-08] MEDS: DEXMEDETOMIDINE IN 0.9 % NACL 400 MCG/100 ML RTUPB IV PRN ×5 (00:30→19:30)
[2020-07-08] MEDS: ALBUTEROL SULFATE 0.083% NEB 2.5 MG/3 ML AMPUL NEB SCH ×4 (02:03→20:41)
[2020-07-08] MEDS: NORMAL SALINE 100 ML with INSULIN REGULAR, HUMAN 100 UNIT IV PRN ×2 (04:00)
[2020-07-08 04:57] LABS: ABSOLUTE MONOCYTES (AUTO) 0.6 10^3/uL (0.1-1.4); ABSOLUTE NEUT (AUTO) 16.5 10^3/uL (1.7-8.2); BASOPHILS % (AUTO) 0.1 % (0-2); HEMATOCRIT 34.4 % (37.9-51.0); HEMOGLOBIN 11.3 g/dL (13.5-17.0); LYMPHOCYTES % (AUTO) 5.7 % (13-45); MEAN CORPUSCULAR HEMOGLOBIN 29.5 pg (27.0-33.4); MEAN CORPUSCULAR HGB CONC 32.8 g/dL (32.0-36.0); MEAN CORPUSCULAR VOLUME 90 fl (80-97); MONOCYTES % (AUTO) 3.2 % (3-13); PLATELET COUNT 160 10^3/uL (150-450); RED BLOOD COUNT 3.82 10^6/uL (4.35-5.55); RED CELL DISTRIBUTION WIDTH 13.1 % (11.5-14.0); TOTAL CELLS COUNTED % (AUTO) 100 %; WHITE BLOOD COUNT 18.2 10^3/uL (4.0-10.5)
[2020-07-08] MEDS: ENALAPRILAT DIHYDRATE INJ/PF 1.25 MG/1 ML SDV IV SCH ×3 (05:01→18:52)
[2020-07-08 05:24] LABS: BLOOD UREA NITROGEN 33 mg/dL (7-20); GLUCOSE 86 mg/dL (75-110); PHOSPHORUS 2.2 mg/dL (2.5-4.5)
[2020-07-08 05:27] LABS: CARBON DIOXIDE 36 mmol/L (22-30); CHLORIDE 108 mmol/L (98-107)
[2020-07-08 05:45] LABS: ARTERIAL BLOOD BASE EXCESS 5.1 mmol/L; ARTERIAL BLOOD H2CO3 1.71 mmol/L (1.05-1.35); ARTERIAL BLOOD HCO3 31.8 mmol/L (20-24); ARTERIAL BLOOD O2 SATURATION 93.6 % (94-98); ARTERIAL BLOOD PCO2 56.7 mmHg (35-45); ARTERIAL BLOOD PH 7.37 (7.35-7.45); ARTERIAL BLOOD PO2 71.7 mmHg (80-100); ARTERIAL BLOOD TOTAL CO2 33.6 mmol/L (23-27)
[2020-07-08 05:47] LABS: ANION GAP 2 (5-19)
[2020-07-08 05:49] LABS: ARTERIAL BLOOD FIO2 95%
[2020-07-08 05:55] LABS: POTASSIUM 4.1 mmol/L (3.6-5.0)
[2020-07-08] MEDS: BUDESONIDE NEB 0.25 MG/2 ML AMPUL NEB SCH ×2 (08:43→20:41)
--- NOTE | 2020-07-08 09:31 | RADIOLOGY REPORT (SQ) ---
EXAM DESCRIPTION: CHEST SINGLE VIEW IMAGES COMPLETED DATE/TIME: 07/08/2020 6:11 am REASON FOR STUDY: Septic , intubated COMPARISON: Multiple chest films since 06/28/2020 EXAM PARAMETERS: NUMBER OF VIEWS: One view. TECHNIQUE: Single frontal radiographic view of the chest acquired. RADIATION DOSE: NA LIMITATIONS: Portable film, 2 radiographs FINDINGS: LUNGS AND PLEURA: No change in diffuse bilateral alveolar and interstitial infiltrates com pared to 07/05/2020, 06/30/2020 No pneumothorax. No pleural effusions. MEDIASTINUM AND HILAR STRUCTURES: No masses. Contour normal. HEART AND VASCULAR STRUCTURES: No cardiomegaly BONES: No acute findings. HARDWARE: Right PICC line tip superior vena cava OTHER: No other significant finding. IMPRESSION: No change in diffuse bilateral alveolar and interstitial infiltrates compared to 020. TECHNICAL DOCUMENTATION: JOB ID: [id number] 2010 [employer]- All Rights Reserved Reading location - IP/workstation name: [email or web address]
[2020-07-08] MEDS ORDERED: DEXTROSE 40% GEL 15 GM TUBE PO PRN ×2 (13:00)
[2020-07-08] MEDS ORDERED: GLUCAGON,HUMAN RECOMB 1 MG INJ IM PRN (13:00)
[2020-07-08] MEDS ORDERED: DEXTROSE 50%-WATER 25 GM/50 ML DISP.SYRIN IV PRN ×2 (13:00)
[2020-07-08] MEDS: PANTOPRAZOLE SODIUM 40 MG VIAL IV SCH (14:54)
[2020-07-08] MEDS: DEXAMETHASONE SOD PHOSPHATE INJ 4 MG/1 ML VIAL IV SCH (14:54)
[2020-07-08] MEDS: VANCOMYCIN HCL 1,250 MG in DEXTROSE 5%-WATER 250 ML IV SCH ×2 (14:55→21:46)
[2020-07-08] MEDS: PIPERACILLIN SODIUM/TAZOBACTAM 4.5 GM in NORMAL SALINE 100 ML IV SCH ×2 (14:56→22:08)
[2020-07-08] MEDS: NORMAL SALINE 10 ML SDV (SCHEDULED) IV SCH ×2 (14:57→21:45)
[2020-07-08] MEDS: AMINO ACIDS 5 %/DEXTROSE 20 % 1,000 ML IV PRN (15:48)
--- NOTE | 2020-07-08 16:14 | RADIOLOGY REPORT (SQ) ---
EXAM DESCRIPTION: ARTERIAL LOWER EXTREM BILAT IMAGES COMPLETED DATE/TIME: 06/27/2020 12:53 pm REASON FOR STUDY: BLE PAIN COMPARISON: None. TECHNIQUE: Dynamic and static bethea scale and color images acquired of the lower extremity arteries. Additional selected spectral images recorded. LIMITATIONS: None. FINDINGS: RIGHT LEG: INFLOW ARTERIES: Not imaged. FEMORAL ARTERIES:Multiphasic waveforms. Normal, no velocity elevation to suggest focal stenosis. Norm al color Doppler evaluation. No aneurysm. POPLITEAL ARTERY:Multiphasic waveforms. Normal, no velocity elevation to suggest focal stenosis. Norm al color Doppler evaluation. No aneurysm. PATENT TIBIOPERONEAL TRUNK AND 3 VESSEL RUNOFF: Yes, normal vessels. OTHER: No other significant finding. LEFT LEG: INFLOW ARTERIES: Not imaged. FEMORAL ARTERIES:Multiphasic waveforms. Normal, no velocity elevation to suggest focal stenosis. Norm al color Doppler evaluation. No aneurysm. POPLITEAL ARTERY:Multiphasic waveforms. Normal, no velocity elevation to suggest focal stenosis. Norm al color Doppler evaluation. No aneurysm. PATENT TIBIOPERONEAL TRUNK AND 3 VESSEL RUNOFF: Yes, normal vessels. OTHER: No other significant finding. IMPRESSION: No significant stenosis. TECHNICAL DOCUMENTATION: JOB ID: [id number] 2010 [email or web address]- All Rights Reserved Reading location - IP/workstation name: [email or web address]
[2020-07-08] MEDS ORDERED: NORMAL SALINE 500 ML IV ONE (17:27)
[2020-07-08] MEDS ORDERED: KETOROLAC TROMETHAMINE INJ/PF 30 MG/1 ML SDV IV ONE (17:45)
[2020-07-08] MEDS ORDERED: ACETAMINOPHEN 1,000 MG/100 ML RTUPB IV ONE (18:00)
[2020-07-08] MEDS ORDERED: INSULIN REG, HUMAN 100 UNIT/ML 3 ML VIAL (PYX) SUBCUT SCH (18:00)
--- NOTE | 2020-07-08 18:51 | PDOC CRITICAL CARE PROG REPORT ---
General Date:: 07/08/20 ICU Day:: 12 Hospital Day:: 12 Resuscitation Status: Full Code Events in the past 12 to 24 Hours:: This 55-year-old male presented to [facility] emergency department on 06/27/2020 via EMS with complaints of fever and chills for 2 days prior to presentation. Associated symptoms included myalgias, dyspnea, nonproductive cough and sore throat. He denied any change in taste or smell. Nonetheless, he was diagnosed with COVID-19 pneumonia. Per EMS report, the patient was hypoxic upon their arrival, SPO2 72%. He was placed on CPAP en route to the hospital. He was initially admitted by the hospitalist service. Rapid response team was called for worsening hypoxia. The patient was transferred to the ICU. 06/28: Yesterday, the patient was stable on CPAP 8, FiO2 100%. He was fully conversant, mentating well. He was able to take off his own mask to snack ( brought him home-cooked food) and drink water. He was initiated on heparin infusion. Maintained SPO2 100% throughout the entire day shift. He transferred out last night to [facility]. However, Dr. Bustamante called requesting transfer back to the ICU because the patient was becoming progressively more hypoxic. He was on CPAP 12, FiO2 100% with a respiratory rate in the 30s. He was transferred back to the ICU on CPAP 15, FiO2 100%. Respiratory rate 30s to 40s. SPO2 83%. He is still mentating well. He denies pain. He is tachycardic. He is anxious. : Remains CPAP dependent. However, nurse reports that he is having difficulty with swallowing and is no longer able to take p.o. medications. Respiratory rate 30s. He denies pain. Tachycardia and hypertension are being addressed with Precedex and labetalol as needed. On heparin infusion for treatment of confirmed pulmonary embolism. Heparin currently on hold due to elevated PTT. If unable to come of CPAP and eat he will need a PICC and TPN by rimma. On heparin for PE. 07/01: Beginning to be concerned regarding nutrition status. Not eaten in 5 days for previously well-nourished 55 yo. PICC for TPN. 07/02-: Desaturated to 70s. Started proning. Had run of what was said to be VT (07/03). Now on amiodarone. Unfortunately no EKG or strips. No recurrence. Thrombocytopenia was noted on 07/04. Heparin infusion was changed to Lovenox. 07/06: Supine with oxygen saturations 89-95%. TPN back at 50cc/hr. Off insulin drip. 07/07: Remains BiPAP dependent, 13/07. FiO2 80%. He is on Lovenox for treatment of pulmonary embolism. On Precedex and scheduled morphine. He is arousable. Agitated when aroused. Thrashing his right arm, which I believe is due to dissatisfaction over his restraints. On Lovenox. Platelets 136. On TPN. Chest x-ray from 07/05 showed migratory infiltrates. On Rocephin for empiric treatment of urinary tract infection. No culture data. Currently afebrile. T-max 24-hour 99.5 F. Was hypotensive yesterday. Currently, 100/60. Heart rate 63. On Decadron 6 mg IV daily. WBC 12.7. Platelets 136. D-dimer 2.02, CRP 58.7. Prealbumin 7.6. 07/08: Remains BiPAP dependent, 13/07. FiO2 95%. ABG this a.m. 7.37/57/72. On Precedex. Now on argatroban infusion for treatment of pulmonary embolism. On TPN. On Rocephin for empiric treatment of urinary tract infection. WBC up to 18.2 today. No definitive culture data to direct antimicrobial therapy. T-max 24 hours 100.4 F. On Decadron 6 mg IV daily. Normotensive. D-dimer 1.91, CRP 46. Review of systems relevant to events:: Pulmonary, endocrine Reason for ICU Addmission:: acute respiratory failure - worsening hypoxia - Medications: Medications reviewed and adjusted accordingly: Yes Vasopressors:: None Sedation:: Precedex Physical Exam Vital Signs: Temp Pulse Resp BP Pulse Ox 100.4 F 84 34 H 131/71 H 99 07/08/20 06:00 07/08/20 05:01 07/08/20 04:05 07/08/20 05:01 07/08/20 04:05 Pulse Oximeter Continuous Start: 06/12/20 18:32 Freq: RTQ4 Status: Complete Protocol: Document 06/23/20 03:42 CMI (Rec: 06/23/20 04:07 CMI [id number]) Pulse Oximetry Assessment Oxygen Saturation (92-100) 97 Oxygen Delivery Method CPAP Fraction of Inspired Oxygen (FIO2) 100 Equipment Usage Equipment Standby Continuous SpO2 Machine # on nurse monitor Intake & Output 07/07/20 07/08/20 07/09/20 06:59 06:59 06:59 Intake Total 710 1058 Output Total 2485 5565 Balance -1775 -827 Weight 67.8 kg 70 kg Weight/Height Weight 70 kg Height 1.7 m General appearance: PRESENT: no acute distress, well-developed, well-nourished Head exam: PRESENT: atraumatic, normocephalic Eye exam: PRESENT: conjunctiva pink, EOMI, PERRLA. ABSENT: scleral icterus Mouth exam: PRESENT: moist, tongue midline Neck exam: ABSENT: carotid bruit, JVD, lymphadenopathy, thyromegaly Respiratory exam: PRESENT: rhonchi. ABSENT: rales, wheezes Cardiovascular exam: PRESENT: RRR. ABSENT: diastolic murmur, rubs, systolic murmur Pulses: PRESENT: normal dorsalis pedis pul GI/Abdominal exam: PRESENT: normal bowel sounds, soft. ABSENT: distended, guarding, mass, organolmegaly, rebound, tenderness Extremities exam: PRESENT: full ROM. ABSENT: calf tenderness, clubbing, pedal edema Musculoskeletal exam: PRESENT: normal inspection. ABSENT: deformity Neurological exam: PRESENT: altered, CN II-XII grossly intact, motor sensory deficit - Left hemiparesis Psychiatric exam: ABSENT: agitated, anxious Skin exam: PRESENT: dry, intact, warm. ABSENT: cyanosis, rash Tubes/Lines: PRESENT: Central Line - Right PICC Laboratory/Radiographs Laboratory Results: 07/08/20 03:15 07/08/20 03:15 07/07/20 07/07/20 07/07/20 08:10 10:10 22:32 WBC RBC Hgb Hct MCV MCH MCHC RDW Plt Count Seg Neutrophils % Carbonic Acid 2.07 H HCO3/H2CO3 Ratio 15:1 ABG pH 7.28 L ABG pCO2 68.8 H ABG pO2 65.9 L ABG HCO3 31.9 H ABG O2 Saturation 89.9 L ABG Base Excess 3.4 FiO2 70% Sodium Potassium Chloride Carbon Dioxide Anion Gap BUN Creatinine Est GFR ( Amer) Glucose Calcium Phosphorus Magnesium Ferritin C-Reactive Protein Triglycerides 111 Urine Color YELLOW Urine Appearance TURBID Urine pH 5.0 Ur Specific [place] 1.016 Urine Protein 30 H Urine Glucose (UA) NEGATIVE Urine Ketones NEGATIVE Urine Blood SMALL H Urine Nitrite NEGATIVE Ur Leukocyte Esterase LARGE H Urine WBC (Auto) 133 Urine RBC (Auto) >182 07/08/20 07/08/20 07/08/20 03:15 03:15 03:15 WBC 18.2 H RBC 3.82 L Hgb 11.3 L Hct 34.4 L MCV 90 MCH 29.5 MCHC 32.8 RDW 13.1 Plt Count 160 Seg Neutrophils % 91.0 H Carbonic Acid Cancelled HCO3/H2CO3 Ratio Cancelled ABG pH Cancelled ABG pCO2 Cancelled ABG pO2 Cancelled ABG HCO3 Cancelled ABG O2 Saturation Cancelled ABG Base Excess Cancelled FiO2 Cancelled Sodium 146.4 H Potassium 4.1 D Chloride 108 H Carbon Dioxide 36 H Anion Gap 2 L BUN 33 H Creatinine 0.77 Est GFR ( Amer) > 60 Glucose 86 Calcium 9.0 Phosphorus 2.2 L Magnesium 2.0 Ferritin 716.00 H C-Reactive Protein 46.0 H Triglycerides Urine Color Urine Appearance Urine pH Ur Specific [place] Urine Protein Urine Glucose (UA) Urine Ketones Urine Blood Urine Nitrite Ur Leukocyte Esterase Urine WBC (Auto) Urine RBC (Auto) 07/08/20 05:05 WBC RBC Hgb Hct MCV MCH MCHC RDW Plt Count Seg Neutrophils % Carbonic Acid 1.71 H HCO3/H2CO3 Ratio 18:1 ABG pH 7.37 ABG pCO2 56.7 H ABG pO2 71.7 L ABG HCO3 31.8 H ABG O2 Saturation 93.6 L ABG Base Excess 5.1 FiO2 95% Sodium Potassium Chloride Carbon Dioxide Anion Gap BUN Creatinine Est GFR ( Amer) Glucose Calcium Phosphorus Magnesium Ferritin C-Reactive Protein Triglycerides Urine Color Urine Appearance Urine pH Ur Specific [place] Urine Protein Urine Glucose (UA) Urine Ketones Urine Blood Urine Nitrite Ur Leukocyte Esterase Urine WBC (Auto) Urine RBC (Auto) 06/12/20 06/12/20 06/12/20 16:49 16:49 21:30 Creatine Kinase 119 CK-MB (CK-2) Troponin I 0.046 0.105 NT-Pro-B Natriuret Pep 420 H 06/13/20 06/27/20 06/28/20 06:31 04:39 02:31 Creatine Kinase CK-MB (CK-2) Troponin I 0.087 < 0.012 NT-Pro-B Natriuret Pep 536 H 06/28/20 06/28/20 06/28/20 02:31 02:31 15:37 Creatine Kinase 32 L CK-MB (CK-2) 1.34 Troponin I 0.016 < 0.012 NT-Pro-B Natriuret Pep Impressions: Chest/Abdomen CTA 06/16/20 08:30 IMPRESSION: 1. Extensive bilateral alveolar airspace disease consistent with Covid 19 pneumonia. 2. Limited study for evaluation of pulmonary embolus due to timing of the bolus. Suspect filling defects in the right lower lobe pulmonary artery as discussed. Venous Doppler Study 06/27/20 00:00 IMPRESSION: NO EVIDENCE OF DVT OR SVT IN EITHER LEG. PICC Line Insertion 07/01/20 00:00 IMPRESSION: SUCCESSFUL PLACEMENT OF A 5 FR DUAL LUMEN 38 CM PICC IN THE RIGHT BASILIC VEIN. All labs, radiographs, diagnostic studies and EKGs were personally reviewed: Yes In addition, reports of radiographic and diagnostic studies were read: Yes Assessment and Plan - Diagnosis (1) Acute respiratory failure with hypoxia Is this a current diagnosis for this admission?: Yes Plan: * Continue BiPAP support. Titrate settings based on ABG results. Wean pressures as tolerated. * Continue Precedex. Titrate for RASS 0. * Continue TPN. (2) Pneumonia due to COVID-19 virus Is this a current diagnosis for this admission?: Yes (3) Pulmonary embolism on right Is this a current diagnosis for this admission?: Yes (4) Thrombocytopenia Is this a current diagnosis for this admission?: Yes Plan: * Onset 07/04/2020. Heparin infusion was changed to Lovenox. * Stop Lovenox. Start argatroban infusion. * Check heparin-induced platelet antibodies on 07/09. * Removed Pepcid from TPN formulation. Start Protonix for GI prophylaxis. (5) Hypertension Qualifiers: Hypertension type: essential hypertension Qualified Code(s): I10 - Essential (primary) hypertension Is this a current diagnosis for this admission?: Yes (6) Hyperglycemia due to type 2 diabetes mellitus Qualifiers: Diabetes mellitus halfway insulin use: without halfway use Qualified Co de(s): E11.65 - Type 2 diabetes mellitus with hyperglycemia Is this a current diagnosis for this admission?: Yes (7) Severe protein-calorie malnutrition Is this a current diagnosis for this admission?: Yes (8) Obesity (BMI 30.0-34.9) Is this a current diagnosis for this admission?: Yes Critical Time Critical Time (minutes): 45 Level of Care: ICU -: 1. The care of a critical patient is a dynamic process. This note is a hr representative synopsis but static in nature. The timeframe for treatments given in order is not necessarily the actual time these treatments may have been done. 2. This patient requires critical care secondary to ongoing requirements for therapy not offered or safe outside the critical care environment. Transfer to a lower level of care will result in altered life or limb morbidity and mortality. 3. Multidisciplinary rounds completed. 4. ABCDE bundle addressed.
[2020-07-08] MEDS ORDERED: MORPHINE SULFATE 10 MG/ML INJ ONE (21:35)
[2020-07-08] MEDS: ATORVASTATIN CALCIUM 40 MG TABLET PO SCH (21:45)
[2020-07-08] MEDS: ARGATROBAN 250 MG/NS 250 ML (NON-ESRD) IV PRN ×2 (23:37)
[2020-07-09] MEDS: DEXMEDETOMIDINE IN 0.9 % NACL 400 MCG/100 ML RTUPB IV PRN ×7 (00:15→22:50)
[2020-07-09] MEDS ORDERED: MORPHINE SULFATE 10 MG/ML INJ IV ONE (00:30)
[2020-07-09] MEDS: ENALAPRILAT DIHYDRATE INJ/PF 1.25 MG/1 ML SDV IV SCH ×5 (00:59→23:51)
[2020-07-09] MEDS ORDERED: INSULIN REG, HUMAN 100 UNIT/ML 3 ML VIAL (PYX) SUBCUT ONE (01:00)
[2020-07-09] MEDS: ALBUTEROL SULFATE 0.083% NEB 2.5 MG/3 ML AMPUL NEB SCH ×4 (02:57→19:21)
[2020-07-09 04:35] LABS: ARTERIAL BLOOD BASE EXCESS 1.4 mmol/L; ARTERIAL BLOOD H2CO3 1.55 mmol/L (1.05-1.35); ARTERIAL BLOOD HCO3 27.6 mmol/L (20-24); ARTERIAL BLOOD O2 SATURATION 92.6 % (94-98); ARTERIAL BLOOD PCO2 51.6 mmHg (35-45); ARTERIAL BLOOD PH 7.35 (7.35-7.45); ARTERIAL BLOOD PO2 68.6 mmHg (80-100); ARTERIAL BLOOD TOTAL CO2 29.2 mmol/L (23-27); HEMATOCRIT 29.4 % (37.9-51.0); HEMOGLOBIN 9.5 g/dL (13.5-17.0); MEAN CORPUSCULAR HEMOGLOBIN 29.4 pg (27.0-33.4); MEAN CORPUSCULAR HGB CONC 32.2 g/dL (32.0-36.0); MEAN CORPUSCULAR VOLUME 91 fl (80-97); RED BLOOD COUNT 3.22 10^6/uL (4.35-5.55); RED CELL DISTRIBUTION WIDTH 13.2 % (11.5-14.0); WHITE BLOOD COUNT 12.9 10^3/uL (4.0-10.5)
[2020-07-09 04:38] LABS: ARTERIAL BLOOD FIO2 95%
[2020-07-09 05:06] LABS: ABSOLUTE LYMPHOCYTES# (MANUAL) 0.5 10^3/uL (0.5-4.7); ABSOLUTE MONOCYTES # (MANUAL) 0.1 10^3/uL (0.1-1.4); BASOPHILS % (MANUAL) 0 % (0-2); EOSINOPHILS % (MANUAL) 0 % (0-6); LYMPHOCYTES % (MANUAL) 4 % (13-45); MONOCYTES % (MANUAL) 1 % (3-13); SEGMENTED NEUTROPHILS % (MAN) 95 % (42-78); TOTAL CELLS COUNTED 100
[2020-07-09 05:07] LABS: PLATELET CLUMPS PRESENT; PLATELET COMMENT ADEQUATE
[2020-07-09 05:08] LABS: PLATELET COUNT 123 10^3/uL (150-450)
[2020-07-09] MEDS: INSULIN REG, HUMAN 100 UNIT/ML 3 ML VIAL (PYX) SUBCUT SCH (05:58)
[2020-07-09] MEDS: PIPERACILLIN SODIUM/TAZOBACTAM 4.5 GM in NORMAL SALINE 100 ML IV SCH ×3 (06:00→22:10)
[2020-07-09 06:02] LABS: ANION GAP 6 (5-19); BLOOD UREA NITROGEN 37 mg/dL (7-20); CALCIUM 8.2 mg/dL (8.4-10.2); CARBON DIOXIDE 27 mmol/L (22-30); CHLORIDE 108 mmol/L (98-107); PHOSPHORUS 2.9 mg/dL (2.5-4.5); POTASSIUM 4.1 mmol/L (3.6-5.0)
[2020-07-09 06:34] LABS: GLUCOSE 479 mg/dL (75-110)
[2020-07-09] MEDS: BUDESONIDE NEB 0.25 MG/2 ML AMPUL NEB SCH ×2 (07:46→19:21)
[2020-07-09] MEDS: INSULIN GLARGINE,HUM.REC.ANLOG 1,000 UNIT/10 ML VIAL SUBCUT SCH (10:39)
[2020-07-09] MEDS: NORMAL SALINE 10 ML SDV (SCHEDULED) IV SCH ×2 (10:39→22:08)
[2020-07-09] MEDS ORDERED: INSULIN REG, HUMAN 100 UNIT/ML 3 ML VIAL (PYX) ONE (10:43)
[2020-07-09] MEDS: DEXAMETHASONE SOD PHOSPHATE INJ 4 MG/1 ML VIAL IV SCH (11:30)
[2020-07-09] MEDS: VANCOMYCIN HCL 1,250 MG in DEXTROSE 5%-WATER 250 ML IV SCH ×2 (11:30→22:10)
[2020-07-09] MEDS: INSULIN, REGULAR 100 UNIT/100 ML NORMAL SALINE IV PRN ×4 (11:33→23:50)
[2020-07-09] MEDS: PANTOPRAZOLE SODIUM 40 MG VIAL IV SCH (14:08)
--- NOTE | 2020-07-09 18:18 | PDOC CRITICAL CARE PROG REPORT ---
General Date:: 07/09/20 ICU Day:: Hospital Day:: 13 Resuscitation Status: Full Code Events in the past 12 to 24 Hours:: This 55-year-old male presented to [facility] emergency department on 06/27/2020 via EMS with complaints of fever and chills for 2 days prior to presentation. Associated symptoms included myalgias, dyspnea, nonproductive cough and sore throat. He denied any change in taste or smell. Nonetheless, he was diagnosed with COVID-19 pneumonia. Per EMS report, the patient was hypoxic upon their arrival, SPO2 72%. He was placed on CPAP en route to the hospital. He was initially admitted by the hospitalist service. Rapid response team was called for worsening hypoxia. The patient was transferred to the ICU. 06/28: Yesterday, the patient was stable on CPAP 8, FiO2 100%. He was fully conversant, mentating well. He was able to take off his own mask to snack ( brought him home-cooked food) and drink water. He was initiated on heparin infusion. Maintained SPO2 100% throughout the entire day shift. He transferred out last night to [facility]. However, Dr. Bustamante called requesting transfer back to the ICU because the patient was becoming progressively more hypoxic. He was on CPAP 12, FiO2 100% with a respiratory rate in the 30s. He was transferred back to the ICU on CPAP 15, FiO2 100%. Respiratory rate 30s to 40s. SPO2 83%. He is still mentating well. He denies pain. He is tachycardic. He is anxious. : Remains CPAP dependent. However, nurse reports that he is having difficulty with swallowing and is no longer able to take p.o. medications. Respiratory rate 30s. He denies pain. Tachycardia and hypertension are being addressed with Precedex and labetalol as needed. On heparin infusion for treatment of confirmed pulmonary embolism. Heparin currently on hold due to elevated PTT. If unable to come of CPAP and eat he will need a PICC and TPN by rimma. On heparin for PE. 07/01: Beginning to be concerned regarding nutrition status. Not eaten in 5 days for previously well-nourished 55 yo. PICC for TPN. 07/02-: Desaturated to 70s. Started proning. Had run of what was said to be VT (07/03). Now on amiodarone. Unfortunately no EKG or strips. No recurrence. Thrombocytopenia was noted on 07/04. Heparin infusion was changed to Lovenox. 07/06: Supine with oxygen saturations 89-95%. TPN back at 50cc/hr. Off insulin drip. 07/07: Remains BiPAP dependent, 13/07. FiO2 80%. He is on Lovenox for treatment of pulmonary embolism. On Precedex and scheduled morphine. He is arousable. Agitated when aroused. Thrashing his right arm, which I believe is due to dissatisfaction over his restraints. On Lovenox. Platelets 136. On TPN. Chest x-ray from 07/05 showed migratory infiltrates. On Rocephin for empiric treatment of urinary tract infection. No culture data. Currently afebrile. T-max 24-hour 99.5 F. Was hypotensive yesterday. Currently, 100/60. Heart rate 63. On Decadron 6 mg IV daily. WBC 12.7. Platelets 136. D-dimer 2.02, CRP 58.7. Prealbumin 7.6. 07/08: Remains BiPAP dependent, 13/07. FiO2 95%. ABG this a.m. 7.37/57/72. On Precedex. Now on argatroban infusion for treatment of pulmonary embolism. On TPN. On Rocephin for empiric treatment of urinary tract infection. WBC up to 18.2 today. No definitive culture data to direct antimicrobial therapy. T-max 24 hours 100.4 F. On Decadron 6 mg IV daily. Normotensive. D-dimer 1.91, CRP 46. 07/09: Remains BiPAP dependent, but now on 07/05. FiO2 100%. ABG this a.m.: 7.35/52/69. On Precedex. Continues on argatroban infusion for treatment of pulmonary embolism. TPN infusion rate was increased to 80 mL/hr yesterday. Antibiotics were changed yesterday from Rocephin to Zosyn/vancomycin with subsequent decrease in white count 18.2>12.9. Urine is isolating a gram-n egative richard. Blood cultures (1 of 2) positive for gram-positive cocci. Review of systems relevant to events:: Pulmonary, endocrine Reason for ICU Addmission:: acute respiratory failure - worsening hypoxia - Medications: Medications reviewed and adjusted accordingly: Yes Vasopressors:: None Sedation:: Precedex Physical Exam Vital Signs: Temp Pulse Resp BP Pulse Ox 97.5 F 65 31 H 98/62 L 96 07/09/20 05:53 07/09/20 05:59 07/09/20 04:35 07/09/20 05:59 07/09/20 04:35 Pulse Oximeter Continuous Start: 06/12/20 18:32 Freq: RTQ4 Status: Complete Protocol: Document 06/23/20 03:42 CMI (Rec: 06/23/20 04:07 CMI [id number]) Pulse Oximetry Assessment Oxygen Saturation (92-100) 97 Oxygen Delivery Method CPAP Fraction of Inspired Oxygen (FIO2) 100 Equipment Usage Equipment Standby Continuous SpO2 Machine # on nurse monitor Intake & Output 07/08/20 07/09/20 07/10/20 06:59 06:59 06:59 Intake Total 1058 1782 Output Total 1885 2145 Balance -827 -363 Weight 70 kg 74.5 kg Weight/Height Weight 74.5 kg Height 1.7 m General appearance: PRESENT: no acute distress, disheveled, well-developed, well-nourished Head exam: PRESENT: atraumatic, normocephalic Eye exam: PRESENT: conjunctiva pink, EOMI, PERRLA. ABSENT: scleral icterus Neck exam: ABSENT: carotid bruit, JVD, lymphadenopathy, thyromegaly Respiratory exam: PRESENT: crackles. ABSENT: rales, rhonchi, wheezes Cardiovascular exam: PRESENT: RRR, tachycardia. ABSENT: diastolic murmur, rubs, systolic murmur Pulses: PRESENT: normal carotid pulses, normal dorsalis pedis pul Vascular exam: PRESENT: normal capillary refill GI/Abdominal exam: PRESENT: normal bowel sounds, soft. ABSENT: distended, guarding, mass, organolmegaly, rebound, tenderness Gentrourinary exam: PRESENT: indwelling catheter Extremities exam: PRESENT: full ROM. ABSENT: calf tenderness, clubbing, pedal edema Musculoskeletal exam: PRESENT: normal inspection. ABSENT: deformity Neurological exam: PRESENT: altered, awake, oriented to place, oriented to situation, CN II-XII grossly intact, motor sensory deficit - left hemiparesis Psychiatric exam: PRESENT: agitated, appropriate affect Tubes/Lines: PRESENT: Central Line - R PICC Laboratory/Radiographs Laboratory Results: 07/09/20 04:06 07/09/20 04:06 07/09/20 07/09/20 07/09/20 04:06 04:06 04:06 WBC 12.9 H RBC 3.22 L Hgb 9.5 L Hct 29.4 L MCV 91 MCH 29.4 MCHC 32.2 RDW 13.2 Plt Count 123 L Seg Neutrophils % Not Reportable Carbonic Acid 1.55 H HCO3/H2CO3 Ratio 17:1 ABG pH 7.35 ABG pCO2 51.6 H ABG pO2 68.6 L ABG HCO3 27.6 H ABG O2 Saturation 92.6 L ABG Base Excess 1.4 FiO2 95% Sodium 141.0 Potassium 4.1 Chloride 108 H Carbon Dioxide 27 Anion Gap 6 BUN 37 H Creatinine 0.81 Est GFR ( Amer) > 60 Glucose 479 H* Calcium 8.2 L Phosphorus 2.9 Magnesium 2.0 06/12/20 06/12/20 06/12/20 16:49 16:49 21:30 Creatine Kinase 119 CK-MB (CK-2) Troponin I 0.046 0.105 NT-Pro-B Natriuret Pep 420 H 06/13/20 06/27/20 06/28/20 06:31 04:39 02:31 Creatine Kinase CK-MB (CK-2) Troponin I 0.087 < 0.012 NT-Pro-B Natriuret Pep 536 H 06/28/20 06/28/20 06/28/20 02:31 02:31 15:37 Creatine Kinase 32 L CK-MB (CK-2) 1.34 Troponin I 0.016 < 0.012 NT-Pro-B Natriuret Pep Impressions: Chest/Abdomen CTA 06/16/20 08:30 IMPRESSION: 1. Extensive bilateral alveolar airspace disease consistent with Covid 19 pneumonia. 2. Limited study for evaluation of pulmonary embolus due to timing of the bolus. Suspect filling defects in the right lower lobe pulmonary artery as discussed. Lower Extremity Ultrasound 06/27/20 00:00 IMPRESSION: No significant stenosis. Venous Doppler Study 06/27/20 00:00 IMPRESSION: NO EVIDENCE OF DVT OR SVT IN EITHER LEG. PICC Line Insertion 07/01/20 00:00 IMPRESSION: SUCCESSFUL PLACEMENT OF A 5 FR DUAL LUMEN 38 CM PICC IN THE RIGHT BASILIC VEIN. Chest X-Ray 07/08/20 05:00 IMPRESSION: No change in diffuse bilateral alveolar and interstitial infiltrates compared to 07/05/2020. All labs, radiographs, diagnostic studies and EKGs were personally reviewed: Yes In addition, reports of radiographic and diagnostic studies were read: Yes Assessment and Plan - Diagnosis (1) Acute respiratory failure with hypoxia Is this a current diagnosis for this admission?: Yes Plan: * Trial of CPAP 14 today. Wean pressures as tolerated. * Continue Precedex. Titrate for RASS 0. * Continue TPN. (2) Pneumonia due to COVID-19 virus Is this a current diagnosis for this admission?: Yes Plan: * Continue Decadron. * Repeat COVID test (07/07) pending. (3) Pulmonary embolism on right Is this a current diagnosis for this admission?: Yes Plan: * Continue argatroban infusion. (4) Thrombocytopenia Is this a current diagnosis for this admission?: Yes Plan: * Onset 07/04/2020. Heparin infusion was changed to Lovenox. * Continue argatroban infusion. * Check heparin-induced platelet antibodies (07/09). * Removed Pepcid from TPN formulation. On Protonix for GI prophylaxis. (5) Hypertension Qualifiers: Hypertension type: essential hypertension Qualified Code(s): I10 - Essential (primary) hypertension Is this a current diagnosis for this admission?: Yes (6) Hyperglycemia due to type 2 diabetes mellitus Qualifiers: Diabetes mellitus residential insulin use: without residential use Qualified Code(s): E11.65 - Type 2 diabetes mellitus with hyperglycemia Is this a current diagnosis for this admission?: Yes (7) Severe protein-calorie malnutrition Is this a current diagnosis for this admission?: Yes Plan: * Continue TPN. * Check prealbumin weekly. (8) Obesity (BMI 30.0-34.9) Is this a current diagnosis for this admission?: Yes Critical Time Critical Time (minutes): 60 Level of Care: ICU -: 1. The care of a critical patient is a dynamic process. This note is a maintenance representative synopsis but static in nature. The timeframe for treatments give n in order is not necessarily the actual time these treatments may have been done. 2. This patient requires critical care secondary to ongoing requirements for therapy not offered or safe outside the critical care environment. Transfer to a lower level of care will result in altered life or limb morbidity and mortality. 3. Multidisciplinary rounds completed. 4. ABCDE bundle addressed.
[2020-07-09] MEDS: AMINO ACIDS 5 %/DEXTROSE 20 % 1,000 ML IV PRN (18:57)
[2020-07-09] MEDS: ATORVASTATIN CALCIUM 40 MG TABLET PO SCH (22:07)
[2020-07-10] MEDS: ALBUTEROL SULFATE 0.083% NEB 2.5 MG/3 ML AMPUL NEB SCH ×4 (01:40→19:46)
[2020-07-10] MEDS: DEXMEDETOMIDINE IN 0.9 % NACL 400 MCG/100 ML RTUPB IV PRN ×5 (02:45→18:41)
[2020-07-10 04:24] LABS: ARTERIAL BLOOD BASE EXCESS -2.1 mmol/L; ARTERIAL BLOOD H2CO3 2.22 mmol/L (1.05-1.35); ARTERIAL BLOOD HCO3 27.1 mmol/L (20-24); ARTERIAL BLOOD O2 SATURATION 98.5 % (94-98); ARTERIAL BLOOD PO2 157.7 mmHg (80-100); ARTERIAL BLOOD TOTAL CO2 29.4 mmol/L (23-27)
[2020-07-10 04:27] LABS: ARTERIAL BLOOD PH 7.18 (7.35-7.45)
[2020-07-10 04:28] LABS: ARTERIAL BLOOD FIO2 100%; ARTERIAL BLOOD PCO2 73.6 mmHg (35-45)
[2020-07-10 04:39] LABS: D-DIMER 1.11 ug/mL (0.00-0.50)
[2020-07-10 04:51] LABS: HEMATOCRIT 30.4 % (37.9-51.0); MEAN CORPUSCULAR HEMOGLOBIN 29.4 pg (27.0-33.4); MEAN CORPUSCULAR HGB CONC 27.6 g/dL (32.0-36.0); PLATELET COUNT 133 10^3/uL (150-450); RED BLOOD COUNT 2.86 10^6/uL (4.35-5.55); RED CELL DISTRIBUTION WIDTH 14.3 % (11.5-14.0); WHITE BLOOD COUNT 14.7 10^3/uL (4.0-10.5)
[2020-07-10] MEDS: INSULIN, REGULAR 100 UNIT/100 ML NORMAL SALINE IV PRN ×4 (04:54→14:49)
[2020-07-10 05:00] LABS: ABSOLUTE LYMPHOCYTES# (MANUAL) 0.3 10^3/uL (0.5-4.7); ABSOLUTE MONOCYTES # (MANUAL) 0.3 10^3/uL (0.1-1.4); BASOPHILS % (MANUAL) 0 % (0-2); EOSINOPHILS % (MANUAL) 0 % (0-6); LYMPHOCYTES % (MANUAL) 2 % (13-45); MONOCYTES % (MANUAL) 2 % (3-13); SEGMENTED NEUTROPHILS % (MAN) 96 % (42-78); TOTAL CELLS COUNTED 100
[2020-07-10 05:02] LABS: ANISOCYTOSIS SLIGHT; PLATELET COMMENT ADEQUATE
[2020-07-10 05:04] LABS: HEMOGLOBIN 8.4 g/dL (13.5-17.0)
[2020-07-10 05:10] LABS: MEAN CORPUSCULAR VOLUME 107 fl (80-97)
[2020-07-10] MEDS: ENALAPRILAT DIHYDRATE INJ/PF 1.25 MG/1 ML SDV IV SCH ×3 (05:18→19:10)
[2020-07-10] MEDS: PIPERACILLIN SODIUM/TAZOBACTAM 4.5 GM in NORMAL SALINE 100 ML IV SCH ×3 (05:19→21:25)
[2020-07-10 06:45] LABS: BLOOD UREA NITROGEN 34 mg/dL (7-20); C-REACTIVE PROTEIN 46.3 mg/L (<10.0); CALCIUM 8.4 mg/dL (8.4-10.2); GLUCOSE 111 mg/dL (75-110); PHOSPHORUS 2.5 mg/dL (2.5-4.5); POTASSIUM 3.9 mmol/L (3.6-5.0)
[2020-07-10 06:48] LABS: CARBON DIOXIDE 30 mmol/L (22-30); CHLORIDE 111 mmol/L (98-107)
[2020-07-10 07:20] LABS: ANION GAP 2 (5-19)
[2020-07-10] MEDS: BUDESONIDE NEB 0.25 MG/2 ML AMPUL NEB SCH ×2 (07:55→19:46)
[2020-07-10] MEDS: AMINO ACIDS 5 %/DEXTROSE 20 % 1,000 ML IV PRN ×2 (08:00→21:24)
[2020-07-10] MEDS: NORMAL SALINE 10 ML SDV (SCHEDULED) IV SCH ×2 (10:16→21:24)
[2020-07-10] MEDS: DEXAMETHASONE SOD PHOSPHATE INJ 4 MG/1 ML VIAL IV SCH (10:19)
[2020-07-10] MEDS: FAT EMULSIONS 250 ML IV SCH (10:19)
[2020-07-10] MEDS: VANCOMYCIN HCL 1,250 MG in DEXTROSE 5%-WATER 250 ML IV SCH ×2 (11:27→21:24)
[2020-07-10] MEDS: PANTOPRAZOLE SODIUM 40 MG VIAL IV SCH (11:53)
[2020-07-10] MEDS ORDERED: FUROSEMIDE INJ/PF 40 MG/4 ML SDV IV ONE (13:05)
[2020-07-10 15:51] LABS: ARTERIAL BLOOD BASE EXCESS 0.5 mmol/L; ARTERIAL BLOOD FIO2 100%; ARTERIAL BLOOD H2CO3 1.69 mmol/L (1.05-1.35); ARTERIAL BLOOD HCO3 27.6 mmol/L (20-24); ARTERIAL BLOOD O2 SATURATION 81.1 % (94-98); ARTERIAL BLOOD PCO2 56.1 mmHg (35-45); ARTERIAL BLOOD PH 7.31 (7.35-7.45); ARTERIAL BLOOD PO2 49.8 mmHg (80-100); ARTERIAL BLOOD TOTAL CO2 29.3 mmol/L (23-27)
[2020-07-10] MEDS: ARGATROBAN 250 MG/NS 250 ML (NON-ESRD) IV PRN ×2 (18:00)
--- NOTE | 2020-07-10 19:14 | PDOC CRITICAL CARE PROG REPORT ---
General Date:: 07/10/20 ICU Day:: 14 Hospital Day:: 14 Resuscitation Status: Full Code Events in the past 12 to 24 Hours:: This 55-year-old male presented to [facility] emergency department on 06/27/2020 via EMS with complaints of fever and chills for 2 days prior to presentation. Associated symptoms included myalgias, dyspnea, nonproductive cough and sore throat. He denied any change in taste or smell. Nonetheless, he was diagnosed with COVID-19 pneumonia. Per EMS report, the patient was hypoxic upon their arrival, SPO2 72%. He was placed on CPAP en route to the hospital. He was initially admitted by the hospitalist service. Rapid response team was called for worsening hypoxia. The patient was transferred to the ICU. 06/28: Yesterday, the patient was stable on CPAP 8, FiO2 100%. He was fully conversant, mentating well. He was able to take off his own mask to snack ( brought him home-cooked food) and drink water. He was initiated on heparin infusion. Maintained SPO2 100% throughout the entire day shift. He transferred out last night to [facility]. However, Dr. Bustamante called requesting transfer back to the ICU because the patient was becoming progressively more hypoxic. He was on CPAP 12, FiO2 100% with a respiratory rate in the 30s. He was transferred back to the ICU on CPAP 15, FiO2 100%. Respiratory rate 30s to 40s. SPO2 83%. He is still mentating well. He denies pain. He is tachycardic. He is anxious. 06/29-: Remains CPAP dependent. However, nurse reports that he is having difficulty with swallowing and is no longer able to take p.o. medications. Respiratory rate 30s. He denies pain. Tachycardia and hypertension are being addressed with Precedex and labetalol as needed. On heparin infusion for treatment of confirmed pulmonary embolism. Heparin currently on hold due to elevated PTT. If unable to come of CPAP and eat he will need a PICC and TPN by rimma. On heparin for PE. 07/01: Beginning to be concerned regarding nutrition status. Not eaten in 5 days for previously well-nourished 55 yo. PICC for TPN. 07/02-: Desaturated to 70s. Started proning. Had run of what was said to be VT (07/03). Now on amiodarone. Unfortunately no EKG or strips. No recurrence. Thrombocytopenia was noted on 07/04. Heparin infusion was changed to Lovenox. 07/06: Supine with oxygen saturations 89-95%. TPN back at 50cc/hr. Off insulin drip. 07/07: Remains BiPAP dependent, 13/07. FiO2 80%. He is on Lovenox for treatment of pulmonary embolism. On Precedex and scheduled morphine. He is arousable. Agitated when aroused. Thrashing his right arm, which I believe is due to dissatisfaction over his restraints. On Lovenox. Platelets 136. On TPN. Chest x-ray from 07/05 showed migratory infiltrates. On Rocephin for empiric treatment of urinary tract infection. No culture data. Currently afebrile. T-max 24-hour 99.5 F. Was hypotensive yesterday. Currently, 100/60. Heart rate 63. On Decadron 6 mg IV daily. WBC 12.7. Platelets 136. D-dimer 2.02, CRP 58.7. Prealbumin 7.6. 07/08: Remains BiPAP dependent, 13/07. FiO2 95%. ABG this a.m. 7.37/57/72. On Precedex. Now on argatroban infusion for treatment of pulmonary embolism. On TPN. On Rocephin for empiric treatment of urinary tract infection. WBC up to 18.2 today. No definitive culture data to direct antimicrobial therapy. T-max 24 hours 100.4 F. On Decadron 6 mg IV daily. Normotensive. D-dimer 1.91, CRP 46. 07/09: Remains BiPAP dependent, but now on 07/05. FiO2 100%. ABG this a.m.: 7.35/52/69. On Precedex. Continues on argatroban infusion for treatment of pulmonary embolism. TPN infusion rate was increased to 80 mL/hr yesterday. Antibiotics were changed yesterday from Rocephin to Zosyn/vancomycin with subsequent decrease in white count 18.2>12.9. Urine is isolating a gram-n egative richard. Blood cultures (1 of 2) positive for gram-positive cocci. 07/10: CPAP 14 overnight. ABG this a.m.: 7.18/74/158. Significant improvement in oxygenation; however, hypoventilation. Nonetheless, mentation is improving. More interactive. To better communication. Seems to have a little more strength/energy. Still on Precedex, argatroban, TPN. On Zosyn/vancomycin. WBC 12.9>14.7. Urine isolated Citrobacter freundii, sensitive to Zosyn (but resistant to ampicillin, Unasyn and cefazolin). Blood culture isolated (1 of 2) coag negative Staphylococcus. D-dimer 1.11. CRP 46. Review of systems relevant to events:: Pulmonary, endocrine Reason for ICU Addmission:: acute respiratory failure - worsening hypoxia - Medications: Medications reviewed and adjusted accordingly: Yes Vasopressors:: None Sedation:: Precedex Physical Exam Vital Signs: Temp Pulse Resp BP Pulse Ox 98.2 F 55 L 23 H 98/56 L 99 07/10/20 05:14 07/10/20 07:00 07/10/20 06:30 07/10/20 06:27 07/10/20 06:30 Pulse Oximeter Continuous Start: 06/12/20 18:32 Freq: RTQ4 Status: Complete Protocol: Document 06/23/20 03:42 CMI (Rec: 06/23/20 04:07 CMI [id number]) Pulse Oximetry Assessment Oxygen Saturation (92-100) 97 Oxygen Delivery Method CPAP Fraction of Inspired Oxygen (FIO2) 100 Equipment Usage Equipment Standby Continuous SpO2 Machine # on nurse monitor Intake & Output 07/09/20 07/10/20 07/11/20 06:59 06:59 06:59 Intake Total 1782 1399 Output Total 2142 6384 Balance -363 -1226 Weight 74.5 kg 77.5 kg Weight/Height Weight 77.5 kg Height 1.7 m General appearance: PRESENT: no acute distress, well-developed, well-nourished Head exam: PRESENT: atraumatic, normocephalic Eye exam: PRESENT: conjunctiva pink, EOMI, PERRLA. ABSENT: scleral icterus Mouth exam: PRESENT: dry mucosa, tongue midline Neck exam: ABSENT: carotid bruit, JVD, lymphadenopathy, thyromegaly Respiratory exam: PRESENT: crackles, symmetrical, tachypnea. ABSENT: rales, rhonchi, wheezes Cardiovascular exam: PRESENT: RRR, tachycardia. ABSENT: diastolic murmur, rubs, systolic murmur Pulses: PRESENT: normal dorsalis pedis pul GI/Abdominal exam: PRESENT: normal bowel sounds, soft. ABSENT: distended, guarding, mass, organolmegaly, rebound, tenderness Gentrourinary exam: PRESENT: indwelling catheter Extremities exam: PRESENT: full ROM. ABSENT: calf tenderness, clubbing, pedal edema Neurological exam: PRESENT: alert, awake, CN II-XII grossly intact, motor sensory deficit - Left hemiparesis Psychiatric exam: PRESENT: agitated. ABSENT: anxious Skin exam: PRESENT: dry, intact, warm. ABSENT: cyanosis, rash Tubes/Lines: PRESENT: Central Line - Right PICC Laboratory/Radiographs Laboratory Results: 07/10/20 03:40 07/10/20 06:00 07/10/20 07/10/20 07/10/20 03:40 03:40 03:45 WBC 14.7 H RBC 2.86 L Hgb 8.4 L Hct 30.4 L MCV 107 H D MCH 29.4 MCHC 27.6 L RDW 14.3 H Plt Count 133 L Seg Neutrophils % Not Reportable Carbonic Acid 2.22 H HCO3/H2CO3 Ratio 12:1 ABG pH 7.18 L* ABG pCO2 73.6 H* ABG pO2 157.7 H ABG HCO3 27.1 H ABG O2 Saturation 98.5 H ABG Base Excess -2.1 FiO2 100% Sodium Cancelled Potassium Cancelled Chloride Cancelled Carbon Dioxide Cancelled Anion Gap Cancelled BUN Cancelled Creatinine Cancelled Est GFR ( Amer) Cancelled Est GFR (Non-Af Amer) Cancelled Glucose Cancelled Calcium Cancelled Phosphorus Cancelled Magnesium Cancelled Ferritin Cancelled C-Reactive Protein Cancelled Prealbumin Cancelled 07/10/20 06:00 WBC RBC Hgb Hct MCV MCH MCHC RDW Plt Count Seg Neutrophils % Carbonic Acid HCO3/H2CO3 Ratio ABG pH ABG pCO2 ABG pO2 ABG HCO3 ABG O2 Saturation ABG Base Excess FiO2 Sodium 143.2 Potassium 3.9 Chloride 111 H Carbon Dioxide 30 Anion Gap 2 L BUN 34 H Creatinine 0.89 Est GFR ( Amer) > 60 Est GFR (Non-Af Amer) Glucose 111 H Calcium 8.4 Phosphorus 2.5 Magnesium 2.3 Ferritin 665.00 H C-Reactive Protein 46.3 H Prealbumin 12.0 L 07/07/20 09:45 Blood Blood Culture (PCR) - Final Staphylococcus Species 07/07/20 10:10 Longo Catheter Urine Culture - Final Citrobacter Freundii 06/12/20 06/12/20 06/12/20 16:49 16:49 21:30 Creatine Kinase 119 CK-MB (CK-2) Troponin I 0.046 0.105 NT-Pro-B Natriuret Pep 420 H 06/13/20 06/27/20 06/28/20 06:31 04:39 02:31 Creatine Kinase CK-MB (CK-2) Troponin I 0.087 < 0.012 NT-Pro-B Natriuret Pep 536 H 06/28/20 06/28/20 06/28/20 02:31 02:31 15:37 Creatine Kinase 32 L CK-MB (CK-2) 1.34 Troponin I 0.016 < 0.012 NT-Pro-B Natriuret Pep Impressions: Chest/Abdomen CTA 06/16/20 08:30 IMPRESSION: 1. Extensive bilateral alveolar airspace disease consistent with Covid 19 pneumonia. 2. Limited study for evaluation of pulmonary embolus due to timing of the bolus. Suspect filling defects in the right lower lobe pulmonary artery as discussed. Lower Extremity Ultrasound 06/27/20 00:00 IMPRESSION: No significant stenosis. Venous Doppler Study 06/27/20 00:00 IMPRESSION: NO EVIDENCE OF DVT OR SVT IN EITHER LEG. PICC Line Insertion 07/01/20 00:00 IMPRESSION: SUCCESSFUL PLACEMENT OF A 5 FR DUAL LUMEN 38 CM PICC IN THE RIGHT BASILIC VEIN. Chest X-Ray 07/08/20 05:00 IMPRESSION: No change in diffuse bilateral alveolar and interstitial infiltrates compared to 07/05/2020. All labs, radiographs, diagnostic studies and EKGs were personally reviewed: Yes In addition, reports of radiographic and diagnostic studies were read: Yes Assessment and Plan - Diagnosis (1) Acute respiratory failure with hypoxia Is this a current diagnosis for this admission?: Yes Plan: * Has been demonstrating a steady course of improvement this week. * BiPAP 06/29. Titrate pressures based on ABG results. * Wean FiO2 as tolerated. * Wean Precedex as tolerated. * Continue TPN. (2) Pneumonia due to COVID-19 virus Is this a current diagnosis for this admission?: Yes Plan: * Continue Decadron. * Repeat COVID test (07/07) POSITIVE (3) Pulmonary embolism on right Is this a current diagnosis for this admission?: Yes Plan: * Continue argatroban infusion. (4) Thrombocytopenia Is this a current diagnosis for this admission?: Yes Plan: * Onset 07/04/2020. Heparin infusion was changed to Lovenox. * Continue argatroban infusion. * Heparin-induced platelet antibodies (07/09) pending. * Removed Pepcid from TPN formulation. On Protonix for GI prophylaxis. (5) Hyperglycemia due to type 2 diabetes mellitus Qualifiers: Diabetes mellitus manager intermediate insulin use: without skilled nursing use Qualified Code(s): E11.65 - Type 2 diabetes mellitus with hyperglycemia Is this a current diagnosis for this admission?: Yes Plan: * Top Lantus/sliding scale. * Start insulin infusion. (6) Hypertension Qualifiers: Hypertension type: essential hypertension Qualified Code(s): I10 - Essential (primary) hypertension Is this a current diagnosis for this admission?: Yes (7) Severe protein-calorie malnutrition Is this a current diagnosis for this admission?: Yes (8) Obesity (BMI 30.0-34.9) Is this a current diagnosis for this admission?: Yes Critical Time Critical Time (minutes): 45 Level of Care: ICU -: 1. The care of a critical patient is a dynamic process. This note is a apprenticeship representative synopsis but static in nature. The timeframe for treatments given in order is not necessarily the actual time these treatments may have been done. 2. This patient requires critical care secondary to ongoing requirements for therapy not offered or safe outside the critical care environment. Transfer to a lower level of care will result in altered life or limb morbidity and mortality. 3. Multidisciplinary rounds completed. 4. ABCDE bundle addressed.
[2020-07-10] MEDS: ATORVASTATIN CALCIUM 40 MG TABLET PO SCH (21:24)
[2020-07-10 22:02] LABS: VANCOMYCIN,TROUGH 26.3 ug/mL (5.0-20.0)
[2020-07-11] MEDS: INSULIN, REGULAR 100 UNIT/100 ML NORMAL SALINE IV PRN ×2 (00:34)
[2020-07-11] MEDS: ENALAPRILAT DIHYDRATE INJ/PF 1.25 MG/1 ML SDV IV SCH ×4 (00:41→18:27)
[2020-07-11] MEDS: ALBUTEROL SULFATE 0.083% NEB 2.5 MG/3 ML AMPUL NEB SCH ×4 (01:42→20:54)
--- NOTE | 2020-07-11 03:12 | RADIOLOGY REPORT (SQ) ---
EXAM: XR Chest, 1 View EXAM DATE/TIME: 07/11/2020 2:38 AM CLINICAL HISTORY: The patient is 55 years old and is Male; Respiratory Failure TECHNIQUE: Frontal view of the chest. COMPARISON: Chest radiograph from 07/08/2020 FINDINGS: LUNGS: Mild bilateral lower lung opacities again visualized. Findings appear slightly improved on the left since the prior study. The upper lungs are clear. PLEURAL SPACE: Unremarkable. No pneumothorax. HEART: Stable mild enlargement of the cardiac silhouette. MEDIASTINUM: Unremarkable. BONES/JOINTS: No acute osseous findings. TUBES, LINES AND DEVICES: Right upper extremity PICC line terminates in the SVC. IMPRESSION: Mild bilateral lower lung opacities again visualized, suggesting pneumonia. Findings are slightly improved on the left since the prior study.
[2020-07-11] MEDS: DEXMEDETOMIDINE IN 0.9 % NACL 400 MCG/100 ML RTUPB IV PRN ×6 (03:56→23:58)
[2020-07-11] MEDS: PIPERACILLIN SODIUM/TAZOBACTAM 4.5 GM in NORMAL SALINE 100 ML IV SCH ×3 (05:35→21:12)
[2020-07-11 05:59] LABS: ARTERIAL BLOOD BASE EXCESS 3.6 mmol/L; ARTERIAL BLOOD H2CO3 1.36 mmol/L (1.05-1.35); ARTERIAL BLOOD HCO3 28.5 mmol/L (20-24); ARTERIAL BLOOD O2 SATURATION 90.9 % (94-98); ARTERIAL BLOOD PCO2 45.1 mmHg (35-45); ARTERIAL BLOOD PH 7.42 (7.35-7.45); ARTERIAL BLOOD PO2 59.1 mmHg (80-100); ARTERIAL BLOOD TOTAL CO2 29.9 mmol/L (23-27)
[2020-07-11 06:02] LABS: ARTERIAL BLOOD FIO2 100%
[2020-07-11 06:13] LABS: HEMATOCRIT 29.3 % (37.9-51.0); HEMOGLOBIN 9.7 g/dL (13.5-17.0); MEAN CORPUSCULAR HEMOGLOBIN 29.3 pg (27.0-33.4); MEAN CORPUSCULAR HGB CONC 33.2 g/dL (32.0-36.0); PLATELET COUNT 181 10^3/uL (150-450); RED BLOOD COUNT 3.32 10^6/uL (4.35-5.55); RED CELL DISTRIBUTION WIDTH 13.2 % (11.5-14.0); WHITE BLOOD COUNT 18.2 10^3/uL (4.0-10.5)
[2020-07-11 06:15] LABS: MEAN CORPUSCULAR VOLUME 88 fl (80-97)
[2020-07-11] MEDS: BUDESONIDE NEB 0.25 MG/2 ML AMPUL NEB SCH ×2 (07:50→20:54)
[2020-07-11] MEDS: AMINO ACIDS 5 %/DEXTROSE 20 % 1,000 ML IV PRN ×2 (09:36→22:27)
[2020-07-11] MEDS ORDERED: FUROSEMIDE INJ/PF 20 MG/2 ML SDV IV ONE (10:00)
[2020-07-11] MEDS: DEXAMETHASONE SOD PHOSPHATE INJ 4 MG/1 ML VIAL IV SCH (10:15)
[2020-07-11] MEDS: NORMAL SALINE 10 ML SDV (SCHEDULED) IV SCH ×2 (10:15→21:11)
--- NOTE | 2020-07-11 11:13 | RADIOLOGY REPORT (SQ) ---
EXAM DESCRIPTION: KUB/ABDOMEN (SINGLE VIEW) IMAGES COMPLETED DATE/TIME: 07/11/2020 11:02 am REASON FOR STUDY: Abdominal pain, constipation COMPARISON: None. NUMBER OF VIEWS: One view. TECHNIQUE: Supine radiographic image of the abdomen acquired. LIMITATIONS: None. FINDINGS: BOWEL GAS PATTERN: Normal bowel gas pattern. No dilated loops. Unremarkable fecal burden. CALCIFICATIONS: No suspicious calcifications. SOFT TISSUES: No gross mass or suggestion of organomegaly. HARDWARE: Catheter tubing overlies pelvis. BONES: No acute fracture. No worrisome bone lesions. OTHER: No other significant finding. IMPRESSION: No evidence of intestinal obstruction. Unremarkable fecal burden. TECHNICAL DOCUMENTATION: JOB ID: [id number] 2010 [employer]- All Rights Reserved Reading location - IP/workstation name: [email or web address]
[2020-07-11] MEDS: PANTOPRAZOLE SODIUM 40 MG VIAL IV SCH (11:28)
[2020-07-11] MEDS: METOPROLOL TARTRATE PF/INJ 5 MG/5 ML SDV IV PRN (15:13)
--- NOTE | 2020-07-11 17:06 | PDOC CRITICAL CARE PROG REPORT ---
General Date:: 07/11/20 ICU Day:: 15 Hospital Day:: 15 Resuscitation Status: Full Code Events in the past 12 to 24 Hours:: This 55-year-old male presented to [facility] emergency department on 06/27/2020 via EMS with complaints of fever and chills for 2 days prior to presentation. Associated symptoms included myalgias, dyspnea, nonproductive cough and sore throat. He denied any change in taste or smell. Nonetheless, he was diagnosed with COVID-19 pneumonia. Per EMS report, the patient was hypoxic upon their arrival, SPO2 72%. He was placed on CPAP en route to the hospital. He was initially admitted by the hospitalist service. Rapid response team was called for worsening hypoxia. The patient was transferred to the ICU. 06/28: Yesterday, the patient was stable on CPAP 8, FiO2 100%. He was fully conversant, mentating well. He was able to take off his own mask to snack ( brought him home-cooked food) and drink water. He was initiated on heparin infusion. Maintained SPO2 100% throughout the entire day shift. He transferred out last night to [facility]. However, Dr. Bustamante called requesting transfer back to the ICU because the patient was becoming progressively more hypoxic. He was on CPAP 12, FiO2 100% with a respiratory rate in the 30s. He was transferred back to the ICU on CPAP 15, FiO2 100%. Respiratory rate 30s to 40s. SPO2 83%. He is still mentating well. He denies pain. He is tachycardic. He is anxious. 06/29-: Remains CPAP dependent. However, nurse reports that he is having difficulty with swallowing and is no longer able to take p.o. medications. Respiratory rate 30s. He denies pain. Tachycardia and hypertension are being addressed with Precedex and labetalol as needed. On heparin infusion for treatment of confirmed pulmonary embolism. Heparin currently on hold due to elevated PTT. If unable to come of CPAP and eat he will need a PICC and TPN by rimam. On heparin for PE. 07/01: Beginning to be concerned regarding nutrition status. Not eaten in 5 days for previously well-nourished 55 yo. PICC for TPN. 07/02-: Desaturated to 70s. Started proning. Had run of what was said to be VT (07/03). Now on amiodarone. Unfortunately no EKG or strips. No recurrence. Thrombocytopenia was noted on 07/04. Heparin infusion was changed to Lovenox. 07/06: Supine with oxygen saturations 89-95%. TPN back at 50cc/hr. Off insulin drip. 07/07: Remains BiPAP dependent, 13/07. FiO2 80%. He is on Lovenox for treatment of pulmonary embolism. On Precedex and scheduled morphine. He is arousable. Agitated when aroused. Thrashing his right arm, which I believe is due to dissatisfaction over his restraints. On Lovenox. Platelets 136. On TPN. Chest x-ray from 07/05 showed migratory infiltrates. On Rocephin for empiric treatment of urinary tract infection. No culture data. Currently afebrile. T-max 24-hour 99.5 F. Was hypotensive yesterday. Currently, 100/60. Heart rate 63. On Decadron 6 mg IV daily. WBC 12.7. Platelets 136. D-dimer 2.02, CRP 58.7. Prealbumin 7.6. 07/08: Remains BiPAP dependent, 13/07. FiO2 95%. ABG this a.m. 7.37/57/72. On Precedex. Now on argatroban infusion for treatment of pulmonary embolism. On TPN. On Rocephin for empiric treatment of urinary tract infection. WBC up to 18.2 today. No definitive culture data to direct antimicrobial therapy. T-max 24 hours 100.4 F. On Decadron 6 mg IV daily. Normotensive. D-dimer 1.91, CRP 46. 07/09: Remains BiPAP dependent, but now on 07/05. FiO2 100%. ABG this a.m.: 7.35/52/69. On Precedex. Continues on argatroban infusion for treatment of pulmonary embolism. TPN infusion rate was increased to 80 mL/hr yesterday. Antibiotics were changed yesterday from Rocephin to Zosyn/vancomycin with subsequent decrease in white count 18.2>12.9. Urine is isolating a gram-n egative richard. Blood cultures (1 of 2) positive for gram-positive cocci. 07/10: CPAP 14 overnight. ABG this a.m.: 7.18/74/158. Significant improvement in oxygenation; however, hypoventilation. Nonetheless, mentation is improving. More interactive. To better communication. Seems to have a little more strength/energy. Still on Precedex, argatroban, TPN. On Zosyn/vancomycin. WBC 12.9>14.7. Urine isolated Citrobacter freundii, sensitive to Zosyn (but resistant to ampicillin, Unasyn and cefazolin). Blood culture isolated (1 of 2) coag negative Staphylococcus. D-dimer 1.11. CRP 46. 12/18: BiPAP 14/8 overnight. ABG this a.m.: 7.42/45/59. WBC up to 18.2 today. Repeat COVID-19 testing was (07/07). Off insulin drip. Heparin-induced antibody panel was positive. Review of systems relevant to events:: Pulmonary, endocrine Reason for ICU Addmission:: acute respiratory failure - worsening hypoxia - Medications: Medications reviewed and adjusted accordingly: Yes Vasopressors:: None Sedation:: Precedex Physical Exam Vital Signs: Temp Pulse Resp BP Pulse Ox 98.8 F 112 H 31 H 111/67 94 07/11/20 12:00 07/11/20 14:00 07/11/20 15:58 07/11/20 15:58 07/11/20 15:58 Pulse Oximeter Continuous Start: 06/12/20 18:32 Freq: RTQ4 Status: Complete Protocol: Document 06/23/20 03:42 CMI (Rec: 06/23/20 04:07 CMI [id number]) Pulse Oximetry Assessment Oxygen Saturation (92-100) 97 Oxygen Delivery Method CPAP Fraction of Inspired Oxygen (FIO2) 100 Equipment Usage Equipment Standby Continuous SpO2 Machine # on nurse monitor Intake & Output 07/10/20 07/11/20 07/12/20 06:59 06:59 06:59 Intake Total 1399 1627 225 Output Total 9645 1211 6875 Balance -7521 -3716 -4879 Weight 77.5 kg 75.1 kg Weight/Height Weight 75.1 kg Height 1.7 m General appearance: PRESENT: no acute distress, well-developed, well-nourished Head exam: PRESENT: atraumatic, normocephalic Eye exam: PRESENT: conjunctiva pink, EOMI, PERRLA. ABSENT: scleral icterus Mouth exam: PRESENT: dry mucosa, tongue midline Neck exam: ABSENT: carotid bruit, JVD, lymphadenopathy, thyromegaly Respiratory exam: PRESENT: crackles. ABSENT: rales, rhonchi, wheezes Cardiovascular exam: PRESENT: RRR. ABSENT: diastolic murmur, rubs, systolic murmur GI/Abdominal exam: PRESENT: normal bowel sounds, soft. ABSENT: distended, guarding, mass, organolmegaly, rebound, tenderness Extremities exam: PRESENT: full ROM. ABSENT: calf tenderness, clubbing, pedal edema Musculoskeletal exam: PRESENT: normal inspection. ABSENT: deformity Neurological exam: PRESENT: alert, awake, CN II-XII grossly intact, motor sensory deficit - Left hemiparesis Psychiatric exam: ABSENT: agitated, anxious Skin exam: PRESENT: dry, intact, warm. ABSENT: cyanosis, rash Tubes/Lines: PRESENT: Central Line - Right PICC Laboratory/Radiographs Laboratory Results: 07/11/20 05:50 07/10/20 21:20 07/10/20 07/11/20 07/11/20 21:20 05:50 05:50 WBC 18.2 H RBC 3.32 L Hgb 9.7 L Hct 29.3 L MCV 88 D MCH 29.3 MCHC 33.2 RDW 13.2 Plt Count 181 Carbonic Acid 1.36 H HCO3/H2CO3 Ratio 20:1 ABG pH 7.42 ABG pCO2 45.1 H ABG pO2 59.1 L ABG HCO3 28.5 H ABG O2 Saturation 90.9 L ABG Base Excess 3.6 FiO2 100% Creatinine 0.86 Est GFR ( Amer) > 60 06/12/20 06/12/20 06/12/20 16:49 16:49 21:30 Creatine Kinase 119 CK-MB (CK-2) Troponin I 0.046 0.105 NT-Pro-B Natriuret Pep 420 H 06/13/20 06/27/20 06/28/20 06:31 04:39 02:31 Creatine Kinase CK-MB (CK-2) Troponin I 0.087 < 0.012 NT-Pro-B Natriuret Pep 536 H 06/28/20 06/28/20 06/28/20 02:31 02:31 15:37 Creatine Kinase 32 L CK-MB (CK-2) 1.34 Troponin I 0.016 < 0.012 NT-Pro-B Natriuret Pep Impressions: Chest/Abdomen CTA 06/16/20 08:30 IMPRESSION: 1. Extensive bilateral alveolar airspace disease consistent with Covid 19 pneumonia. 2. Limited study for evaluation of pulmonary embolus due to timing of the bolus. Suspect filling defects in the right lower lobe pulmonary artery as discussed. Lower Extremity Ultrasound 06/27/20 00:00 IMPRESSION: No significant stenosis. Venous Doppler Study 06/27/20 00:00 IMPRESSION: NO EVIDENCE OF DVT OR SVT IN EITHER LEG. PICC Line Insertion 07/01/20 00:00 IMPRESSION: SUCCESSFUL PLACEMENT OF A 5 FR DUAL LUMEN 38 CM PICC IN THE RIGHT BASILIC VEIN. Chest X-Ray 07/11/20 00:00 IMPRESSION: Mild bilateral lower lung opacities again visualized, suggesting pneumonia. Findings are slightly improved on the left since the prior study. KUB X-Ray 07/11/20 00:00 IMPRESSION: No evidence of intestinal obstruction. Unremarkable fecal burden. All labs, radiographs, diagnostic studies and EKGs were personally reviewed: Yes In addition, reports of radiographic and diagnostic studies were read: Yes Assessment and Plan - Diagnosis (1) Acute respiratory failure with hypoxia Is this a current diagnosis for this admission?: Yes Plan: * Has been demonstrating a steady course of improvement this week. * BiPAP 07/03. Titrate pressures based on ABG results. * Wean FiO2 as tolerated. * Wean Precedex as tolerated. * Continue TPN. (2) Pneumonia due to COVID-19 virus Is this a current diagnosis for this admission?: Yes Plan: * Continue Decadron. * Repeat COVID test (07/07) POSITIVE (3) Pulmonary embolism on right Is this a current diagnosis for this admission?: Yes (4) Thrombocytopenia Is this a current diagnosis for this admission?: Yes Plan: * Heparin induced thrombocytopenia * Continue argatroban infusion. (5) Hyperglycemia due to type 2 diabetes mellitus Qualifiers: Diabetes mellitus alf insulin use: without alf use Qualified Code(s): E11.65 - Type 2 diabetes mellitus with hyperglycemia Is this a current diagnosis for this admission?: Yes Plan: * Continue insulin infusion as needed. (6) Hypertension Qualifiers: Hypertension type: essential hypertension Qualified Code(s): I10 - Essential (primary) hypertension Is this a current diagnosis for this admission?: Yes (7) Severe protein-calorie malnutrition Is this a current diagnosis for this admission?: Yes (8) Obesity (BMI 30.0-34.9) Is this a current diagnosis for this admission?: Yes Critical Time Critical Time (minutes): 45 Level of Care: ICU -: 1. The care of a critical patient is a dynamic process. This note is a plastic products sales representative synopsis but static in nature. The timeframe for treatments given in order is not necessarily the actual time these treatments may have been done. 2. This patient requires critical care secondary to ongoing requirements for therapy not offered or safe outside the critical care environment. Transfer to a lower level of care will result in altered life or limb morbidity and mortality. 3. Multidisciplinary rounds completed. 4. ABCDE bundle addressed.
[2020-07-11] MEDS: INSULIN REG, HUMAN 100 UNIT/ML 3 ML VIAL (PYX) SUBCUT SCH ×2 (18:25→23:47)
[2020-07-11] MEDS: ATORVASTATIN CALCIUM 40 MG TABLET PO SCH (21:12)
[2020-07-12] MEDS: ENALAPRILAT DIHYDRATE INJ/PF 1.25 MG/1 ML SDV IV SCH ×4 (00:21→19:23)
[2020-07-12] MEDS: ALBUTEROL SULFATE 0.083% NEB 2.5 MG/3 ML AMPUL NEB SCH ×3 (02:50→14:32)
[2020-07-12 04:45] LABS: HEMOGLOBIN 9.8 g/dL (13.5-17.0); MEAN CORPUSCULAR HEMOGLOBIN 29.3 pg (27.0-33.4); MEAN CORPUSCULAR HGB CONC 28.1 g/dL (32.0-36.0); PLATELET COUNT 251 10^3/uL (150-450); RED BLOOD COUNT 3.35 10^6/uL (4.35-5.55); RED CELL DISTRIBUTION WIDTH 14.5 % (11.5-14.0); WHITE BLOOD COUNT 20.3 10^3/uL (4.0-10.5)
[2020-07-12 04:47] LABS: MEAN CORPUSCULAR VOLUME 104 fl (80-97)
[2020-07-12] MEDS: VANCOMYCIN HCL 750 MG in DEXTROSE 5%-WATER 250 ML IV SCH ×2 (05:08→19:26)
[2020-07-12] MEDS: DEXMEDETOMIDINE IN 0.9 % NACL 400 MCG/100 ML RTUPB IV PRN ×3 (06:01→23:28)
[2020-07-12 06:43] LABS: BLOOD UREA NITROGEN 52 mg/dL (7-20); C-REACTIVE PROTEIN 12.6 mg/L (<10.0); CALCIUM 8.5 mg/dL (8.4-10.2)
[2020-07-12 06:47] LABS: CARBON DIOXIDE 32 mmol/L (22-30); CHLORIDE 105 mmol/L (98-107)
[2020-07-12 06:48] LABS: ANION GAP 2 (5-19); GLUCOSE 403 mg/dL (75-110)
[2020-07-12] MEDS: INSULIN REG, HUMAN 100 UNIT/ML 3 ML VIAL (PYX) SUBCUT SCH ×2 (06:55→14:28)
[2020-07-12] MEDS: PIPERACILLIN SODIUM/TAZOBACTAM 4.5 GM in NORMAL SALINE 100 ML IV SCH ×3 (06:56→22:43)
[2020-07-12] MEDS: BUDESONIDE NEB 0.25 MG/2 ML AMPUL NEB SCH ×2 (09:19→20:55)
[2020-07-12] MEDS: DEXAMETHASONE SOD PHOSPHATE INJ 4 MG/1 ML VIAL IV SCH (10:09)
[2020-07-12] MEDS: NORMAL SALINE 10 ML SDV (SCHEDULED) IV SCH ×2 (10:41→22:45)
[2020-07-12] MEDS: AMINO ACIDS 5 %/DEXTROSE 20 % 1,000 ML IV PRN (10:42)
[2020-07-12] MEDS: ARGATROBAN 250 MG/NS 250 ML (NON-ESRD) IV PRN ×2 (10:43)
[2020-07-12] MEDS: PANTOPRAZOLE SODIUM 40 MG VIAL IV SCH (12:43)
--- NOTE | 2020-07-12 15:20 | PDOC CRITICAL CARE PROG REPORT ---
General Date:: 07/12/20 ICU Day:: 16 Hospital Day:: 16 Resuscitation Status: Full Code Events in the past 12 to 24 Hours:: This 55-year-old male presented to [facility] emergency department on 06/27/2020 via EMS with complaints of fever and chills for 2 days prior to presentation. Associated symptoms included myalgias, dyspnea, nonproductive cough and sore throat. He denied any change in taste or smell. Nonetheless, he was diagnosed with COVID-19 pneumonia. Per EMS report, the patient was hypoxic upon their arrival, SPO2 72%. He was placed on CPAP en route to the hospital. He was initially admitted by the hospitalist service. Rapid response team was called for worsening hypoxia. The patient was transferred to the ICU. 06/28: Yesterday, the patient was stable on CPAP 8, FiO2 100%. He was fully conversant, mentating well. He was able to take off his own mask to snack ( brought him home-cooked food) and drink water. He was initiated on heparin infusion. Maintained SPO2 100% throughout the entire day shift. He transferred out last night to [facility]. However, Dr. Bustamante called requesting transfer back to the ICU because the patient was becoming progressively more hypoxic. He was on CPAP 12, FiO2 100% with a respiratory rate in the 30s. He was transferred back to the ICU on CPAP 15, FiO2 100%. Respiratory rate 30s to 40s. SPO2 83%. He is still mentating well. He denies pain. He is tachycardic. He is anxious. 06/29-: Remains CPAP dependent. However, nurse reports that he is having difficulty with swallowing and is no longer able to take p.o. medications. Respiratory rate 30s. He denies pain. Tachycardia and hypertension are being addressed with Precedex and labetalol as needed. On heparin infusion for treatment of confirmed pulmonary embolism. Heparin currently on hold due to elevated PTT. If unable to come of CPAP and eat he will need a PICC and TPN by rimma. On heparin for PE. 07/01: Beginning to be concerned regarding nutrition status. Not eaten in 5 days for previously well-nourished 55 yo. PICC for TPN. 07/02-: Desaturated to 70s. Started proning. Had run of what was said to be VT (07/03). Now on amiodarone. Unfortunately no EKG or strips. No recurrence. Thrombocytopenia was noted on 07/04. Heparin infusion was changed to Lovenox. 07/06: Supine with oxygen saturations 89-95%. TPN back at 50cc/hr. Off insulin drip. 07/07: Remains BiPAP dependent, 13/07. FiO2 80%. He is on Lovenox for treatment of pulmonary embolism. On Precedex and scheduled morphine. He is arousable. Agitated when aroused. Thrashing his right arm, which I believe is due to dissatisfaction over his restraints. On Lovenox. Platelets 136. On TPN. Chest x-ray from 07/05 showed migratory infiltrates. On Rocephin for empiric treatment of urinary tract infection. No culture data. Currently afebrile. T-max 24-hour 99.5 F. Was hypotensive yesterday. Currently, 100/60. Heart rate 63. On Decadron 6 mg IV daily. WBC 12.7. Platelets 136. D-dimer 2.02, CRP 58.7. Prealbumin 7.6. 07/08: Remains BiPAP dependent, 13/07. FiO2 95%. ABG this a.m. 7.37/57/72. On Precedex. Now on argatroban infusion for treatment of pulmonary embolism. On TPN. On Rocephin for empiric treatment of urinary tract infection. WBC up to 18.2 today. No definitive culture data to direct antimicrobial therapy. T-max 24 hours 100.4 F. On Decadron 6 mg IV daily. Normotensive. D-dimer 1.91, CRP 46. 07/09: Remains BiPAP dependent, but now on 07/05. FiO2 100%. ABG this a.m.: 7.35/52/69. On Precedex. Continues on argatroban infusion for treatment of pulmonary embolism. TPN infusion rate was increased to 80 mL/hr yesterday. Antibiotics were changed yesterday from Rocephin to Zosyn/vancomycin with subsequent decrease in white count 18.2>12.9. Urine is isolating a gram-n egative richard. Blood cultures (1 of 2) positive for gram-positive cocci. 07/10: CPAP 14 overnight. ABG this a.m.: 7.18/74/158. Significant improvement in oxygenation; however, hypoventilation. Nonetheless, mentation is improving. More interactive. To better communication. Seems to have a little more strength/energy. Still on Precedex, argatroban, TPN. On Zosyn/vancomycin. WBC 12.9>14.7. Urine isolated Citrobacter freundii, sensitive to Zosyn (but resistant to ampicillin, Unasyn and cefazolin). Blood culture isolated (1 of 2) coag negative Staphylococcus. D-dimer 1.11. CRP 46. 07/11: BiPAP 14/8 overnight. ABG this a.m.: 7.42/45/59. WBC up to 18.2 today. Repeat COVID-19 testing was (07/07). Off insulin drip. Heparin-induced antibody panel was positive. 07/12: Continues on BiPAP 14/8, FiO2 100%. ABG this a.m.: 7.42/45/59. Afebrile but WBC up to 20.3 today. Urine (07/07) isolated Citrobacter freundii. He has been on Zosyn since 07/08. D-dimer 1.05. CRP 12.6. Review of systems relevant to events:: Pulmonary, endocrine Reason for ICU Addmission:: acute respiratory failure - worsening hypoxia - Medications: Medications reviewed and adjusted accordingly: Yes Vasopressors:: None Sedation:: Precedex Physical Exam Vital Signs: Temp Pulse Resp BP Pulse Ox 99.5 F 88 20 115/74 99 07/11/20 22:00 07/12/20 02:50 07/12/20 06:13 07/12/20 06:13 07/12/20 06:13 Pulse Oximeter Continuous Start: 06/12/20 18: 32 Freq: RTQ4 Status: Complete Protocol: Document 06/23/20 03:42 CMI (Rec: 06/23/20 04:07 CMI [id number]) Pulse Oximetry Assessment Oxygen Saturation (92-100) 97 Oxygen Delivery Method CPAP Fraction of Inspired Oxygen (FIO2) 100 Equipment Usage Equipment Standby Continuous SpO2 Machine # on nurse monitor Intake & Output 07/11/20 07/12/20 07/13/20 06:59 06:59 06:59 Intake Total 1627 518 Output Total 6016 3455 Balance -1805 -7710 Weight 75.1 kg 70.1 kg Weight/Height Weight 70.1 kg Height 1.7 m General appearance: PRESENT: no acute distress, well-developed, well-nourished Head exam: PRESENT: atraumatic, normocephalic Eye exam: PRESENT: conjunctiva pink, EOMI, PERRLA. ABSENT: scleral icterus Mouth exam: PRESENT: dry mucosa, tongue midline Neck exam: ABSENT: carotid bruit, JVD, lymphadenopathy, thyromegaly Respiratory exam: PRESENT: clear to auscultation aaron, symmetrical. ABSENT: rales, rhonchi, wheezes Cardiovascular exam: PRESENT: RRR. ABSENT: diastolic murmur, rubs, systolic murmur Pulses: PRESENT: normal dorsalis pedis pul Vascular exam: PRESENT: normal capillary refill GI/Abdominal exam: PRESENT: normal bowel sounds, soft. ABSENT: distended, guarding, mass, organolmegaly, rebound, tenderness Gentrourinary exam: PRESENT: indwelling catheter Extremities exam: PRESENT: full ROM. ABSENT: calf tenderness, clubbing, pedal edema Neurological exam: PRESENT: alert, awake, CN II-XII grossly intact, motor sensory deficit - Left hemiparesis Psychiatric exam: ABSENT: agitated, anxious Skin exam: PRESENT: dry, intact, warm. ABSENT: cyanosis, rash Tubes/Lines: PRESENT: Central Line - Right PICC Laboratory/Radiographs Laboratory Results: 07/12/20 04:20 07/12/20 06:05 07/12/20 07/12/20 07/12/20 04:20 04:20 06:05 WBC 20.3 H RBC 3.35 L Hgb 9.8 L Hct 35.0 L MCV 104 H D MCH 29.3 MCHC 28.1 L RDW 14.5 H Plt Count 251 Sodium Cancelled 138.7 Potassium Cancelled 4.0 Chloride Cancelled 105 Carbon Dioxide Cancelled 32 H Anion Gap Cancelled 2 L BUN Cancelled 52 H Creatinine Cancelled 0.91 Est GFR ( Amer) Cancelled > 60 Est GFR (Non-Af Amer) Cancelled Glucose Cancelled 403 H* Calcium Cancelled 8.5 Ferritin Cancelled 450.00 C-Reactive Protein Cancelled 12.6 H 06/12/20 06/12/20 06/12/20 16:49 16:49 21:30 Creatine Kinase 119 CK-MB (CK-2) Troponin I 0.046 0.105 NT-Pro-B Natriuret Pep 420 H 06/13/20 06/27/20 06/28/20 06:31 04:39 02:31 Creatine Kinase CK-MB (CK-2) Troponin I 0.087 < 0.012 NT-Pro-B Natriuret Pep 536 H 06/28/20 06/28/20 06/28/20 02:31 02:31 15:37 Creatine Kinase 32 L CK-MB (CK-2) 1.34 Troponin I 0.016 < 0.012 NT-Pro-B Natriuret Pep Impressions: Chest/Abdomen CTA 06/16/20 08:30 IMPRESSION: 1. Extensive bilateral alveolar airspace disease consistent with Covid 19 pneumonia. 2. Limited study for evaluation of pulmonary embolus due to timing of the bolus. Suspect filling defects in the right lower lobe pulmonary artery as discussed. Lower Extremity Ultrasound 06/27/20 00:00 IMPRESSION: No significant stenosis. Venous Doppler Study 06/27/20 00:00 IMPRESSION: NO EVIDENCE OF DVT OR SVT IN EITHER LEG. PICC Line Insertion 07/01/20 00:00 IMPRESSION: SUCCESSFUL PLACEMENT OF A 5 FR DUAL LUMEN 38 CM PICC IN THE RIGHT BASILIC VEIN. Chest X-Ray 07/11/20 00:00 IMPRESSION: Mild bilateral lower lung opacities again visualized, suggesting pneumonia. Findings are slightly improved on the left since the prior study. KUB X-Ray 07/11/20 00:00 IMPRESSION: No evidence of intestinal obstruction. Unremarkable fecal burden. All labs, radiographs, diagnostic studies and EKGs were personally reviewed: Yes In addition, reports of radiographic and diagnostic studies were read: Yes Assessment and Plan - Diagnosis (1) Acute respiratory failure with hypoxia Is this a current diagnosis for this admission?: Yes Plan: * Has been demonstrating a steady course of improvement this week. * BiPAP 06/29. Titrate pressures based on ABG results. * Wean FiO2 as tolerated. * Wean Precedex as tolerated. * Continue TPN. * Restart Lexapro when able to take p.o. meds. (2) Pneumonia due to COVID-19 virus Is this a current diagnosis for this admission?: Yes (3) Pulmonary embolism on right Is this a current diagnosis for this admission?: Yes Plan: * Continue argatroban infusion. (4) Thrombocytopenia Is this a current diagnosis for this admission?: Yes Plan: * Heparin induced thrombocytopenia * Resolved after discontinuing heparin. * Continue argatroban infusion. (5) Hyperglycemia due to type 2 diabetes mellitus Qualifiers: Diabetes mellitus business process associate insulin use: without care home use Qualified Code(s): E11.65 - Type 2 diabetes mellitus with hyperglycemia Is this a current diagnosis for this admission?: Yes Plan: * Continue insulin infusion as needed. * Continue to hold home antidiabetic regimen: metformin/glyburide. (6) Hypertension Qualifiers: Hypertension type: essential hypertension Qualified Code(s): I10 - Essential (primary) hypertension Is this a current diagnosis for this admission?: Yes Plan: * Change metoprolol to 2.5 mg IV every 6 hours scheduled (hold dose for heart rate less than 60). * Continue Vasotec (at reduced dose): 0.625 mg IV 6 hours. (7) Severe protein-calorie malnutrition Is this a current diagnosis for this admission?: Yes (8) Obesity (BMI 30.0-34.9) Is this a current diagnosis for this admission?: Yes Critical Time Critical Time (minutes): 45 Level of Care: ICU -: 1. The care of a critical patient is a dynamic process. This note is a maintenance representative synopsis but static in nature. The timeframe for treatments given in order is not necessarily the actual time these treatments may have been done. 2. This patient requires critical care secondary to ongoing requirements for therapy not offered or safe outside the critical care environment. Transfer to a lower level of care will result in altered life or limb morbidity and mortality. 3. Multidisciplinary rounds completed. 4. ABCDE bundle addressed.
[2020-07-12] MEDS ORDERED: METOPROLOL TARTRATE PF/INJ 5 MG/5 ML SDV IV SCH (15:30)
[2020-07-12] MEDS ORDERED: MAG HYDROX/AL HYDROX/SIMETH SUSP 30 ML UDCUP PO PRN (17:26)
[2020-07-12] MEDS ORDERED: ONDANSETRON HCL INJ/PF 4 MG/2 ML SDV IV PRN (17:26)
[2020-07-12] MEDS: METOPROLOL TARTRATE PF/INJ 5 MG/5 ML SDV IV PRN (19:25)
[2020-07-12] MEDS: ATORVASTATIN CALCIUM 40 MG TABLET PO SCH (22:45)
[2020-07-12] MEDS ORDERED: INSULIN REG, HUMAN 100 UNIT/ML 3 ML VIAL (PYX) ONE (23:15)
[2020-07-13] MEDS: AMINO ACIDS 5 %/DEXTROSE 20 % 1,000 ML IV PRN ×2 (00:46→14:38)
[2020-07-13] MEDS: ENALAPRILAT DIHYDRATE INJ/PF 1.25 MG/1 ML SDV IV SCH ×4 (00:52→17:25)
[2020-07-13 05:59] LABS: ARTERIAL BLOOD BASE EXCESS 0.9 mmol/L; ARTERIAL BLOOD H2CO3 1.63 mmol/L (1.05-1.35); ARTERIAL BLOOD HCO3 27.6 mmol/L (20-24); ARTERIAL BLOOD O2 SATURATION 95.6 % (94-98); ARTERIAL BLOOD PH 7.33 (7.35-7.45); ARTERIAL BLOOD PO2 85.3 mmHg (80-100); ARTERIAL BLOOD TOTAL CO2 29.2 mmol/L (23-27)
[2020-07-13 06:00] LABS: ARTERIAL BLOOD FIO2 100%
[2020-07-13] MEDS: PIPERACILLIN SODIUM/TAZOBACTAM 4.5 GM in NORMAL SALINE 100 ML IV SCH ×3 (06:40→22:00)
[2020-07-13] MEDS: METOPROLOL TARTRATE PF/INJ 5 MG/5 ML SDV IV SCH ×3 (06:52→17:25)
[2020-07-13] MEDS: VANCOMYCIN HCL 750 MG in DEXTROSE 5%-WATER 250 ML IV SCH ×2 (06:55→17:26)
--- NOTE | 2020-07-13 08:09 | RADIOLOGY REPORT (SQ) ---
EXAM DESCRIPTION: CHEST SINGLE VIEW IMAGES COMPLETED DATE/TIME: 07/13/2020 5:35 am REASON FOR STUDY: COVID pneumonia COMPARISON: 07/11/2020. EXAM PARAMETERS: NUMBER OF VIEWS: One view. TECHNIQUE: Single frontal radiographic view of the chest acquired. RADIATION DOSE: NA LIMITATIONS: None. FINDINGS: LUNGS AND PLEURA: Patchy basilar densities, left greater than right, unchanged. MEDIASTINUM AND HILAR STRUCTURES: No masses. Contour normal. HEART AND VASCULAR STRUCTURES: Heart normal in size. Normal vasculature. BONES: No acute findings. HARDWARE: PICC line. OTHER: No other significant finding. IMPRESSION: NO SIGNIFICANT CHANGE IN APPEARANCE OF THE CHEST. TECHNICAL DOCUMENTATION: JOB ID: [id number] 2010 [employer]- All Rights Reserved Reading location - IP/workstation name: [email or web address]
[2020-07-13] MEDS: ALBUTEROL SULFATE 0.083% NEB 2.5 MG/3 ML AMPUL NEB PRN (08:37)
[2020-07-13] MEDS: BUDESONIDE NEB 0.25 MG/2 ML AMPUL NEB SCH ×2 (08:37→20:05)
[2020-07-13] MEDS ORDERED: INSULIN REG, HUMAN 100 UNIT/ML 3 ML VIAL (PYX) ONE (08:39)
[2020-07-13] MEDS: INSULIN, REGULAR 100 UNIT/100 ML NORMAL SALINE IV PRN ×2 (08:45)
[2020-07-13 08:49] LABS: HEMATOCRIT 31.7 % (37.9-51.0); HEMOGLOBIN 10.3 g/dL (13.5-17.0); MEAN CORPUSCULAR HEMOGLOBIN 29.1 pg (27.0-33.4); MEAN CORPUSCULAR HGB CONC 32.6 g/dL (32.0-36.0); PLATELET COUNT 283 10^3/uL (150-450); RED BLOOD COUNT 3.56 10^6/uL (4.35-5.55); RED CELL DISTRIBUTION WIDTH 13.2 % (11.5-14.0); WHITE BLOOD COUNT 23.1 10^3/uL (4.0-10.5)
[2020-07-13 08:59] LABS: BLOOD UREA NITROGEN 41 mg/dL (7-20); CALCIUM 8.6 mg/dL (8.4-10.2); CARBON DIOXIDE 31 mmol/L (22-30); CHLORIDE 108 mmol/L (98-107); GLUCOSE 246 mg/dL (75-110); PHOSPHORUS 2.4 mg/dL (2.5-4.5); POTASSIUM 3.5 mmol/L (3.6-5.0)
[2020-07-13 09:09] LABS: ANION GAP 2 (5-19)
[2020-07-13 09:19] LABS: MEAN CORPUSCULAR VOLUME 89 fl (80-97)
[2020-07-13 09:23] LABS: ABSOLUTE LYMPHOCYTES# (MANUAL) 1.6 10^3/uL (0.5-4.7); ABSOLUTE MONOCYTES # (MANUAL) 0.7 10^3/uL (0.1-1.4); BASOPHILS % (MANUAL) 0 % (0-2); EOSINOPHILS % (MANUAL) 0 % (0-6); LYMPHOCYTES % (MANUAL) 7 % (13-45); MONOCYTES % (MANUAL) 3 % (3-13); PLATELET COMMENT ADEQUATE; RBC MORPHOLOGY COMMENT NORMO-CYTIC/CHROMIC; SEGMENTED NEUTROPHILS % (MAN) 90 % (42-78); TOTAL CELLS COUNTED 100
[2020-07-13] MEDS: DOCUSATE SODIUM 100 MG CAPSULE PO SCH (09:58)
[2020-07-13] MEDS: NORMAL SALINE 10 ML SDV (SCHEDULED) IV SCH ×2 (09:59→23:30)
[2020-07-13] MEDS: DEXAMETHASONE SOD PHOSPHATE INJ 4 MG/1 ML VIAL IV SCH (09:59)
[2020-07-13] MEDS: DEXMEDETOMIDINE IN 0.9 % NACL 400 MCG/100 ML RTUPB IV PRN ×2 (10:15→17:27)
[2020-07-13] MEDS: PANTOPRAZOLE SODIUM 40 MG VIAL IV SCH (11:55)
--- NOTE | 2020-07-13 13:34 | PDOC CRITICAL CARE PROG REPORT ---
General Date:: 07/13/20 ICU Day:: 17 Hospital Day:: 17 Resuscitation Status: Full Code Events in the past 12 to 24 Hours:: This 55-year-old male presented to [facility] emergency department on 06/27/2020 via EMS with complaints of fever and chills for 2 days prior to presentation. Associated symptoms included myalgias, dyspnea, nonproductive cough and sore throat. He denied any change in taste or smell. Nonetheless, he was diagnosed with COVID-19 pneumonia. Per EMS report, the patient was hypoxic upon their arrival, SPO2 72%. He was placed on CPAP en route to the hospital. He was initially admitted by the hospitalist service. Rapid response team was called for worsening hypoxia. The patient was transferred to the ICU. 06/28: Yesterday, the patient was stable on CPAP 8, FiO2 100%. He was fully conversant, mentating well. He was able to take off his own mask to snack ( brought him home-cooked food) and drink water. He was initiated on heparin infusion. Maintained SPO2 100% throughout the entire day shift. He transferred out last night to [facility]. However, Dr. Bustamante called requesting transfer back to the ICU because the patient was becoming progressively more hypoxic. He was on CPAP 12, FiO2 100% with a respiratory rate in the 30s. He was transferred back to the ICU on CPAP 15, FiO2 100%. Respiratory rate 30s to 40s. SPO2 83%. He is still mentating well. He denies pain. He is tachycardic. He is anxious. 06/29-: Remains CPAP dependent. However, nurse reports that he is having difficulty with swallowing and is no longer able to take p.o. medications. Respiratory rate 30s. He denies pain. Tachycardia and hypertension are being addressed with Precedex and labetalol as needed. On heparin infusion for treatment of confirmed pulmonary embolism. Heparin currently on hold due to elevated PTT. If unable to come of CPAP and eat he will need a PICC and TPN by rimma. On heparin for PE. 07/01: Beginning to be concerned regarding nutrition status. Not eaten in 5 days for previously well-nourished 55 yo. PICC for TPN. 07/02-: Desaturated to 70s. Started proning. Had run of what was said to be VT (07/03). Now on amiodarone. Unfortunately no EKG or strips. No recurrence. Thrombocytopenia was noted on 07/04. Heparin infusion was changed to Lovenox. 07/06: Supine with oxygen saturations 89-95%. TPN back at 50cc/hr. Off insulin drip. 07/07: Remains BiPAP dependent, 13/07. FiO2 80%. He is on Lovenox for treatment of pulmonary embolism. On Precedex and scheduled morphine. He is arousable. Agitated when aroused. Thrashing his right arm, which I believe is due to dissatisfaction over his restraints. On Lovenox. Platelets 136. On TPN. Chest x-ray from 07/05 showed migratory infiltrates. On Rocephin for empiric treatment of urinary tract infection. No culture data. Currently afebrile. T-max 24-hour 99.5 F. Was hypotensive yesterday. Currently, 100/60. Heart rate 63. On Decadron 6 mg IV daily. WBC 12.7. Platelets 136. D-dimer 2.02, CRP 58.7. Prealbumin 7.6. 07/08: Remains BiPAP dependent, 13/07. FiO2 95%. ABG this a.m. 7.37/57/72. On Precedex. Now on argatroban infusion for treatment of pulmonary embolism. On TPN. On Rocephin for empiric treatment of urinary tract infection. WBC up to 18.2 today. No definitive culture data to direct antimicrobial therapy. T-max 24 hours 100.4 F. On Decadron 6 mg IV daily. Normotensive. D-dimer 1.91, CRP 46. 07/09: Remains BiPAP dependent, but now on 07/05. FiO2 100%. ABG this a.m.: 7.35/52/69. On Precedex. Continues on argatroban infusion for treatment of pulmonary embolism. TPN infusion rate was increased to 80 mL/hr yesterday. Antibiotics were changed yesterday from Rocephin to Zosyn/vancomycin with subsequent decrease in white count 18.2>12.9. Urine is isolating a gram-n egative richard. Blood cultures (1 of 2) positive for gram-positive cocci. 07/10: CPAP 14 overnight. ABG this a.m.: 7.18/74/158. Significant improvement in oxygenation; however, hypoventilation. Nonetheless, mentation is improving. More interactive. To better communication. Seems to have a little more strength/energy. Still on Precedex, argatroban, TPN. On Zosyn/vancomycin. WBC 12.9>14.7. Urine isolated Citrobacter freundii, sensitive to Zosyn (but resistant to ampicillin, Unasyn and cefazolin). Blood culture isolated (1 of 2) coag negative Staphylococcus. D-dimer 1.11. CRP 46. 07/11: BiPAP 14/8 overnight. ABG this a.m.: 7.42/45/59. WBC up to 18.2 today. Repeat COVID-19 testing was (07/07). Off insulin drip. Heparin-induced antibody panel was positive. 07/12: Continues on BiPAP 14/8, FiO2 100%. ABG this a.m.: 7.42/45/59. Afebrile but WBC up to 20.3 today. Urine (07/07) isolated Citrobacter freundii. He has been on Zosyn since 07/08. D-dimer 1.05. CRP 12.6. 07/13: BiPAP 12/6. FiO2 100%. ABG this a.m.: 7.33/54/85. Back on insulin infusion again. Review of systems relevant to events:: Pulmonary, endocrine Reason for ICU Addmission:: acute respiratory failure - worsening hypoxia - Medications: Medications reviewed and adjusted accordingly: Yes Vasopressors:: None Sedation:: Precedex Physical Exam Vital Signs: Temp Pulse Resp BP Pulse Ox 99.3 F 107 H 24 H 110/67 97 07/13/20 06:00 07/13/20 08:38 07/13/20 08:38 07/13/20 07:44 07/13/20 08:38 Pulse Oximeter Continuous Start: 06/12/20 18:32 Freq: RTQ4 Status: Complete Protocol: Document 06/23/20 03:42 CMI (Rec: 06/23/20 04:07 CMI [id number]) Pulse Oximetry Assessment Oxygen Saturation (92-100) 97 Oxygen Delivery Method CPAP Fraction of Inspired Oxygen (FIO2) 100 Equipment Usage Equipment Standby Continuous SpO2 Machine # on nurse monitor Intake & Output 07/12/20 07/13/20 07/14/20 06:59 06:59 06:59 Intake Total 518 1218 8 Output Total 3485 1490 Balance -2967 -272 8 Weight 70.1 kg 70.1 kg Weight/Height Weight 70.1 kg Height 1.7 m General appearance: PRESENT: no acute distress, well-developed, well-nourished Head exam: PRESENT: atraumatic, normocephalic Mouth exam: PRESENT: dry mucosa, tongue midline Neck exam: ABSENT: carotid bruit, JVD, lymphadenopathy, thyromegaly Respiratory exam: PRESENT: crackles - In the bases. ABSENT: rales, rhonchi, wheezes Cardiovascular exam: PRESENT: RRR, tachycardia. ABSENT: diastolic murmur, rubs, systolic murmur Pulses: PRESENT: normal dorsalis pedis pul GI/Abdominal exam: PRESENT: normal bowel sounds, soft. ABSENT: distended, guarding, mass, organolmegaly, rebound, tenderness Gentrourinary exam: PRESENT: indwelling catheter Extremities exam: PRESENT: full ROM. ABSENT: calf tenderness, clubbing, pedal edema Musculoskeletal exam: PRESENT: normal inspection. ABSENT: deformity Neurological exam: PRESENT: awake, CN II-XII grossly intact, motor sensory deficit - Stable left hemiparesis Psychiatric exam: ABSENT: agitated, anxious Skin exam: PRESENT: dry, intact, warm. ABSENT: cyanosis, rash Tubes/Lines: PRESENT: Central Line - Right PICC Laboratory/Radiographs Laboratory Results: 07/13/20 05:20 Carbonic Acid 1.63 H HCO3/H2CO3 Ratio 16:1 ABG pH 7.33 L ABG pCO2 54.0 H ABG pO2 85.3 ABG HCO3 27.6 H ABG O2 Saturation 95.6 ABG Base Excess 0.9 FiO2 100% 07/07/20 19:03 Blood Blood Culture - Final NO GROWTH IN 5 DAYS 06/12/20 06/12/20 06/12/20 16:49 16:49 21:30 Creatine Kinase 119 CK-MB (CK-2) Troponin I 0.046 0.105 NT-Pro-B Natriuret Pep 420 H 06/13/20 06/27/20 06/28/20 06:31 04:39 02:31 Creatine Kinase CK-MB (CK-2) Troponin I 0.087 < 0.012 NT-Pro-B Natriuret Pep 536 H 06/28/20 06/28/20 06/28/20 02:31 02:31 15:37 Creatine Kinase 32 L CK-MB (CK-2) 1.34 Troponin I 0.016 < 0.012 NT-Pro-B Natriuret Pep Impressions: Chest/Abdomen CTA 06/16/20 08:30 IMPRESSION: 1. Extensive bilateral alveolar airspace disease consistent with Covid 19 pneumonia. 2. Limited study for evaluation of pulmonary embolus due to timing of the bolus. Suspect filling defects in the right lower lobe pulmonary artery as discussed. Lower Extremity Ultrasound 06/27/20 00:00 IMPRESSION: No significant stenosis. Venous Doppler Study 06/27/20 00:00 IMPRESSION: NO EVIDENCE OF DVT OR SVT IN EITHER LEG. PICC Line Insertion 07/01/20 00:00 IMPRESSION: SUCCESSFUL PLACEMENT OF A 5 FR DUAL LUMEN 38 CM PICC IN THE RIGHT BASILIC VEIN. KUB X-Ray 07/11/20 00:00 IMPRESSION: No evidence of intestinal obstruction. Unremarkable fecal burden. Chest X-Ray 07/13/20 05:00 IMPRESSION: NO SIGNIFICANT CHANGE IN APPEARANCE OF THE CHEST. All labs, radiographs, diagnostic studies and EKGs were personally reviewed: Yes In addition, reports of radiographic and diagnostic studies were read: Yes Assessment and Plan - Diagnosis (1) Acute respiratory failure with hypoxia Is this a current diagnosis for this admission?: Yes Plan: * Has been demonstrating a steady course of improvement this week. * BiPAP /. Should be able to transition to CPAP trials or even high flow nasal cannula soon. * Wean FiO2 as tolerated. * Wean Precedex as tolerated. * Continue TPN. * Restart Lexapro when able to take p.o. meds. (2) Pneumonia due to COVID-19 virus Is this a current diagnosis for this admission?: Yes Plan: * Continue Decadron. * Repeat COVID test (07/07) POSITIVE (3) Pulmonary embolism on right Is this a current diagnosis for this admission?: Yes Plan: * Continue argatroban infusion. (4) Hyperglycemia due to type 2 diabetes mellitus Qualifiers: Diabetes mellitus termite exterminator helper insulin use: without termite exterminator helper use Qualified Code(s): E11.65 - Type 2 diabetes mellitus with hyperglycemia Is this a current diagnosis for this admission?: Yes Plan: * Continue insulin infusion as needed. * Continue to hold home antidiabetic regimen: metformin/glyburide. (5) Hypertension Qualifiers: Hypertension type: essential hypertension Qualified Code(s): I10 - Essential (primary) hypertension Is this a current diagnosis for this admission?: Yes Plan: * Change metoprolol to 2.5 mg IV every 6 hours scheduled (hold dose for heart rate less than 60). * Continue Vasotec (at reduced dose): 0.625 mg IV 6 hours. (6) Severe protein-calorie malnutrition Is this a current diagnosis for this admission?: Yes (7) Obesity (BMI 30.0-34.9) Is this a current diagnosis for this admission?: Yes (8) Heparin induced thrombocytopenia Is this a current diagnosis for this admission?: Yes Plan: * Resolved after discontinuing heparin. * Continue argatroban infusion. Critical Time Critical Time (minutes): 45 Level of Care: ICU -: 1. The care of a critical patient is a dynamic process. This note is a motor vehicle field representative synopsis but static in nature. The timeframe for treatments given in order is not necessarily the actual time these treatments may have been done. 2. This patient requires critical care secondary to ongoing requirements for therapy not offered or safe outside the critical care environment. Transfer to a lower level of care will result in altered life or limb morbidity and mortality. 3. Multidisciplinary rounds completed. 4. ABCDE bundle addressed.
[2020-07-13] MEDS: POTASSI CL 20 MEQ/50 ML RIDER 20 MEQ/50 ML RTUPB IV SCH ×2 (14:44→17:26)
[2020-07-13 18:26] LABS: VANCOMYCIN,TROUGH 14.7 ug/mL (5.0-20.0)
[2020-07-13] MEDS: ATORVASTATIN CALCIUM 40 MG TABLET PO SCH (23:00)
[2020-07-14] MEDS: AMINO ACIDS 5 %/DEXTROSE 20 % 1,000 ML IV PRN ×2 (04:10→21:19)
[2020-07-14 04:36] LABS: ARTERIAL BLOOD BASE EXCESS 3.9 mmol/L; ARTERIAL BLOOD H2CO3 1.94 mmol/L (1.05-1.35); ARTERIAL BLOOD HCO3 31.5 mmol/L (20-24); ARTERIAL BLOOD PCO2 64.5 mmHg (35-45); ARTERIAL BLOOD PH 7.31 (7.35-7.45); ARTERIAL BLOOD PO2 56.9 mmHg (80-100); ARTERIAL BLOOD TOTAL CO2 33.4 mmol/L (23-27)
[2020-07-14 04:37] LABS: ARTERIAL BLOOD FIO2 90%
[2020-07-14] MEDS: INSULIN, REGULAR 100 UNIT/100 ML NORMAL SALINE IV PRN ×2 (04:44)
[2020-07-14 04:46] LABS: PARTIAL THROMBOPLASTIN TIME 75.9 SEC (23.5-35.8)
[2020-07-14 04:47] LABS: D-DIMER 1.53 ug/mL (0.00-0.50)
[2020-07-14] MEDS: DEXMEDETOMIDINE IN 0.9 % NACL 400 MCG/100 ML RTUPB IV PRN ×3 (05:07→19:00)
[2020-07-14] MEDS: ENALAPRILAT DIHYDRATE INJ/PF 1.25 MG/1 ML SDV IV SCH ×5 (05:37→23:36)
[2020-07-14] MEDS: PIPERACILLIN SODIUM/TAZOBACTAM 4.5 GM in NORMAL SALINE 100 ML IV SCH ×3 (05:37→21:21)
[2020-07-14 06:15] LABS: BLOOD UREA NITROGEN 36 mg/dL (7-20); C-REACTIVE PROTEIN 6.4 mg/L (<10.0); CALCIUM 8.8 mg/dL (8.4-10.2); GLUCOSE 153 mg/dL (75-110)
[2020-07-14 06:18] LABS: CARBON DIOXIDE 31 mmol/L (22-30); CHLORIDE 108 mmol/L (98-107)
[2020-07-14 06:19] LABS: PREALBUMIN 26.3 mg/dL (17.6-36.0)
[2020-07-14 06:23] LABS: ANION GAP 3 (5-19); POTASSIUM 4.5 mmol/L (3.6-5.0)
[2020-07-14] MEDS: METOPROLOL TARTRATE PF/INJ 5 MG/5 ML SDV IV SCH ×5 (07:24→23:35)
[2020-07-14] MEDS: BUDESONIDE NEB 0.25 MG/2 ML AMPUL NEB SCH ×2 (08:35→19:36)
[2020-07-14] MEDS: ALBUTEROL SULFATE 0.083% NEB 2.5 MG/3 ML AMPUL NEB PRN (08:35)
[2020-07-14] MEDS: VANCOMYCIN HCL 750 MG in DEXTROSE 5%-WATER 250 ML IV SCH ×2 (08:53→19:00)
--- NOTE | 2020-07-14 08:54 | PDOC CRITICAL CARE PROG REPORT ---
General Date:: 07/14/20 ICU Day:: 17 Hospital Day:: 32 Resuscitation Status: Full Code Events in the past 12 to 24 Hours:: This 55-year-old male presented to [facility] emergency department on 06/27/2020 via EMS with complaints of fever and chills for 2 days prior to presentation. Associated symptoms included myalgias, dyspnea, nonproductive cough and sore throat. He denied any change in taste or smell. Nonetheless, he was diagnosed with COVID-19 pneumonia. Per EMS report, the patient was hypoxic upon their arrival, SPO2 72%. He was placed on CPAP en route to the hospital. He was initially admitted by the hospitalist service. Rapid response team was called for worsening hypoxia. The patient was transferred to the ICU. 06/28: Yesterday, the patient was stable on CPAP 8, FiO2 100%. He was fully conversant, mentating well. He was able to take off his own mask to snack ( brought him home-cooked food) and drink water. He was initiated on heparin infusion. Maintained SPO2 100% throughout the entire day shift. He transferred out last night to [facility]. However, Dr. Bustamante called requesting transfer back to the ICU because the patient was becoming progressively more hypoxic. He was on CPAP 12, FiO2 100% with a respiratory rate in the 30s. He was transferred back to the ICU on CPAP 15, FiO2 100%. Respiratory rate 30s to 40s. SPO2 83%. He is still mentating well. He denies pain. He is tachycardic. He is anxious. 06/29-: Remains CPAP dependent. However, nurse reports that he is having difficulty with swallowing and is no longer able to take p.o. medications. Respiratory rate 30s. He denies pain. Tachycardia and hypertension are being addressed with Precedex and labetalol as needed. On heparin infusion for treatment of confirmed pulmonary embolism. Heparin currently on hold due to elevated PTT. If unable to come of CPAP and eat he will need a PICC and TPN by rimma. On heparin for PE. 07/01: Beginning to be concerned regarding nutrition status. Not eaten in 5 days for previously well-nourished 55 yo. PICC for TPN. 07/02-: Desaturated to 70s. Started proning. Had run of what was said to be VT (07/03). Now on amiodarone. Unfortunately no EKG or strips. No recurrence. Thrombocytopenia was noted on 07/04. Heparin infusion was changed to Lovenox. 07/06: Supine with oxygen saturations 89-95%. TPN back at 50cc/hr. Off insulin drip. 07/07: Remains BiPAP dependent, 13/07. FiO2 80%. He is on Lovenox for treatment of pulmonary embolism. On Precedex and scheduled morphine. He is arousable. Agitated when aroused. Thrashing his right arm, which I believe is due to dissatisfaction over his restraints. On Lovenox. Platelets 136. On TPN. Chest x-ray from 07/05 showed migratory infiltrates. On Rocephin for empiric treatment of urinary tract infection. No culture data. Currently afebrile. T-max 24-hour 99.5 F. Was hypotensive yesterday. Currently, 100/60. Heart rate 63. On Decadron 6 mg IV daily. WBC 12.7. Platelets 136. D-dimer 2.02, CRP 58.7. Prealbumin 7.6. 07/08: Remains BiPAP dependent, 13/07. FiO2 95%. ABG this a.m. 7.37/57/72. On Precedex. Now on argatroban infusion for treatment of pulmonary embolism. On TPN. On Rocephin for empiric treatment of urinary tract infection. WBC up to 18.2 today. No definitive culture data to direct antimicrobial therapy. T-max 24 hours 100.4 F. On Decadron 6 mg IV daily. Normotensive. D-dimer 1.91, CRP 46. 07/09: Remains BiPAP dependent, but now on 07/05. FiO2 100%. ABG this a.m.: 7.35/52/69. On Precedex. Continues on argatroban infusion for treatment of pulmonary embolism. TPN infusion rate was increased to 80 mL/hr yesterday. Antibiotics were changed yesterday from Rocephin to Zosyn/vancomycin with subsequent decrease in white count 18.2>12.9. Urine is isolating a gram-n egative richard. Blood cultures (1 of 2) positive for gram-positive cocci. 07/10: CPAP 14 overnight. ABG this a.m.: 7.18/74/158. Significant improvement in oxygenation; however, hypoventilation. Nonetheless, mentation is improving. More interactive. To better communication. Seems to have a little more strength/energy. Still on Precedex, argatroban, TPN. On Zosyn/vancomycin. WBC 12.9>14.7. Urine isolated Citrobacter freundii, sensitive to Zosyn (but resistant to ampicillin, Unasyn and cefazolin). Blood culture isolated (1 of 2) coag negative Staphylococcus. D-dimer 1.11. CRP 46. 07/11: BiPAP 14/8 overnight. ABG this a.m.: 7.42/45/59. WBC up to 18.2 today. Repeat COVID-19 testing was (07/07). Off insulin drip. Heparin-induced antibody panel was positive. 07/12: Continues on BiPAP 14/8, FiO2 100%. ABG this a.m.: 7.42/45/59. Afebrile but WBC up to 20.3 today. Urine (07/07) isolated Citrobacter freundii. He has been on Zosyn since 07/08. D-dimer 1.05. CRP 12.6. 07/13: BiPAP 12/6. FiO2 100%. ABG this a.m.: 7.33/54/85. Back on insulin infusion again. 07/14: FIO2 90%, slightly better. Sedated but trying to communicate. Review of systems relevant to events:: Pulmonary Reason for ICU Addmission:: acute respiratory failure - worsening hypoxia, now slightly improved. - Medications: Medications reviewed and adjusted accordingly: Yes Vasopressors:: None Sedation:: Precedex. Physical Exam Vital Signs: Temp Pulse Resp BP Pulse Ox 98.6 F 97 23 H 102/59 L 97 07/14/20 08:00 07/14/20 08:35 07/14/20 08:35 07/14/20 08:00 07/14/20 08:35 Pulse Oximeter Continuous Start: 06/12/20 18:32 Freq: RTQ4 Status: Complete Protocol: Document 06/23/20 03:42 CMI (Rec: 06/23/20 04:07 CMI [id number]) Pulse Oximetry Assessment Oxygen Saturation (92-100) 97 Oxygen Delivery Method CPAP Fraction of Inspired Oxygen (FIO2) 100 Equipment Usage Equipment Standby Continuous SpO2 Machine # on nurse monitor Intake & Output 07/13/20 07/14/20 07/15/20 06:59 06:59 06:59 Intake Total 1218 907 Output Total 1490 2350 5 Balance -272 -1443 -5 Weight 70.1 kg 73.7 kg Weight/Height Weight 73.7 kg Height 5 ft 7 in General appearance: PRESENT: no acute distress, thin Head exam: PRESENT: atraumatic, normocephalic, other - Small 1X1 cm pressure ulcer on head. Eye exam: PRESENT: conjunctiva pink, EOMI, PERRLA. ABSENT: scleral icterus Ear exam: PRESENT: normal external ear exam Mouth exam: PRESENT: moist, tongue midline Respiratory exam: PRESENT: clear to auscultation aaron, decreased breath sounds. ABSENT: rales, rhonchi, wheezes Cardiovascular exam: PRESENT: RRR. ABSENT: diastolic murmur, rubs, systolic murmur GI/Abdominal exam: PRESENT: normal bowel sounds, soft. ABSENT: distended, guarding, mass, organolmegaly, rebound, tenderness Rectal exam: PRESENT: deferred Extremities exam: PRESENT: full ROM, other - Some muscle wasting noted.. ABSENT: calf tenderness, clubbing, pedal edema Neurological exam: PRESENT: alert, altered, awake Psychiatric exam: PRESENT: appropriate affect Skin exam: PRESENT: dry, intact, warm. ABSENT: cyanosis, rash Tubes/Lines: PRESENT: Other - Bipap. Laboratory/Radiographs Laboratory Results: 07/13/20 06:55 07/14/20 04:00 07/13/20 07/13/20 07/13/20 06:55 06:55 17:20 WBC 23.1 H RBC 3.56 L Hgb 10.3 L Hct 31.7 L MCV 89 D MCH 29.1 MCHC 32.6 RDW 13.2 Plt Count 283 Seg Neutrophils % Not Reportable Carbonic Acid HCO3/H2CO3 Ratio ABG pH ABG pCO2 ABG pO2 ABG HCO3 ABG O2 Saturation ABG Base Excess FiO2 Sodium 141.4 Potassium 3.5 L Chloride 108 H Carbon Dioxide 31 H Anion Gap 2 L BUN 41 H Creatinine 0.78 0.98 Est GFR ( Amer) > 60 > 60 Glucose 246 H Calcium 8.6 Phosphorus 2.4 L Magnesium 2.4 H Ferritin C-Reactive Protein Prealbumin 07/14/20 07/14/20 04:00 04:00 WBC RBC Hgb Hct MCV MCH MCHC RDW Plt Count Seg Neutrophils % Carbonic Acid 1.94 H HCO3/H2CO3 Ratio 16:1 ABG pH 7.31 L ABG pCO2 64.5 H ABG pO2 56.9 L ABG HCO3 31.5 H ABG O2 Saturation 86.0 L ABG Base Excess 3.9 FiO2 90% Sodium 141.6 Potassium 4.5 D Chloride 108 H Carbon Dioxide 31 H Anion Gap 3 L BUN 36 H Creatinine 0.71 Est GFR ( Amer) > 60 Glucose 153 H Calcium 8.8 Phosphorus 2.0 L Magnesium 2.3 Ferritin 456.00 C-Reactive Protein 6.4 Prealbumin 26.3 07/12/20 08:25 Longo Catheter Urine Culture - Final NO GROWTH 2 DAYS 06/12/20 06/12/20 06/12/20 16:49 16:49 21:30 Creatine Kinase 119 CK-MB (CK-2) Troponin I 0.046 0.105 NT-Pro-B Natriuret Pep 420 H 06/13/20 06/27/20 06/28/20 06:31 04:39 02:31 Creatine Kinase CK-MB (CK-2) Troponin I 0.087 < 0.012 NT-Pro-B Natriuret Pep 536 H 06/28/20 06/28/20 06/28/20 02:31 02:31 15:37 Creatine Kinase 32 L CK-MB (CK-2) 1.34 Troponin I 0.016 < 0.012 NT-Pro-B Natriuret Pep Impressions: Chest/Abdomen CTA 06/16/20 08:30 IMPRESSION: 1. Extensive bilateral alveolar airspace disease consistent with Covid 19 pneumonia. 2. Limited study for evaluation of pulmonary embolus due to timing of the bolus. Suspect filling defects in the right lower lobe pulmonary artery as discussed. Lower Extremity Ultrasound 06/27/20 00:00 IMPRESSION: No significant stenosis. Venous Doppler Study 06/27/20 00:00 IMPRESSION: NO EVIDENCE OF DVT OR SVT IN EITHER LEG. PICC Line Insertion 07/01/20 00:00 IMPRESSION: SUCCESSFUL PLACEMENT OF A 5 FR DUAL LUMEN 38 CM PICC IN THE RIGHT BASILIC VEIN. KUB X-Ray 07/11/20 00:00 IMPRESSION: No evidence of intestinal obstruction. Unremarkable fecal burden. Chest X-Ray 07/13/20 05:00 IMPRESSION: NO SIGNIFICANT CHANGE IN APPEARANCE OF THE CHEST. All labs, radiographs, diagnostic studies and EKGs were personally reviewed: Yes In addition, reports of radiographic and diagnostic studies were read: Yes Assessment and Plan - Diagnosis (1) Acute respiratory failure with hypoxia Is this a current diagnosis for this admission?: Yes Plan: He seems to be making slow progress. Down to 90% FIO2 and will try 80% today. Still has a bit to go before coming off bipap to CPAP or plai mask. Keep in ICU due to need for precedex and tenouous respiratory status. (2) Hyperglycemia due to type 2 diabetes mellitus Qualifiers: Diabetes mellitus correction insulin use: without correction use Qualified Code(s): E11.65 - Type 2 diabetes mellitus with hyperglycemia Is this a current diagnosis for this admission?: Yes Plan: He is still on an insulin drip at 10 Units with a BG in the low 200s. Keep as is. (3) Pneumonia due to COVID-19 virus Is this a current diagnosis for this admission?: Yes Plan: The ultimate reason for his illness seems to be slowly improving. Slight leukocytosis but no sign yet of superinfection. (4) Hyperkalemia Is this a current diagnosis for this admission?: Yes Plan: Resolved Plan Summary: Make small changes as tolerated to bipap. Starting with FIO2. Critical Time Critical Time (minutes): 35 Level of Care: ICU Anticipated discharge: Home Anticipated DC Timeframe: Other -: 1. The care of a critical patient is a dynamic process. This note is a paper sales representative synopsis but static in nature. The timeframe for treatments given in order is not necessarily the actual time these treatments may have been done. 2. This patient requires critical care secondary to ongoing requirements for therapy not offered or safe outside the critical care environment. Transfer to a lower level of care will result in altered life or limb morbidity and mortality. 3. Multidisciplinary rounds completed. 4. ABCDE bundle addressed.
[2020-07-14] MEDS: FAT EMULSIONS 250 ML IV SCH (11:37)
[2020-07-14] MEDS: DOCUSATE SODIUM 100 MG CAPSULE PO SCH (11:38)
[2020-07-14] MEDS: DEXAMETHASONE SOD PHOSPHATE INJ 4 MG/1 ML VIAL IV SCH (11:39)
[2020-07-14] MEDS: NORMAL SALINE 10 ML SDV (SCHEDULED) IV SCH ×2 (11:40→21:21)
[2020-07-14] MEDS: PANTOPRAZOLE SODIUM 40 MG VIAL IV SCH (11:52)
[2020-07-14] MEDS: ATORVASTATIN CALCIUM 40 MG TABLET PO SCH (21:21)
[2020-07-15] MEDS: DEXMEDETOMIDINE IN 0.9 % NACL 400 MCG/100 ML RTUPB IV PRN ×3 (01:20→20:04)
[2020-07-15 05:36] LABS: ARTERIAL BLOOD BASE EXCESS 2.3 mmol/L; ARTERIAL BLOOD H2CO3 2.04 mmol/L (1.05-1.35); ARTERIAL BLOOD HCO3 30.6 mmol/L (20-24); ARTERIAL BLOOD O2 SATURATION 93.5 % (94-98); ARTERIAL BLOOD PCO2 67.8 mmHg (35-45); ARTERIAL BLOOD PH 7.27 (7.35-7.45); ARTERIAL BLOOD PO2 78.5 mmHg (80-100); ARTERIAL BLOOD TOTAL CO2 32.7 mmol/L (23-27)
[2020-07-15 05:37] LABS: ARTERIAL BLOOD FIO2 100%
[2020-07-15] MEDS: ENALAPRILAT DIHYDRATE INJ/PF 1.25 MG/1 ML SDV IV SCH ×3 (05:38→17:13)
[2020-07-15] MEDS: PIPERACILLIN SODIUM/TAZOBACTAM 4.5 GM in NORMAL SALINE 100 ML IV SCH (05:39)
[2020-07-15] MEDS: INSULIN, REGULAR 100 UNIT/100 ML NORMAL SALINE IV PRN ×2 (05:40)
[2020-07-15] MEDS: ARGATROBAN 250 MG/NS 250 ML (NON-ESRD) IV PRN ×2 (05:41)
[2020-07-15 05:57] LABS: HEMATOCRIT 32.4 % (37.9-51.0); HEMOGLOBIN 9.9 g/dL (13.5-17.0); MEAN CORPUSCULAR HEMOGLOBIN 28.9 pg (27.0-33.4); MEAN CORPUSCULAR HGB CONC 30.6 g/dL (32.0-36.0); PLATELET COUNT 251 10^3/uL (150-450); RED BLOOD COUNT 3.42 10^6/uL (4.35-5.55); RED CELL DISTRIBUTION WIDTH 14.1 % (11.5-14.0); WHITE BLOOD COUNT 22.5 10^3/uL (4.0-10.5)
[2020-07-15] MEDS: METOPROLOL TARTRATE PF/INJ 5 MG/5 ML SDV IV SCH ×3 (06:09→17:12)
[2020-07-15 06:10] LABS: MEAN CORPUSCULAR VOLUME 95 fl (80-97)
[2020-07-15 06:15] LABS: ABSOLUTE LYMPHOCYTES# (MANUAL) 0.9 10^3/uL (0.5-4.7); BASOPHILS % (MANUAL) 0 % (0-2); EOSINOPHILS % (MANUAL) 0 % (0-6); LYMPHOCYTES % (MANUAL) 4 % (13-45); SEGMENTED NEUTROPHILS % (MAN) 92 % (42-78); TOTAL CELLS COUNTED 100
[2020-07-15 06:16] LABS: ABSOLUTE MONOCYTES # (MANUAL) 0.9 10^3/uL (0.1-1.4); ANISOCYTOSIS SLIGHT; MONOCYTES % (MANUAL) 4 % (3-13); PLATELET COMMENT ADEQUATE; POIKILOCYTOSIS SLIGHT; POLYCHROMASIA SLIGHT; SCHISTOCYTES SLIGHT
[2020-07-15 06:19] LABS: HYPERSEGMENTED NEUTROPHILS PRESENT
--- NOTE | 2020-07-15 08:18 | PDOC CRITICAL CARE PROG REPORT ---
General Date:: 07/15/20 ICU Day:: 18 Hospital Day:: 33 Resuscitation Status: Full Code Events in the past 12 to 24 Hours:: This 55-year-old male presented to [facility] emergency department on 06/27/2020 via EMS with complaints of fever and chills for 2 days prior to presentation. Associated symptoms included myalgias, dyspnea, nonproductive cough and sore throat. He denied any change in taste or smell. Nonetheless, he was diagnosed with COVID-19 pneumonia. Per EMS report, the patient was hypoxic upon their arrival, SPO2 72%. He was placed on CPAP en route to the hospital. He was initially admitted by the hospitalist service. Rapid response team was called for worsening hypoxia. The patient was transferred to the ICU. 06/28: Yesterday, the patient was stable on CPAP 8, FiO2 100%. He was fully conversant, mentating well. He was able to take off his own mask to snack ( brought him home-cooked food) and drink water. He was initiated on heparin infusion. Maintained SPO2 100% throughout the entire day shift. He transferred out last night to [facility]. However, Dr. Bustamante called requesting transfer back to the ICU because the patient was becoming progressively more hypoxic. He was on CPAP 12, FiO2 100% with a respiratory rate in the 30s. He was transferred back to the ICU on CPAP 15, FiO2 100%. Respiratory rate 30s to 40s. SPO2 83%. He is still mentating well. He denies pain. He is tachycardic. He is anxious. 06/29-: Remains CPAP dependent. However, nurse reports that he is having difficulty with swallowing and is no longer able to take p.o. medications. Respiratory rate 30s. He denies pain. Tachycardia and hypertension are being addressed with Precedex and labetalol as needed. On heparin infusion for treatment of confirmed pulmonary embolism. Heparin currently on hold due to elevated PTT. If unable to come of CPAP and eat he will need a PICC and TPN by rimma. On heparin for PE. 07/01: Beginning to be concerned regarding nutrition status. Not eaten in 5 days for previously well-nourished 55 yo. PICC for TPN. 07/02-: Desaturated to 70s. Started proning. Had run of what was said to be VT (07/03). Now on amiodarone. Unfortunately no EKG or strips. No recurrence. Thrombocytopenia was noted on 07/04. Heparin infusion was changed to Lovenox. 07/06: Supine with oxygen saturations 89-95%. TPN back at 50cc/hr. Off insulin drip. 07/07: Remains BiPAP dependent, 13/07. FiO2 80%. He is on Lovenox for treatment of pulmonary embolism. On Precedex and scheduled morphine. He is arousable. Agitated when aroused. Thrashing his right arm, which I believe is due to dissatisfaction over his restraints. On Lovenox. Platelets 136. On TPN. Chest x-ray from 07/05 showed migratory infiltrates. On Rocephin for empiric treatment of urinary tract infection. No culture data. Currently afebrile. T-max 24-hour 99.5 F. Was hypotensive yesterday. Currently, 100/60. Heart rate 63. On Decadron 6 mg IV daily. WBC 12.7. Platelets 136. D-dimer 2.02, CRP 58.7. Prealbumin 7.6. 07/08: Remains BiPAP dependent, 13/07. FiO2 95%. ABG this a.m. 7.37/57/72. On Precedex. Now on argatroban infusion for treatment of pulmonary embolism. On TPN. On Rocephin for empiric treatment of urinary tract infection. WBC up to 18.2 today. No definitive culture data to direct antimicrobial therapy. T-max 24 hours 100.4 F. On Decadron 6 mg IV daily. Normotensive. D-dimer 1.91, CRP 46. 07/09: Remains BiPAP dependent, but now on 07/05. FiO2 100%. ABG this a.m.: 7.35/52/69. On Precedex. Continues on argatroban infusion for treatment of pulmonary embolism. TPN infusion rate was increased to 80 mL/hr yesterday. Antibiotics were changed yesterday from Rocephin to Zosyn/vancomycin with subsequent decrease in white count 18.2>12.9. Urine is isolating a gram-n egative richard. Blood cultures (1 of 2) positive for gram-positive cocci. 07/10: CPAP 14 overnight. ABG this a.m.: 7.18/74/158. Significant improvement in oxygenation; however, hypoventilation. Nonetheless, mentation is improving. More interactive. To better communication. Seems to have a little more strength/energy. Still on Precedex, argatroban, TPN. On Zosyn/vancomycin. WBC 12.9>14.7. Urine isolated Citrobacter freundii, sensitive to Zosyn (but resistant to ampicillin, Unasyn and cefazolin). Blood culture isolated (1 of 2) coag negative Staphylococcus. D-dimer 1.11. CRP 46. 07/11: BiPAP 14/8 overnight. ABG this a.m.: 7.42/45/59. WBC up to 18.2 today. Repeat COVID-19 testing was (07/07). Off insulin drip. Heparin-induced antibody panel was positive. 07/12: Continues on BiPAP 14/8, FiO2 100%. ABG this a.m.: 7.42/45/59. Afebrile but WBC up to 20.3 today. Urine (07/07) isolated Citrobacter freundii. He has been on Zosyn since 07/08. D-dimer 1.05. CRP 12.6. 07/13: BiPAP 12/6. FiO2 100%. ABG this a.m.: 7.33/54/85. Back on insulin infusion again. 07/14: FIO2 90%, slightly better. Sedated but trying to communicate. 07/15: Attempts made at weaning. Only small adjustments can be made. FIO2 to 95% and Ipap to 8 from 10. Review of systems relevant to events:: Pulmonary Reason for ICU Addmission:: acute respiratory failure - worsening hypoxia, now slightly improved. - Medications: Medications reviewed and adjusted accordingly: Yes Vasopressors:: None Sedation:: Precedex. Physical Exam Vital Signs: Temp Pulse Resp BP Pulse Ox 98.8 F 87 30 H 98/59 L 91 L 07/14/20 23:38 07/15/20 05:38 07/15/20 06:02 07/15/20 06:01 07/15/20 06:02 Pulse Oximeter Continuous Start: 06/12/20 18:32 Freq: RTQ4 Status: Complete Protocol: Document 06/23/20 03:42 CMI (Rec: 06/23/20 04:07 CMI [id number]) Pulse Oximetry Assessment Oxygen Saturation (92-100) 97 Oxygen Delivery Method CPAP Fraction of Inspired Oxygen (FIO2) 100 Equipment Usage Equipment Standby Continuous SpO2 Machine # on nurse monitor Intake & Output 07/14/20 07/15/20 07/16/20 06:59 06:59 06:59 Intake Total 958 1365 Output Total 2350 0580 Balance -1392 -1255 Weight 73.7 kg 69.3 kg Weight/Height Weight 69.3 kg Height 5 ft 7 in General appearance: PRESENT: no acute distress, cooperative Head exam: PRESENT: atraumatic, normocephalic Eye exam: PRESENT: conjunctiva pink, EOMI, PERRLA. ABSENT: scleral icterus Ear exam: PRESENT: normal external ear exam Mouth exam: PRESENT: moist, tongue midline Respiratory exam: PRESENT: clear to auscultation aaron. ABSENT: rales, rhonchi, wheezes Cardiovascular exam: PRESENT: RRR. ABSENT: diastolic murmur, rubs, systolic murmur GI/Abdominal exam: PRESENT: normal bowel sounds, soft. ABSENT: distended, guarding, mass, organolmegaly, rebound, tenderness Rectal exam: PRESENT: deferred Gentrourinary exam: PRESENT: indwelling catheter Extremities exam: PRESENT: full ROM, other - Evidence of muscle wasting. ABSEN T: calf tenderness, clubbing, pedal edema Neurological exam: PRESENT: altered, CN II-XII grossly intact, other - Sedated lightly. Psychiatric exam: PRESENT: anxious - At times Skin exam: PRESENT: dry, intact, warm. ABSENT: cyanosis, rash Tubes/Lines: PRESENT: Other - Bipap. Laboratory/Radiographs Laboratory Results: 07/15/20 05:10 07/14/20 04:00 07/15/20 07/15/20 07/15/20 05:10 05:10 05:10 WBC 22.5 H RBC 3.42 L Hgb 9.9 L Hct 32.4 L MCV 95 D MCH 28.9 MCHC 30.6 L RDW 14.1 H Plt Count 251 Seg Neutrophils % Not Reportable Carbonic Acid 2.04 H HCO3/H2CO3 Ratio 15:1 ABG pH 7.27 L ABG pCO2 67.8 H ABG pO2 78.5 L ABG HCO3 30.6 H ABG O2 Saturation 93.5 L ABG Base Excess 2.3 FiO2 100% Triglycerides 157 H 07/12/20 08:25 Longo Catheter Urine Culture - Final NO GROWTH 2 DAYS 06/12/20 06/12/20 06/12/20 16:49 16:49 21:30 Creatine Kinase 119 CK-MB (CK-2) Troponin I 0.046 0.105 NT-Pro-B Natriuret Pep 420 H 06/13/20 06/27/20 06/28/20 06:31 04:39 02:31 Creatine Kinase CK-MB (CK-2) Troponin I 0.087 < 0.012 NT-Pro-B Natriuret Pep 536 H 06/28/20 06/28/20 06/28/20 02:31 02:31 15:37 Creatine Kinase 32 L CK-MB (CK-2) 1.34 Troponin I 0.016 < 0.012 NT-Pro-B Natriuret Pep Impressions: Chest/Abdomen CTA 06/16/20 08:30 IMPRESSION: 1. Extensive bilateral alveolar airspace disease consistent with Covid 19 pneumonia. 2. Limited study for evaluation of pulmonary embolus due to timing of the bolus. Suspect filling defects in the right lower lobe pulmonary artery as discussed. Lower Extremity Ultrasound 06/27/20 00:00 IMPRESSION: No significant stenosis. Venous Doppler Study 06/27/20 00:00 IMPRESSION: NO EVIDENCE OF DVT OR SVT IN EITHER LEG. PICC Line Insertion 07/01/20 00:00 IMPRESSION: SUCCESSFUL PLACEMENT OF A 5 FR DUAL LUMEN 38 CM PICC IN THE RIGHT BASILIC VEIN. KUB X-Ray 07/11/20 00:00 IMPRESSION: No evidence of intestinal obstruction. Unremarkable fecal burden. Chest X-Ray 07/13/20 05:00 IMPRESSION: NO SIGNIFICANT CHANGE IN APPEARANCE OF THE CHEST. All labs, radiographs, diagnostic studies and EKGs were personally reviewed: Yes In addition, reports of radiographic and diagnostic studies were read: Yes Assessment and Plan - Diagnosis (1) Acute respiratory failure with hypoxia Is this a current diagnosis for this admission?: Yes Plan: This AM i decreased his Ipap to 8 from 10 and FIO2 from 100 to 95%. O2 saturations staying at 87-90% down from 92%. Will keep here for now and see if he tolerates this for the day. I doubt we can make further changes. He still cannot come off bipap to eat, is not hungry, continue TPN. (2) Hyperglycemia due to type 2 diabetes mellitus Qualifiers: Diabetes mellitus lobsterman insulin use: without care home use Qualified Code(s): E11.65 - Type 2 diabetes mellitus with hyperglycemia Is this a current diagnosis for this admission?: Yes Plan: Still on insulin drip. Hope to get onto sliding scale and lantus. (3) Pneumonia due to COVID-19 virus Is this a current diagnosis for this admission?: Yes Plan: The origin of his medical issues. Not retested yet. (4) Hyperkalemia Is this a current diagnosis for this admission?: Yes Plan: Resolved. K 4.5. Plan Summary: Hold with current bipap settings. Critical Time Critical Time (minutes): 35 Level of Care: ICU Anticipated discharge: Home with Homehealth Anticipated DC Timeframe: Other -: 1. The care of a critical patient is a dynamic process. This note is a sales representative business courses synopsis but static in nature. The timeframe for treatments given in order is not necessarily the actual time these treatments may have been done. 2. This patient requires critical care secondary to ongoing requirements for therapy not offered or safe outside the critical care environment. Transfer to a lower level of care will result in altered life or limb morbidity and mortality. 3. Multidisciplinary rounds completed. 4. ABCDE bundle addressed.
[2020-07-15] MEDS: ALBUTEROL SULFATE 0.083% NEB 2.5 MG/3 ML AMPUL NEB PRN ×2 (08:54→19:28)
[2020-07-15] MEDS: BUDESONIDE NEB 0.25 MG/2 ML AMPUL NEB SCH ×2 (08:54→19:28)
[2020-07-15] MEDS: AMINO ACIDS 5 %/DEXTROSE 20 % 1,000 ML IV PRN ×2 (09:35→22:21)
[2020-07-15] MEDS: DOCUSATE SODIUM 100 MG CAPSULE PO SCH (09:48)
[2020-07-15] MEDS ORDERED: INSULIN GLARGINE,HUM.REC.ANLOG 1,000 UNIT/10 ML VIAL (PYX) SUBCUT ONE (09:51)
[2020-07-15] MEDS: INSULIN GLARGINE,HUM.REC.ANLOG 1,000 UNIT/10 ML VIAL SUBCUT SCH ×2 (09:58→22:31)
[2020-07-15] MEDS: DEXAMETHASONE SOD PHOSPHATE INJ 4 MG/1 ML VIAL IV SCH (09:58)
[2020-07-15] MEDS: NORMAL SALINE 10 ML SDV (SCHEDULED) IV SCH ×2 (10:00→22:22)
[2020-07-15] MEDS ORDERED: DEXTROSE 50%-WATER 25 GM/50 ML DISP.SYRIN IV PRN (11:20)
[2020-07-15] MEDS ORDERED: DEXTROSE 40% GEL 15 GM TUBE PO PRN ×2 (11:20)
[2020-07-15] MEDS ORDERED: GLUCAGON,HUMAN RECOMB 1 MG INJ IM PRN (11:20)
[2020-07-15] MEDS: INSULIN REG, HUMAN 100 UNIT/ML 3 ML VIAL (PYX) SUBCUT SCH ×2 (12:38→17:22)
[2020-07-15] MEDS: PANTOPRAZOLE SODIUM 40 MG VIAL IV SCH (12:39)
[2020-07-15] MEDS: ENOXAPARIN SODIUM INJ 60 MG/0.6 ML DISP.SYRIN SUBCUT SCH (17:13)
[2020-07-15] MEDS: ATORVASTATIN CALCIUM 40 MG TABLET PO SCH (21:15)
[2020-07-16] MEDS: ENALAPRILAT DIHYDRATE INJ/PF 1.25 MG/1 ML SDV IV SCH ×4 (00:45→17:03)
[2020-07-16] MEDS: METOPROLOL TARTRATE PF/INJ 5 MG/5 ML SDV IV SCH ×4 (00:45→17:03)
[2020-07-16] MEDS: INSULIN REG, HUMAN 100 UNIT/ML 3 ML VIAL (PYX) SUBCUT SCH ×4 (01:01→17:29)
[2020-07-16] MEDS: DEXMEDETOMIDINE IN 0.9 % NACL 400 MCG/100 ML RTUPB IV PRN ×4 (02:05→19:59)
[2020-07-16 03:58] LABS: HEMATOCRIT 31.1 % (37.9-51.0); HEMOGLOBIN 10.1 g/dL (13.5-17.0); MEAN CORPUSCULAR HEMOGLOBIN 29.1 pg (27.0-33.4); MEAN CORPUSCULAR HGB CONC 32.3 g/dL (32.0-36.0); PLATELET COUNT 256 10^3/uL (150-450); RED BLOOD COUNT 3.46 10^6/uL (4.35-5.55); RED CELL DISTRIBUTION WIDTH 14.2 % (11.5-14.0); WHITE BLOOD COUNT 19.5 10^3/uL (4.0-10.5)
[2020-07-16 04:00] LABS: MEAN CORPUSCULAR VOLUME 90 fl (80-97)
[2020-07-16 04:01] LABS: PARTIAL THROMBOPLASTIN TIME 53.6 SEC (23.5-35.8)
[2020-07-16 04:02] LABS: D-DIMER 1.34 ug/mL (0.00-0.50)
[2020-07-16 04:05] LABS: C-REACTIVE PROTEIN 7.8 mg/L (<10.0)
[2020-07-16] MEDS: ENOXAPARIN SODIUM INJ 60 MG/0.6 ML DISP.SYRIN SUBCUT SCH ×2 (05:34→17:30)
[2020-07-16 06:23] LABS: APPEARANCE,URINE CLOUDY; BILIRUBIN,URINE NEGATIVE (NEGATIVE); COLOR,URINE YELLOW; GLUCOSE, URINE >=500 mg/dL (NEGATIVE); KETONES,URINE NEGATIVE (NEGATIVE); LEUKOCYTE ESTERASE,URINE NEGATIVE (NEGATIVE); NITRITE,URINE NEGATIVE (NEGATIVE); PROTEIN,URINE 30 mg/dL (NEGATIVE); URINE SPECIFIC GRAVITY 1.015; UROBILINOGEN,URINE NEGATIVE mg/dL (<2.0)
[2020-07-16] MEDS: BUDESONIDE NEB 0.25 MG/2 ML AMPUL NEB SCH ×2 (07:56→20:58)
[2020-07-16] MEDS: ALBUTEROL SULFATE 0.083% NEB 2.5 MG/3 ML AMPUL NEB PRN (07:56)
[2020-07-16] MEDS: DOCUSATE SODIUM 100 MG CAPSULE PO SCH (09:14)
[2020-07-16] MEDS: NORMAL SALINE 10 ML SDV (SCHEDULED) IV SCH ×2 (09:21→21:48)
[2020-07-16] MEDS: DEXAMETHASONE SOD PHOSPHATE INJ 4 MG/1 ML VIAL IV SCH (10:14)
[2020-07-16] MEDS: INSULIN GLARGINE,HUM.REC.ANLOG 1,000 UNIT/10 ML VIAL SUBCUT SCH ×2 (10:14→21:48)
[2020-07-16] MEDS: AMINO ACIDS 5 %/DEXTROSE 20 % 1,000 ML IV PRN (11:29)
[2020-07-16] MEDS: PANTOPRAZOLE SODIUM 40 MG VIAL IV SCH (12:33)
[2020-07-16] MEDS ORDERED: ESCITALOPRAM OXALATE 10 MG TABLET PO ONE (13:00)
--- NOTE | 2020-07-16 15:52 | PDOC CRITICAL CARE PROG REPORT ---
General Date:: 07/16/20 ICU Day:: 19 Hospital Day:: 34 Resuscitation Status: Full Code Events in the past 12 to 24 Hours:: 07/16/2020: No acute events over the past 24 hours. Good attempts being made to wean the patient's BiPAP support. Unfortunately at this juncture, patient continues to be hypoxemic when inspiratory pressure is decreased. Insulin drip has been discontinued and patient is on regular insulin sliding scale. Blood sugars are still elevated but better controlled. Lexapro is being restarted this morning. Review of systems relevant to events:: Neuro: Patient remains on a Precedex drip. He is arousable to voice and follows some commands but is lethargic. Plan: Decrease Precedex drip. I believe he will benefit from being more awake and be able to participate in deep breathing. Pain management/sedation: Pain well controlled. Pulmonary: Patient remains on BiPAP IPAP: 12 EPAP: 6, RR: 8, minute ventilation 12.7. SPO2 is 94% on 100% FiO2. Plan: Continue to wean BiPAP as tolerated. Cardiovascular: Patient has been hemodynamically stable. He remains on Lopressor and Vasotec. Plan: Indwelling catheters: Right sided PICC line. DVT prophylaxis: Continue Lovenox. Patient was previously on argatroban. Platelets currently stable on Lovenox. Renal: Renal panel pending for today. He is currently on TPN but no additional IV fluids. Plan: Follow-up renal panel. Gastrointestinal: As patient remains lethargic and on BiPAP, he is unable to take p.o. safely. Continue TPN for now. We we will begin adding p.o. feeding as soon as he is more awake and actively weaning off of BiPAP. Plan: GI prophylaxis: Continue Protonix daily. ID: Patient remains Covid positive. Blood and urine culture have been negative since 07/12/2020. Barriers to discharge from ICU: Patient remains hypoxemic with any slight decrease in BiPAP support. Unfortunately, he is still requiring 100% FiO2 on the BiPAP and is not yet appropriate for transfer out of the ICU. Reason for ICU Addmission:: acute respiratory failure - worsening hypoxia, now slightly improved. - Medications: Medications reviewed and adjusted accordingly: Yes Physical Exam Vital Signs: Temp Pulse Resp BP Pulse Ox 98.4 F 90 26 H 120/62 91 L 07/16/20 12:00 07/16/20 12:00 07/16/20 12:00 07/16/20 12:00 07/16/20 12:00 Pulse Oximeter Continuous Start: 06/12/20 18:32 Freq: RTQ4 Status: Complete Protocol: Document 06/23/20 03:42 CMI (Rec: 06/23/20 04:07 CMI [id number]) Pulse Oximetry Assessment Oxygen Saturation (92-100) 97 Oxygen Delivery Method CPAP Fraction of Inspired Oxygen (FIO2) 100 Equipment Usage Equipment Standby Continuous SpO2 Machine # on nurse monitor Intake & Output 07/15/20 07/16/20 07/17/20 06:59 06:59 06:59 Intake Total 1365 347 91 Output Total 2620 2255 320 Balance -1255 -1908 -229 Weight 69.3 kg 72.4 kg Weight/Height Weight 72.4 kg Height 5 ft 7 in General appearance: PRESENT: no acute distress, well-developed, well-nourished Head exam: PRESENT: atraumatic, normocephalic Eye exam: PRESENT: EOMI, PERRLA Ear exam: PRESENT: normal external ear exam Mouth exam: PRESENT: dry mucosa Neck exam: PRESENT: full ROM. ABSENT: JVD Respiratory exam: PRESENT: accessory muscle use, symmetrical, unlabored. ABSENT: wheezes Cardiovascular exam: PRESENT: RRR, +S1, +S2 Pulses: PRESENT: +1 pedal pulses bilateral, +2 pedal pulses bilateral Vascular exam: PRESENT: normal capillary refill GI/Abdominal exam: PRESENT: normal bowel sounds, soft. ABSENT: tenderness Extremities exam: PRESENT: full ROM. ABSENT: joint swelling, pedal edema Musculoskeletal exam: PRESENT: full ROM, normal inspection Neurological exam: PRESENT: awake, CN II-XII grossly intact, other - Lethargic Laboratory/Radiographs Laboratory Results: 07/16/20 03:30 07/16/20 12:30 07/16/20 07/16/20 07/16/20 03:30 03:30 04:52 WBC 19.5 H RBC 3.46 L Hgb 10.1 L Hct 31.1 L MCV 90 D MCH 29.1 MCHC 32.3 RDW 14.2 H Plt Count 256 Sodium Potassium Chloride Carbon Dioxide Anion Gap BUN Creatinine Est GFR ( Amer) Est GFR (Non-Af Amer) Glucose Calcium Ferritin 395.00 Total Bilirubin AST Alkaline Phosphatase C-Reactive Protein 7.8 Total Protein Albumin Urine Color YELLOW Urine Appearance CLOUDY Urine pH 5.0 Ur Specific [place] 1.015 Urine Protein 30 H Urine Glucose (UA) >=500 H Urine Ketones NEGATIVE Urine Blood MODERATE H Urine Nitrite NEGATIVE Ur Leukocyte Esterase NEGATIVE Urine WBC (Auto) 22 Urine RBC (Auto) 69 07/16/20 12:30 WBC RBC Hgb Hct MCV MCH MCHC RDW Plt Count Sodium Cancelled Potassium Cancelled Chloride Cancelled Carbon Dioxide Cancelled Anion Gap Cancelled BUN Cancelled Creatinine Cancelled Est GFR ( Amer) Cancelled Est GFR (Non-Af Amer) Cancelled Glucose Cancelled Calcium Cancelled Ferritin Total Bilirubin Cancelled AST Cancelled Alkaline Phosphatase Cancelled C-Reactive Protein Total Protein Cancelled Albumin Cancelled Urine Color Urine Appearance Urine pH Ur Specific [place] Urine Protein Urine Glucose (UA) Urine Ketones Urine Blood Urine Nitrite Ur Leukocyte Esterase Urine WBC (Auto) Urine RBC (Auto) 06/12/20 06/12/20 06/12/20 16:49 16:49 21:30 Creatine Kinase 119 CK-MB (CK-2) Troponin I 0.046 0.105 NT-Pro-B Natriuret Pep 420 H 06/13/20 06/27/20 06/28/20 06:31 04:39 02:31 Creatine Kinase CK-MB (CK-2) Troponin I 0.087 < 0.012 NT-Pro-B Natriuret Pep 536 H 06/28/20 06/28/20 06/28/20 02:31 02:31 15:37 Creatine Kinase 32 L CK-MB (CK-2) 1.34 Troponin I 0.016 < 0.012 NT-Pro-B Natriuret Pep Impressions: Chest/Abdomen CTA 06/16/20 08:30 IMPRESSION: 1. Extensive bilateral alveolar airspace disease consistent with Covid 19 pneumonia. 2. Limited study for evaluation of pulmonary embolus due to timing of the bolus. Suspect filling defects in the right lower lobe pulmonary artery as discussed. Lower Extremity Ultrasound 06/27/20 00:00 IMPRESSION: No significant stenosis. Venous Doppler Study 06/27/20 00:00 IMPRESSION: NO EVIDENCE OF DVT OR SVT IN EITHER LEG. PICC Line Insertion 07/01/20 00:00 IMPRESSION: SUCCESSFUL PLACEMENT OF A 5 FR DUAL LUMEN 38 CM PICC IN THE RIGHT BASILIC VEIN. KUB X-Ray 07/11/20 00:00 IMPRESSION: No evidence of intestinal obstruction. Unremarkable fecal burden. Chest X-Ray 07/13/20 05:00 IMPRESSION: NO SIGNIFICANT CHANGE IN APPEARANCE OF THE CHEST. All labs, radiographs, diagnostic studies and EKGs were personally reviewed: Yes In addition, reports of radiographic and diagnostic studies were read: Yes Assessment and Plan - Diagnosis (1) Acute respiratory failure with hypoxia Is this a current diagnosis for this admission?: Yes Plan: Patient unable to tolerate changes made yesterday. He now remains on BiPAP at 12/6 with respiratory rate of 8. He is still requiring 100% FiO2 to maintain SPO2 at 90%. (2) Pneumonia due to COVID-19 virus Is this a current diagnosis for this admission?: Yes Plan: Please see review of systems for more detailed report Patient continues to test Covid positive. Bilateral pneumonia is still evident on chest x-ray and he is hypoxemic with a significantly elevated AA gradient. Plan is to wean BiPAP as tolerated over the next several days. CXR in AM. Critical Time Critical Time (minutes): 62 Level of Care: ICU Anticipated discharge: Home, Acute Rehab -: 1. The care of a critical patient is a dynamic process. This note is a territory account representative synopsis but static in nature. The timeframe for treatments given in order is not necessarily the actual time these treatments may have been done. 2. This patient requires critical care secondary to ongoing requirements for therapy not offered or safe outside the critical care environment. Transfer to a lower level of care will result in altered life or limb morbidity and mortality. 3. Multidisciplinary rounds completed. 4. ABCDE bundle addressed.
[2020-07-16 15:58] LABS: ALBUMIN 2.3 g/dL (3.5-5.0); ALKALINE PHOSPHATASE 194 U/L (38-126); ASPARTATE AMINO TRANSFERASE 34 U/L (17-59); BILIRUBIN,DIRECT 0.2 mg/dL (0.0-0.4); BILIRUBIN,TOTAL 0.3 mg/dL (0.2-1.3); BLOOD UREA NITROGEN 39 mg/dL (7-20); CALCIUM 8.6 mg/dL (8.4-10.2); CARBON DIOXIDE 34 mmol/L (22-30); CHLORIDE 102 mmol/L (98-107); GLUCOSE 307 mg/dL (75-110); TOTAL PROTEIN 5.7 g/dL (6.3-8.2)
[2020-07-16 16:06] LABS: POTASSIUM 4.8 mmol/L (3.6-5.0)
--- NOTE | 2020-07-16 16:43 | RADIOLOGY REPORT (SQ) ---
EXAM DESCRIPTION: CHEST SINGLE VIEW IMAGES COMPLETED DATE/TIME: 07/16/2020 4:35 pm REASON FOR STUDY: Respiratory Failure COMPARISON: 07/13/2020 NUMBER OF VIEWS: One view. TECHNIQUE: Single frontal radiographic image of the chest acquired. LIMITATIONS: None. FINDINGS: LUNGS AND PLEURA: Persistent bilateral infiltrates most marked in the lung bases. Very sl ight increase in the right lower lobe infiltrate when compared to prior study. PICC line remains in satisfactory position. MEDIASTINUM AND HILAR STRUCTURES: Stable heart size and mediastinal structures. HEART AND VASCULAR STRUCTURES: Stable appearance. BONES: No acute findings. HARDWARE: None in the chest. OTHER: No other significant finding. IMPRESSION: Grossly stable chest. Slight increase in right basilar infiltrate when compared to prio r exam. TECHNICAL DOCUMENTATION: JOB ID: [id number] [employer]- All Rights Reserved Reading location - IP/workstation name: [email or web address]
[2020-07-16] MEDS: ATORVASTATIN CALCIUM 40 MG TABLET PO SCH (21:47)
[2020-07-17] MEDS: INSULIN REG, HUMAN 100 UNIT/ML 3 ML VIAL (PYX) SUBCUT SCH ×4 (00:06→19:55)
[2020-07-17] MEDS: METOPROLOL TARTRATE PF/INJ 5 MG/5 ML SDV IV SCH ×4 (00:08→19:56)
[2020-07-17] MEDS: ENALAPRILAT DIHYDRATE INJ/PF 1.25 MG/1 ML SDV IV SCH ×4 (00:09→19:58)
[2020-07-17] MEDS: ENOXAPARIN SODIUM INJ 60 MG/0.6 ML DISP.SYRIN SUBCUT SCH ×2 (06:03→19:55)
[2020-07-17 06:41] LABS: HEMATOCRIT 30.6 % (37.9-51.0); HEMOGLOBIN 10.1 g/dL (13.5-17.0); MEAN CORPUSCULAR HEMOGLOBIN 29.8 pg (27.0-33.4); MEAN CORPUSCULAR HGB CONC 32.9 g/dL (32.0-36.0); MEAN CORPUSCULAR VOLUME 91 fl (80-97); PLATELET COUNT 253 10^3/uL (150-450); RED BLOOD COUNT 3.38 10^6/uL (4.35-5.55); RED CELL DISTRIBUTION WIDTH 13.6 % (11.5-14.0); WHITE BLOOD COUNT 20.2 10^3/uL (4.0-10.5)
[2020-07-17 06:57] LABS: BLOOD UREA NITROGEN 40 mg/dL (7-20); CALCIUM 8.9 mg/dL (8.4-10.2); GLUCOSE 321 mg/dL (75-110); PHOSPHORUS 3.7 mg/dL (2.5-4.5); POTASSIUM 4.6 mmol/L (3.6-5.0)
[2020-07-17 07:03] LABS: CARBON DIOXIDE 35 mmol/L (22-30); CHLORIDE 101 mmol/L (98-107)
[2020-07-17 07:04] LABS: PREALBUMIN 28.6 mg/dL (17.6-36.0)
[2020-07-17 07:26] LABS: ANION GAP 2 (5-19)
[2020-07-17] MEDS: ALBUTEROL SULFATE 0.083% NEB 2.5 MG/3 ML AMPUL NEB PRN (07:53)
[2020-07-17] MEDS: BUDESONIDE NEB 0.25 MG/2 ML AMPUL NEB SCH ×2 (07:53→19:49)
[2020-07-17] MEDS: DOCUSATE SODIUM 100 MG CAPSULE PO SCH (12:23)
[2020-07-17] MEDS: PANTOPRAZOLE SODIUM 40 MG VIAL IV SCH (12:40)
[2020-07-17] MEDS: DEXAMETHASONE SOD PHOSPHATE INJ 4 MG/1 ML VIAL IV SCH (12:41)
[2020-07-17] MEDS: FAT EMULSIONS 250 ML IV SCH (12:42)
[2020-07-17] MEDS: NORMAL SALINE 10 ML SDV (SCHEDULED) IV SCH ×2 (12:44→21:55)
[2020-07-17] MEDS: INSULIN GLARGINE,HUM.REC.ANLOG 1,000 UNIT/10 ML VIAL SUBCUT SCH ×2 (13:11→21:54)
[2020-07-17] MEDS: AMINO ACIDS 5 %/DEXTROSE 20 % 1,000 ML IV PRN (13:32)
--- NOTE | 2020-07-17 13:54 | RADIOLOGY REPORT (SQ) ---
EXAM DESCRIPTION: CHEST SINGLE VIEW IMAGES COMPLETED DATE/TIME: 07/17/2020 1:22 pm REASON FOR STUDY: respiratory failure COMPARISON: 07/16/2020 EXAM PARAMETERS: NUMBER OF VIEWS: One view. TECHNIQUE: Single frontal radiographic view of the chest acquired. RADIATION DOSE: NA LIMITATIONS: None. FINDINGS: LUNGS AND PLEURA: Persistent bilateral mixed airspace -interstitial disease more pronounc ed in the lower lung zones with associated air bronchograms. Small bilateral pleural effusions. No pneumothorax. MEDIASTINUM AND HILAR STRUCTURES: No masses. Contour normal. HEART AND VASCULAR STRUCTURES: Stable appearance. BONES: No acute findings. HARDWARE: Right PICC line, unchanged finding. OTHER: No other significant finding. IMPRESSION: 1. No significant interval changes since the prior examination dated 07/16/2020. TECHNICAL DOCUMENTATION: JOB ID: [id number] 2010 [employer]- All Rights Reserved Reading location - IP/workstation name: [email or web address]
--- NOTE | 2020-07-17 21:45 | PDOC CRITICAL CARE PROG REPORT ---
General Date:: 07/17/20 ICU Day:: 20 Hospital Day:: 35 Resuscitation Status: Full Code Events in the past 12 to 24 Hours:: 07/16/2020: No acute events over the past 24 hours. Good attempts being made to wean the patient's BiPAP support. Unfortunately at this juncture, patient continues to be hypoxemic when inspiratory pressure is decreased. Insulin drip has been discontinued and patient is on regular insulin sliding scale. Blood sugars are still elevated but better controlled. Lexapro is being restarted this morning. 07/17/2020: Patient has not made much progress over the past several days. No significant changes over the past 24 hours. He continues on BiPAP and easily becomes hypoxemic with any decrease in FiO2. Review of systems relevant to events:: Neuro: Patient remains on a Precedex drip. He is arousable to voice and follows some commands but is lethargic. Plan: Decrease Precedex drip. I believe he will benefit from being more awake and be able to participate in deep breathing. Pain management/sedation: Pain well controlled. Pulmonary: Patient remains on BiPAP IPAP: 12 EPAP: 6, RR: 8, minute ventilation 12.7. SPO2 is 94% on 100% FiO2. I have asked that the patient be placed in upright position to help facilitate muscle strengthening. Plan: Continue to wean BiPAP and FiO2 as tolerated. Cardiovascular: Patient has been hemodynamically stable. He remains on Lopressor and Vasotec. Plan: Indwelling catheters: Right sided PICC line. DVT prophylaxis: Continue Lovenox. Patient was previously on argatroban. Platelets currently stable on Lovenox. Renal: He is currently on TPN but no additional IV fluids. BUN/creatinine are relatively stable. Plan: Follow-up renal panel. Gastrointestinal: As patient remains lethargic and on BiPAP, he is unable to take p.o. safely. Continue TPN for now. We we will begin adding p.o. feeding as soon as he is more awake and actively weaning off of BiPAP. Plan: GI prophylaxis: Continue Protonix daily. ID: Patient remains Covid positive. Blood and urine culture have been negative since 07/12/2020. Barriers to discharge from ICU: Patient remains hypoxemic with any slight decrease in BiPAP support. Unfortunately, he is still requiring 100% FiO2 on the BiPAP and is not yet appropriate for transfer out of the ICU. Reason for ICU Addmission:: acute respiratory failure - worsening hypoxia, now slightly improved. - Medications: Medications reviewed and adjusted accordingly: Yes Physical Exam Vital Signs: Temp Pulse Resp BP Pulse Ox 98.6 F 110 H 24 H 103/60 99 07/17/20 20:00 07/17/20 19:49 07/17/20 20:06 07/17/20 20:06 07/17/20 20:06 Pulse Oximeter Continuous Start: 06/12/20 18:32 Freq: RTQ4 Status: Complete Protocol: Document 06/23/20 03:42 CMI (Rec: 06/23/20 04:07 CMI [id number]) Pulse Oximetry Assessment Oxygen Saturation (92-100) 97 Oxygen Delivery Method CPAP Fraction of Inspired Oxygen (FIO2) 100 Equipment Usage Equipment Standby Continuous SpO2 Machine # on nurse monitor Intake & Output 07/16/20 07/17/20 07/18/20 06:59 06:59 06:59 Intake Total 347 177 Output Total 4159 3940 725 [facility] -1908 -2353 -725 Weight 72.4 kg 72.6 kg Weight/Height Weight 72.6 kg Height 5 ft 7 in General appearance: PRESENT: no acute distress Head exam: PRESENT: atraumatic, normocephalic Eye exam: PRESENT: EOMI, PERRLA Ear exam: PRESENT: normal external ear exam Mouth exam: PRESENT: moist Neck exam: PRESENT: full ROM. ABSENT: JVD Respiratory exam: PRESENT: accessory muscle use, rhonchi, symmetrical, wheezes Cardiovascular exam: PRESENT: RRR, +S1, +S2 Pulses: PRESENT: normal carotid pulses, normal radial pulses, normal femoral pulses Vascular exam: PRESENT: normal capillary refill GI/Abdominal exam: PRESENT: normal bowel sounds, soft. ABSENT: tenderness Extremities exam: PRESENT: full ROM, joint swelling Musculoskeletal exam: PRESENT: full ROM, normal inspection Neurological exam: PRESENT: altered, awake Tubes/Lines: PRESENT: Other - PICC line in place Laboratory/Radiographs Laboratory Results: 07/17/20 06:00 07/17/20 06:00 07/17/20 07/17/20 06:00 06:00 WBC 20.2 H RBC 3.38 L Hgb 10.1 L Hct 30.6 L MCV 91 MCH 29.8 MCHC 32.9 RDW 13.6 Plt Count 253 Sodium 138.0 Potassium 4.6 Chloride 101 Carbon Dioxide 35 H Anion Gap 2 L BUN 40 H Creatinine 0.73 Est GFR ( Amer) > 60 Glucose 321 H Calcium 8.9 Phosphorus 3.7 Prealbumin 28.6 07/12/20 09:49 Blood Blood Culture - Final NO GROWTH IN 5 DAYS 07/12/20 09:55 Blood Blood Culture - Final NO GROWTH IN 5 DAYS 06/12/20 06/12/20 06/12/20 16:49 16:49 21:30 Creatine Kinase 119 CK-MB (CK-2) Troponin I 0.046 0.105 NT-Pro-B Natriuret Pep 420 H 06/13/20 06/27/20 06/28/20 06:31 04:39 02:31 Creatine Kinase CK-MB (CK-2) Troponin I 0.087 < 0.012 NT-Pro-B Natriuret Pep 536 H 06/28/20 06/28/20 06/28/20 02:31 02:31 15:37 Creatine Kinase 32 L CK-MB (CK-2) 1.34 Troponin I 0.016 < 0.012 NT-Pro-B Natriuret Pep Impressions: Chest/Abdomen CTA 06/16/20 08:30 IMPRESSION: 1. Extensive bilateral alveolar airspace disease consistent with Covid 19 pneumonia. 2. Limited study for evaluation of pulmonary embolus due to timing of the bolus. Suspect filling defects in the right lower lobe pulmonary artery as discussed. Lower Extremity Ultrasound 06/27/20 00:00 IMPRESSION: No significant stenosis. Venous Doppler Study 06/27/20 00:00 IMPRESSION: NO EVIDENCE OF DVT OR SVT IN EITHER LEG. PICC Line Insertion 07/01/20 00:00 IMPRESSION: SUCCESSFUL PLACEMENT OF A 5 FR DUAL LUMEN 38 CM PICC IN THE RIGHT BASILIC VEIN. KUB X-Ray 07/11/20 00:00 IMPRESSION: No evidence of intestinal obstruction. Unremarkable fecal burden. Chest X-Ray 07/17/20 00:00 IMPRESSION: 1. No significant interval changes since the prior examination dated 07/16/2020. All labs, radiographs, diagnostic studies and EKGs were personally reviewed: Yes In addition, reports of radiographic and diagnostic studies were read: Yes Assessment and Plan - Diagnosis (1) Acute respiratory failure with hypoxia Is this a current diagnosis for this admission?: Yes Plan: Patient unable to tolerate changes made yesterday. He now remains on BiPAP at 12/6 with respiratory rate of 8. He is still requiring 100% FiO2 to maintain SPO2 at 90%. (2) Pneumonia due to COVID-19 virus Is this a current diagnosis for this admission?: Yes Plan: Please see review of systems for more detailed report Patient continues to test Covid positive. Bilateral pneumonia is still evident on chest x-ray and he is hypoxemic with a significantly elevated AA gradient. Plan is to wean BiPAP as tolerated over the next several days. CXR in AM. Critical Time Critical Time (minutes): 60 Level of Care: ICU Anticipated discharge: Acute Rehab Anticipated DC Timeframe: within 72 hours -: 1. The care of a critical patient is a dynamic process. This note is a compliance representative dealer synopsis but static in nature. The timeframe for treatments given in order is not necessarily the actual time these treatments may have been done. 2. This patient requires critical care secondary to ongoing requirements for therapy not offered or safe outside the critical care environment. Transfer to a lower level of care will result in altered life or limb morbidity and mortality. 3. Multidisciplinary rounds completed. 4. ABCDE bundle addressed.
[2020-07-17] MEDS: ATORVASTATIN CALCIUM 40 MG TABLET PO SCH (21:55)
[2020-07-17] MEDS: DEXMEDETOMIDINE IN 0.9 % NACL 400 MCG/100 ML RTUPB IV PRN (22:45)
[2020-07-17] MEDS ORDERED: NORMAL SALINE 100 ML with INSULIN REGULAR, HUMAN 100 UNIT IV PRN ×2 (23:58)
[2020-07-17] MEDS ORDERED: DEXTROSE 40% GEL 15 GM TUBE PO PRN ×2 (23:58)
[2020-07-17] MEDS ORDERED: DEXTROSE 50%-WATER 25 GM/50 ML DISP.SYRIN IV PRN ×2 (23:58)
[2020-07-17] MEDS ORDERED: GLUCAGON,HUMAN RECOMB 1 MG INJ IM PRN (23:58)
[2020-07-18] MEDS ORDERED: INSULIN REG, HUMAN 100 UNIT/ML 3 ML VIAL (PYX) ONE ×2 (00:11→07:26)
[2020-07-18] MEDS: METOPROLOL TARTRATE PF/INJ 5 MG/5 ML SDV IV SCH ×5 (01:08→23:38)
[2020-07-18] MEDS: ENALAPRILAT DIHYDRATE INJ/PF 1.25 MG/1 ML SDV IV SCH ×5 (01:09→23:38)
[2020-07-18] MEDS: AMINO ACIDS 5 %/DEXTROSE 20 % 1,000 ML IV PRN ×2 (02:09→14:41)
[2020-07-18] MEDS: ENOXAPARIN SODIUM INJ 60 MG/0.6 ML DISP.SYRIN SUBCUT SCH ×2 (06:38→17:25)
[2020-07-18 07:14] LABS: HEMATOCRIT 27.5 % (37.9-51.0); HEMOGLOBIN 9.4 g/dL (13.5-17.0); MEAN CORPUSCULAR VOLUME 88 fl (80-97); RED BLOOD COUNT 3.11 10^6/uL (4.35-5.55); RED CELL DISTRIBUTION WIDTH 13.7 % (11.5-14.0); WHITE BLOOD COUNT 21.4 10^3/uL (4.0-10.5)
[2020-07-18 07:52] LABS: BLOOD UREA NITROGEN 51 mg/dL (7-20); GLUCOSE 143 mg/dL (75-110); POTASSIUM 4.1 mmol/L (3.6-5.0)
[2020-07-18 07:55] LABS: CARBON DIOXIDE 37 mmol/L (22-30); CHLORIDE 103 mmol/L (98-107)
[2020-07-18 08:00] LABS: C-REACTIVE PROTEIN < 5.0 mg/L (<10.0)
[2020-07-18] MEDS: ALBUTEROL SULFATE 0.083% NEB 2.5 MG/3 ML AMPUL NEB PRN (08:24)
[2020-07-18] MEDS: BUDESONIDE NEB 0.25 MG/2 ML AMPUL NEB SCH ×2 (08:24→20:42)
[2020-07-18 08:54] LABS: PLATELET COUNT 187 10^3/uL (150-450)
[2020-07-18 08:56] LABS: ANION GAP 1 (5-19)
--- NOTE | 2020-07-18 09:17 | PDOC CRITICAL CARE PROG REPORT ---
General Date:: 07/18/20 ICU Day:: 21 Hospital Day:: 36 Resuscitation Status: Full Code Events in the past 12 to 24 Hours:: 07/16/2020: No acute events over the past 24 hours. Good attempts being made to wean the patient's BiPAP support. Unfortunately at this juncture, patient continues to be hypoxemic when inspiratory pressure is decreased. Insulin drip has been discontinued and patient is on regular insulin sliding scale. Blood sugars are still elevated but better controlled. Lexapro is being restarted this morning. 07/17/2020: Patient has not made much progress over the past several days. No significant changes over the past 24 hours. He continues on BiPAP and easily becomes hypoxemic with any decrease in FiO2. 07/18/2020: Patient still continues to be lethargic. We will need to be more awake and alert to participate BiPAP weaning. Nutrition remain via TPN only given his inability to manage his airway safely on BiPAP. Review of systems relevant to events:: Neuro: Patient remains lethargic. Precedex is being weaned off and tolerated to facilitate vent weaning. Pulmonary: Unfortunately we have not made no progress over the past 24 hours and his breathing status. Patient remains on BiPAP IPAP: 12 EPAP: 6, RR: 8, minute ventilation 12.7. SPO2 is 94% on 100% FiO2. I have asked that the patient be placed in upright position to help facilitate muscle strengthening. Cardiovascular: Patient has been hemodynamically stable. He remains on Lopressor and Vasotec. Plan: Indwelling catheters: Right sided PICC line. DVT prophylaxis: Continue Lovenox. Patient was previously on argatroban. Platelets currently stable on Lovenox. Renal: He is currently on TPN but no additional IV fluids. BUN/creatinine are relatively stable but are increased mildly today. Plan: Follow-up renal panel. Gastrointestinal: As patient remains lethargic and on BiPAP, he is unable to take p.o. safely. Continue TPN for now. We we will begin adding p.o. feeding as soon as he is more awake and actively weaning off of BiPAP. Plan: GI prophylaxis: Continue Protonix daily. ID: Patient remains Covid positive. Blood and urine culture have been negative since 07/12/2020. WBC is increasing. We will continue to follow closely. If he becomes febrile, I will start him on broad-spectrum empiric coverage. Barriers to discharge from ICU: Patient remains hypoxemic with any slight decrease in BiPAP support. Unfortunately, he is still requiring 100% FiO2 on the BiPAP and is not yet appropriate for transfer out of the ICU. Reason for ICU Addmission:: acute respiratory failure - worsening hypoxia, now slightly improved. - Medications: Medications reviewed and adjusted accordingly: Yes Physical Exam Vital Signs: Temp Pulse Resp BP Pulse Ox 99.7 F 103 H 20 108/60 93 07/18/20 08:00 07/18/20 08:25 07/18/20 08:25 07/18/20 08:00 07/18/20 08:25 Pulse Oximeter Continuous Start: 06/12/20 18:32 Freq: RTQ4 Status: Complete Protocol: Document 06/23/20 03:42 CMI (Rec: 06/23/20 04:07 CMI [id number]) Pulse Oximetry Assessment Oxygen Saturation (92-100) 97 Oxygen Delivery Method CPAP Fraction of Inspired Oxygen (FIO2) 100 Equipment Usage Equipment Standby Continuous SpO2 Machine # on nurse monitor Intake & Output 07/17/20 07/18/20 07/19/20 06:59 06:59 06:59 Intake Total 177 136 Output Total 2530 1375 250 Balance -3873 -1239 -250 Weight 72.6 kg 74.1 kg Weight/Height Weight 74.1 kg Height 5 ft 7 in General appearance: PRESENT: no acute distress Head exam: PRESENT: atraumatic, normocephalic Eye exam: PRESENT: EOMI, PERRLA Mouth exam: PRESENT: dry mucosa Neck exam: PRESENT: full ROM. ABSENT: JVD Respiratory exam: PRESENT: decreased breath sounds, rhonchi Cardiovascular exam: PRESENT: RRR, +S1, +S2 Pulses: PRESENT: normal carotid pulses, normal radial pulses Vascular exam: PRESENT: normal capillary refill GI/Abdominal exam: PRESENT: soft. ABSENT: tenderness Musculoskeletal exam: PRESENT: full ROM, normal inspection Neurological exam: PRESENT: awake, CN II-XII grossly intact, other - Lethargic Skin exam: PRESENT: normal color Tubes/Lines: PRESENT: Central Line Laboratory/Radiographs Laboratory Results: 07/18/20 06:40 07/18/20 06:40 Sodium 139.1 Potassium 4.1 Chloride 103 Carbon Dioxide 37 H BUN 51 H Creatinine 0.93 Est GFR ( Amer) > 60 Glucose 143 H Calcium 9.0 Ferritin 378.00 C-Reactive Protein < 5.0 07/12/20 09:49 Blood Blood Culture - Final NO GROWTH IN 5 DAYS 07/12/20 09:55 Blood Blood Culture - Final NO GROWTH IN 5 DAYS 06/12/20 06/12/20 06/12/20 16:49 16:49 21:30 Creatine Kinase 119 CK-MB (CK-2) Troponin I 0.046 0.105 NT-Pro-B Natriuret Pep 420 H 06/13/20 06/27/20 06/28/20 06:31 04:39 02:31 Creatine Kinase CK-MB (CK-2) Troponin I 0.087 < 0.012 NT-Pro-B Natriuret Pep 536 H 06/28/20 06/28/20 06/28/20 02:31 02:31 15:37 Creatine Kinase 32 L CK-MB (CK-2) 1.34 Troponin I 0.016 < 0.012 NT-Pro-B Natriuret Pep Impressions: Chest/Abdomen CTA 06/16/20 08:30 IMPRESSION: 1. Extensive bilateral alveolar airspace disease consistent with Covid 19 pneumonia. 2. Limited study for evaluation of pulmonary embolus due to timing of the bolus. Suspect filling defects in the right lower lobe pulmonary artery as discussed. Lower Extremity Ultrasound 06/27/20 00:00 IMPRESSION: No significant stenosis. Venous Doppler Study 06/27/20 00:00 IMPRESSION: NO EVIDENCE OF DVT OR SVT IN EITHER LEG. PICC Line Insertion 07/01/20 00:00 IMPRESSION: SUCCESSFUL PLACEMENT OF A 5 FR DUAL LUMEN 38 CM PICC IN THE RIGHT BASILIC VEIN. KUB X-Ray 07/11/20 00:00 IMPRESSION: No evidence of intestinal obstruction. Unremarkable fecal burden. Chest X-Ray 07/17/20 00:00 IMPRESSION: 1. No significant interval changes since the prior examination dated 07/16/2020. All labs, radiographs, diagnostic studies and EKGs were personally reviewed: Yes In addition, reports of radiographic and diagnostic studies were read: Yes Assessment and Plan - Diagnosis (1) Acute respiratory failure with hypoxia Is this a current diagnosis for this admission?: Yes Plan: He now remains on BiPAP at 12/6 with respiratory rate of 8. He is still requiring 100% FiO2 to maintain SPO2 at 90%. Continue attempts to wean FiO2, keep patient upright in bed if possible to help increase diaphragmatic strength and exercise. (2) Pneumonia due to COVID-19 virus Is this a current diagnosis for this admission?: Yes Plan: Patient continues to test Covid positive. Bilateral pneumonia is still evident on chest x-ray and he is hypoxemic with a significantly elevated AA gradient. Plan is to wean BiPAP as tolerated over the next several days. CXR in AM. Critical Time Critical Time (minutes): 60 Level of Care: ICU Anticipated discharge: Acute Rehab Anticipated DC Timeframe: within 72 hours -: 1. The care of a critical patient is a dynamic process. This note is a insurance claim representative synopsis but static in nature. The timeframe for treatments given in order is not necessarily the actual time these treatments may have been done. 2. This patient requires critical care secondary to ongoing requirements for therapy not offered or safe outside the critical care environment. Transfer to a lower level of care will result in altered life or limb morbidity and mortality. 3. Multidisciplinary rounds completed. 4. ABCDE bundle addressed.
[2020-07-18] MEDS: DEXAMETHASONE SOD PHOSPHATE INJ 4 MG/1 ML VIAL IV SCH (09:22)
[2020-07-18] MEDS: NORMAL SALINE 10 ML SDV (SCHEDULED) IV SCH ×2 (09:23→22:00)
[2020-07-18] MEDS: DOCUSATE SODIUM 100 MG CAPSULE PO SCH (09:23)
[2020-07-18] MEDS: PANTOPRAZOLE SODIUM 40 MG VIAL IV SCH (12:04)
[2020-07-18] MEDS ORDERED: ROCURONIUM BROMIDE INJ 50 MG/5 ML VIAL IV ONE ×2 (12:28→21:50)
[2020-07-18] MEDS: DEXMEDETOMIDINE IN 0.9 % NACL 400 MCG/100 ML RTUPB IV PRN (12:51)
[2020-07-18] MEDS: DEXTROSE 50%-WATER 25 GM/50 ML DISP.SYRIN IV PRN (14:53)
[2020-07-18 21:35] LABS: ARTERIAL BLOOD BASE EXCESS 1.3 mmol/L; ARTERIAL BLOOD H2CO3 2.22 mmol/L (1.05-1.35); ARTERIAL BLOOD HCO3 30.2 mmol/L (20-24); ARTERIAL BLOOD O2 SATURATION 82.7 % (94-98); ARTERIAL BLOOD PH 7.23 (7.35-7.45); ARTERIAL BLOOD PO2 56.6 mmHg (80-100); ARTERIAL BLOOD TOTAL CO2 32.5 mmol/L (23-27)
[2020-07-18 21:36] LABS: ARTERIAL BLOOD FIO2 95%
[2020-07-18 21:39] LABS: ARTERIAL BLOOD PCO2 73.9 mmHg (35-45)
[2020-07-18] MEDS: ATORVASTATIN CALCIUM 40 MG TABLET PO SCH (21:50)
[2020-07-18] MEDS ORDERED: ETOMIDATE INJ/PF 20 MG/10 ML SDV IV ONE (21:50)
[2020-07-18] MEDS: PROPOFOL 1,000 MG/100 ML INFUS..BTL IV PRN (22:10)
[2020-07-18] MEDS ORDERED: NOREPINEPHRINE BITARTRATE INJ/PF 4 MG/4 ML SDV IV ONE (22:17)
[2020-07-18] MEDS ORDERED: PROPOFOL 1,000 MG/100 ML INFUS..BTL IV ONE (22:29)
--- NOTE | 2020-07-18 23:01 | RADIOLOGY REPORT (SQ) ---
EXAM DESCRIPTION: XR CHEST 1 VIEW COMPLETED DATE/TME: 07/18/2020 22:32 CLINICAL HISTORY: 55 years, Male, intubation COMPARISON: Prior day NUMBER OF VIEWS: 1 TECHNIQUE: Portable AP view of the chest was obtained at 10:24 PM. LIMITATIONS: None. FINDINGS: ETT terminates approximately 1.5 cm above the rachael and could be retracted 1.5 cm. Right upper extremity PICC is in stable position with the tip projecting over the region of the upper SVC. Nasogastric tube has been placed and heart size is within normal limits for technique. Bibasilar airspace consolidation is stable on the left and slightly increased on the right. Upper lung zones are clear. Terminates in the region of the distal stomach. IMPRESSION: Interval ETT and NGT placement as above. ETT terminates 1.5 cm above the rachael and could be retracted 1.5 cm. Bibasilar airspace consolidation is again noted with slight worsening on the right. copyright 2010 [employer]- All Rights Reserved
[2020-07-18] MEDS ORDERED: RINGERS SOLUTION,LACTATED 1,000 ML IV ONE (23:59)
[2020-07-19] MEDS ORDERED: DEXTROSE 50%-WATER 25 GM/50 ML DISP.SYRIN IV PRN ×2 (03:55)
[2020-07-19] MEDS ORDERED: DEXTROSE 40% GEL 15 GM TUBE PO PRN ×2 (03:55)
[2020-07-19] MEDS ORDERED: GLUCAGON,HUMAN RECOMB 1 MG INJ IM PRN (03:55)
[2020-07-19] MEDS: INSULIN REG, HUMAN 100 UNIT/ML 3 ML VIAL (PYX) SUBCUT SCH ×4 (05:13→23:06)
[2020-07-19] MEDS: METOPROLOL TARTRATE PF/INJ 5 MG/5 ML SDV IV SCH ×4 (05:15→23:06)
[2020-07-19] MEDS: ENOXAPARIN SODIUM INJ 60 MG/0.6 ML DISP.SYRIN SUBCUT SCH ×2 (05:15→18:27)
[2020-07-19] MEDS: ENALAPRILAT DIHYDRATE INJ/PF 1.25 MG/1 ML SDV IV SCH ×4 (05:20→23:07)
--- NOTE | 2020-07-19 05:32 | Operative Report ---
Bedside Procedure - History of Present Illness Indication for Procedure: Respiratory distress Date: 07/18/20 Provider: RUBEN AUGUSTE - Intubation Orotracheal Time of Intubation: 22:00 Airway evaluation: Normal anatomy Mallampati Classification: Class 1 Medications: Etomidate, Other - ROCURONIUM Intubation method: Orotracheal Blade type: Phillip Blade size: 4 ETT size: 8.0 Post Intubation Xray: Yes Intubation Complications: No complications
[2020-07-19] MEDS: DEXTROSE 5%-WATER 250 ML with NOREPINEPHRINE BITARTRATE 4 MG IV PRN ×8 (05:47→18:25)
[2020-07-19 06:44] LABS: BLOOD UREA NITROGEN 56 mg/dL (7-20); CALCIUM 8.6 mg/dL (8.4-10.2); CHLORIDE 105 mmol/L (98-107); GLUCOSE 136 mg/dL (75-110); POTASSIUM 4.4 mmol/L (3.6-5.0)
[2020-07-19 06:50] LABS: CARBON DIOXIDE 33 mmol/L (22-30)
[2020-07-19 06:57] LABS: ANION GAP 2 (5-19)
[2020-07-19] MEDS: BUDESONIDE NEB 0.25 MG/2 ML AMPUL NEB SCH ×2 (08:15→19:36)
[2020-07-19] MEDS: ALBUTEROL SULFATE 0.083% NEB 2.5 MG/3 ML AMPUL NEB PRN (08:15)
[2020-07-19] MEDS: DEXMEDETOMIDINE IN 0.9 % NACL 400 MCG/100 ML RTUPB IV PRN ×2 (08:19→18:24)
[2020-07-19] MEDS: INSULIN GLARGINE,HUM.REC.ANLOG 1,000 UNIT/10 ML VIAL SUBCUT SCH ×2 (10:07→16:08)
[2020-07-19] MEDS: DOCUSATE SODIUM 100 MG CAPSULE PO SCH (10:18)
[2020-07-19] MEDS: NORMAL SALINE 10 ML SDV (SCHEDULED) IV SCH ×2 (10:18→21:07)
[2020-07-19] MEDS: DEXAMETHASONE SOD PHOSPHATE INJ 4 MG/1 ML VIAL IV SCH (10:18)
[2020-07-19] MEDS: PROPOFOL 1,000 MG/100 ML INFUS..BTL IV PRN ×2 (10:48→16:12)
[2020-07-19] MEDS: DEXTROSE 10%-WATER 1,000 ML IV PRN (11:16)
[2020-07-19] MEDS: DEXTROSE 50%-WATER 25 GM/50 ML DISP.SYRIN IV PRN (12:22)
[2020-07-19] MEDS: PANTOPRAZOLE SODIUM 40 MG VIAL IV SCH (12:23)
[2020-07-19] MEDS ORDERED: VANCOMYCIN HCL 0 MG in DEXTROSE 5%-WATER 250 ML IV NR (13:15)
--- NOTE | 2020-07-19 13:18 | PDOC CRITICAL CARE PROG REPORT ---
General Date:: 07/19/20 ICU Day:: 22 Ventilator Day:: 1 Hospital Day:: 37 Resuscitation Status: Full Code Events in the past 12 to 24 Hours:: 07/16/2020: No acute events over the past 24 hours. Good attempts being made to wean the patient's BiPAP support. Unfortunately at this juncture, patient continues to be hypoxemic when inspiratory pressure is decreased. Insulin drip has been discontinued and patient is on regular insulin sliding scale. Blood sugars are still elevated but better controlled. Lexapro is being restarted this morning. 07/17/2020: Patient has not made much progress over the past several days. No significant changes over the past 24 hours. He continues on BiPAP and easily becomes hypoxemic with any decrease in FiO2. 07/18/2020: Patient still continues to be lethargic. We will need to be more awake and alert to participate BiPAP weaning. Nutrition remain via TPN only given his inability to manage his airway safely on BiPAP. 07/19/2020: Patient's white count continued to climb, he remained minimally responsive and his SPO2 decreased significantly. He was therefore intubated ove rnight and placed on mechanical ventilation. Patient's oxygenation has since improved and pulmonary toileting seems to have improved his breathing. Review of systems relevant to events:: Neuro: Patient is now sedated following intubation. Plan is to maintain light sedation with propofol for now in order to facilitate pulmonary toileting. Pulmonary: Patient was intubated overnight. He is now on mechanical ventilation. PRVC, VT 500, RR 20, PEEP 10, FiO2 100%. If no improvement in oxygenation, with peak airway pressures now at 36, it would be appropriate to transition to pressure control ventilation to lower inspiratory pressure and prolonged inspiratory time to facilitate an increased mean pressure and better oxygenation. Mean pressure is currently 26. Cardiovascular: Patient has been hemodynamically stable. He remains on Lopressor and Vasotec however these have been held today to maintain appropriate blood pressure. Plan: Continue to hold Lopressor and Vasotec as needed. Indwelling catheters: Right sided PICC line. DVT prophylaxis: Continue Lovenox. Patient was previously on argatroban. Platelets currently stable on Lovenox. Renal: BUN/creatinine are relatively stable but have increased slightly again today. Plan: Follow-up renal panel. Gastrointestinal: TPN was originally discontinued in order to administer tube feeds. Unfortunately tube feed problems are not available within the hospital and TPN has been resumed. Plan: GI prophylaxis: Continue Protonix daily. ID: Patient remains Covid positive. Blood and urine culture have been negative since 07/12/2020. WBC increased again today. I have begun broad-spectrum antib iotics with vancomycin and ceftriaxone. We will plan to narrow coverage as soon as results are back. Barriers to discharge from ICU: Patient is now intubated with severe hypoxemia and worsening infection. Reason for ICU Addmission:: acute respiratory failure - worsening hypoxia, now slightly improved. - Medications: Medications reviewed and adjusted accordingly: Yes Physical Exam Vital Signs: Temp Pulse Resp BP Pulse Ox 98.4 F 75 12 100/69 97 07/19/20 12:00 07/19/20 12:00 07/19/20 12:00 07/19/20 12:00 07/19/20 12:00 Pulse Oximeter Continuous Start: 06/12/20 18:32 Freq: RTQ4 Status: Complete Protocol: Document 06/23/20 03:42 CMI (Rec: 06/23/20 04:07 CMI [id number]) Pulse Oximetry Assessment Oxygen Saturation (92-100) 97 Oxygen Delivery Method CPAP Fraction of Inspired Oxygen (FIO2) 100 Equipment Usage Equipment Standby Continuous SpO2 Machine # on nurse monitor Intake & Output 07/18/20 07/19/20 07/20/20 06:59 06:59 06:59 Intake Total 136 1290 248 Output Total 1375 1610 200 Balance -1239 -320 48 Weight 74.1 kg 71.7 kg 71.7 kg Weight/Height Weight 71.7 kg Height 5 ft 7 in General appearance: PRESENT: no acute distress Head exam: PRESENT: atraumatic, normocephalic Eye exam: PRESENT: EOMI, PERRLA Ear exam: PRESENT: normal external ear exam Mouth exam: PRESENT: neck supple Neck exam: ABSENT: JVD, lymphadenopathy, tenderness Respiratory exam: PRESENT: rhonchi Cardiovascular exam: PRESENT: RRR, +S1, +S2 Pulses: PRESENT: +2 pedal pulses bilateral Vascular exam: PRESENT: normal capillary refill GI/Abdominal exam: PRESENT: normal bowel sounds, soft. ABSENT: tenderness Extremities exam: ABSENT: calf tenderness, pedal edema Musculoskeletal exam: PRESENT: full ROM. ABSENT: tenderness Neurological exam: PRESENT: altered, CN II-XII grossly intact, other - Sedated Skin exam: PRESENT: normal color Tubes/Lines: PRESENT: Endotracheal Tube, Central Line Laboratory/Radiographs Laboratory Results: 07/18/20 06:40 07/19/20 04:27 07/18/20 07/19/20 21:25 04:27 Carbonic Acid 2.22 H HCO3/H2CO3 Ratio 13:1 ABG pH 7.23 L ABG pCO2 73.9 H* ABG pO2 56.6 L ABG HCO3 30.2 H ABG O2 Saturation 82.7 L ABG Base Excess 1.3 FiO2 95% Sodium 139.5 Potassium 4.4 Chloride 105 Carbon Dioxide 33 H Anion Gap 2 L BUN 56 H Creatinine 1.01 Est GFR ( Amer) > 60 Glucose 136 H Calcium 8.6 06/12/20 06/12/20 06/12/20 16:49 16:49 21:30 Creatine Kinase 119 CK-MB (CK-2) Troponin I 0.046 0.105 NT-Pro-B Natriuret Pep 420 H 06/13/20 06/27/20 06/28/20 06:31 04:39 02:31 Creatine Kinase CK-MB (CK-2) Troponin I 0.087 < 0.012 NT-Pro-B Natriuret Pep 536 H 06/28/20 06/28/20 06/28/20 02:31 02:31 15:37 Creatine Kinase 32 L CK-MB (CK-2) 1.34 Troponin I 0.016 < 0.012 NT-Pro-B Natriuret Pep Impressions: Chest/Abdomen CTA 06/16/20 08:30 IMPRESSION: 1. Extensive bilateral alveolar airspace disease consistent with Covid 19 pneumonia. 2. Limited study for evaluation of pulmonary embolus due to timing of the bolus. Suspect filling defects in the right lower lobe pulmonary artery as discussed. Lower Extremity Ultrasound 06/27/20 00:00 IMPRESSION: No significant stenosis. Venous Doppler Study 06/27/20 00:00 IMPRESSION: NO EVIDENCE OF DVT OR SVT IN EITHER LEG. PICC Line Insertion 07/01/20 00:00 IMPRESSION: SUCCESSFUL PLACEMENT OF A 5 FR DUAL LUMEN 38 CM PICC IN THE RIGHT BASILIC VEIN. KUB X-Ray 07/11/20 00:00 IMPRESSION: No evidence of intestinal obstruction. Unremarkable fecal burden. Chest X-Ray 07/18/20 00:00 IMPRESSION: Interval ETT and NGT placement as above. ETT terminates 1.5 cm above the rachael and could be retracted 1.5 cm. Bibasilar airspace consolidation is again noted with slight worsening on the right. copyright 2011 [employer]- All Rights Reserved All labs, radiographs, diagnostic studies and EKGs were personally reviewed: Yes In addition, reports of radiographic and diagnostic studies were read: Yes Assessment and Plan - Diagnosis (1) Acute respiratory failure with hypoxia Is this a current diagnosis for this admission?: Yes Plan: Please see above for more detailed report. Continue vent settings Frequent pulmonary toileting CXR in a.m. (2) Pneumonia due to COVID-19 virus Is this a current diagnosis for this admission?: Yes Plan: Patient continues to test Covid positive. Bilateral pneumonia is still evident on chest x-ray and he is hypoxemic with a significantly elevated AA gradient. Continue aggressive pulmonary toileting CXR in AM. Critical Time Critical Time (minutes): 62 Level of Care: ICU Anticipated discharge: Acute Rehab Anticipated DC Timeframe: within 72 hours -: 1. The care of a critical patient is a dynamic process. This note is a distribution sales representative synopsis but static in nature. The timeframe for treatments given in order is not necessarily the actual time these treatments may have been done. 2. This patient requires critical care secondary to ongoing requirements for therapy not offered or safe outside the critical care environment. Transfer to a lower level of care will result in altered life or limb morbidity and mortality. 3. Multidisciplinary rounds completed. 4. ABCDE bundle addressed.
[2020-07-19] MEDS ORDERED: AMINO ACIDS 5 %/DEXTROSE 20 % 1,000 ML IV PRN (14:00)
[2020-07-19] MEDS: CEFTRIAXONE 1 GM/D5W RTU 1 GM/50 ML RTUPB IV SCH (14:15)
[2020-07-19] MEDS: VANCOMYCIN HCL 750 MG in DEXTROSE 5%-WATER 250 ML IV SCH ×2 (15:00→16:15)
[2020-07-19 16:49] LABS: HEMATOCRIT 23.7 % (37.9-51.0); MEAN CORPUSCULAR HEMOGLOBIN 29.9 pg (27.0-33.4); MEAN CORPUSCULAR HGB CONC 31.8 g/dL (32.0-36.0); PLATELET COUNT 172 10^3/uL (150-450); RED BLOOD COUNT 2.51 10^6/uL (4.35-5.55); RED CELL DISTRIBUTION WIDTH 15.1 % (11.5-14.0); WHITE BLOOD COUNT 22.4 10^3/uL (4.0-10.5)
[2020-07-19 17:29] LABS: MEAN CORPUSCULAR VOLUME 94 fl (80-97)
[2020-07-19 17:43] LABS: HEMOGLOBIN 7.5 g/dL (13.5-17.0)
[2020-07-19] MEDS: ATORVASTATIN CALCIUM 40 MG TABLET PO SCH (21:56)
[2020-07-19] MEDS ORDERED: RINGERS SOLUTION,LACTATED 1,000 ML IV ONE (22:15)
[2020-07-20] MEDS ORDERED: RINGERS SOLUTION,LACTATED 1,000 ML IV ONE (00:10)
[2020-07-20] MEDS: PROPOFOL 1,000 MG/100 ML INFUS..BTL IV PRN ×3 (00:20→23:21)
[2020-07-20] MEDS: DEXMEDETOMIDINE IN 0.9 % NACL 400 MCG/100 ML RTUPB IV PRN ×2 (04:00→08:40)
[2020-07-20] MEDS: DEXTROSE 5%-WATER 250 ML with NOREPINEPHRINE BITARTRATE 4 MG IV PRN ×8 (04:30→19:27)
[2020-07-20] MEDS: ENOXAPARIN SODIUM INJ 60 MG/0.6 ML DISP.SYRIN SUBCUT SCH ×2 (05:10→17:58)
[2020-07-20] MEDS: VANCOMYCIN HCL 750 MG in DEXTROSE 5%-WATER 250 ML IV SCH ×2 (05:11→17:56)
[2020-07-20] MEDS: ENALAPRILAT DIHYDRATE INJ/PF 1.25 MG/1 ML SDV IV SCH (05:12)
[2020-07-20 06:02] LABS: BLOOD UREA NITROGEN 40 mg/dL (7-20); CALCIUM 7.4 mg/dL (8.4-10.2); GLUCOSE 357 mg/dL (75-110); POTASSIUM 4.3 mmol/L (3.6-5.0)
[2020-07-20 06:05] LABS: ANION GAP 5 (5-19); CARBON DIOXIDE 26 mmol/L (22-30); CHLORIDE 98 mmol/L (98-107)
[2020-07-20 06:18] LABS: C-REACTIVE PROTEIN 161.9 mg/L (<10.0)
[2020-07-20] MEDS: INSULIN REG, HUMAN 100 UNIT/ML 3 ML VIAL (PYX) SUBCUT SCH ×3 (06:54→17:56)
[2020-07-20] MEDS: BUDESONIDE NEB 0.25 MG/2 ML AMPUL NEB SCH ×2 (08:32→20:01)
[2020-07-20] MEDS: ALBUTEROL SULFATE 0.083% NEB 2.5 MG/3 ML AMPUL NEB PRN ×2 (08:32→20:01)
--- NOTE | 2020-07-20 08:50 | PDOC CRITICAL CARE PROG REPORT ---
General Date:: 07/20/20 ICU Day:: 23 Ventilator Day:: 2 Hospital Day:: 38 Resuscitation Status: Full Code Events in the past 12 to 24 Hours:: 07/16/2020: No acute events over the past 24 hours. Good attempts being made to wean the patient's BiPAP support. Unfortunately at this juncture, patient continues to be hypoxemic when inspiratory pressure is decreased. Insulin drip has been discontinued and patient is on regular insulin sliding scale. Blood sugars are still elevated but better controlled. Lexapro is being restarted this morning. 07/17/2020: Patient has not made much progress over the past several days. No significant changes over the past 24 hours. He continues on BiPAP and easily becomes hypoxemic with any decrease in FiO2. 07/18/2020: Patient still continues to be lethargic. We will need to be more awake and alert to participate BiPAP weaning. Nutrition remain via TPN only given his inability to manage his airway safely on BiPAP. 07/19/2020: Patient's white count continued to climb, he remained minimally responsive and his SPO2 decreased significantly. He was therefore intubated ove rnight and placed on mechanical ventilation. Patient's oxygenation has since improved and pulmonary toileting seems to have improved his breathing. 07/20: WBC 22K Cultures still pending. No change in ventilator today. TF at goal. Review of systems relevant to events:: Pulmonary Reason for ICU Addmission:: Intubated for slightly worsening respiratory status on 07/18. - Medications: Medications reviewed and adjusted accordingly: Yes Vasopressors:: Levophed Sedation:: Precedex, diprivan. Physical Exam Vital Signs: Temp Pulse Resp BP Pulse Ox 101.1 F H 73 23 H 105/60 99 07/20/20 05:31 07/19/20 19:37 07/20/20 06:12 07/20/20 06:12 07/20/20 06:12 Pulse Oximeter Continuous Start: 06/12/20 18:32 Freq: RTQ4 Status: Complete Protocol: Document 06/23/20 03:42 CMI (Rec: 06/23/20 04:07 CMI [id number]) Pulse Oximetry Assessment Oxygen Saturation (92-100) 97 Oxygen Delivery Method CPAP Fraction of Inspired Oxygen (FIO2) 100 Equipment Usage Equipment Standby Continuous SpO2 Machine # on nurse monitor Intake & Output 07/19/20 07/20/20 07/21/20 06:59 06:59 06:59 Intake Total 1290 3660 Output Total 1610 1690 Balance -320 1970 Weight 71.7 kg 74.6 kg Weight/Height Weight 74.6 kg Height 5 ft 7 in General appearance: PRESENT: no acute distress Head exam: PRESENT: atraumatic, normocephalic Eye exam: PRESENT: conjunctiva pink, EOMI, PERRLA. ABSENT: scleral icterus Ear exam: PRESENT: normal external ear exam Mouth exam: PRESENT: moist, tongue midline Respiratory exam: PRESENT: clear to auscultation aaron, tachypnea, other - Every so often he seems to get tachypnic with fast rate that comes and goes spontaneously.. ABSENT: rales, rhonchi, wheezes GI/Abdominal exam: PRESENT: normal bowel sounds, soft. ABSENT: distended, guarding, mass, organolmegaly, rebound, tenderness Rectal exam: PRESENT: deferred Gentrourinary exam: PRESENT: indwelling catheter Extremities exam: PRESENT: full ROM. ABSENT: calf tenderness, clubbing, pedal edema Musculoskeletal exam: PRESENT: normal inspection Neurological exam: PRESENT: other - Sedated Skin exam: PRESENT: other - Pressure pathak coresponding to bipap mask. Tubes/Lines: PRESENT: Endotracheal Tube, Nasogastic Tube Laboratory/Radiographs Laboratory Results: 07/19/20 16:10 07/20/20 05:15 07/19/20 07/20/20 16:10 05:15 WBC 22.4 H RBC 2.51 L Hgb 7.5 L Hct 23.7 L MCV 94 D MCH 29.9 MCHC 31.8 L RDW 15.1 H Plt Count 172 Sodium 128.8 L Potassium 4.3 Chloride 98 Carbon Dioxide 26 Anion Gap 5 BUN 40 H Creatinine 0.97 Est GFR ( Amer) > 60 Glucose 357 H Calcium 7.4 L Ferritin 451.00 C-Reactive Protein 161.9 H 06/12/20 06/12/20 06/12/20 16:49 16:49 21:30 Creatine Kinase 119 CK-MB (CK-2) Troponin I 0.046 0.105 NT-Pro-B Natriuret Pep 420 H 06/13/20 06/27/20 06/28/20 06:31 04:39 02:31 Creatine Kinase CK-MB (CK-2) Troponin I 0.087 < 0.012 NT-Pro-B Natriuret Pep 536 H 06/28/20 06/28/20 06/28/20 02:31 02:31 15:37 Creatine Kinase 32 L CK-MB (CK-2) 1.34 Troponin I 0.016 < 0.012 NT-Pro-B Natriuret Pep Impressions: Chest/Abdomen CTA 06/16/20 08:30 IMPRESSION: 1. Extensive bilateral alveolar airspace disease consistent with Covid 19 pneumonia. 2. Limited study for evaluation of pulmonary embolus due to timing of the bolus. Suspect filling defects in the right lower lobe pulmonary artery as discussed. Lower Extremity Ultrasound 06/27/20 00:00 IMPRESSION: No significant stenosis. Venous Doppler Study 06/27/20 00:00 IMPRESSION: NO EVIDENCE OF DVT OR SVT IN EITHER LEG. PICC Line Insertion 07/01/20 00:00 IMPRESSION: SUCCESSFUL PLACEMENT OF A 5 FR DUAL LUMEN 38 CM PICC IN THE RIGHT BASILIC VEIN. KUB X-Ray 07/11/20 00:00 IMPRESSION: No evidence of intestinal obstruction. Unremarkable fecal burden. All labs, radiographs, diagnostic studies and EKGs were personally reviewed: Yes In addition, reports of radiographic and diagnostic studies were read: Yes Assessment and Plan - Diagnosis (1) Acute respiratory failure with hypoxia Is this a current diagnosis for this admission?: Yes Plan: He was intubated for essentially no change and worsening mental status. Cant make significant changes to vent. (2) Hyperglycemia due to type 2 diabetes mellitus Qualifiers: Diabetes mellitus snf insulin use: without long term care phlebotomist use Qualified Code(s): E11.65 - Type 2 diabetes mellitus with hyperglycemia Is this a current diagnosis for this admission?: Yes Plan: BG by lab 357, by accuchecks 110-140. Follow trend. (3) Pneumonia due to COVID-19 virus Is this a current diagnosis for this admission?: Yes Plan: No vap, awaiting cultures. Covid most likely (4) Hyponatremia Is this a current diagnosis for this admission?: Yes Plan: Level 128. TPN stopped. Should come up with TF. Recheck in AM. Plan Summary: Start [employer]. No real changes to vent. Obviously needs ICU still. Critical Time Critical Time (minutes): 35 Level of Care: ICU Anticipated discharge: Home with Homehealth Anticipated DC Timeframe: Other -: 1. The care of a critical patient is a dynamic process. This note is a field representatives director synopsis but static in nature. The timeframe for treatments given in order is not necessarily the actual time these treatments may have been done. 2. This patient requires critical care secondary to ongoing requirements for therapy not offered or safe outside the critical care environment. Transfer to a lower level of care will result in altered life or limb morbidity and mortality. 3. Multidisciplinary rounds completed. 4. ABCDE bundle addressed.
--- NOTE | 2020-07-20 09:37 | RADIOLOGY REPORT (SQ) ---
EXAM DESCRIPTION: CHEST SINGLE VIEW IMAGES COMPLETED DATE/TIME: 07/20/2020 6:41 am REASON FOR STUDY: Respiratory failure COMPARISON: 07/18/2020 EXAM PARAMETERS: NUMBER OF VIEWS: One view. TECHNIQUE: Single frontal radiographic view of the chest acquired. RADIATION DOSE: NA LIMITATIONS: None. FINDINGS: LUNGS AND PLEURA: Stable pulmonary exam demonstrating multifocal airspace opacities. Smal l bilateral pleural effusions. No pneumothorax. MEDIASTINUM AND HILAR STRUCTURES: No masses. Contour normal. HEART AND VASCULAR STRUCTURES: Heart normal in size. Normal vasculature. BONES: No acute findings. HARDWARE: The endotracheal tube has been retracted, terminating approximately 3.8 cm cranial to the c roxi. Stable position and appearance of the endotracheal tube and right upper extremity PICC. OTHER: No other significant finding. IMPRESSION: 1. Stable pulmonary examination. 2. Lines and tubes as above. TECHNICAL DOCUMENTATION: JOB ID: [id number] 2010 [employer]- All Rights Reserved Reading location - IP/workstation name: [email or web address]
[2020-07-20] MEDS ORDERED: ACETAMINOPHEN SOLN 325 MG/10.15 ML UDCUP ONE (09:59)
[2020-07-20] MEDS: DOCUSATE SODIUM 100 MG CAPSULE PO SCH (10:17)
[2020-07-20] MEDS: DEXAMETHASONE SOD PHOSPHATE INJ 4 MG/1 ML VIAL IV SCH (10:17)
[2020-07-20] MEDS: CEFTRIAXONE 1 GM/D5W RTU 1 GM/50 ML RTUPB IV SCH (10:18)
[2020-07-20] MEDS: AMINO AC/PROTEIN HYDR/WHEY PRO 11 GM/45 ML PKT NG SCH (10:18)
[2020-07-20] MEDS: NORMAL SALINE 10 ML SDV (SCHEDULED) IV SCH ×2 (10:18→22:20)
[2020-07-20] MEDS ORDERED: INSULIN GLARGINE,HUM.REC.ANLOG 1,000 UNIT/10 ML VIAL SUBCUT SCH (11:00)
[2020-07-20] MEDS: INSULIN GLARGINE,HUM.REC.ANLOG 1,000 UNIT/10 ML VIAL SUBCUT SCH ×2 (12:54→23:00)
[2020-07-20] MEDS: PANTOPRAZOLE SODIUM 40 MG VIAL IV SCH (14:32)
[2020-07-20] MEDS ORDERED: ACETAMINOPHEN SUSP 160 MG/5 ML ORAL SYRING NG PRN (16:45)
[2020-07-20] MEDS: DOCUSATE SODIUM 100 MG/10 ML UDC PO SCH (17:55)
[2020-07-20 18:32] LABS: VANCOMYCIN,TROUGH 12.7 ug/mL (5.0-20.0)
[2020-07-20] MEDS: ATORVASTATIN CALCIUM 40 MG TABLET PO SCH (22:20)
[2020-07-21] MEDS: INSULIN REG, HUMAN 100 UNIT/ML 3 ML VIAL (PYX) SUBCUT SCH ×4 (00:20→17:44)
[2020-07-21] MEDS: DEXTROSE 5%-WATER 250 ML with NOREPINEPHRINE BITARTRATE 4 MG IV PRN ×6 (01:17→22:44)
[2020-07-21] MEDS: VANCOMYCIN HCL 750 MG in DEXTROSE 5%-WATER 250 ML IV SCH ×2 (05:26→18:22)
[2020-07-21] MEDS: ENOXAPARIN SODIUM INJ 60 MG/0.6 ML DISP.SYRIN SUBCUT SCH ×2 (06:02→17:47)
[2020-07-21] MEDS: PROPOFOL 1,000 MG/100 ML INFUS..BTL IV PRN ×4 (06:03→18:21)
[2020-07-21 06:21] LABS: HEMATOCRIT 24.8 % (37.9-51.0); HEMOGLOBIN 8.4 g/dL (13.5-17.0); MEAN CORPUSCULAR HEMOGLOBIN 30.4 pg (27.0-33.4); MEAN CORPUSCULAR HGB CONC 33.7 g/dL (32.0-36.0); PLATELET COUNT 137 10^3/uL (150-450); RED BLOOD COUNT 2.75 10^6/uL (4.35-5.55); RED CELL DISTRIBUTION WIDTH 15.5 % (11.5-14.0); WHITE BLOOD COUNT 19.2 10^3/uL (4.0-10.5)
[2020-07-21 06:36] LABS: MEAN CORPUSCULAR VOLUME 90 fl (80-97)
[2020-07-21 06:43] LABS: BLOOD UREA NITROGEN 55 mg/dL (7-20); CALCIUM 7.5 mg/dL (8.4-10.2); CARBON DIOXIDE 29 mmol/L (22-30); CHLORIDE 100 mmol/L (98-107); GLUCOSE 356 mg/dL (75-110)
[2020-07-21 06:46] LABS: ANION GAP 5 (5-19)
[2020-07-21 07:04] LABS: ABSOLUTE LYMPHOCYTES# (MANUAL) 1.3 10^3/uL (0.5-4.7); ABSOLUTE MONOCYTES # (MANUAL) 0.2 10^3/uL (0.1-1.4); BAND NEUTROPHILS % (MANUAL) 7 % (3-5); BASOPHILS % (MANUAL) 0 % (0-2); EOSINOPHILS % (MANUAL) 1 % (0-6); LYMPHOCYTES % (MANUAL) 7 % (13-45); MONOCYTES % (MANUAL) 1 % (3-13); SEGMENTED NEUTROPHILS % (MAN) 84 % (42-78); TOTAL CELLS COUNTED 100
[2020-07-21 07:05] LABS: ANISOCYTOSIS 1+; PLATELET COMMENT ADEQUATE; POLYCHROMASIA 1+
[2020-07-21] MEDS: ALBUTEROL SULFATE 0.083% NEB 2.5 MG/3 ML AMPUL NEB PRN ×2 (08:21→19:38)
[2020-07-21] MEDS: BUDESONIDE NEB 0.25 MG/2 ML AMPUL NEB SCH ×2 (08:21→19:38)
--- NOTE | 2020-07-21 09:04 | PDOC CRITICAL CARE PROG REPORT ---
General Date:: 07/21/20 ICU Day:: 24 Ventilator Day:: 3 Hospital Day:: 39 Resuscitation Status: Full Code Events in the past 12 to 24 Hours:: 07/16/2020: No acute events over the past 24 hours. Good attempts being made to wean the patient's BiPAP support. Unfortunately at this juncture, patient continues to be hypoxemic when inspiratory pressure is decreased. Insulin drip has been discontinued and patient is on regular insulin sliding scale. Blood sugars are still elevated but better controlled. Lexapro is being restarted this morning. 07/17/2020: Patient has not made much progress over the past several days. No significant changes over the past 24 hours. He continues on BiPAP and easily becomes hypoxemic with any decrease in FiO2. 07/18/2020: Patient still continues to be lethargic. We will need to be more awake and alert to participate BiPAP weaning. Nutrition remain via TPN only given his inability to manage his airway safely on BiPAP. 07/19/2020: Patient's white count continued to climb, he remained minimally responsive and his SPO2 decreased significantly. He was therefore intubated ove rnight and placed on mechanical ventilation. Patient's oxygenation has since improved and pulmonary toileting seems to have improved his breathing. 07/20: WBC 22K Cultures still pending. No change in ventilator today. TF at goal. 07/21: Tolerating TF.No changes to vent. Review of systems relevant to events:: Pulmonary Reason for ICU Addmission:: Intubated for slightly worsening respiratory status on 07/18. - Medications: Medications reviewed and adjusted accordingly: Yes Vasopressors:: Levophed Sedation:: Diprivan. Physical Exam Vital Signs: Temp Pulse Resp BP Pulse Ox 97.2 F 107 H 30 H 109/69 92 07/21/20 08:00 07/20/20 20:01 07/21/20 08:00 07/21/20 07:55 07/21/20 08:00 Pulse Oximeter Continuous Start: 06/12/20 18:32 Freq: RTQ4 Status: Complete Protocol: Document 06/23/20 03:42 CMI (Rec: 06/23/20 04:07 CMI [id number]) Pulse Oximetry Assessment Oxygen Saturation (92-100) 97 Oxygen Delivery Method CPAP Fraction of Inspired Oxygen (FIO2) 100 Equipment Usage Equipment Standby Continuous SpO2 Machine # on nurse monitor Intake & Output 07/20/20 07/21/20 07/22/20 06:59 06:59 06:59 Intake Total 3660 3125 218 Output Total 1696 8945 40 Balance 1970 340 178 Weight 74.6 kg 77.4 kg Weight/Height Weight 77.4 kg Height 5 ft 7 in General appearance: PRESENT: no acute distress Head exam: PRESENT: other - Bipap pressure sores on nose bridge and forehead. Dry and healing Eye exam: PRESENT: conjunctiva pink, EOMI, PERRLA. ABSENT: scleral icterus Ear exam: PRESENT: normal external ear exam Mouth exam: PRESENT: moist, tongue midline Respiratory exam: PRESENT: clear to auscultation aaron, rhonchi - Mild. ABSENT: rales, wheezes Cardiovascular exam: PRESENT: RRR, tachycardia. ABSENT: diastolic murmur, rubs, systolic murmur GI/Abdominal exam: PRESENT: normal bowel sounds, soft. ABSENT: distended, guarding, mass, organolmegaly, rebound, tenderness Rectal exam: PRESENT: deferred Gentrourinary exam: PRESENT: indwelling catheter Extremities exam: PRESENT: full ROM. ABSENT: calf tenderness, clubbing, pedal edema Musculoskeletal exam: PRESENT: normal inspection Skin exam: PRESENT: other - Facial pressure ulcers as noted. Tubes/Lines: PRESENT: Endotracheal Tube, Central Line, Nasogastic Tube Laboratory/Radiographs Laboratory Results: 07/21/20 05:10 07/21/20 05:10 07/21/20 07/21/20 05:10 05:10 WBC 19.2 H RBC 2.75 L Hgb 8.4 L Hct 24.8 L MCV 90 D MCH 30.4 MCHC 33.7 RDW 15.5 H Plt Count 137 L Seg Neutrophils % Not Reportable Sodium 133.3 L Potassium 5.0 Chloride 100 Carbon Dioxide 29 Anion Gap 5 BUN 55 H Creatinine 1.26 H Est GFR ( Amer) > 60 Glucose 356 H Calcium 7.5 L 06/12/20 06/12/20 06/12/20 16:49 16:49 21:30 Creatine Kinase 119 CK-MB (CK-2) Troponin I 0.046 0.105 NT-Pro-B Natriuret Pep 420 H 06/13/20 06/27/20 06/28/20 06:31 04:39 02:31 Creatine Kinase CK-MB (CK-2) Troponin I 0.087 < 0.012 NT-Pro-B Natriuret Pep 536 H 06/28/20 06/28/20 06/28/20 02:31 02:31 15:37 Creatine Kinase 32 L CK-MB (CK-2) 1.34 Troponin I 0.016 < 0.012 NT-Pro-B Natriuret Pep Impressions: Chest/Abdomen CTA 06/16/20 08:30 IMPRESSION: 1. Extensive bilateral alveolar airspace disease consistent with Covid 19 pneumonia. 2. Limited study for evaluation of pulmonary embolus due to timing of the franc us. Suspect filling defects in the right lower lobe pulmonary artery as discussed. Lower Extremity Ultrasound 06/27/20 00:00 IMPRESSION: No significant stenosis. Venous Doppler Study 06/27/20 00:00 IMPRESSION: NO EVIDENCE OF DVT OR SVT IN EITHER LEG. PICC Line Insertion 07/01/20 00:00 IMPRESSION: SUCCESSFUL PLACEMENT OF A 5 FR DUAL LUMEN 38 CM PICC IN THE RIGHT BASILIC VEIN. KUB X-Ray 07/11/20 00:00 IMPRESSION: No evidence of intestinal obstruction. Unremarkable fecal burden. Chest X-Ray 07/20/20 06:00 IMPRESSION: 1. Stable pulmonary examination. 2. Lines and tubes as above. All labs, radiographs, diagnostic studies and EKGs were personally reviewed: Yes In addition, reports of radiographic and diagnostic studies were read: Yes Assessment and Plan - Diagnosis (1) Acute respiratory failure with hypoxia Is this a current diagnosis for this admission?: Yes Plan: Still on 100% and O2 saturations only at 92%. Not much room to make meaningful changes. (2) Hyperglycemia due to type 2 diabetes mellitus Qualifiers: Diabetes mellitus residential insulin use: without intermediate teacher use Qualified Code(s): E11.65 - Type 2 diabetes mellitus with hyperglycemia Is this a current diagnosis for this admission?: Yes Plan: BG back up over 400. Needs more lantus. (3) Pneumonia due to COVID-19 virus Is this a current diagnosis for this admission?: Yes Plan: As above. (4) Hyponatremia Is this a current diagnosis for this admission?: Yes Plan: Improved to 133. Plan Summary: Keep treatment as is. No room for vent weaning Critical Time Critical Time (minutes): 35 Level of Care: ICU Anticipated discharge: Home Anticipated DC Timeframe: Other -: 1. The care of a critical patient is a dynamic process. This note is a provider relations representative synopsis but static in nature. The timeframe for treatments given in order is not necessarily the actual time these treatments may have been done. 2. This patient requires critical care secondary to ongoing requirements for therapy not offered or safe outside the critical care environment. Transfer to a lower level of care will result in altered life or limb morbidity and mortality. 3. Multidisciplinary rounds completed. 4. ABCDE bundle addressed.
[2020-07-21] MEDS ORDERED: FAT EMULSIONS 250 ML IV SCH (10:00)
[2020-07-21] MEDS: AMINO AC/PROTEIN HYDR/WHEY PRO 11 GM/45 ML PKT NG SCH (10:52)
[2020-07-21] MEDS: DEXAMETHASONE SOD PHOSPHATE INJ 4 MG/1 ML VIAL IV SCH (10:52)
[2020-07-21] MEDS: CEFTRIAXONE 1 GM/D5W RTU 1 GM/50 ML RTUPB IV SCH (10:53)
[2020-07-21] MEDS: DOCUSATE SODIUM 100 MG/10 ML UDC PO SCH ×2 (10:53→17:52)
[2020-07-21] MEDS: NORMAL SALINE 10 ML SDV (SCHEDULED) IV SCH ×2 (10:53→21:41)
[2020-07-21] MEDS: INSULIN GLARGINE,HUM.REC.ANLOG 1,000 UNIT/10 ML VIAL SUBCUT SCH ×2 (10:54→21:49)
[2020-07-21] MEDS: PANTOPRAZOLE SODIUM 40 MG VIAL IV SCH (11:10)
[2020-07-21] MEDS: ATORVASTATIN CALCIUM 40 MG TABLET PO SCH (21:40)
[2020-07-22] MEDS: INSULIN REG, HUMAN 100 UNIT/ML 3 ML VIAL (PYX) SUBCUT SCH ×2 (00:41→06:12)
[2020-07-22] MEDS: PROPOFOL 1,000 MG/100 ML INFUS..BTL IV PRN ×2 (00:45→06:01)
[2020-07-22] MEDS: DEXTROSE 5%-WATER 250 ML with NOREPINEPHRINE BITARTRATE 4 MG IV PRN ×2 (05:00)
[2020-07-22 05:23] LABS: ANION GAP 8 (5-19); BLOOD UREA NITROGEN 63 mg/dL (7-20); CALCIUM 7.3 mg/dL (8.4-10.2); CARBON DIOXIDE 27 mmol/L (22-30); CHLORIDE 98 mmol/L (98-107); GLUCOSE 253 mg/dL (75-110); POTASSIUM 5.3 mmol/L (3.6-5.0)
[2020-07-22 05:44] LABS: C-REACTIVE PROTEIN 167.2 mg/L (<10.0)
[2020-07-22] MEDS: ENOXAPARIN SODIUM INJ 60 MG/0.6 ML DISP.SYRIN SUBCUT SCH (06:42)
[2020-07-22] MEDS: VANCOMYCIN HCL 750 MG in DEXTROSE 5%-WATER 250 ML IV SCH (06:53)
[2020-07-22] MEDS: BUDESONIDE NEB 0.25 MG/2 ML AMPUL NEB SCH ×2 (08:20→20:39)
[2020-07-22] MEDS: ALBUTEROL SULFATE 0.083% NEB 2.5 MG/3 ML AMPUL NEB PRN (08:20)
[2020-07-22] MEDS: AMINO AC/PROTEIN HYDR/WHEY PRO 11 GM/45 ML PKT NG SCH (10:02)
[2020-07-22] MEDS: DEXAMETHASONE SOD PHOSPHATE INJ 4 MG/1 ML VIAL IV SCH (10:02)
[2020-07-22] MEDS: DOCUSATE SODIUM 100 MG/10 ML UDC PO SCH (10:02)
[2020-07-22] MEDS: INSULIN GLARGINE,HUM.REC.ANLOG 1,000 UNIT/10 ML VIAL SUBCUT SCH (10:03)
[2020-07-22] MEDS: NORMAL SALINE 10 ML SDV (SCHEDULED) IV SCH (10:05)
[2020-07-22] MEDS: CEFTRIAXONE 1 GM/D5W RTU 1 GM/50 ML RTUPB IV SCH (10:07)
[2020-07-22] MEDS ORDERED: INSULIN GLARGINE,HUM.REC.ANLOG 1,000 UNIT/10 ML VIAL (PYX) SUBCUT ONE (13:00)
[2020-07-22] MEDS ORDERED: VASOPRESSIN INJ 20 UNIT/1 ML VIAL ONE (13:42)
[2020-07-22 14:05] VITALS: BP 86/12
--- NOTE | 2020-07-22 15:24 | Death Summary ---
Summary Date : 07/22/20 Time of :: 14:00 Autopsy: No Resuscitation Status: Full Code - Final Diagnosis (1) Acute respiratory failure with hypoxia Is this a current diagnosis for this admission?: Yes (2) Hyperglycemia due to type 2 diabetes mellitus Is this a current diagnosis for this admission?: Yes (3) Pneumonia due to COVID-19 virus Is this a current diagnosis for this admission?: Yes (4) Hyponatremia Is this a current diagnosis for this admission?: Yes Hospital Course:: This patient lives in [place], [place]. He was here on a business trip when he took ill with COVID PNA. He was maintained o bipap until he became agitated and hypoxic and was moved to the ICU where we held off on intubation for as long as possible but he got intubated on 07/18 for worsening hypoxia and obtundation. He never really rallied or worsened. however on the early afternoon of 07/22 he had an episode of hypoxia even on 100% and suffered a PEA arrest. ACLS protocol was followed for 30 minutes but we never regained ROSC and pt was declared at 1400 PM on 07/22/20. notified.
== END 2020-07-22 14:00 | DRG 208 ==
LOC: ER 16:35 → EH 17:29 → 3W 06-13 05:42 → 3N 06-13 15:56 → ICU 06-27 04:51 → 3N 06-27 23:20 → ICU 06-28 15:46
PROVIDERS: ADMIT Internal Medicine Critical Care Medicine; ATTEND Internal Medicine Critical Care Medicine
PROC: 5A09557 Assistance with Respiratory Ventilation, Greater than 96 Consecutive Hours, Continuous Positive Airway Pressure (ICD-10-PCS; 2020-06-12)
PROC: XW13325 Transfusion of Convalescent Plasma (Nonautologous) into Peripheral Vein, Percutaneous Approach, New Technology Group 5 (ICD-10-PCS; 2020-06-14)
PROC: XW033E5 Introduction of Remdesivir Anti-infective into Peripheral Vein, Percutaneous Approach, New Technology Group 5 (ICD-10-PCS; 2020-06-15)
PROC: 02HV33Z Insertion of Infusion Device into Superior Vena Cava, Percutaneous Approach (ICD-10-PCS; 2020-07-01)
PROC: 3E0436Z Introduction of Nutritional Substance into Central Vein, Percutaneous Approach (ICD-10-PCS; 2020-07-03)
PROC: 5A1945Z Respiratory Ventilation, 24-96 Consecutive Hours (ICD-10-PCS; principal; 2020-07-18)
PROC: 0BH17EZ Insertion of Endotracheal Airway into Trachea, Via Natural or Artificial Opening (ICD-10-PCS; 2020-07-18)
DX: U07.1 COVID-19 (principal); J12.89 Other viral pneumonia; J96.01 Acute respiratory failure with hypoxia; I26.99 Other pulmonary embolism without acute cor pulmonale; E43 Unspecified severe protein-calorie malnutrition; I69.354 Hemiplegia and hemiparesis following cerebral infarction affecting left non-dominant side; N39.0 Urinary tract infection, site not specified; E87.1 Hypo-osmolality and hyponatremia; I50.30 Unspecified diastolic (congestive) heart failure; E87.5 Hyperkalemia; E11.65 Type 2 diabetes mellitus with hyperglycemia; D69.6 Thrombocytopenia, unspecified; I11.0 Hypertensive heart disease with heart failure; Z79.01 Long term (current) use of anticoagulants; Z79.02 Long term (current) use of antithrombotics/antiplatelets; E78.5 Hyperlipidemia, unspecified; Z79.82 Long term (current) use of aspirin; Z82.49 Family history of ischemic heart disease and other diseases of the circulatory system; Z83.3 Family history of diabetes mellitus; R77.8 Other specified abnormalities of plasma proteins; Z79.84 Long term (current) use of oral hypoglycemic drugs; E66.9 Obesity, unspecified; Z78.1 Physical restraint status
CPT/HCPCS: 31500; 36415; 36430; 36573; 36600; 71045; 71275; 74018; 80048; 80053; 80202; 81001; 82040; 82533; 82550; 82553; 82565; 82728; 82803; 82947; 82962; 83615; 83735; 83880; 84100; 84134; 84478; 84484; 85025; 85027; 85379; 85384; 85610; 85730; 86022; 86140; 86850; 86900; 86901; 87040; 87070; 87077; 87086; 87088; 87150; 87186; 87205; 87635; 87804; 87880; 93005; 93010; 93925; 93970; 94002; 94003; 94640; 94660; 94762; 99285; 99291; C9113; C9803; J0131; J0282; J0295; J0456; J0696; J0883; J1100; J1642; J1644; J1650; J1815; J1885; J1940; J2060; J2270; J2405; J2543; J2704; J2920; J2930; J3370; J3480; J3490; J7030; J7040; J7042; J7050; J7060; J7120; J7613; P9047; S0028